=== PATIENT | female | born 1965 | race Caucasian/White ===

== ENCOUNTER 2024-07-05 23:04 | Outpatient (CLI) | payer OTHER, SELFPAY | END 2024-07-05 23:05 | disposition home or self-care (01) | LOC: AMB 07-07 12:03 | PROVIDERS: PCP Family Medicine; Visit Provider Family Medicine | DX: R19.7 Diarrhea, unspecified (principal); R42 Dizziness and giddiness; R53.1 Weakness | CPT/HCPCS: A0425; A0427 ==

== ENCOUNTER 2024-07-05 23:58 | Emergency (ER) | payer OTHER, SELFPAY ==
--- OUTSIDE RECORDS SUMMARY | 2024-07-06 00:01 | XMS_ITS | Encounter Summary ---
Author Organization [facility] Address [address] [place] [id number] Care Team Providers Care Directory Clerk Name Role Phone Litzy Cox M.D. Primary Care Provider [phone] Reason for Visit * Auth/Cert (Routine) Specialty Diagnoses / Procedures Referred By Ana t Referred To Contact Diagnoses Pain Sacroiliac Pain Sacroiliac [M53.3] Procedures SD ARTHRDSIS SACROILIAC PERC SACROILIAC JOINT FUSION Bilateral Diaz Narayanan M.D. [address] [place] [phone] Phone: tel: fax: Referral ID Status Reason Start Date Expiration Date Visits Re quested Visits Authorized [id number] 1 1 Encounter Details Date Type Department Care Team (Late st Contact Info) Description 06/24/2024 12:59 PM CDT Anesthesia Event RST ROMB MAIN OR [address] [place] [phone] Genet Centeno M.D. [address] [place] [phone] Anesthesia Record Procedure Summary Procedure Name Responsible Anesthesiologist Anesthesia Start Time Anesthesia Stop Time SACROILIAC JOINT FUSION, Bilateral. Revision Posterior Spinal Fusion L5 - Pelvis (Bilateral) Genet Centeno M.D. 06/24/24 1259 06/24/24 1832 Events Date Time Event Comment 06/24/2024 1231 1259 An Start Machine/Equipme nt Checked Infection Precautions Followed Procedure/Site Verified NPO Status Verified Supine Standard ASA Monitors Applied 1308 An Induction 1312 An Intubation 1312 Turnover to Proceduralist 1317 Becky On 1345 Proc Start 1631 Anes CS Handoff I, Javier Alamo, attest that I have reconciled the controlled substances and that I have reviewed all the significant information with the next anesthesia provider assuming care of this patient. 1708 Anes CS Handoff I, Gigi ochoa APRN, TRAFFIC CONTROLLER CABLE, DNAP, attest that I have reconciled the controlled substances and that I have reviewed all the significant information with the next anesthesia provider assuming care of this patient. 1754 Proc Fin 1809 Becky Off 1813 Turnover to ANE Staff 1818 Airway Removal Criteria Met 1818 Extubation/Airway Removed 1818 an stop data 1832 An End I completed my handoff to the receiving staff during which we 1. Identified the patient 2. Identified the responsible provider 3. Reviewed the pertinent medical history 4. Discussed the surgical course 5. Reviewed intra-op anesthesia management and issues during anesthesia 6. Set expectations for post-procedure period 7. Allowed opportunity for questions and acknowledgement of understanding. Meds Name Total fentanyl injection 50 mcg/mL 100 mcg lidocaine 2% (mg) injection 80 mg succinylcholine 20 mg/mL injection 140 m g phenylephrine 100 mcg/mL injection 600 m cg ondansetron 4 mg/2 mL injection 4 mg propofol 10 mg/mL infusion 2,647.8 mg propofol 10 mg/mL injection 230 mg dexAMETHasone (Decadron) injection 4 mg/ mL 4 mg ceFAZolin (Ancef) injection 1 g/5 mL 4 g tranexamic acid 2,500 mg in NaCl 0.9% IV PB 2,500 mg tranexamic acid 8 mg/mL in NaCl 0.9% 250 mL infusion (Cyklokapron) 2,150 mg ketamine 10 mg/mL injection 40 mg HYDROmorphone (Dilaudid) PF injection 2 mg/mL 1 mg rocuronium (Zemuron) injection 50 mg/5 m L 60 mg phenylephrine infusion 80 mcg/mL in NaCl 0.9% 250 mL (premix/CNR) 7.2 mg albumin human injection 5% 250 mL haloperidoL (HaldoL) injection 5 mg/mL 1 mg sugammadex (Bridion) injection 100 mg/mL 300 mg Lactated Ringers Free Drip 1,500 mL * Agents No agents on file. * Blood No blood administrations on file. Lines, Drains, and Airways Type Details Placement Removal Wound 09/25/22; 924; N; Incision; Throat 09/25/22 0925 by Deloris Zuniga RJason Wound 06/24/24; 1412; N; Incision; Back; Lower, Medial 06/24/24 1412 by Jyoti Johnston RSundayNSunday Peripheral IV Placement Date: 03/06 03/29; Placement Time: 1256; Catheter Size: 20 G; Orientation: Anterior, Left, Lower, Proximal; Location: Arm; Site Prep: Alcohol; Technique: Anatomical landmarks; Inserted by: TATYANA CARRILLO; Insertion Attempts: 1; Removal Date: 06/24/24; Removal Time: 185 (removed in previous encounter...removed from chart 06/24) 03/25/24 1256 by Ernst Nieves I. RJason 06/24/24 1859 by Dilia Valencia, RSundayNSunday Peripheral IV Placement Date: 06/04 04/29; Placement Time: 1226; Catheter Size: 20 G; Orientation: Right; Location: Arm; Site Prep: Chlorhexidine (Preferred); Technique: Anatomical landmarks; Inserted by: FERNANDO; Insertion Attempts: 1; Removal Date: 06/26/24; Removal Time: 1207; Removal Reason: Patient discharged 06/24/24 1226 by Sherrell Carpio 06/26/24 1207 by Rosana Mckay ETT Placement Date: 06/04 04/29; Placement Time: 1312 (created via procedure documentation); Mask Ventilation: Not attempted; Technique: Video laryngoscopy; Type: Standard ETT; Single Lumen Tube Size: 7 mm; Cuffed: Yes; Location: Oral; Grade View: Grade 1; Insertion Attempts: 1; Placement Verification: Bilateral breath sounds, Positive ETCO2, Symmetrical chest wall movement; Removal Date: 06/24/24; Removal Time: 181706/24/24 1312 by Jai Bryant M.D. 06/24/24 1818 by Gigi Holloway APRN, CRNA, DNAP Indwelling Urinary Catheter Placement Date: 06/24/24; Placement Time: 1320; Inserted by: Jyoti Johnston RN; Size: 16 Fr.; Balloon Size: 5 mL (filled with 10ml); Urine Returned: Yes; Removal Date: 06/24/24; Removal Time: 180; Removal Reason: Criteria for drain removal met 06/24/24 1320 by Jyoti Johnston, RSundayNSunday 06/24/24 180 by Bebe Claire M.S.NSunday, R.N. Closed/Suction Drain 06/24/24; 1715; Inf erior, Left; Back; Accordion; 10 Fr.; Per order, Other (Comment) (pt discharging); TATYANA Johnson 06/24/24 171 by Bebe Claire M.S.NSunday, R.N. 06/26/24 1312 by Elizabeth Roberson RSundayNSunday documented in this encounter Social History Tobacco Use Types Packs/Day Years Used Date Smoking Tobacco: Never Smokeless Tobacco: Never Alcohol Use Standard Drinks/Week Comments Never 0 (1 standard drink = 0.6 oz pur e alcohol) [facility] Utilities Answer Date Recorded In the past 12 months has [facility] [employer], gas, oil, or water [employer] threatened to shut off services in your home? No 07/16/2023 Humiliation, Afraid, Rape, and Kick questionnair e Answer Date Recorded Within the last year, have y ou been afraid of your partner or ex-partner? No 08/02/2022 Within the last year, have y ou been humiliated or emotionally abused in other ways by your partner or ex-partner? No Within the last year, have y ou been kicked, hit, slapped, or otherwise physically hurt by your partner or ex-partner? No 08/02/2022 Within the last year, have y ou been raped or forced to have any kind of sexual activity by your partner or ex-partner? No 08/02/2022 Social Connection and Isolat ion Panel [NHANES] Answer Date Recorded In a typical week, how many times do you talk on the phone with family, friends, or neighbors? More than three times a week 06/19/2022 How often do you get togethe r with friends or relatives? Once a week 06/19/2022 How often do you attend chur ch or baptism services? Never 06/19/2022 Do you belong to any clubs o r organizations such as temple groups, unions, fraternal or athletic groups, or school groups? No 06/19/2022 How often do you attend meet ings of the clubs or organizations you belong to? Never 06/19/2022 Are you , , di vorced, , never , or living with a partner? 06/19/2022 AUDIT-C Answer Date Recorded Q1: How often do you have a drink containing alc ohol? Never 06/19/2022 Average Number of Drinks Not on file 023 Frequency of Binge Drinking Not on file 06/03 Overall Financial Resource Strain (CARDIA) Answe r Date Recorded How hard is it for you to pa y for the very basics like food, housing, medical care, and heating? Not hard at all 08/02/2022 PHQ-2 Answer Date Recorded PHQ-2 Score 2 04/18/2024 [facility] - Occupational Stress Questionnaire Answer Date Recorded Do you feel stress - tense, restless, nervous, or anxious, or unable to sleep at night because your mind is troubled all the time - these days? To some extent 06/19/2022 Exercise Vital Sign Answer Date Recorde d On average, how many days pe r week do you engage in moderate to strenuous exercise (like a brisk walk)? 2 days 07/16/2023 On average, how many minutes do you engage in exercise at this level? 10 min 07/16/2023 Hunger Vital Sign Answer Date Recorded Within the past 12 months, y ou worried that your food would run out before you got the money to buy more. Never true 07/16/19 24 Within the past 12 months, t he food you bought just didn't last and you didn't have money to get more. Never true 07/16/2023 PRAPARE - Transportation Answer Date Re corded In the past 12 months, has l ack of transportation kept you from medical appointments or from getting medications? No 07/03 In the past 12 months, has l ack of transportation kept you from meetings, work, or from getting things needed for daily living? No 07/16/2023 Depression Answer Date Recor ded PHQ-9 Total Score (max 27) 7 04/18 Nutrition Answer Date Recorded On average, how many serving s of fruits and vegetables do you eat per day (serving size is equal to 1 cup or approximately the size of a tennis ball)? 3-5 07/16/2023 Dental Answer Date Recorded Dental: Regular Dentist Yes 04/22/19 Employment Answer Date Recorded Employment status Employed and actively working without restrictions 07/16/2023 Housing Stability Answer Date Recorded What is your living situation today? I have a [facility] place to live 07/16/2023 Education Answer Date Recorded What is the highest level of school you have completed or the highest degree you have received? Associate degree: occupational, technical, or vocational program 04/10/2020 Comments No Sex and Gender Information Value Date Recorded Sex Assigned at Female 11/27/2021 8:14 PM CDT Legal Sex Female 2:16 PM DEVELOPER DESIGNER Gender Identity Female 03/30/2019 8:45 PM DEVELOPER DESIGNER Sexual Orientation Straight 03/30/2019 8: 45 PM DEVELOPER DESIGNER documented as of this encounter OR Notes * Anesthesia Postprocedure Evaluation - Genet Centeno M.D. - 06/26/2024 1:16 PM CDT Patient: Carolann Lema Procedure Summary Date: 06/24/24 Room / Location: [address] 01 [facility] / [facility] in [place], [place] Anesthesia Start: 1259 Anesthesia Stop: 1831 Procedure: SACROILIAC JOINT FUSION, Bilateral. Revision Posterior Spinal Fusion L5 - Pelvis (Bilateral) Diagnosis: Pain Sacroiliac (Pain Sacroiliac [M53.3].) Providers: Diaz Narayanan M.D. Responsible Provider: Genet Centeno M.D. Anesthesia Type: general ASA Status: 3 Anesthesia Type: general Last vitals Vitals Value Taken Time BP 95/65 06/24/24 19:30 Temp 36.9 ??C 06/24/24 18:24 Pulse 91 06/24/24 19:40 Resp 8 06/24/24 19:40 SpO2 96 % 06/24/24 19:40 Vitals shown include unfiled device data. Please reference Vitals flowsheet for most recent vital signs. Anesthesia Post Evaluation Patient Disposition: general care unit Cardiovascular status: hemodynamics (HR & BP) acceptable Respiratory status: patent airway with spontaneous effort Temperature: normothermic Notable Events No notable events documented. * Anesthesia Procedure Notes - Jai Bryant M.D. - 06/24/2024 1:47 PM CDT Associated Order(s): Airway Airway Date/Time: 06/24/2024 1:12 PM Performed by: Jai Bryant M.D. Authorized by: Genet Centeno M.D. Patient location during procedure: OR / Procedure Area PROCEDURE DETAILS: Mask difficulty assessment: not attempted Final airway type: video laryngoscope Laryngeal Manipulation: no Final best view of glottic structures - Cormack/Lehane Score: grade 1 ETT location: oral VL device: glide scope Sycamore scope blade size: 3 Tube size: 7 ETT distance at teeth/gum: 22 Oral tube type: standard ETT Cuffed: yes Number of attempt to successful placement: 1 Airway confirmation: bilateral breath sounds, positive ETCO2 and bilateral chest rise Other previous techniques attempted: none PRE PROCEDURE DETAILS: Pre evaluation for airway management: procedure Urgency: elective Preop assessment of probable difficulty: no difficulty anticipated Preoxygenation: bag valve mask SEDATION / ANESTHESIA Anesthesia method: anesthesia POST PROCEDURE DETAILS: Procedure outcome: successful Notable Events: no complications ATTESTATION STATEMENT A resident or fellow participated in the procedure, and the nursing consultant was present for the entire procedure. * Anesthesia Preprocedure Evaluation - Genet Centeno M.D. - 06/24/2024 12:30 PM CDT Preprocedure Anesthesia & H&P Assessment Procedure Summary Date/Time: 06/24/24 1154 Procedure: SACROILIAC JOINT FUSION, Bilateral. (Bilateral) Diagnosis: Pain Sacroiliac [M53.3] Pre-op diagnosis: Pain Sacroiliac [M53.3]. Location: [place] [address] / [facility] in [place], [place] Providers: Diaz Narayanan M.D. Pertinent components of the patient's history including current problem list, medical history, surgical history, family history, social history, medications and allergies were reviewed. Present illness and pre-op diagnosis were confirmed. The planned surgery / procedure was verified with the patient / legal guardian. The patient's general health condition remains unchanged RELEVANT COMORBID CONDITIONS ANESTHESIA (+) Post Operative Nausea/Vomiting CV (+) Hypertensive Chronic Kidney Disease With Stage 1 Through Stage 4 Chronic Kidney Disease, Or Unspecified Chronic Kidney Disease (+) Ventricular Premature Depolarization RENAL/REPRO (+) Hypertensive Chronic Kidney Disease With Stage 1 Through Stage 4 Chronic Kidney Disease, Or Unspecified Chronic Kidney Disease ENDO (+) Hypothyroidism PSYCH (+) Depression Major Recurrent Moderate (HCC) GI (+) Gastroesophageal Reflux Disease Other (+) Morbid Obesity Body Mass Index >= 35 with Comorbid Condition (HCC) OBJECTIVE PHYSICAL EXAMINATION Airway (HEENT) Mallampati: II TM Distance: >3 FB Neck ROM: Limited Mouth Opening: >3 cm Cardiovascular Rhythm: Regular Rate: Normal Pulmonary Pulmonary Assessment: Non labored General / Constitutional Constitutional Assessment: Overweight General State of Health:: calm Neurological Neurologic Assessment: alert and alert and oriented x 3 Dental Dental Assessment: dentition intact ASSESSMENT / PLAN ANESTHESIA PLAN ASA: 3 Anesthesia Plan: general Patient seen and allergies reviewed, anesthesia plan and risks discussed directly with patient /legal guardian or through an freelance interpreter/translator. Risks/Benefits/Alternatives of Blood transfusion discussed with patient / legal guardian, includingan opportunity to ask questions and/or decline some or all transfusion therapies. The patient / legal guardian consented to the use of all blood products, as deemed medically necessary Approval to Proceed: approved for anesthesia documented in this encounter Plan of Treatment Upcoming Encounters Date Type Department Care Team (Latest Contact Info) Description 07/11/2024 11:30 AM CDT Office Visit Department of Family Medicine, [facility], in [address] [phone] Genet Roche, SCHOOL PSYCHOLOGIST, C.N.P. [address] [place] [phone] 08/07/2024 10:45 AM CDT Clinical Communication Virtual Review in [place], [place] [address] [place] [phone] 08/08/2024 7:45 AM CDT Appointment Department of Radiology, [facility] in [place], [place] [address] [place] [phone] Diaz Narayanan M.D. [address] [place] [phone] 08/08/2024 9:00 AM CDT Office Visit Department of Orthopedic Surgery in [address] [phone] Diaz Narayanan M.D. [address] [place] [phone] 09/19/2024 9:00 AM CDT Appointment Department of Laboratory Medicine and Pathology, [facility] in [address] [phone] Estefani Tamayo M.D. [address] [place] [phone] documented as of this encounter Procedures Procedure Name Priority Date/Time Associated Diagnosis Comments AIRWAY MANAGEMENT Routine 06/24/2024 1:1 2 PM CDT documented in this encounter Results * Airway (06/24/2024 1:12 PM CDT) Narrative Jai Bryant M.D. - 06/24/2024 1:12 PM CDT Jai Bryant M.D. 06/24/2024 1:48 PM Airway Date/Time: 06/24/2024 1:12 PM Performed by: Jai Bryant M.D. Authorized by: Genet Centeno M.D. Patient location during procedure: OR / Procedure Area PROCEDURE DETAILS: Mask difficulty assessment: not attempted Final airway type: video laryngoscope Laryngeal Manipulation: no Final best view of glottic structures - Cormack/Lehane Score: grade 1 ETT location: oral VL device: glide scope Sycamore scope blade size: 3 Tube size: 7 ETT distance at teeth/gum: 22 Oral tube type: standard ETT Cuffed: yes Number of attempt to successful placement: 1 Airway confirmation: bilateral breath sounds, positive ETCO2 and bilateral chest rise Other previous techniques attempted: none PRE PROCEDURE DETAILS: Pre evaluation for airway management: procedure Urgency: elective Preop assessment of probable difficulty: no difficulty anticipated Preoxygenation: bag valve mask SEDATION / ANESTHESIA Anesthesia method: anesthesia POST PROCEDURE DETAILS: Procedure outcome: successful Notable Events: no complications ATTESTATION STATEMENT A resident or fellow participated in the procedure, and the nursing consultant was present for the entire procedure. us Genet Centeno M.D. ANESTHESIA ORDERABLES Final Resu lt documented in this encounter Visit Diagnoses Not on filedocumented in this encounter Administered Medications Inactive Administered Medications - up to 3 most recent administrations Medication Order MAR Action Action Date Dose Rate Site albumin human 5 % injection intravenous, As needed, Starting on Sun06/24/24 at 1438, Anesthesia Intra-op Given 06/24/2024 2:38 PM CDT 250 mL ceFAZolin injection (Ancef) intravenous, As needed, Starting on Sun06/24/24 at 1343, Anesthesia Intra-op Given 06/24/2024 4:43 PM CDT 2 g Given 06/24/2024 1:43 PM CDT 2 g dexAMETHasone injection (Decadron) intravenous, As needed, Starting on Sun06/24/24 at 1339, Anesthesia Intra-op Given 06/24/2024 1:39 PM CDT 4 mg fentaNYL injection (Sublimaze) intravenous, As needed, Starting on Sun06/24/24 at 1309, Anesthesia Intra-op Given 06/24/2024 1:16 PM CDT 50 mcg Given 06/24/2024 1:09 PM CDT 50 mcg haloperidol lactate injection (HaldoL) intravenous, As needed, Starting on Sun06/24/24 at 1712, Anesthesia Intra-op Given 06/24/2024 5:12 PM CDT 1 mg HYDROmorphone (PF) injection (Dilaudid) intravenous, As needed, Starting on Sun06/24/24 at 1435, Anesthesia Intra-op Given 06/24/2024 5:13 PM CDT 0.2 mg Given 06/24/2024 3:35 PM CDT 0.4 mg Given 06/24/2024 2:35 PM CDT 0.4 mg ketamine injection (Ketalar) intravenous, As needed, Starting on Sun06/24/24 at 1318, Anesthesia Intra-op Given 06/24/2024 5:14 PM CDT 10 mg Given 06/24/2024 3:35 PM CDT 10 mg Given 06/24/2024 2:35 PM CDT 10 mg Lactated Ringer's intravenous, Continuous Infusion: Per Instructions PRN, Starting on Sun06/24/24 at 1307, Anesthesia Intra-op New Bag 06/24/2024 1:07 PM CDT lidocaine (PF) (cardiac) injection intravenous, As needed, Starting on Sun06/24/24 at 1309, Anesthesia Intra-op Given 06/24/2024 1:09 PM CDT 80 mg ondansetron (PF) injection (Zofran) intravenous, As needed, Starting on Sun06/24/24 at 1712, Anesthesia Intra-op Given 06/24/2024 5:12 PM CDT 4 mg phenylephrine 80 mcg/mL in NaCl 0.9% 250 mL infusion intravenous, Continuous Infusion: Per Instructions PRN, Starting on Sun06/24/24 at 1322, Anesthesia Intra-op Rate/Dose Change 06/24/2024 5:45 PM CDT 0.4 mcg/kg/min 36.69 mL/hr Rate/Dose Change 06/24/2024 3:16 PM CDT 0.2 mcg/kg/min 18. 345 mL/hr Rate/Dose Change 06/24/2024 2:39 PM CDT 0.25 mcg/kg/min 22 .931 mL/hr phenylephrine injection intravenous, As needed, Starting on Sun06/24/24 at 1436, Anesthesia Intra-op Given 06/24/2024 6:05 PM CDT 100 mcg Given 06/24/2024 6:01 PM CDT 200 mcg Given 06/24/2024 5:37 PM CDT 100 mcg propofol 10 mg/mL infusion (Diprivan) intravenous, Continuous Infusion: Per Instructions PRN, Starting on Sun06/24/24 at 1311, Anesthesia Intra-op Rate/Dose Change 06/24/2024 4:21 PM CDT 60 mcg/kg/min 44.028 mL/hr Rate/Dose Change 06/24/2024 3:13 PM CDT 75 mcg/kg/min 55.0 35 mL/hr Rate/Dose Change 06/24/2024 2:29 PM CDT 90 mcg/kg/min 66.0 42 mL/hr propofoL injection (Diprivan) intravenous, As needed, Starting on Sun06/24/24 at 1311, Anesthesia Intra-op Given 06/24/2024 5:59 PM CDT 30 mg Given 06/24/2024 1:16 PM CDT 50 mg Given 06/24/2024 1:11 PM CDT 150 mg rocuronium injection (Zemuron) intravenous, As needed, Starting on Sun06/24/24 at 1318, Anesthesia Intra-op Given 06/24/2024 5:16 PM CDT 10 mg Given 06/24/2024 4:49 PM CDT 20 mg Given 06/24/2024 1:18 PM CDT 30 mg succinylcholine (PF) injection (Anectine) intravenous, As needed, Starting on Sun06/24/24 at 1311, Anesthesia Intra-op Given 06/24/2024 1:11 PM CDT 140 mg sugammadex injection (Bridion) intravenous, As needed, Starting on Sun06/24/24 at 1807, Anesthesia Intra-op Given 06/24/2024 6:07 PM CDT 300 mg tranexamic acid 2,500 mg in NaCl 0.9% IVPB 2,500 mg (20 mg/kg 125 kg), intravenous, at 225 mL/hr, Administer over 20 Minutes, Once in surgery, OR use only, Starting on Sun06/24/24 at 1223, For 1 dose, Intra-Op New Bag 06/24/2024 1:37 PM CDT 2,500 mg tranexamic acid 8 mg/mL in NaCl 0.9% 250 mL infusion (Cyklokapron) 4 mg/kg/hr 125 kg (62.5 mL/hr), intravenous, Continuous, Starting on Sun06/24/24 at 1245, Intra-Op, In OR until skin closure. Pharmacy to adjust infusion dose for renal function. New Bag 06/24/2024 1:37 PM CDT 4 mg/kg/hr 62.5 mL/hr documented in this encounter Additional Health Concerns Assessment Noted Time PHQ-9 Depression Total Score: 7 04/18/19 9:48 AM DEVELOPER DESIGNER documented as of this encounter Care Teams Directory Clerk Relationship Specialty Start Date End Date Litzy Cox M.D. [address] [place] [phone] PCP - General Family Medicine 04/22/20 documented as of this encounter
--- OUTSIDE RECORDS SUMMARY | 2024-07-06 00:01 | XMS_ITS | Encounter Summary ---
Author Organization [facility] Address [address] [place] [id number] Care Team Providers Care Digital Media Designer Name Role Phone Litzy Cox M.D. Primary Care Provider [phone] Reason for Visit * Auth/Cert (Routine) Specialty Diagnoses / Procedures Referred By Ana sanchez Referred To Contact Diagnoses Pain Sacroiliac Pain Sacroiliac [M53.3] Procedures ID ARTHRDSIS SACROILIAC PERC SACROILIAC JOINT FUSION Bilateral Diaz Narayanan M.D. [address] [place] [phone] Phone: tel: fax: Referral ID Status Reason Start Date Expiration Date Visits Re quested Visits Authorized [id number] 1 1 Encounter Details Date Type Department Care Team (Late st Contact Info) Description 06/24/2024 11:54 AM CDT - 06/24/2024 3:00 PM CDT Surgery [facility] MAIN OR [address] [place] [phone] Diaz Narayanan M.D. [address] [place] [phone] SACROILIAC JOINT FUSION, Bilateral. Revision Posterior Spinal Fusion L5 - Pelvis Social History Tobacco Use Types Packs/Day Years Used Date Smoking Tobacco: Never Smokeless Tobacco: Never Alcohol Use Standard Drinks/Week Comments Never 0 (1 standard drink = 0.6 oz pur e alcohol) [facility] Utilities Answer Date Recorded In the past 12 months has e electric, gas, oil, or water company threatened to shut off services in your [...] often do you attend chur ch or faith services? Never 06/19/2022 Do you belong to any clubs o r organizations such as hindu groups, unions, fraternal or athletic groups, or [...] Answer Date Recorded PHQ-2 Score 2 04/18/2024 [facility] - Occupational Stress Questionnaire Answer Date Recorded [...] Date Recorded Dental: Regular Dentist Yes 04/22/19 21 Employment Answer Date Recorded Employment status Employed and actively working without restrictions 07/16/2023 Housing Stability Answer Date Recorded What is your living situation today? [facility] 07/16/2023 Education Answer Date Recorded What is the highest level of school you have completed or the highest degree you have received? Associate degree: occupational, technical, or vocational program 04/10/2020 Comments No Sex and Gender Information Value Date Recorded Sex Assigned at Female 11/27/2021 8:14 PM CDT Legal Sex Female 2:16 PM DIRECTOR BIOLOGY Gender Identity Female 03/30/2019 8:45 PM DIRECTOR BIOLOGY Sexual Orientation Straight 03/30/2019 8: 45 PM DIRECTOR BIOLOGY documented as of this encounter Last Filed Vital Signs Vital Sign Reading Time Taken Comments Blood Pressure 132/93 06/24/2024 9:32 AM CDT Pulse - - Temperature 36.7 C (98.1 F) 06/24/2024 9:32 AM CDT Respiratory Rate 18 06/24/2024 9:32 AM CDT Oxygen Saturation 97% 06/24/2024 9:32 AM CDT Inhaled Oxygen Concentration - - Weight 122 kg (269 lb 10 oz) 06/24/2024 9:32 AM CDT Height 174 cm (5' 8.5) 06/24/2024 9:32 AM CDT Body Mass Index 40.39 06/24/2024 9:32 AM CDT documented in this encounter Discharge Summaries * Carmelo Patel M.D. - 06/26/2024 10:27 AM CDT DISCHARGE SUMMARY BRIEF OVERVIEW Hospital: [facility] Discharge Provider: Diaz Narayanan M.D. Primary Team: [facility] Orthopedic Surgery - [place] Primary Care Providers: Litzy Cox M.D. ([address] [phone] Primary Care Provider Primary Care Provider Other Providers: None Admission Date: 06/24/2024 Discharge Date: 06/26/2024 PRINCIPAL DIAGNOSIS Pain Sacroiliac SECONDARY DIAGNOSES Principal Problem: Pain Sacroiliac Active Problems: Pain Back Resolved Problems: * No resolved hospital problems. * Surgery Information This Encounter Past Procedures (06/27/2023 to Today) Date Procedures Providers Loc / Dept 06/24/2024 SACROILIAC JOINT FUSION, Bilateral. Revision Posterior Spinal Fusion L5 - Pelvis Diaz Narayanan M.D.Mechas, Charles-Antoine A, M.D.Johnson, Quinn J, M.D. [facility] OR DISCHARGE DISPOSITION Home or Self Care [1] ACTIVE ISSUES REQUIRING FOLLOW UP None OUTPATIENT FOLLOW UP Scheduled Appointments 07/11/2024 11:30 AM Genet Roche APRN, C.N.P. Family Medicine 08/07/2024 10:45 AM [facility] ORS SPM INTAKE VISIT Admitting/Central Scheduling 08/08/2024 7:45 AM DX ROGO 14 RM 345 Radiology 08/08/2024 9:00 AM Diaz Narayanan M.D. Orthopedic Surgery For appointment details refer to your Patient Appointment Guide. TEST RESULTS PENDING AT DISCHARGE Pending Labs Order Current Status Bacterial Culture, Aerobic + Susceptibility Preliminary result Bacterial Culture, Anaerobic + Susceptibility Preliminary result DETAILS OF HOSPITAL STAY REASON FOR ADMISSION Pain Sacroiliac Pain Back HOSPITAL COURSE On the day of admission, the patient was taken to the operative room for the procedure listed above. The intraoperative as well as the immediate postoperative course were uncomplicated. For further details of the surgery please see the operative note. The patient was transferred from the PACU to the general care floor. The patient was ambulating and compliant with any activity restrictions. They were tolerating an oral diet at the time of dismissal and had optimal pain control on oral medications. The patient's incision remained clean and intact. They then met criteria for dismissal and were discharged home. This dismissal summary/after visit summary is a document signed by a physician, and is to serve as a prescription for medications administered by a nursing facility, physical therapy, blood draws, lab tests, PICC care, and/or any other items pertinent to the patient's care ordered herein. CONSULTS ORDERED DURING THIS ADMISSION None CONDITION AT DISCHARGE stable Discharge instructions were provided to the patient and caregiver(s). documented in this encounter Discharge Instructions * Discharge Instructions* Bruce Carvalho - 06/24/2024 9:02 AM CDT You were discharged from the [facility] Orthopedic Surgery - [facility] Service. Please identify this service name if you call with questions after hospitalization. * Attachments The following attachments cannot be sent through Care Everywhere. * Naloxone (Into the nose) (French) * Hydromorphone (By mouth) (French) * Ondansetron (By mouth, Into the mouth) (French) documented in this encounter Medications at Time of Discharge amLODIPine (Norvasc) 2.5 mg tabletIndications:R aynaud's Disease Take 1 tablet (2.5 mg total) by mouth daily. 90 tablet 3 4 benztropine (COGENTIN) 0.5 mg tablet Take 0.5 mg by mouth at bedtime. 4 biotin 1 mg tablet Take 1 mg by mouth daily. Hair, Skin, and Nails buPROPion XL (WELLBUTRIN XL) 300 mg 24 hr tablet Take 300 mg by mouth daily. 3 calcium citrate (Calcitrate) 950 mg (200 mg calcium) tablet Take 1 tablet (200 mg of calcium total) by mouth 3 (three) times a day with meals. 270 tablet 3 5 cholecalciferol (VITAMIN D3) 2,000 Unit capsule Take 1 capsule (2,000 Units total) by mouth daily. 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 60 tablet 3 5 cyanocobalamin 2,000 mcg tablet Take 2,500 mcg by mouth 3 (three) times a week. Takes on M, W, and F diazePAM (Valium) 2 mg tablet Take 1 tablet (2 mg total) by mouth daily as needed for anxiety, sedation or muscle spasms. 30 tablet 4 EPINEPHrine 0.3 mg/0.3 mL injection syringeIndications: Reaction Anaphylactic Personal History Inject 0.3 mL (0.3 mg total) intramuscularly as needed for anaphylaxis. Inject into the thigh. 1 each 11 5 fexofenadine (JAMAL) 180 mg tablet Take 180 mg by mouth daily. HYDROcodone-acetami nophen (NORCO) 7.5-325 mg per tablet Take 1 tablet by mouth every 6 (six) hours as needed. 3 hydroxychloroquine (PlaqueniL) 200 mg tabletIndications:A rthritis Inflammatory (HCC) TAKE 2 TABLETS (400 MG TOTAL) BY MOUTH DAILY. 180 tablet 1 5 hydrOXYzine (ATARAX) 25 mg tablet TAKE 1/2 TO 1 TABLET BY MOUTH EVERY EIGHT HOURS NEEDED FOR ANXIETY. 2 levothyroxine 50 mcg tablet TAKE ONE TABLET BY MOUTH DAILY 90 tablet 3 4 losartan (Cozaar) 25 mg tablet take one tablet by mouth daily 90 tablet 3 4 multivitamin tablet Take 2 tablets by mouth daily. Flintstones Multivitamins naloxone (Narcan) 4 mg/actuation nasal spray Administer 1 spray (4 mg total) into nostril(s) as needed for reversal. Use 1 spray in 1 nostril. Repeat with second device in other nostril after 2-3 minutes if no or minimal response. 2 each 06/26/2024 1:03 PM CDT 5 omeprazole (PriLOSEC) [address] capsule Take 1 capsule (40 mg total) by mouth daily before morning meal. 180 capsule 3 4 ondansetron ODT (Zofran-ODT) 4 mg disintegrating tablet Dissolve 1 tablet (4 mg total) in the mouth every 8 (eight) hours as needed for nausea or vomiting. 20 tablet 06/26/2024 1:03 PM CDT 5 07/26/19 25 polyethylene glycol (MIRALAX) 17 gram powder packet Take 1 packet (17 g total) by mouth daily as needed for constipation (for hard stools or constipation). Dissolve each 17 g dose in 240 mLs (8 ounces) of beverage. 30 packet 1 3 Prempro 0.625-2.5 mg per tablet TAKE 1 TABLET BY MOUTH DAILY. 28 tablet 11 5 sennosides-docusate sodium (SENOKOT-S) 8.6-50 mg per tablet Take 1 tablet by mouth 2 (two) times a day as needed for constipation. 60 tablet 1 2 SUMAtriptan (IMITREX) 50 mg tablet Take 1 tablet (50 mg total) by mouth as needed for migraine. May repeat dose once in 2 hours if migraine is unresolved. Do not exceed 200 mg in 24 hours. 9 tablet 5 2 topiramate (Topamax) 50 mg tablet Take 1 tablet (50 mg total) by mouth 2 (two) times a day. 180 tablet 3 4 venlafaxine (Effexor) 37.5 mg tablet Take 1 tablet by mouth daily. Take along with venlafaxine XR 150 mg once daily. 4 venlafaxine XR (EFFEXOR-XR) 150 mg 24 hr capsule Take 1 capsule by mouth daily. Take along with venlafaxine IR 37.5 mg once daily. 4 HYDROmorphone (Dilaudid) 2 mg tabletIndications:A cute Pain Exception Take 0.5 tablets (1 mg total) by mouth every 4 (four) hours as needed for moderate pain or score 4-6 of 10 Indication: Acute Pain Exception. 15 tablet 06/26/2024 1:03 PM CDT 5 07/01/19 25 documented as of this encounter Progress Notes * Roseann Fischer OSundayT., MOT - 06/26/2024 9:39 AM CDT Occupational Therapy [facility] Inpatient Treatment SUBJECTIVE Patient's Name: Carolann Lema Referring/Attending Provider: Diaz Narayanan M.D. Reason for Referral: Occupational Therapy Evaluation and Treatment Onset Date: 06/24/2024 History of Present Illness: Carolann Lema is a 58 y.o. female who was admitted to [facility] in [place] on 06/24/2024 for Pain Sacroiliac [M53.3] Pain Back [M54.9]. Precautions Other Precautions: SI joint fusion precautions Pain Assessment: Pain not reported during session. Subjective Comments: Patient greeted in chair and agreeable to therapy session. OBJECTIVE Vital Signs: Vitals monitored throughout session; within normal ranges. Outcome Measures: AM-PAC Inpatient Short Form: Putting on and taking off regular lower body clothing?: None Putting on and taking off regular upper body clothing?: None Taking care of personal grooming such as brushing teeth?: None Bathing (including washing, rinsing, drying)?: A Little Toileting, which includes using toilet, bedpan, or urinal?: None Eating meals?: None Daily Activities Raw Score (max 24): 23 Daily Activities Standardized Score: 51.12 Interpretation: Based on scoring guidelines using the raw score value: Those going to home had an average score at or above 18 Those going to facility had an average score at or below 17 Clinicians answer the AM-PAC Inpatient Short Form based on observed patient activity and/or clinical judgment (patient can be scored without physically performing each activity). The AM-PAC is one ofmany factors to consider when discharge planning. Cognition: No observable concerns with cognition at this time Therapeutic Interventions: ACTIVITIES OF DAILY LIVING: TOILETING: OT discussed toileting goal with patient . She reports she was able to complete toileting without physical assistance this morning and has no further concerns. FUNCTIONAL TRANSFERS: SIT<>STAND - Assist Level: modified independent - Device: four wheeled walker and gait belt - Surface: chair - Therapist Delivery: assessed - Assist/Cues Provided: none FUNCTIONAL MOBILITY: Mobility performed to practice household distances with modified independence and four wheeled walker and gait belt Education/Training Provided: - Role of OT in acute setting - Home safety Team Communication: The patient's status was discussed and coordination of care occurred with RN, PT Patient was left with PT at end of session with call light in reach, all needs met and questions answered. Assessment Discharge Therapy Needs - OT: No further skilled therapy If skilled therapy is recommended, skilled therapy can include occupational therapy provided in home health, outpatient or post-acute facility. The location of these services is determined by patient's care team in partnership with patient/family. Level of Care Needed - OT: Assistance with shopping, Assistance with housekeeping, Assistance with transportation, Assistance with meal preparation Clinical Impression: The patient has met all acute care OT goals at this time. She has a good understanding of precautions related to mobility and ADLs. The patient appears to have all homegoing needs met at this time. The patient was left with PT at end of session, all OT needs met. OT will sign off. Please re-consultif functional status changes. Plan Functional Goals: OT Goal #1: The patient will demonstrate the ability to complete toileting including clothing management, benjamin-cares and transfer with supervision/set up assistance to progress towards prior level offunction OT Goal #1 Status: Discontinued (comment) (pt. verbalized she was able to complete today. No ongoing concerns for home going. Did not complete with OT) OT Goal #2: The patient will complete grooming tasks standing at sink for 5 + minutes with set up assistance to progress towards independence with self cares prior to discharge. OT Goal #2 Status: Achieved OT Goal #3: The patient will complete lower body dressing with AE and modified independence to progress independence with self cares prior to discharge. OT Goal #3 Status: Achieved OT Goal #4: The patient and caregiver will verbalize/ demonstrate understanding of activity precautions with activities of daily living and functional transfers. OT Goal #4 Status: Achieved Progress: All OT goals achieved Rehab potential: Mrs. Lema has excellent potential to achieve established occupational therapy goals within the time frame outlined below. OT Frequency: OT Amount: 1 visit per day OT Frequency: Follow-up visit only OT Inpatient Duration : Until goals are met or hospital discharge Requires Inpatient OT Follow-Up: No Plan: Discontinue OT Treatment interventions may include: Treatment Interventions: Therapeutic exercise, Therapeutic functional activity, Self-care/home management, Cognitive skills training Occupational Therapy Attestation Statement: Patient agrees with the plan of care and goals. Billing: Time Spent with Patient Therapeutic Interventions Home Management Training (min): 14 min Time Tracking Total Timed Units (min): 14 min Total Treatment Time (min): 14 min Roseann Fischer O.T., MOT * Carmelo Patel M.D. - 06/26/2024 7:50 AM CDT Orthopedic Spine Surgery - [facility] Service Progress Note 2 Days Post-Op Surgery: Surgery Information This Encounter Past Procedures (06/27/2023 to Today) Date Procedures Providers Loc / Dept 06/24/2024 SACROILIAC JOINT FUSION, Bilateral. Revision Posterior Spinal Fusion L5 - Pelvis Diaz Narayanan M.D.Mechas, Charles-Antoine A, M.D.Johnson, Quinn J, M.D. [facility] ROMB OR SUBJECTIVE No acute events overnight. Pain well-controlled on current multimodal regimen. Tolerating general diet. Up and walking the halls yesterday, but did not get formal PT as was at xray when they stopped by. Will progress activity and work with PT today. OBJECTIVE VITALS Temperature: [36.6 ??C-37.2 ??C] 37 ??C Heart Rate: [79-112] 107 Resp Rate: [13-21] 15 Blood Pressure: (111-116)/(72-73) 111/73 SpO2: [93 %-97 %] 97 % Flow Rate (L/min): [0 L/min] 0 L/min Pulse Rate: [79-113] 107 Temp (24hrs), Av.9 ??C, Min:36.6 ??C, Max:37.2 ??C Physical Exam: Vital signs: BP 111/73 (BP Location: Right arm;Upper, Patient Position: Lying) Pulse 107 Temp 37 ??C Resp 15 Ht 174 cm Wt 122 kg SpO2 97% BMI 40.39 kg/m?? General: NAD, calm & comfortable Dressing clean, dry and intact HVAC in place, holding suction Output by Drain (mL) 06/24/24 0701 - 06/24/24 1900 06/24/24 1901 - 06/25/24 0700 06/25/24 0701 - 06/25/24 1900 06/25/24 1901 - 06/26/24 0700 06/26/24 0701 - 06/26/24 0750 Closed/Suction Drain Inferior;Left Back Accordion 10 Fr. 70 385 340 155 Physical Exam: Sensory (LE) L2?? (Groin)?? L3?? (Leg)?? L4?? (Knee)?? L5 ?? (Grt Toe)?? S1 ?? (Sm toe)?? R?? nl?? nl?? DEC DEC nl?? L?? nl?? nl?? DEC DEC nl? Motor (LE) IP (L2)?? Quad?? (L3)?? Ant Tib?? (L4/DP)?? EHL/GM?? (L5/SG)?? GS?? (S1-2/T)?? R?? 5 5 4 4 5?? L?? 5?? 5?? 4 4 5?? NL = normal/intact, Dec = decreased, n/a = unable to assess LABS Lab Results Component Value Date HGB 12.1 06/26/2024 WBC 8.8 06/26/2024 PLT 206 06/26/2024 CREATININE 1.12 (H) 06/25/2024 NA 141 06/25/2024 INR 1.0 04/07/2021 IMAGING - Completed POD1 Assessment & Plans: Lema / [phone] 58 y.o. female now s/p bilateral SI joint fusion, revision posterior fusion L5- pelvis ([facility], 06/24/2024). PLAN - Activity: Avoid heavy bending lifting and twisting more than 10 lbs, Chair TID, Ambulate x 4 - Brace: LSO as needed - Antibiotics: Ancef while drains in - Blood: Hemodynamically stable; currently asymptomatic. - Cultures: NGTD - Diet: ADAT to general diet. - Drains: All drains to bulb suction. Remove when output < 50cc per shift - DVT Prophylaxis: SCD's and early mobilization. No DVT chemoprophylaxis given spine surgery - Pain: Standard, local anesthetic; NSAIDs Contraindicated - Urinary: No urinary catheter - Imaging: Upright XRs prior to discharge - PT Progress: Pending PT Evaluation - Disposition: Anticipate discharge to home today possibly pending PT. Will pull drain if she leaves today. Active Issues # Acute blood loss anemia - monitor CBC and transfuse as needed. # Drain output/removal # Upright XRs prior to discharge # Pain Control # PT/disposition Comorbidities Present on Admission #1 Pain Sacroiliac #2 Pain Back Carmelo Patel M.D. Please contact the [facility] Service at [phone] with any questions or concerns regarding this patient from 06:00 - 18:00 on weekdays. If outside of 06:00 - 18:00 on weekdays or any time on the weekend, please contact the [facility] Orthopedic Surgery House Resident regional coordinator at [phone]. * Nasima No, Pharm.D., R.Ph. - 06/25/2024 11:51 AM CDT Pharmacist Progress Note Reason for admission: Status post T10 to the sacrum fusion, Bilateral sacroiliac pain, Bilateral sacroiliac DJD, Concern for potential L5-S1 pseudoarthrosis S/P Bilateral Sacroiliac Joint Fusion + Revision Posterior Spinal Fusion L5 - Pelvis 06/24/24. PMH: HTN, CKD, Hypothyroidism, Ventricular premature depolarization, Depression, GERD, Morbid Obesity (BMI 40.39 kg/m??.) OBJECTIVE Home medications: Held: Benztropine, Fexofenadine, Losartan, Prempro, [place] 7.5-325mg prn, Hydroxyzine prn, Biotin, Calcium, Vit D3, Vit B12, Multivitamin Changed: Diazepam 2mg Dailyprn anxiety, sedation or muscle spasms changed to 2mg TIDprn muscle spasms. Omeprazole ->Pantoprazole. Venlafaxine XR 150mg + IR 37.5mg Daily changed to Venlafaxine XR 150mg Daily. Prophylaxis: SCDs -No DVT chemoprophylaxis given spine surgery; Pantoprazole 40mg PO QAM; Scopolamine Patch on ID: Cefazolin 2g IV Q8H -Prophylaxis, surgical MICRO: 06/24 Lumbar Spine Implant x2 -in process. Serum creatinine: 1.12 mg/dL (H) 06/25/24 0412 Estimated creatinine clearance: 77.9 mL/min (A) ASSESSMENT / PLAN Cefazolin to continue while drain in place, will continue to monitor for drain removal. Cultures pending. Medications profile reviewed -consider restarting home Benztropine, Fexofenadine, Losartan, Premprowhen medically appropriate. Pharmacy will continue to follow for medication use optimization. Changes to medications anticipated at discharge:possible pain medications and bowel regimen Nasima No, PharmSundayD., R.Ph. * Isis Pike P.T., D.P.T. - 06/25/2024 10:10 AM CDT 06/25/24 1010 Reason Therapy Missed Reason Therapy Missed Receiving other care (Patient leaving with transport for x-ray on PT arrival. PT will follow-up as able and appropriate to initiate [id number].) Isis Pike P.T., D.P.T. * Carmelo Patel M.D. - 06/25/2024 5:19 AM CDT Orthopedic Spine Surgery - [facility] Service Progress Note 1 Day Post-Op Surgery: Surgery Information This Encounter Past Procedures (06/26/2023 to Today) Date Procedures Providers Loc / Dept 06/24/2024 SACROILIAC JOINT FUSION, Bilateral. Revision Posterior Spinal Fusion L5 - Pelvis Diaz Narayanan M.D.Mechas, Charles-Antoine A, M.D.Johnson, Quinn J, M.D. RST [facility]B OR SUBJECTIVE No acute events overnight. Pain well-controlled on current multimodal regimen. Tolerating general diet. Spontaneously voiding. Will progress activity and work with PT today. OBJECTIVE VITALS Temperature: [36.7 ??C-36.9 ??C] 36.9 ??C Heart Rate: [70-95] 70 Resp Rate: [11-22] 16 Blood Pressure: (95-132)/(65-93) 95/65 SpO2: [94 %-100 %] 97 % Flow Rate (L/min): [2 L/min-6 L/min] 2 L/min Pulse Rate: [77-94] 77 Temp (24hrs), Av.8 ??C, Min:36.7 ??C, Max:36.9 ??C Physical Exam: Vital signs: BP 95/65 Pulse 77 Temp 36.9 ??C (Axillary) Resp 16 Ht 174 cm Wt 122 kg SpO2 97% BMI 40.39 kg/m?? General: NAD, calm & comfortable Dressing clean, dry and intact HVAC in place, holding suction Output by Drain (mL) 06/23/24 07 - 06/23/24 1900 06/23/24 190 - 06/24/24 0700 06/24/24 0701 - 06/24/24 1900 06/24/24 190 - 06/25/24 0519 Closed/Suction Drain Inferior;Left Back Accordion 10 Fr. 70 50 Physical Exam: Sensory (LE) L2?? (Groin)?? L3?? (Leg)?? L4?? (Knee)?? L5 ?? (Grt Toe)?? S1 ?? (Sm toe)?? R?? nl?? nl?? DEC DEC nl?? L?? nl?? nl?? DEC DEC nl? Motor (LE) IP (L2)?? Quad?? (L3)?? Ant Tib?? (L4/DP)?? EHL/GM?? (L5/SG)?? GS?? (S1-2/T)?? R?? 5 5 4 4 5?? L?? 5?? 5?? 4 4 5?? NL = normal/intact, Dec = decreased, n/a = unable to assess LABS Lab Results Component Value Date HGB 11.1 (L) 06/25/2024 WBC 9.4 06/25/2024 PLT 225 06/25/2024 CREATININE 1.24 (H) 06/12/2024 NA 141 06/12/2024 INR 1.0 04/07/2021 IMAGING - To be obtained POD1 Assessment & Plans: Pita / [phone] 58 y.o. female now s/p bilateral SI joint fusion, revision posterior fusion L5- pelvis ([facility], 06/24/2024). PLAN - Activity: Avoid heavy bending lifting and twisting more than 10 lbs, Chair TID, Ambulate x 4 - Brace: LSO as needed - Antibiotics: Ancef while drains in - Blood: Hemodynamically stable; currently asymptomatic. - Cultures: None. - Diet: ADAT to general diet. - Drains: All drains to bulb suction. Remove when output < 50cc per shift - DVT Prophylaxis: SCD's and early mobilization. No DVT chemoprophylaxis given spine surgery - Pain: Standard, local anesthetic; NSAIDs Contraindicated - Urinary: No urinary catheter - Imaging: Upright XRs prior to discharge - PT Progress: Pending PT Evaluation - Disposition: Anticipate discharge to home pending PT, drains. Active Issues # Acute blood loss anemia - monitor CBC and transfuse as needed. # Drain output/removal # Upright XRs prior to discharge # Pain Control # PT/disposition Comorbidities Present on Admission #1 Pain Sacroiliac Carmelo Amanda, M.D. Please contact the [facility] Service at [phone] with any questions or concerns regarding this patient from 06:00 - 18:00 on weekdays. If outside of 06:00 - 18:00 on weekdays or any time on the weekend, please contact the [facility] Orthopedic Surgery House Resident regional coordinator at [phone]. * Carmelo Patel M.D. - 06/24/2024 7:04 PM CDT Orthopedic Spine Surgery - [facility] Service Progress Note * Day of Surgery * Surgery: Surgery Information This Encounter Past and Present Procedures (06/25/2023 to Today) Date Procedures Providers Loc / Dept 06/24/2024 SACROILIAC JOINT FUSION, Bilateral. Revision Posterior Spinal Fusion L5 - Pelvis Diaz Narayanan M.D.Mechas, Charles-Antoine A, M.D.Johnson, Quinn J, M.D. [facility] SUBJECTIVE Mrs. Lema was seen in the acute postop setting. Pain is well controlled at this time. Arousable, though somewhat somnolent during ongoing recovery from anesthesia. Denies chest pain and shortnessof breath. OBJECTIVE VITALS Temperature: [36.7 ??C-36.9 ??C] 36.9 ??C Heart Rate: [89-95] 93 Resp Rate: [12-18] 14 Blood Pressure: (102-132)/(67-93) 102/77 SpO2: [94 %-100 %] 97 % Flow Rate (L/min): [2 L/min-6 L/min] 2 L/min Pulse Rate: [93-94] 93 Temp (24hrs), Av.8 ??C, Min:36.7 ??C, Max:36.9 ??C Physical Exam: Vital signs: BP 102/77 Pulse 93 Temp 36.9 ??C (Axillary) Resp 14 Ht 174 cm Wt 122 kg SpO2 97% BMI 40.39 kg/m?? General: NAD, calm & comfortable Dressing clean, dry and intact HVAC in place, holding suction Output by Drain (mL) 06/22/24 0701 - 06/22/24 1900 06/22/24 190 - 06/23/24 0700 06/23/24 0701 - 06/23/24 1900 06/23/24 190 - 06/24/24 0700 06/24/24 0701 - 06/24/24 1900 06/24/24 190 - 06/24/241903 Requested LDAs do not have output data documented. Physical Exam: Sensory (LE) L2?? (Groin)?? L3?? (Leg)?? L4?? (Knee)?? L5 ?? (Grt Toe)?? S1 ?? (Sm toe)?? R?? nl?? nl?? DEC DEC nl?? L?? nl?? nl?? DEC DEC nl? Motor (LE) IP (L2)?? Quad?? (L3)?? Ant Tib?? (L4/DP)?? EHL/GM?? (L5/SG)?? GS?? (S1-2/T)?? R?? 5 5 4 4 5?? L?? 5?? 5?? 4 4 5?? NL = normal/intact, Dec = decreased, n/a = unable to assess LABS Lab Results Component Value Date HGB 13.7 06/12/2024 WBC 6.4 06/12/2024 PLT 290 06/12/2024 CREATININE 1.24 (H) 06/12/2024 NA 141 06/12/2024 INR 1.0 04/07/2021 IMAGING - To be obtained POD1 Assessment & Plans: Pita / [phone] 58 y.o. female now s/p bilateral SI joint fusion, revision posterior fusion L5- pelvis (Oracio, 06/24/2024). PLAN - Activity: Avoid heavy bending lifting and twisting more than 10 lbs, Chair TID, Ambulate x 4 - Brace: LSO as needed - Antibiotics: Ancef while drains in - Blood: Hemodynamically stable; currently asymptomatic. - Cultures: None. - Diet: ADAT to general diet. - Drains: All drains to bulb suction. Remove when output < 50cc per shift - DVT Prophylaxis: SCD's and early mobilization. No DVT chemoprophylaxis given spine surgery - Pain: Standard, local anesthetic; NSAIDs Contraindicated - Urinary: No urinary catheter - Imaging: Upright XRs prior to discharge - PT Progress: Pending PT Evaluation - Disposition: Anticipate discharge to home pending PT. Active Issues # Acute blood loss anemia - monitor CBC and transfuse as needed. # Drain output/removal # Upright XRs prior to discharge # Pain Control # PT/disposition Comorbidities Present on Admission #1 Pain Sacroiliac Carmelo Patel M.D. Please contact the [employer] [facility] at [phone] with any questions or concerns regarding this patient from 06:00 - 18:00 on weekdays. If outside of 06:00 - 18:00 on weekdays or any time on the weekend, please contact the [facility] Orth[facility] Surgery House Resident regional coordinator at [phone]. * Fabricio Carpio Pharm.D., R.Ph., BCP - 06/24/2024 10:06 AM CDT Images from the original note were not included. Admission Medication History Note Adherence issues: Unable to assess Medication list source: Patient and Pharmacy or dispense records Medication related information: Per patient report, she has received oxycodone products for pain inthe past and they have not helped, but hydromorphone (Dilaudid) has worked with no issues. Prior to Admission Medications Med List Status: Pharmacy Complete Set By: Fabricio Carpio Pharm.D., R.Ph., BCP at 06/24/2024 10:05 AM Taking? Last Dose Informant Start Date End Date LT acetaminophen (TYLENOL) 500 mg tablet More than a month -- 09/26/22 -- 1 to 2 tablets every 6 hours as needed for pain. Do not exceed 8 tablets in a 24 hour period. amLODIPine (Norvasc) 2.5 mg tablet 06/24/2024 at Morning -- 12/15/23 -- Take 1 tablet (2.5 mg total) by mouth daily. benztropine (COGENTIN) 0.5 mg tablet 06/23/2024 at Bedtime -- 06/25/23 -- Take 0.5 mg by mouth at bedtime. biotin 1 mg tablet 06/23/2024 at Morning -- -- -- Take 1 mg by mouth daily. Hair, Skin, and Nails Patient taking differently: Take 1 mg by mouth daily as needed. Hair, Skin, and Nails buPROPion XL (WELLBUTRIN XL) 300 mg 24 hr tablet 06/24/2024 at Morning -- 08/18/22 -- Take 300 mg by mouth daily. calcium citrate (Calcitrate) 950 mg (200 mg calcium) tablet Past Week -- 06/16/24 -- Take 1 tablet (200 mg of calcium total) by mouth 3 (three) times a day with meals. cholecalciferol (VITAMIN D3) 2,000 Unit capsule Past Week -- 10/10/19 -- Take 1 capsule (2,000 Units total) by mouth daily. clonazePAM (KlonoPIN) 0.5 mg tablet 06/23/2024 at Bedtime -- 06/13/24 -- TAKE 2 TABLETS (1 MG TOTAL) BY MOUTH AT BEDTIME. cyanocobalamin 2,000 mcg tablet -- -- -- -- Take 2,500 mcg by mouth 3 (three) times a week. Takes on M, W, and F diazePAM (Valium) 2 mg tablet -- -- 11/19/23 -- Take 1 tablet (2 mg total) by mouth daily as needed for anxiety, sedation or muscle spasms. EPINEPHrine 0.3 mg/0.3 mL injection syringe -- -- 04/18/24 -- Inject 0.3 mL (0.3 mg total) intramuscularly as needed for anaphylaxis. Inject into the thigh. fexofenadine (JAMAL) 180 mg tablet 06/23/2024 at Morning Self -- -- Take 180 mg by mouth daily. HYDROcodone-acetaminophen (NORCO) 7.5-325 mg per tablet 06/24/2024 at Morning -- 01/17/23 -- Take 1 tablet by mouth every 6 (six) hours as needed. hydroxychloroquine (PlaqueniL) 200 mg tablet 06/24/2024 at Morning -- 04/01/24 -- TAKE 2 TABLETS (400 MG TOTAL) BY MOUTH DAILY. hydrOXYzine (ATARAX) 25 mg tablet 06/23/2024 at Morning -- 09/08/21 -- TAKE 1/2 TO 1 TABLET BY MOUTH EVERY EIGHT HOURS NEEDED FOR ANXIETY. levothyroxine 50 mcg tablet 06/24/2024 at Morning -- 02/12/24 -- TAKE ONE TABLET BY MOUTH DAILY losartan (Cozaar) 25 mg tablet 06/23/2024 at Morning -- 12/31/23 -- take one tablet by mouth daily multivitamin tablet -- -- -- -- Take 2 tablets by mouth daily. [employer] Multivitamins omeprazole (PriLOSEC) [address] capsule 06/24/2024 at Morning -- 11/19/23 -- Take 1 capsule (40 mg total) by mouth daily before morning meal. polyethylene glycol (MIRALAX) 17 gram powder packet -- -- 09/26/22 -- Take 1 packet (17 g total) by mouth daily as needed for constipation (for hard stools or constipation). Dissolve each 17 g dose in 240 mLs (8 ounces) of beverage. Prempro 0.625-2.5 mg per tablet 06/24/2024 at Morning -- 03/14/24 -- TAKE 1 TABLET BY MOUTH DAILY. sennosides-docusate sodium (SENOKOT-S) 8.6-50 mg per tablet -- -- 05/06/21 -- Take 1 tablet by mouth 2 (two) times a day as needed for constipation. SUMAtriptan (IMITREX) 50 mg tablet -- -- 10/07/21 -- Take 1 tablet (50 mg total) by mouth as needed for migraine. May repeat dose once in 2 hours if migraine is unresolved. Do not exceed 200 mg in 24 hours. topiramate (Topamax) 50 mg tablet 06/24/2024 at Morning -- 02/01/24 -- Take 1 tablet (50 mg total) by mouth 2 (two) times a day. venlafaxine (Effexor) 37.5 mg tablet 06/24/2024 at Morning -- 12/04/23 -- Take 1 tablet by mouth daily. Take along with venlafaxine XR 150 mg once daily. venlafaxine XR (EFFEXOR-XR) 150 mg 24 hr capsule 06/24/2024 at Morning -- 06/20/23 -- Take 1 capsule by mouth daily. Take along with venlafaxine IR 37.5 mg once daily. documented in this encounter Consult Notes * Isis Pike P.T., D.P.T. - 06/26/2024 9:35 AM CDT Physical Therapy Inpatient Evaluation/Treatment By co-signing this note, the provider certifies the therapy being provided to this patient is reasonable and necessary for the diagnosis or treatment of this patient. SUBJECTIVE Patient's Name: Carolann Lema Referring/Attending Provider: Diaz Narayanan M.D. Reason for Referral: Physical Therapy Evaluate and Treat Onset Date: 06/24/2024 Pertinent Medical / Surgical History: Medical History[1] Surgical History[2] History of Present Illness: Carolann Lema is a 58 y.o. female who was admitted to [facility] in [place] on 06/24/2024 for Pain Sacroiliac [M53.3] Pain Back [M54.9]. Relevant Medical History: s/p bilateral SI fusion and revision of posterior spinal fusion L5-pelvis Precautions Other Precautions: SI joint fusion precautions Falls screen: Fall in the last 12 months: Yes, 4 Did you have an injury with the fall: Yes Are you fearful of falling: No Pain Assessment: Pain not reported during session. Patient/Caregiver Goals: Return to home Subjective Comments: Agreeable to therapy session. 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 She assists client with bathing.Her spouse and neighbor are able to assist her client as she recovers post OP. 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 No concerns during chart review and the patient had nosigns or symptoms consistent with vital changes during therapy session. Evaluation Assessments: Strength: Not formally assessed but appears within functional limits based on observation Range of Motion:Not formally assessed but appears within functional limits based on observation Balance: Static Sitting: Good (Maintains balance without support) Dynamic Sitting: Good (Maintains balance without support) Static Standing: Good (Maintains balance without support) Dynamic Standing: Good (Maintains balance without support) Activity Tolerance: Endurance: Tolerates 10-20 minutes of activity Hearing: Hearing Intact Outcome Measures: [facility] Inpatient Short Form: -[facility] Basic Mobility (V.2) How much help from another person do you currently need???If the patient hasn't done an activity recently, how much help from another person do you think he/she would needif he/she tried? 1. Turning from your back to your side while in a flat bed without using bedrails?: A Little 2. Moving from lying on your back to sitting on the side of a flat bed without using bedrails?: A Little 3. Moving to and from a bed to a chair (including a wheelchair)?: None 4. Standing up from a chair using your arms (e.g., wheelchair, or bedside chair)?: None 5. To walk in hospital room?: None 6. Climbing 3-5 steps with a railing?: None -[facility] Basic Mobility (V.2) Raw Score: 22 -[facility] Basic Mobility (V.2) Standardized Score: 47.4 Interpretation: Based on scoring guidelines using the raw score value: Those going to home had an average score at or above 18 Those going to facility had an average score at or below 17 Clinicians answer the AM-PAC Inpatient Short Form based on observed patient activity and/or clinical judgement (patient can be scored without physically performing each activity). The AM-PAC is one of many factors to consider when discharge planning. Therapeutic Interventions: STAND TO SIT: - Assist Level: modified independent - Device: gait belt and four wheeled walker - Surface: chair - Therapist Delivery: assessed - Assist/Cues Provided: none for GAIT: - Distance: 180 meters - Assist Level:modified independent - Device: gait belt and four wheeled walker - Quality: decreased gait speed - Therapist Delivery: assessed and instructed - Assist/Cues Provided:verbal for walker safety when needing to sit onto walker for seated rest break STAIRS: - 3 steps with right handrail, bilateral handrails - Assist Level: modified independent - Device: gait belt - Navigation Pattern: - Ascending: reciprocal, forward, and leading with left - Descending: reciprocal, forward, and leading with right - Therapist Delivery: assessed - Assist/Cues Provided: proper sequencing - Reps: 2 - Comments: Patient completes first trial with use of bilateral handrails, progresses to use of unilateral handrail to better simulate home environment CAR TRANSFER: - Simulated car transfer on square bench with PT providing education on proper sequencing and techniques to assist with turning into car such as placing pillowcase on seat or utilizing gait belt as leg sheet folder as needed. EDUCATION: -Role of PT in acute setting and collaborated with patient and/or family on goals and plan of care. -Durable medical equipment recommendations -Spine precautions The patient's status was discussed and the following coordination of care occurred with the RN, OT,and Primary Service Patient was left in bedside chair at end of session with call light in reach, all needs met and questions answered. Assessment Discharge Therapy Needs - PT: No further skilled therapy If skilled therapy is recommended, skilled therapy can include physical therapy provided by home health, outpatient clinic, or a post-acute facility. The location of these services is determined by the patient's care team in partnership with patient/family. Barriers to Discharge Home: None Equipment Recommended - PT: 4-wheeled walker contacted primary service regarding script for 4WW on 06/26 From a physical therapy perspective, the level of care above has been recommended for Mrs. Pope hospital discharge. This level of care is based on her functional abilities during today's session. This may change throughout the hospital course and will be updated as appropriate. Clinical Impression: Currently, patient presents with impaired static balance, impaired dynamic balance, and spinal precautions resulting in the following impaired gait. At baseline, patient mobilizes independently. She currently benefits from use of 4WW for upright mobility due to balance deficits and decreased activity tolerance; however, patient able to utilize with modified independence. She does not voice concerns regarding current functional status and pending discharge home with support of family. Mrs. Lema has met all acute PT goals and PT will sign-off at this time. If patient should experience significant change in status, please re-consult. Physical therapy treatment is medically necessary to restore and maximize function, maximize safetyand facilitate discharge to home, teach and educate the patient and/or caregivers. Plan PT Plan Comments: Patient mobilizing modified independent and has achieved all acute PT goals. No further therapy indicated. Functional Goals: PT Inpatient Goals PT Goal #1: Patient will demonstrate sit to/from stand transfer with modified independence using least restrictive gait aid to demonstrate improved functional mobility and independence. PT Goal #1 Status: Achieved PT Goal #2: Patient will be able to ambulate 50 meters with modified independence using least restrictive gait aid while executing the task with good safety awareness, stability, and functional strength. PT Goal #2 Status: Achieved PT Goal #3: Patient will negotiate 3 steps with 1 railing with modified independence to demonstrateability to safely access home environment upon discharge. PT Goal #3 Status: Achieved Progress: All PT goals achieved Carolann Lema has Excellent rehab potential to meet the expected outcomes in a reasonable period of time. Treatment Plan: Plan: Discontinue PT PT Frequency: One-time visit PT Inpatient Duration : Until goals are met or hospital discharge Requires Inpatient Follow-Up: No Patient agrees with the plan of care and goals. Treatment interventions may include: Billing: Tiered PT Evaluation Codes: Comorbid Conditions: Arthritis, Obesity, Mental health disorder, Renal disease, Other (Comment) Personal Factors: Body habitus, Needs assistive device Examination elements: 3 Clinical Presentation: Stable Clinical Decision Making: Low complexity clinical decision making Time Spent with Patient Evaluations PT Eval - Low Complexity: 10 min Therapeutic Interventions Therapeutic Activity (min): 13 min Time Tracking Total Timed Units (min): 13 min Total Treatment Time (min): 23 min Isis Pike P.T., D.P.T. [1] Past Medical History: Diagnosis Date Anemia Iron Deficiency Anxiety Generalized Disorder Apnea Sleep Obstructive Arthritis Chronic Kidney Disease NOS Concussion Loss Of Consciousness Unspecified Duration Initial Depressive Disorder Dumping Syndrome Dysphagia Eczema Gallbladder Disorder Gall bladder removed 2008 Gastroesophageal Reflux Disease NOS Headache Unspecified Hypertension NOS Hypothyroidism Nodule Thyroid Other Injury Of Unspecified Body Region Other Specified Health Status Right breast biopsy Post Operative Nausea/Vomiting [2] Past Surgical History: Procedure Laterality Date ABDOMINAL SURGERY Shmuel-en-Y Bariatric Surgery BARIATRIC SURGERY CHOLECYSTECTOMY DECOMPRESSION SPINE WITH INSTRUMENTATION - POSTERIOR THORACOLUMBAR Posterior 04/16/2020 Procedure: [id number] Fusion with TLIF L2-3, L3-4, and L5-S1; Surgeon: Diaz Narayanan M.D.; Location: [facility] FUSION SACROILIAC JOINT Bilateral 06/24/2024 Procedure: SACROILIAC JOINT FUSION, Bilateral. Revision Posterior Spinal Fusion L5 - Pelvis; Surgeon: Diaz Narayanan M.D.; Location: [facility] FUSION SPINE ANTERIOR CERVICAL N/A 09/25/2022 Procedure: FUSION SPINE ANTERIOR CERVICAL C4-7.; Surgeon: Diaz Narayanan M.D.; Location: [facility] OTHER CONVERTED SHX (SEE COMMENT) N/A 01/11/2010 >Fistulotomy with sphincter repair (Dictated by Dr. Quintana). REMOVAL HARDWARE SPINE N/A 05/05/2021 Procedure: REMOVAL HARDWARE SPINE, removal Bilateral S2 screws.; Surgeon: Diaz Narayanan M.D.;Location: [facility] REPAIR FISTULA COLOVAGINAL TUBAL LIGATION Cosigned by Diaz Narayanan M.D. at 06/30/2024 8:16 AM CDT * Roseann Fischer N, O.TSunday, MOT - 06/25/2024 9:59 AM CDT Occupational Therapy Acute Hospital Inpatient Evaluation/Treatment By co-signing this note, the provider certifies the therapy being provided to this patient is reasonable and necessary for the diagnosis or treatment of this patient. SUBJECTIVE Patient's Name: Carolann Lema Referring/Attending Provider: Diaz Narayanan M.D. Reason for Referral: Occupational Therapy Evaluation and Treatment Onset Date: 06/24/2024 PERTINENT MEDICAL / SURGICAL HISTORY: Medical History[1] Surgical History[2] History of Present Illness: Carolann Lema is a 58 y.o. female who was admitted to [facility] in [place] on 06/24/2024 for Pain Sacroiliac [M53.3] Pain Back [M54.9]. Relevant Medical History: s/p bilateral sacroiliac joint fusion. Revision posterior spinal fusion L5-pelvis Precautions Other Precautions: SI joint fusion precautions Falls screen: Fall in the last 12 months: Yes, 4 Did you have an injury with the fall: Yes Are you fearful of falling: No Pain Assessment: Pain Ratin/10 on a 0-10 point scale, Location: hip Patient states level of pain is acceptable or tolerable to participate in therapy Pain intervention(s) used to address pain greater than 4: ambulation/activity repositioned Patient/Caregiver Goals: Discharge home Subjective Comments: Patient greeted in bed and agreeable to therapy session. 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 She assists client with bathing.Her spouse and neighbor are able to assist her client as she recovers post OP. 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 Evaluation Assessment: STRENGTH: Upper extremities within functional limits RANGE OF MOTION: Upper extremities within functional limits BALANCE: Static Sitting: Good (Maintains balance without support) Dynamic Sitting: Good (Maintains balance without support) Static Standing: Good (Maintains balance without support) Dynamic Standing: Good (Maintains balance without support) ACTIVITY TOLERANCE: Endurance: Tolerates 20-30 minutes of activity Outcome Measures: -[facility] Inpatient Short Form: Putting on and taking off regular lower body clothing?: None Putting on and taking off regular upper body clothing?: None Taking care of personal grooming such as brushing teeth?: None Bathing (including washing, rinsing, drying)?: A Little Toileting, which includes using toilet, bedpan, or urinal?: A Little Eating meals?: None Daily Activities Raw Score (max 24): 22 Daily Activities Standardized Score: 47.1 Interpretation: Based on scoring guidelines using the raw score value: Those going to home had an average score at or above 18 Those going to facility had an average score at or below 17 Clinicians answer the -[facility] Inpatient Short Form based on observed patient activity and/or clinical judgment (patient can be scored without physically performing each activity). The AM-PAC is one ofmany factors to consider when discharge planning. Cognition: No observable concerns with cognition at this time - Cognitive Assessment Method: therapist observations - Orientation: oriented x4 - Arousal/Alertness: appropriate responses to stimuli - Following Commands: follows all commands without difficulty Therapeutic Interventions: ACTIVITIES OF DAILY LIVING: GROOMING - Assist Level: supervision/set-up - Patient Location: standing at sink - Activity: brushing teeth - regular or soft brush, washing hands - Therapist Delivery: assessed - Assist/Cues Provided: verbal for technique LOWER BODY DRESSING - Assist Level: modified independent - Patient Location: toilet - LB Dressing Item: underwear - Therapist Delivery: assessed - Assist/Cues Provided: none - patient ambulated to closet; obtained clothing items and brought into bathroom to complete dressing. TOILETING - Assist Level: modified independent - Patient Location: toilet - Activity: clothing management, anterior pericare - Therapist Delivery: assessed - Assist/Cues Provided: verbal for technique - patient demonstrates the ability to complete anterior benjamin-cares. She does have some concerns with positioning for posterior benjamin-cares. OT discussed techniques and AE for toileting. BED MOBILITY: SIT<>SUPINE - Assist Level: modified independent - Device: bed rail - Therapist Delivery: assessed - Assist/Cues Provided: none - patient completes log roll without assistance. FUNCTIONAL TRANSFERS: SIT<>STAND - Assist Level: supervision/set-up - Device: front wheeled walker and gait belt - Surface: bed, toilet - Therapist Delivery: assessed - Assist/Cues Provided: none TOILET TRANSFER - Assist Level: modified independent - Device: front wheeled walker and gait belt - Approach: to and from, ambulating - Surface: toilet - Therapist Delivery: assessed - Assist/Cues Provided: none Education/Training Provided: Provided education on role of occupational therapy in the acute setting. Collaborated with patient and/or family on goals and plan of care. SI Joint Fusion Precautions: Educated patient on SI joint fusion precautions and how to apply thesetechniques to activities of daily living and mobility. - No lifting more than 10 lbs, exercise, or strenuous activity for 8 weeks. - OK to perform activities of daily as tolerated. - Use abdominal binder for 3 days post-op to control bruising and hematoma. - No range of motion restrictions, OK to perform pain-free slow movements including bending/twisting. - Instructed on figure four stretching to start at one week. Functional Transfers: - Provided instruction and cues during functional sit to/from stand transfers, including body alignment to surface, appropriate hand placement, and optimal placement of extremities to optimize safetyand technique. Team Communication: The patient's status was discussed and coordination of care occurred with RN, PT Patient was left in bed at end of session with call light in reach, all needs met and questions answered. Assessment Discharge Therapy Needs - OT: No further skilled therapy If skilled therapy is recommended, skilled therapy can include occupational therapy provided in home health, outpatient or post-acute facility. The location of these services is determined by patient's care team in partnership with patient/family. Level of Care Needed - OT: Assistance with showering/bathing, Assistance with shopping, Assistance with housekeeping, Assistance with transportation, Assistance with meal preparation Barriers to Discharge Home: Current functional status Clinical Impression: Currently, patient presents with impairments including pain and decreased strength resulting in functional deficits including impaired functional mobility and decreased independence with self care tasks. The patient was able to complete lower body dressing toileting and standing grooming without physical assistance. Discussed strategies for toileting to maintain activity precautions. The patient overall mobilized with front wheeled walker and supervision. She would benefit from a follow up visit to maximize independence in self cares prior to discharge. The patient will benefit from ongoing occupational therapy services while hospitalized in order to improve engagement and independence in meaningful occupations. Plan OT Plan Comments: Next session: review posterior benjamin hygiene positioning/AE, sock aid? Functional Goals: OT Goal #1: The patient will demonstrate the ability to complete toileting including clothing management, ebnjamin-cares and transfer with supervision/set up assistance to progress towards prior level offunction OT Goal #1 Status: Progressing OT Goal #2: The patient will complete grooming tasks standing at sink for 5 + minutes with set up assistance to progress towards independence with self cares prior to discharge. OT Goal #2 Status: Achieved OT Goal #3: The patient will complete lower body dressing with AE and modified independence to progress independence with self cares prior to discharge. OT Goal #3 Status: Achieved OT Goal #4: The patient and caregiver will verbalize/ demonstrate understanding of activity precautions with activities of daily living and functional transfers. OT Goal #4 Status: Progressing Progress: Progressing toward goals Rehab potential: Mrs. Lema has excellent potential to achieve established occupational therapy goals within the time frame outlined below. OT Frequency: OT Amount: 1 visit per day OT Frequency: Follow-up visit only OT Inpatient Duration : Until goals are met or hospital discharge Requires Inpatient OT Follow-Up: Yes OT - Next Inpatient Appointment: 06/26/24 Plan: Plan of care initiated Treatment interventions may include: Treatment Interventions: Therapeutic exercise, Therapeutic functional activity, Self-care/home management, Cognitive skills training Occupational Therapy Attestation Statement: Patient agrees with the plan of care and goals. Billing: Tiered OT Evaluation Codes: Comorbid Conditions: Arthritis, Obesity, Mental health disorder, Renal disease, Other (Comment) Personal Factors: Body habitus, Needs assistive device Occupational Profile and History review: Expanded Performance Deficits: 3 - 5 performance deficits Evaluation Complexity: Moderate Time Spent with Patient Evaluations OT Eval - Mod Complexity: 15 min Therapeutic Interventions Home Management Training (min): 24 min Time Tracking Total Timed Units (min): 24 min Total Treatment Time (min): 39 min Roseann Fischer O.T., MOT [1] Past Medical History: Diagnosis Date Anemia Iron Deficiency Anxiety Generalized Disorder Apnea Sleep Obstructive Arthritis Chronic Kidney Disease NOS Concussion Loss Of Consciousness Unspecified Duration Initial Depressive Disorder Dumping Syndrome Dysphagia Eczema Gallbladder Disorder Gall bladder removed 2008 Gastroesophageal Reflux Disease NOS Headache Unspecified Hypertension NOS Hypothyroidism Nodule Thyroid Other Injury Of Unspecified Body Region Other Specified Health Status Right breast biopsy Post Operative Nausea/Vomiting [2] Past Surgical History: Procedure Laterality Date ABDOMINAL SURGERY Shmuel-en-Y Bariatric Surgery BARIATRIC SURGERY CHOLECYSTECTOMY DECOMPRESSION SPINE WITH INSTRUMENTATION - POSTERIOR THORACOLUMBAR Posterior 04/16/2020 Procedure: Q69-[id number] Fusion with TLIF L2-3, L3-4, and L5-S1; Surgeon: Diaz Narayanan M.D.; Location: [facility] FUSION SACROILIAC JOINT Bilateral 06/24/2024 Procedure: SACROILIAC JOINT FUSION, Bilateral. Revision Posterior Spinal Fusion L5 - Pelvis; Surgeon: Diaz Narayanan M.D.; Location: [facility] FUSION SPINE ANTERIOR CERVICAL N/A 09/25/2022 Procedure: FUSION SPINE ANTERIOR CERVICAL C4-7.; Surgeon: Diaz Narayanan M.D.; Location: [facility] OTHER CONVERTED SHX (SEE COMMENT) N/A 01/11/2010 >Fistulotomy with sphincter repair (Dictated by Dr. Quintana). REMOVAL HARDWARE SPINE N/A 05/05/2021 Procedure: REMOVAL HARDWARE SPINE, removal Bilateral S2 screws.; Surgeon: Diaz Narayanan M.D.;Location: [facility] REPAIR FISTULA COLOVAGINAL TUBAL LIGATION Cosigned by Carmelo Patel M.D. at 06/25/2024 4:11 PM CDT documented in this encounter Nursing Notes * Elizabeth Roberson, R.N. - 06/26/2024 1:16 PM CDT Shift Goals: Clinical Goals for the Shift: pt will remain safe this shift Identify possible barriers to meeting goals/advancing plan of care: none End of Shift Summary: Patient discharged home to self care with family () providing transport. Pt is A&Ox3, able to make needs known, uses call light appropriately. VSS on RA. Pain was adequately controlled through oral regimen. Patient was able to mobilize independently using walker and was voiding spontaneously. Patient education and AVS were reviewed with patient & all questions were answered. Vital signs were taken, IVs and drains were removed. Patient belongings were sent withthem, general services were called to escort patient off the unit. BP (!) 122/91 (BP Location: Right arm;Upper, Patient Position: Sitting) Comment: patient up and walking Pulse 83 Temp 36.8 ??C (Oral) Resp 18 Comment: patient had been up and walking Ht 174 cm Wt 122 kg SpO2 95% BMI 40.39 kg/m?? Electronically signed by: Elizabeth Roberson R.N. 06/26/24 1:18 PM CDT documented in this encounter OR Notes * Op Note - Diaz Narayanan M.D. - 06/24/2024 4:17 PM CDT PRE-OPERATIVE DIAGNOSIS Status post T10 to the sacrum fusion. Bilateral sacroiliac pain. Bilateral sacroiliac DJD. Concern for potential L5-S1 pseudoarthrosis. BMI 40.4. Postoperative nausea and vomiting. Hypertensive chronic kidney disease. Ventricular premature depolarization. Hypothyroidism. Depression major recurrent. Gastroesophageal reflux disease. POST-OPERATIVE DIAGNOSIS Status post T10 to the sacrum fusion. Bilateral sacroiliac pain. Bilateral sacroiliac DJD. Concern for potential L5-S1 pseudoarthrosis. BMI 40.4. Postoperative nausea and vomiting. Hypertensive chronic kidney disease. Ventricular premature depolarization. Hypothyroidism. Depression major recurrent. Gastroesophageal reflux disease. A digital assistant actively participated and was necessary for one or more of the following: opening, exposure and visualization during the case, maintaining hemostasis, wound closure resulting in itssafe and expeditious completion. Case was additionally complex given the patient's history of prior surgery which added significant paraspinal muscular scarring as well as scar tissue over the instrumentation this is distorted localanatomy and added approximately 1 hour of time for the safe completion of the case. SURGEON: Diaz Narayanan M.D. BOOM PUMP OPERATOR: Dylon Brown M.D. INDICATIONS: Treatment of pain and sacroiliac pain as well as painful pseudoarthrosis. PROCEDURES: Reopening of posterior lumbar incision. Exploration of fusion mass L3-4, L4-5, L5-S1. Removal of hardware. Use of O-arm with Stealth navigation for placement of instrumentation. Revision posterior segmental instrumentation S1 bilateral, S2 alar iliac. Placement of SI bone Ifuse Stuart pelvic instrumentation for bilateral SI fusion. Revision spinal fusion L5-S1 with application of allograft bone, bone morphogenic protein for fusion. ANESTHESIA: General endotracheal. IMPLANTS: [employer] F[employer]a Expedium 5.5 titanium set. SI bone Ifuse Stuart SI fusion system. HISTORY OF PRESENT ILLNESS: Ms. Lema is a very pleasant 58-year-old female with the above condition. She had undergone a previous T10 to the pelvis fusion with myself back in 2020 and done quite well. She was having pain and prominence of her S2 alar iliac screws and underwent a subsequent removal of the screws in 2021. She did quite well until recently when she began having significant sacroiliac pain symptoms. Subsequent imaging did demonstrate concern for potential pseudoarthrosis at L5- S1 with some lucency about the S1 pedicle screws as well as evidence of advanced degenerative changes in bilateral SI joints with subchondral sclerosis, anterior osteophyte formation, and a vacuum disk phenomena. As such, we did discuss with her bilateral SI fusion with exploration of her fusion at the L5-S1 segment and potential revision posterior instrumentation along with the bilateral SI fusion at L5-S1. I did discuss what this would entail as well as the primary goal of surgery which would be to improve her sacroiliacpain as well as treat any pain from persistent pseudarthrosis. I did discuss her symptoms may be nobetter or even worse with surgical intervention. I did review the risks of surgery in detail including risk of surgical site infection, spinal fluid leak, neurologic injury, instrumentation issues, adjacent segment issues, bleeding, anesthetic complications, and perioperative medical complications.I also did discuss my preference to utilize bone morphogenic protein in the setting for fusion including the risks associated with this including but not limited to heterotopic ossification, osteolysis, BMP seroma, BMP radiculitis, and in some studies correlation with neoplasia. After a long discussion of risks, benefits, and alternatives, the patient wished to proceed with surgery. Informed consent was obtained and signed. All questions were answered. COMPLICATIONS None. OPERATIVE NOTE NARRATIVE The patient was identified in the preoperative holding area by name and clinic number. The posterior lumbar spine was site marked. The patient was then brought to the operating room. General endotracheal anesthesia was induced without complications. The patient was then positioned prone on a Aaron table in standard fashion. Care was taken to pad all bony prominences. The posterior lumbosacral spine was prepped and draped in standard sterile orthopedic fashion. A preprocedural pause was then performed to confirm the correct patient, site, midline nature of procedure, procedure itself, as well as administration of preoperative antibiotics. Following this, we did localize the L3-2 level with fluoroscopy. Incision was reopened in the midline. Dissection was carried down through skin and subcutaneous tissue down to fascia. The fascia was divided, and subperiosteal dissection was performed to expose the residual dorsal bony elements fromL3-S2 as well as the patient's prior instrumentation which was utilized for localization purposes from L3-S1. We then carefully explored the fusion mass and found this to be solid at L3-4 and L4-5 but evidence of pseudoarthrosis at L5- S1. As such, we did cut the rods just distal to the L5 tulips and then removed the set caps and S1 screws which were found to be loosened in standard fashion. We then upsized these to 9 mm screws in standard fashion which did have excellent purchase and then applied a reference frame and obtained a high- definition O-arm spin. Under Stealth navigation, we drilled, tapped, and placed a combination of 9.5 x 90 mm Stuart screws from the SI bone set with excellent purchase for our bilateral SI fusion. We then irrigated the wound copiously and confirmed satisfactory position of our instrumentation on fluoroscopy. We then decorticated the dorsal bony elements intheir entirety, especially across the L5-S1 facet joint, transverse process, and sacral ala for ourposterior fusion. We then applied a combination of a large kit of BMP as well as allograft bone in the form of Fibergraft and PliaFX. We then applied a lindsay across the S2 alar iliac Stuart screw as well as the S1 pedicle screw on both sides and connected this to the previous construct with cross connectors. Once we were satisfied with this, we final tightened the construct and obtained final fluoroscopic images including AP and lateral views which showed satisfactory position of all of our instrumentation. Satisfied with this, we placed a subfascial drain in standard fashion as well as vancomycin powder in the wound. The wound was then closed in anatomic layers. Sterile dressings were applied. The patient was subsequently transferred from the operating to hospital bed, extubated, and noted to be moving all 4 extremities grossly prior to return to the PACU. DRAINS: One subfascial Davol drain. POSTPROCEDURAL PLAN: Patient will be admitted to the General Orthopedic Service to begin mobilizing per protocol. We will continue perioperative antibiotics and DVT prophylaxis per protocol. We will not plan on any bracing. I anticipate discharge to home in 1- 2 nights provided she is doing well. Otherwise, we have sentthe patient's instrumentation off for ultrasonification. We will follow up on the results of this. TPR: 2, Instrumentation and fusion Diaz Narayanan M.D. CT CT Job ID: [id number]/vma documented in this encounter Plan of Treatment Upcoming Encounters Date Type Department Care Team (Latest Contact Info) Description 07/11/2024 11:30 AM CDT Office Visit Department of Family Medicine, [facility], in [address] [phone] Genet Roche APRN, C.N.P. [address] [place] [phone] 08/07/2024 10:45 AM CDT Clinical Communication Virtual Review in [address] [phone] 08/08/2024 7:45 AM CDT Appointment Department of Radiology, [facility] in [place], [place] [address] [place] [address] Diaz Narayanan M.D. [address] [place] [phone] 08/08/2024 9:00 AM CDT Office Visit Department of Orthopedic Surgery in [place], [place] [address] [place] [address] Diaz Narayanan M.D. [address] [place] [phone] 09/19/2024 9:00 AM CDT Appointment Department of Laboratory Medicine and Pathology, [facility] in [place], [place] [address] [place] [address] Estefani Tamayo M.D. [address] [place] [phone] Pending Results Name Type Priority Associated Diagnoses Date /Time Bacterial Culture, Anaerobic + Susceptibility Microbiology Routine Pain Sacroiliac 06/24/2024 3:02 PM CDT documented as of this encounter Procedures Procedure Name Priority Date/Time Associated Diagnosis Comments CBC WITH DIFFERENTIAL, B STAT 06/26/2024 6:16 AM CDT DX PELVIS 3+ VIEWS RAD - Routine (most inpatients and all outpatients) 06/25/2024 10:45 AM CDT DX LUMBAR SPINE 2-3 VIEWS RAD - Routine (most inpatients and all outpatients) 06/25/2024 10:45 AM CDT REMOTE OXIMETRY MONITORING CONT. Routine 06/25/2024 8:00 AM CDT CBC WITHOUT DIFFERENTIAL, B Timed 06/25/2024 4:12 AM CDT BASIC METABOLIC PANEL, S/P Timed 06/25/2024 4:12 AM CDT REMOTE OXIMETRY MONITORING CONT. Routine 06/24/2024 7:59 PM CDT REMOTE OXIMETRY MONITORING CONT. Routine 06/24/2024 7:59 PM CDT REMOTE OXIMETRY MONITORING CONT. Routine 06/24/2024 7:59 PM CDT ADULT OXYGEN THERAPY Routine 06/24/2024 6:46 PM CDT FL OARM RAD - Routine (most inpatients and all outpatients) 06/24/2024 5:57 PM CDT FL FLUORO LESS THAN 1 HOUR RAD - Routine (most inpatients and all outpatients) 06/24/2024 5:16 PM CDT BACTERIAL CULTURE, AEROBIC + SUSC Routine 06/24/2024 3:02 PM CDT Pain Sacroiliac BACTERIAL CULTURE, ANAEROBIC + SUSC Routine 06/24/2024 3:02 PM CDT Pain Sacroiliac FUSION SACROILIAC JOINT 06/24/2024 12:34 PM CDT Pain Sacroiliac Case Notes [employer] [phone] documented in this encounter Results * (ABNORMAL) CBC with Differential, Blood (06/26/2024 6:16 AM CDT) [facility] Hemoglobin 12.1 11.6 - 15.0 g/dL 06/26/2024 6:24 AM CDT STMA Hematocrit 36.3 35.5 - 44.9 % 06/26/2024 6:24 AM CDT STMA Erythrocytes 3.98 3.92 - 5.13 x10(12)/L 06/26/2024 6:24 AM CDT STMA MCV 91.2 78.2 - 97.9 fL 06/26/2024 6:24 AM CDT STMA RBC Distrib Width 13.7 12.2 - 16.1 % 06/26/2024 6:24 AM CDT STMA Platelet Count 206 157 - 371 x10(9)/L 06/26/2024 6:24 AM CDT STMA Leukocytes 8.8 3.4 - 9.6 x10(9)/L 06/26/2024 6:24 AM CDT STMA Neutrophils 6.04 1.56 - 6.45 x10(9)/L 06/26/2024 6:24 AM CDT DHPM Lymphocytes 1.47 0.95 - 3.07 x10(9)/L 06/26/2024 6:24 AM CDT STMA Monocytes 0.95(H) 0.26 - 0.81 x10(9)/L 06/26/2024 6:24 AM CDT STMA Eosinophils 0.28 0.03 - 0.48 x10(9)/L 06/26/2024 6:24 AM CDT STMA Basophils 0.03 0.01 - 0.08 x10(9)/L 06/26/2024 6:24 AM CDT STMA Blood (Blood, Venous) 06/26/2024 6:16 AM CDT 06/26/2024 6:22 AM CDT Carmelo Patel M.D. LAB BLOOD ADD-ON Final Res ult [facility] [address] [place] [address], [facility] STMA [facility] [address] [place] [address] DHPM [facility] [address] [place] [address] * DX Pelvis 3+ Views (06/25/2024 10:45 AM CDT) Anatomical Region Laterality Modality Pelvis, Musculoskeletal RST LOS, Musculoskeletal ARZ LOS, Muskuloskeletal FLA LOS N/A Digital Radiography Impressions 06/25/2024 11:32 AM CDT Postoperative changes T10-S1 posterior fusion with lindsay and pedicle screw fixation and interbody spacers. Interval postoperative change bilateral sacroiliac joint fusion and L5-S1 perfusion revision with bone grafting. No gross evidence of hardware failure or loosening. Surgical drain left posterior abdominal wall. Surgical clips upper abdomen. Pelvic phleboliths. Narrative 06/25/2024 11:32 AM CDT EXAM: DX LUMBAR SPINE 2-3 VIEWS, DX PELVIS 3+ VIEWS Procedure Note Jules Villalobos D.O. - 06/25/2024 EXAM: DX LUMBAR SPINE 2-3 VIEWS, DX PELVIS 3+ VIEWS IMPRESSION: Postoperative changes T10-S1 posterior fusion with lindsay and pedicle screwfixation and interbody spacers. Interval postoperative change bilateralsacroiliac joint fusion and L5-S1 perfusion revision with bone grafting.No gross evidence of hardware failure or loosening. Surgical drain left posterior abdominalwall. Surgical clips upper abdomen. Pelvic phleboliths. us Carmelo Patel M.D. [facility] [place] [facility] PRO CEDURES Final Result * DX Lumbar Spine 2-3 Views (06/25/2024 10:45 AM CDT) Anatomical Region Laterality Modality Lumbar Spine, Musculoskeleta l RST LOS, Neuroradiology ARZ LOS, Muskuloskeletal FLA LOS N/A Digital Radiography Impressions 06/25/2024 11:32 AM CDT Postoperative changes T10-S1 posterior fusion with lindsay and pedicle screw fixation and interbody spacers. Interval postoperative change bilateral sacroiliac joint fusion and L5-S1 perfusion revision with bone grafting. No gross evidence of hardware failure or loosening. Surgical drain left posterior abdominal wall. Surgical clips upper abdomen. Pelvic phleboliths. Narrative 06/25/2024 11:32 AM CDT EXAM: DX LUMBAR SPINE 2-3 VIEWS, DX PELVIS 3+ VIEWS Procedure Note Jules Villalobos D.Gokul. - 06/25/2024 EXAM: DX LUMBAR SPINE 2-3 VIEWS, DX PELVIS 3+ VIEWS IMPRESSION: Postoperative changes T10-S1 posterior fusion with lindsay and pedicle screwfixation and interbody spacers. Interval postoperative change bilateralsacroiliac joint fusion and L5-S1 perfusion revision with bone grafting.No gross evidence of hardware failure or loosening. Surgical drain left posterior abdominalwall. Surgical clips upper abdomen. Pelvic phleboliths. us Carmelo Patel M.D. [facility] PRO CEDURES Final Result * (ABNORMAL) CBC without Differential (06/25/2024 4:12 AM CDT) Hemoglobin 11.1(L) 11.6 - 15.0 g/dL 06/25/2024 5:08 AM CDT DTL Hematocrit 35.5 35.5 - 44.9 % 06/25/2024 5:08 AM CDT DTL Erythrocytes 3.77(L) 3.92 - 5.13 x10(12)/L 06/25/2024 5:08 AM CDT DTL MCV 94.2 78.2 - 97.9 fL 06/25/2024 5:08 AM CDT DTL RBC Distrib Width 13.2 12.2 - 16.1 % 06/25/2024 5:08 AM CDT DTL Platelet Count 225 157 - 371 x10(9)/L 06/25/2024 5:08 AM CDT DTL Leukocytes 9.4 3.4 - 9.6 x10(9)/L 06/25/2024 5:08 AM CDT DTL Blood (Blood, Venous) 06/25/2024 4:12 AM CDT 06/25/2024 5:00 AM CDT us Carmelo Patel M.D. LAB BLOOD ADD-ON Final Res ult [place] [address] [place] [address], [facility] [address] [place] [address] * (ABNORMAL) Basic Metabolic Panel (06/25/2024 4:12 AM CDT) Pathologist [facility] Potassium, S 4.1 3.6 - 5.2 mmol/L 06/25/2024 5:40 AM CDT DTL Sodium, S 141 135 - 145 mmol/L 06/25/2024 5:40 AM CDT DTL Chloride, S 108(H) 98 - 107 mmol/L 06/25/2024 5:40 AM CDT DTL Bicarbonate, S 24 22 - 29 mmol/L 06/25/2024 5:40 AM CDT DTL Anion Gap 9 7 - 15 06/25/2024 5:40 AM CDT DTL BUN (Blood Urea Nitrogen), S 8 6 - 21 mg/dL 06/25/2024 5:40 AM CDT DTL Creatinine 1.12(H) 0.59 - 1.04 mg/dL 06/25/2024 5:40 AM CDT DTL Estimated GFR (eGFR) 58(L) >=60 mL/min/BSA 06/25/2024 5:40 AM CDT DTL Comment: Estimated GFR calculated using the 2020 CKD_EPI creatinine equation. Calcium, Total, S 8.4(L) 8.6 - 10.0 mg/dL 06/25/2024 5:40 AM CDT DTL Glucose, S 106 70 - 140 mg/dL 06/25/2024 5:40 AM CDT DTL Blood (Blood, Venous) 06/25/2024 4:12 AM CDT 06/25/2024 5:16 AM CDT us Carmelo Patel M.D. LAB BLOOD ADD-ON Final Res ult [facility] [address] [place] [address], [facility] [address] [place] [address] * FL OARM (06/24/2024 5:57 PM CDT) Narrative 152 HOS LOS [facility] - 06/24/2024 5:58 PM CDT This exam does not require a radiologist review or interpretation. Please refer to the patient's medical record on this date for clinical details. us Diaz Narayanan M.D. IMG FLUOROSCOPY PROCEDURE S Final Result Performing Organization Address City/[facility]/ZIP Co de Phone Number 152 H[facility] LOS [facility] * FL Fluoro Less Than 1 Hour (06/24/2024 5:16 PM CDT) Narrative 152 HOS LOS R[facility] - 06/24/2024 5:18 PM CDT This exam does not require a radiologist review or interpretation. Please refer to the patient's medical record on this date for clinical details. us Diaz Narayanan M.D. IMG FLUOROSCOPY PROCEDURE S Final Result 152 [facility] LOS [facility] * Bacterial Culture, Aerobic + Susceptibility (06/24/2024 3:02 PM CDT) Bacterial Culture, Aerobic + Susc No growth after 5 days of incubation. 06/30/2024 9:36 AM CDT DTL Implant (Spine, Lumbar) 06/24/2024 3:02 PM CDT Comment:15 minute ferrera. Hilt on Diaz Narayanan M.D. LAB MICROBIOLOGY - GENERA L ORDERABLES Final Result [facility] [address] [place] [address], [facility] [address] [place] [address] documented in this encounter Visit Diagnoses Diagnosis Pain Sacroiliac- Primary Pain Sacroiliac Decline Functional Status [R53.81] Pain Sacroiliac documented in this encounter Admitting Diagnoses Diagnosis Pain Sacroiliac Pain Back documented in this encounter Administered Medications Inactive Administered Medications - up to 3 most recent administrations Medication Order MAR Action Action Date Dose Rate Site acetaminophen injection 1,000 mg 1,000 mg, intravenous, at 400 mL/hr, Administer over 15 Minutes, Once as needed, other, If patient has not received in previous 6 hours, Starting on Sun06/24/24 at 1846, For 1 dose, PACU (only), Oral unless RASS less than -1 or nausea/vomiting. Do not use if given in last 6 hours, Restriction Criteria (Pharmacy will review and approve if criteria met): Unable to take or tolerate medications administered via the enteral route or orally (not just NPO) New Bag 06/24/2024 6:57 PM CDT 1,000 mg 400 mL/hr acetaminophen tablet 1,000 mg (TylenoL) 1,000 mg, oral, 4 times daily, First dose on Sun06/25/24 at 0800, Not to exceed 4 grams in 24 hours. Given 06/26/2024 8:32 AM CDT 1,000 mg Given 06/25/2024 8:23 PM CDT 1,000 mg Given 06/25/2024 5:03 PM CDT 1,000 mg amLODIPine tablet 2.5 mg (Norvasc) 2.5 mg, oral, Daily, First dose (after last modification) on Sun06/25/24 at 1115 Given 06/26/2024 8:33 AM CDT 2.5 mg Given 06/25/2024 12:43 PM CDT 2.5 mg aprepitant injection 32 mg (Aponvie) 32 mg, intravenous, Once, On Sun06/24/24 at 1230, For 1 dose, Pre-Op, Restriction Criteria (Pharmacy will review and approve if criteria met): Meet restriction criteria Given 06/24/2024 12:23 PM CDT 32 mg benzocaine-menthoL 15-3.6 mg per lozenge 1 lozenge (CepacoL) 1 lozenge, oral, As needed, sore throat, Starting on Sun06/24/24 at 1959 bisacodyL suppository 10 mg (Dulcolax) 10 mg, rectal, Daily PRN, constipation, Starting on Sun06/24/24 at 1959, Ordered sequence of administration: polyethylene glycol, then bisacodyl until BM achieved. BUPivacaine 0.25 % (2.5 mg/mL) injection (Marcaine) As needed, Starting on Sun06/24/24 at 1732, Intra-Op Given 06/24/2024 5:32 PM CDT 30 mL BUPivacaine liposome (PF) 266 mg/20 mL (13.3 mg/mL) injection 20 mL (ExpareL) 20 mL, infiltration, Once, On Sun06/24/24 at 1245, For 1 dose, Intra-OpIndications:Pain Sacroiliac Given 06/24/2024 5:30 PM CDT 20 mL Back buPROPion XL 24 hr tablet 300 mg (Wellbutrin XL) 300 mg, oral, Daily, First dose on Sun06/25/24 at 0900, Swallow whole. Do NOT crush, chew, or split tablet. Given 06/26/2024 8:33 AM CDT 300 mg Given 06/25/2024 9:01 AM CDT 300 mg calcium carbonate chewable tablet 400 mg of calcium (Tums) 400 mg of calcium, oral, 4 times daily PRN, heartburn, indigestion, Starting on Sun06/24/24 at 1958, Doses listed are in mg of elemental calcium. Take with food. 500 mg calcium carbonate contains 200 mg of elemental calcium. ceFAZolin 1 g in NaCl 0.9% irrigation pour bottle irrigation, Once in surgery, OR use only, Starting on Sun06/24/24 at 1223, For 1 dose, Intra-Op, Irrigation Use Only Refrigerate Given 06/24/2024 5:14 PM CDT 1,000 mL Back ceFAZolin injection 2 g (Ancef) 2 g, intravenous, Every 8 hours, First dose on Sun06/25/24 at 0100, For immediate IV push administration, reconstitute vial per IVAG or package insert instructions. See IVAG for administration guidelines., Drug Monitoring Program: Pharmacist to adjust medication dosing based on indication and drug clearance factors., Indications: Prophylaxis, surgicalIndications:Prophylaxis, surgical Given 06/26/2024 8:32 AM CDT 2 g Given 06/26/2024 12:02 AM CDT 2 g Given 06/25/2024 5:02 PM CDT 2 g clonazePAM tablet 1 mg (KlonoPIN) 1 mg, oral, Daily at bedtime, First dose on Sun06/24/24 at 2100 Given 06/25/2024 8:23 PM CDT 1 mg Given 06/24/2024 11:13 PM CDT 1 mg diazePAM tablet 2 mg (Valium) 2 mg, oral, 3 times daily PRN, muscle spasms, Starting on Sun06/24/24 at 2048 Given 06/26/2024 12:02 AM CDT 2 mg Given 06/25/2024 3:42 PM CDT 2 mg Given 06/25/2024 9:01 AM CDT 2 mg haloperidol lactate injection 1 mg (HaldoL) 1 mg, intravenous, Every 6 hours PRN, nausea, vomiting, Starting on Sun06/24/24 at 1959, For 48 hours, Total of 3 doses in 24 hour period. RASS must be -2 or higher to administer. Reassess for nausea or vomiting after at least 10 minutes. If nausea or vomiting persists administer next ordered antiemetic medications (order for antiemetic medication administration ondansetron then haloperidol then prochlorperazine) HYDROmorphone (PF) injection 0.2 mg (Dilaudid) 0.2 mg, intravenous, As needed, severe pain or score 7-10 of 10, Starting on Sun06/24/24 at 1958, For 3 doses, Administer every 20 minutes as needed for pain greater than or equal to 7. Maximum of 3 doses. Given 06/25/2024 12:51 PM CDT 0.2 mg Given 06/24/2024 9:44 PM CDT 0.2 mg HYDROmorphone tablet 1 mg (Dilaudid) 1 mg, oral, Every 4 hours PRN, moderate pain or score 4-6 of 10, Starting on Sun06/24/24 at 2048, Does patient have renal impairment, frailty, or advanced age (avoid morphine) and unable to take oxycodone? No, Did the patient fail other oral opioids during hospitalization? Yes, Does the patient have documented allergies to oxycodone and/or morphine? No, Is the patient on hydromorphone chronically for pain? No HYDROmorphone tablet 2 mg (Dilaudid) 2 mg, oral, Every 4 hours PRN, severe pain or score 7-10 of 10, Starting on Sun06/24/24 at 2048, Does patient have renal impairment, frailty, or advanced age (avoid morphine) and unable to take oxycodone? No, Did the patient fail other oral opioids during hospitalization? Yes, Does the patient have documented allergies to oxycodone and/or morphine? No, Is the patient on hydromorphone chronically for pain? No Given 06/26/2024 12:40 PM CDT 2 mg Given 06/26/2024 8:33 AM CDT 2 mg Given 06/26/2024 4:28 AM CDT 2 mg hydroxychloroquine tablet 400 mg (PlaqueniL) 400 mg, oral, Daily, First dose on Sun06/25/24 at 0900, Drug Monitoring Program: Pharmacist to adjust medication dosing based on indication and drug clearance factors. Given 06/26/2024 8:33 AM CDT 40 0 mg Given 06/25/2024 9:01 AM CDT 400 mg ketamine injection 10 mg (Ketalar) 10 mg, intravenous, Once as needed, Refractory moderate pain or score 4-6 of 10, Refractory severe pain score 7-10 of 10 after fentanyl or hydromorphone administration, Pain sedation mismatch AND RASS less than -1, Starting on Sun06/24/24 at 1846, For 1 dose, PACU (only) Given 06/24/2024 7:11 PM CDT 10 mg Lactated Ringer's 80 mL/hr, intravenous, Continuous, Starting on Sun06/24/24 at 2015, For 12 hours, Discontinue when tolerated > 500cc of oral intake New Bag 06/24/2024 9:45 PM CDT 80 mL/hr 80 mL/hr levothyroxine tablet 50 mcg 50 mcg, oral, Daily, First dose on Sun06/25/24 at 0900 Given 06/25/2024 9:01 AM CDT 50 mcg levothyroxine tablet 50 mcg 50 mcg, oral, Daily before morning meal, First dose (after last modification) on Radha 06/26/24 at 0700 Given 06/26/2024 5:50 AM CDT 50 mcg magnesium hydroxide suspension 30 mL (Milk of Magnesia) 30 mL, oral, Daily PRN, constipation, Starting on Sun06/24/24 at 1959, Give if no bowel movement by post-operative day 3. naloxone injection 0.2 mg (Narcan) 0.2 mg, intravenous, As needed, respiratory depression, Starting on Sun06/24/24 at 1958, For RASS Score -4 or less, respiratory rate of less than 8 breaths/min. Notify provider/service and rapid response team (if available at institution). ondansetron (PF) injection 4 mg (Zofran) 4 mg, intravenous, Every 6 hours PRN, nausea, vomiting, Starting on Sun06/24/24 at 195, For 48 hours, Reassess for nausea or vomiting after at least 10 minutes. If nausea or vomiting persists administer next ordered antiemetic medications (order for antiemetic medication administration ondansetron then haloperidol then prochlorperazine). pantoprazole DR tablet 40 mg (Protonix) 40 mg, oral, Daily before morning meal, First dose on Sun06/25/24 at 0700, pantoprazole 40 mg oral daily was interchanged for omeprazole 20 or 40 mg oral daily Swallow whole. Do NOT crush, chew, or split tablet. Given 06/26/2024 5:50 AM CDT 40 mg Given 06/25/2024 6:48 AM CDT 40 mg polyethylene glycol powder packet 17 g (Miralax) 17 g, oral, Daily PRN, constipation, Starting on Sun06/24/24 at 1959, Ordered sequence of administration: polyethylene glycol, then bisacodyl until BM achieved. Avoid mixing with starch-based thickened liquids., Indications: constipationIndications:c onstipation povidone iodine 0.25% in NaCl 0.9% irrigation solution irrigation, Once in surgery, OR use only, Starting on Sun06/24/24 at 1223, For 1 dose, Intra-Op, IRRIGATION USE ONLY Given 06/24/2024 2:57 PM CDT 1,000 mL prochlorperazine injection 5 mg (Compazine) 5 mg, intravenous, Every 6 hours PRN, vomiting, nausea, Starting on Sun06/24/24 at 1959, For 48 hours, RASS must be -2 or higher to administer. Reassess for nausea or vomiting after at least 10 minutes. If nausea or vomiting persists administer next ordered antiemetic medications (order for antiemetic medication administration ondansetron then haloperidol then prochlorperazine) scopolamine base 1 mg over 3 days 1 patch (Transderm-Scop) 1 patch, transdermal, Administer over 72 Hours, Every 72 hours, First dose on Sun06/24/24 at 1230, For 1 dose, Pre-Op, Contains 1.5 mg to deliver 1 mg/72 hours. Medication Applied 06/24/2024 12:23 PM CDT 1 patch Behind Left Ear sennosides-docusate sodium 8.6-50 mg per tablet 1 tablet (Senokot-S) 1 tablet, oral, 2 times daily, First dose on Sun06/24/24 at 2100, For constipation. Hold for diarrhea. Given 06/26/2024 8:32 AM CDT 1 tablet Given 06/25/2024 8:23 PM CDT 1 tablet topiramate tablet 50 mg (Topamax) 50 mg, oral, 2 times daily, First dose on Sun06/24/24 at 2100 Given 06/26/2024 8:33 AM CDT 50 mg Given 06/25/2024 8:23 PM CDT 50 mg Given 06/25/2024 9:01 AM CDT 50 mg vancomycin powder 1 g 1 g (1 vial), topical, Once in surgery, OR use only, Starting on Sun06/24/24 at 1223, For 1 dose, Intra-Op, Do not reconstitute Given 06/24/2024 5:14 PM CDT 1 vial Back venlafaxine XR 24 hr capsule 150 mg (Effexor-XR) 150 mg, oral, Daily, First dose on Sun06/25/24 at 0900, Swallow whole. Do NOT crush, chew or open capsule. Given 06/26/2024 8:32 AM CDT 150 mg Given 06/25/2024 9:01 AM CDT 150 mg documented in this encounter Active and Recently Administered Medications Times are shown in CDT. Scheduled Medication Order 06/24/2024 06/25/2024 06/26/2024 acetaminophen tablet 1,000 mg (TylenoL) 1,000 mg, oral, 4 times daily, First dose on Sun06/25/24 at 0800, Not to exceed 4 grams in 24 hours. 0649 (Given - Provider: Sena Urrutia RDerik.)1242 (Given - Provider: Nina Moses R.N.)1703 (Given - Provider: Nina Moses R.N.)2023 (Given - Provider: Mya Allen RSundayN.) 0832 (Given - Provider: Elizabeth Roberson RDerik.) amLODIPine tablet 2.5 mg (Norvasc) 2.5 mg, oral, Daily, First dose (after last modification) on Sun06/25/24 at 1115 1243 (Given - Provider: Nina Moses RSundayN.) 0833 (Given - Provider: Elizabeth Roberson R.N.) aprepitant injection 32 mg (Aponvie) (COMPLETED) 32 mg, intravenous, Once, On Sun06/24/24 at 1230, For 1 dose, Pre-Op, Restriction Criteria (Pharmacy will review and approve if criteria met): Meet restriction criteria 1223 (Given - Provider: Zoie Oreilly R.N.) BUPivacaine liposome (PF) 266 mg/20 mL (13.3 mg/mL) injection 20 mL (ExpareL) (COMPLETED) 20 mL, infiltration, Once, On Sun06/24/24 at 1245, For 1 dose, Intra-Op 1245 (Due)1730 (Given - Provider: Dylon Brown M.D.) buPROPion XL 24 hr tablet 300 mg (Wellbutrin XL) 300 mg, oral, Daily, First dose on Sun06/25/24 at 0900, Swallow whole. Do NOT crush, chew, or split tablet. 09 (Given - Provider: Nina Moses R.N.) 0833 (Given - Provider: Elizabeth Roberson R.N.) ceFAZolin injection 2 g (Ancef) 2 g, intravenous, Every 8 hours, First dose on Sun06/25/24 at 0100, For immediate IV push administration, reconstitute vial per IVAG or package insert instructions. See IVAG for administration guidelines., Drug Monitoring Program: Pharmacist to adjust medication dosing based on indication and drug clearance factors., Indications: Prophylaxis, surgical 0108 (Given - Provider: Sena Urrutia R.N.)0901 (Given - Provider: Nina Moses R.N.)1702 (Given - Provider: Nina Moses R.N.) 0002 (Given - Provider: Mya Allen R.N.)0832 (Given - Provider: Elizabeth Roberson R.N.) clonazePAM tablet 1 mg (KlonoPIN) 1 mg, oral, Daily at bedtime, First dose on Sun06/24/24 at 2100 2313 (Given - Provider: Sena Urrutia R.N. - Comment: per patient preference) 2022 (Given - Provider: Mya Allen R.N.) hydroxychloroquine tablet 400 mg (PlaqueniL) 400 mg, oral, Daily, First dose on Sun06/25/24 at 0900, Drug Monitoring Program: Pharmacist to adjust medication dosing based on indication and drug clearance factors. 0901 (Given - Provider: Nina Moses R.N.) 0833 (Given - Provider: Elizabeth Roberson R.N.) levothyroxine tablet 50 mcg (CANCELED) 50 mcg, oral, Daily, First dose on Sun06/25/24 at 0900 0901 (Given - Provider: Nina Moses R.N.) levothyroxine tablet 50 mcg 50 mcg, oral, Daily before morning meal, First dose (after last modification) on Sun06/26/24 at 0700 0550 (Given - Provider: Mya Allen R.N.) pantoprazole DR tablet 40 mg (Protonix) 40 mg, oral, Daily before morning meal, First dose on Sun06/25/24 at 0700, pantoprazole 40 mg oral daily was interchanged for omeprazole 20 or 40 mg oral daily Swallow whole. Do NOT crush, chew, or split tablet. 0648 (Given - Provider: Sena Urrutia R.N.) 0550 (Given - Provider: Mya Allen R.N.) scopolamine base 1 mg over 3 days 1 patch (Transderm-Scop) (CANCELED) 1 patch, transdermal, Administer over 72 Hours, Every 72 hours, First dose on Sun06/24/24 at 1230, For 1 dose, Pre-Op, Contains 1.5 mg to deliver 1 mg/72 hours. 1223 (Medication Applied - Provider: Zoie Oreilly R.N.) 1316 (Due: Medication Removed - Provider: Discharge Provider, Automatic - Comment: Time automatically adjusted from order being discontinued) sennosides-docusate sodium 8.6-50 mg per tablet 1 tablet (Senokot-S) 1 tablet, oral, 2 times daily, First dose on Sun06/24/24 at 2100, For constipation. Hold for diarrhea. 2313 (Not Given - Provider: Sena Urrutia R.N. - Reason: Other - Comment: per patient preference) 1056 (Not Given - Provider: Nina Moses R.N. - Reason: Patient/family refused)2022 (Given - Provider: Mya Allen R.N.) 0832 (Given - Provider: Elizabeth Roberson R.N.) topiramate tablet 50 mg (Topamax) 50 mg, oral, 2 times daily, First dose on Sun06/24/24 at 2100 2315 (Given - Provider: Sena Urrutia R.N. - Comment: per patient preference) 09 (Given - Provider: Nina Moses R.N.)2022 (Given - Provider: Mya Allen R.N.) 0833 (Given - Provider: Elizabeth Roberson R.N.) venlafaxine XR 24 hr capsule 150 mg (Effexor-XR) 150 mg, oral, Daily, First dose on Sun06/25/24 at 0900, Swallow whole. Do NOT crush, chew or open capsule. 900 (Given - Provider: Nina Moses R.N.) 0832 (Given - Provider: Elizabeth Roberson R.N.) Continuous Medication Order 06/24/2024 06/25/2024 06/26/2024 Lactated Ringer's () 80 mL/hr, intravenous, Continuous, Starting on Sun06/24/24 at 2015, For 12 hours, Discontinue when tolerated > 500cc of oral intake 2145 (New Bag - Provider: Sena Urrutia R.N.) 0659 (Stopped - Provider: Sena Urrutia R.N.) tranexamic acid 8 mg/mL in NaCl 0.9% 250 mL infusion (Cyklokapron) (CANCELED) 4 mg/kg/hr 125 kg (62.5 mL/hr), intravenous, Continuous, Starting on Sun06/24/24 at 1245, Intra-Op, In OR until skin closure. Pharmacy to adjust infusion dose for renal function. 1337 (New Bag - Provider: Jai Bryant M.D.)1755 (Stopped - Provider: Gigi Holloway APRN, PLUMBING CONTRACTOR, DNAP) PRN Medication Order 06/24/2024 06/25/2024 06/26/2024 acetaminophen injection 1,000 mg (COMPLETED)(Linked Group 1) 1,000 mg, intravenous, at 400 mL/hr, Administer over 15 Minutes, Once as needed, other, If patient has not received in previous 6 hours, Starting on Sun06/24/24 at 1846, For 1 dose, PACU (only), Oral unless RASS less than -1 or nausea/vomiting. Do not use if given in last 6 hours, Restriction Criteria (Pharmacy will review and approve if criteria met): Unable to take or tolerate medications administered via the enteral route or orally (not just NPO) 1856 (New Bag - Provider: Dilia Valencia RSundayN.) benzocaine-menthoL 15-3.6 mg per lozenge 1 lozenge (CepacoL) 1 lozenge, oral, As needed, sore throat, Starting on Sun06/24/24 at 1958 bisacodyL suppository 10 mg (Dulcolax) 10 mg, rectal, Daily PRN, constipation, Starting on Sun06/24/24 at 1958, Ordered sequence of administration: polyethylene glycol, then bisacodyl until BM achieved. BUPivacaine 0.25 % (2.5 mg/mL) injection (Marcaine) (CANCELED) As needed, Starting on Sun06/24/24 at 1732, Intra-Op 173 (Given - Provider: Dylon Brown M.D.) calcium carbonate chewable tablet 400 mg of calcium (Tums) 400 mg of calcium, oral, 4 times daily PRN, heartburn, indigestion, Starting on Sun06/24/24 at 1958, Doses listed are in mg of elemental calcium. Take with food. 500 mg calcium carbonate contains 200 mg of elemental calcium. ceFAZolin 1 g in NaCl 0.9% irrigation pour bottle (COMPLETED) irrigation, Once in surgery, OR use only, Starting on Sun06/24/24 at 1223, For 1 dose, Intra-Op, Irrigation Use Only Refrigerate 1714 (Given - Provider: Dylon Brown M.D.) diazePAM tablet 2 mg (Valium) 2 mg, oral, 3 times daily PRN, muscle spasms, Starting on Sun06/24/24 at 2049 0116 (Given - Provider: Sena Urrutia, R.N.)0901 (Given - Provider: Nina Moses, R.N.)1542 (Given - Provider: Nina Moses R.N.) 0002 (Given - Provider: Mya Allen R.N.) haloperidol lactate injection 1 mg (HaldoL) 1 mg, intravenous, Every 6 hours PRN, nausea, vomiting, Starting on Sun06/24/24 at 1958, For 48 hours, Total of 3 doses in 24 hour period. RASS must be -2 or higher to administer. Reassess for nausea or vomiting after at least 10 minutes. If nausea or vomiting persists administer next ordered antiemetic medications (order for antiemetic medication administration ondansetron then haloperidol then prochlorperazine) HYDROmorphone (PF) injection 0.2 mg (Dilaudid) 0.2 mg, intravenous, As needed, severe pain or score 7-10 of 10, Starting on Sun06/24/24 at 1958, For 3 doses, Administer every 20 minutes as needed for pain greater than or equal to 7. Maximum of 3 doses. 2143 (Given - Provider: Sena Urrutia R.N.) 1251 (Given - Provider: Francoise Moulton R.N.) HYDROmorphone tablet 1 mg (Dilaudid)(Linked Group 2) 1 mg, oral, Every 4 hours PRN, moderate pain or score 4-6 of 10, Starting on Sun06/24/24 at 2048, Does patient have renal impairment, frailty, or advanced age (avoid morphine) and unable to take oxycodone? No, Did the patient fail other oral opioids during hospitalization? Yes, Does the patient have documented allergies to oxycodone and/or morphine? No, Is the patient on hydromorphone chronically for pain? No 2122 (See Alternative - Provider: Sena Urrutia R.N.) 0243 (See Alternative - Provider: Sena Urrutia R.N.)0648 (See Alternative - Provider: Sena Urrutia R.N.)1055 (See Alternative - Provider: Nina Moses RSundayN.)1845 (See Alternative - Provider: Nina Moses R.N.)2227 (See Alternative - Provider: Mya Allen R.N.) 0428 (See Alternative - Provider: Mya Allen R.N.)0833 (See Alternative - Provider: Elizabeth Roberson R.N.)1240 (See Alternative - Provider: Elizabeth Roberson R.N.) HYDROmorphone tablet 2 mg (Dilaudid)(Linked Group 2) 2 mg, oral, Every 4 hours PRN, severe pain or score 7-10 of 10, Starting on Sun06/24/24 at 2049, Does patient have renal impairment, frailty, or advanced age (avoid morphine) and unable to take oxycodone? No, Did the patient fail other oral opioids during hospitalization? Yes, Does the patient have documented allergies to oxycodone and/or morphine? No, Is the patient on hydromorphone chronically for pain? No 2122 (Given - Provider: Sena Urrutia R.N.) 0243 (Given - Provider: Sena Urrutia R.N.)0648 (Given - Provider: Sena Urrutia R.N.)1055 (Given - Provider: Nina Moses R.N.)1845 (Given - Provider: Nina Moses R.N.)2227 (Given - Provider: Mya Allen R.N.) 0428 (Given - Provider: Mya Allen R.N.)0833 (Given - Provider: Elizabeth Roberson R.N.)1240 (Given - Provider: Elizabeth Roberson R.N.) ketamine injection 10 mg (Ketalar) (COMPLETED) 10 mg, intravenous, Once as needed, Refractory moderate pain or score 4-6 of 10, Refractory severe pain score 7-10 of 10 after fentanyl or hydromorphone administration, Pain sedation mismatch AND RASS less than -1, Starting on Sun06/24/24 at 1846, For 1 dose, PACU (only) 1910 (Given - Provider: Dilia Valencia R.N.) magnesium hydroxide suspension 30 mL (Milk of Magnesia) 30 mL, oral, Daily PRN, constipation, Starting on Sun06/24/24 at 1959, Give if no bowel movement by post-operative day 3. naloxone injection 0.2 mg (Narcan) 0.2 mg, intravenous, As needed, respiratory depression, Starting on Sun06/24/24 at 1958, For RASS Score -4 or less, respiratory rate of less than 8 breaths/min. Notify provider/service and rapid response team (if available at institution). ondansetron (PF) injection 4 mg (Zofran) 4 mg, intravenous, Every 6 hours PRN, nausea, vomiting, Starting on Sun06/24/24 at 1958, For 48 hours, Reassess for nausea or vomiting after at least 10 minutes. If nausea or vomiting persists administer next ordered antiemetic medications (order for antiemetic medication administration ondansetron then haloperidol then prochlorperazine). polyethylene glycol powder packet 17 g (Miralax) 17 g, oral, Daily PRN, constipation, Starting on Sun06/24/24 at 1958, Ordered sequence of administration: polyethylene glycol, then bisacodyl until BM achieved. Avoid mixing with starch-based thickened liquids., Indications: constipation 1045 (Not Given - Provider: Nina Moses R.N. - Reason: Patient/family refused) povidone iodine 0.25% in NaCl 0.9% irrigation solution (COMPLETED) irrigation, Once in surgery, OR use only, Starting on Sun06/24/24 at 1223, For 1 dose, Intra-Op, IRRIGATION USE ONLY 1457 (Given - Provider: Dylon Brown M.D.) prochlorperazine injection 5 mg (Compazine) 5 mg, intravenous, Every 6 hours PRN, vomiting, nausea, Starting on Sun06/24/24 at 1958, For 48 hours, RASS must be -2 or higher to administer. Reassess for nausea or vomiting after at least 10 minutes. If nausea or vomiting persists administer next ordered antiemetic medications (order for antiemetic medication administration ondansetron then haloperidol then prochlorperazine) SUMAtriptan tablet 50 mg (Imitrex) 50 mg, oral, As needed, migraine, Starting on Sun06/24/24 at 1958, May repeat dose once in 2 hours if migraine is unresolved. Do not exceed 200 mg in 24 hours. tranexamic acid 2,500 mg in NaCl 0.9% IVPB (CANCELED) 2,500 mg (20 mg/kg 125 kg), intravenous, at 225 mL/hr, Administer over 20 Minutes, Once in surgery, OR use only, Starting on Sun06/24/24 at 1223, For 1 dose, Intra-Op 1337 (New Bag - Provider: Jai Bryant M.D.)1731 (Anesthesia Volume Adjustment - Provider: Gigi Holloway, CEMENTING BULK MATERIAL OPERATOR, PLUMBING CONTRACTOR, DNAP) vancomycin powder 1 g (COMPLETED) 1 g (1 vial), topical, Once in surgery, OR use only, Starting on Sun06/24/24 at 1223, For 1 dose, Intra-Op, Do not reconstitute 1714 (Given - Provider: Dylon Brown M.D.) Linked Groups Order Group 1: acetaminophen tablet 1,000 mg (TylenoL) (COMPLETED) 1,000 mg, oral, Once as needed, other, If patient has not received in the previous 6 hours, Starting on Sun06/24/24 at 1846, For 1 dose, PACU (only), Oral unless RASS less than -1 or nausea/vomiting. Do not use if given in last 6 hours Or acetaminophen injection 1,000 mg (COMPLETED)Jump to med 1,000 mg, intravenous, at 400 mL/hr, Administer over 15 Minutes, Once as needed, other, If patient has not received in previous 6 hours, Starting on Sun06/24/24 at 1846, For 1 dose, PACU (only), Oral unless RASS less than -1 or nausea/vomiting. Do not use if given in last 6 hours, Restriction Criteria (Pharmacy will review and approve if criteria met): Unable to take or tolerate medications administered via the enteral route or orally (not just NPO) Group 2: HYDROmorphone tablet 1 mg (Dilaudid)Jump to med 1 mg, oral, Every 4 hours PRN, moderate pain or score 4-6 of 10, Starting on Sun06/24/24 at 2049, Does patient have renal impairment, frailty, or advanced age (avoid morphine) and unable to take oxycodone? No, Did the patient fail other oral opioids during hospitalization? Yes, Does the patient have documented allergies to oxycodone and/or morphine? No, Is the patient on hydromorphone chronically for pain? No Or HYDROmorphone tablet 2 mg (Dilaudid)Jump to med 2 mg, oral, Every 4 hours PRN, severe pain or score 7-10 of 10, Starting on Sun06/24/24 at 2049, Does patient have renal impairment, frailty, or advanced age (avoid morphine) and unable to take oxycodone? No, Did the patient fail other oral opioids during hospitalization? Yes, Does the patient have documented allergies to oxycodone and/or morphine? No, Is the patient on hydromorphone chronically for pain? No documented in this encounter Additional Health Concerns Assessment Noted Time PHQ-9 Depression Total Score: 7 04/18/19 25 9:48 AM DIRECTOR BIOLOGY documented as of this encounter Care Teams Digital Media Designer Relationship Specialty Start Date End Date Litzy Cox M.D. [address] [place] [phone] PCP - General Family Medicine 04/22/20 documented as of this encounter
--- OUTSIDE RECORDS SUMMARY | 2024-07-06 00:01 | XMS_ITS | Encounter Summary ---
Author Organization [facility] Address [address] [place] [address] Care Team Providers Care Pharmacy Aide Name Role Phone Litzy Cox M.D. Primary Care Provider [phone] Reason for Referral * Outpatient (Routine) - Authorized Specialty Diagnoses / Procedures Referred By Ana t Referred To Contact Diagnoses Fusion Lumbar Spine Status Post Carmelo Patel M.D. 200 [place] [address] Phone: tel: fax: [facility] Region Referral ID Status Reason Start Date Expiration Date V isits Requested Visits Authorized [id number] Authorized 06/24/2024 12/24/2025 1 1 Reason for Visit * Reason Onset Date Comments Post Hospital Follow-up 06/24/2024 Encounter Details Date Type Department Care Team (Latest Contact Info) Description 06/24/2024 Clinical Communication [facility] [address] [place] [phone] Diaz Narayanan M.D. [address] [place] [phone] Post Hospital Follow-up Social History Tobacco Use Types Packs/Day Years Used Date Smoking Tobacco: Never Smokeless Tobacco: Never Alcohol Use Standard Drinks/Week Comments Never 0 (1 standard drink = 0.6 oz pur e alcohol) [facility] Utilities Answer Date Recorded In the past 12 months has th e electric, gas, oil, or water company [...] often do you attend chur ch or gnosticism services? Never 06/19/2022 Do you belong to any clubs o r organizations such as episcopal groups, unions, fraternal or athletic groups, or [...] Answer Date Recorded PHQ-2 Score 2 04/18/2024 [facility] - Occupational Stress Questionnaire Answer [...] your living situation today? I have a [facility] place to live 07/16/2023 Education Answer Date Recorded What is the highest level of school you have completed or the highest degree you have received? Associate degree: occupational, technical, or vocational program 04/10/2020 Comments No Sex and Gender Information Value Date Recorded Sex Assigned at Female 11/27/2021 8:14 PM CDT Legal Sex Female 2:16 PM CATEGORY MANAGER Gender Identity Female 03/30/2019 8:45 PM CATEGORY MANAGER Sexual Orientation Straight 03/30/2019 8: 45 PM CATEGORY MANAGER documented as of this encounter Plan of Treatment Upcoming Encounters Date Type Department Care Team (Latest Contact Info) Description 07/11/2024 11:30 AM CDT Office Visit Department of Family Medicine, [facility], in [address] [phone] Genet Roche APRN, C.N.P. [address] [place] [phone] 08/07/2024 10:45 AM CDT Clinical Communication Virtual Review in [place], [place] [address] [place] [address] 08/08/2024 7:45 AM CDT Appointment Department of Radiology, [facility] in [address] [phone] Diaz Narayanan M.D. [address] [place] [phone] 08/08/2024 9:00 AM CDT Office Visit Department of Orthopedic Surgery in [address] [phone] Diaz Narayanan M.D. [address] [place] [phone] 09/19/2024 9:00 AM CDT Appointment Department of Laboratory Medicine and Pathology, [facility], in [address] [phone] Estefani Tamayo M.D. [address] [place] [phone] Scheduled Referrals Name Type Priority Associated Diagnoses Orde r Schedule Post Hospital Visit Primary Care Outpatient Referral Routine Fusion Lumbar Spine Status Post Expected: 07/08/2024, Expires: 09/23/2025 documented as of this encounter Visit Diagnoses Diagnosis Fusion Lumbar Spine Status Post- Primary documented in this encounter Additional Health Concerns Assessment Noted Time PHQ-9 Depression Total Score: 7 04/18/19 25 9:48 AM CATEGORY MANAGER documented as of this encounter Care Teams Pharmacy Aide Relationship Specialty Start Date End Date Litzy Cox M.D. [address] [place] [phone] PCP - General Family Medicine 04/22/20 documented as of this encounter
[2024-07-06 00:02] VITALS: BP 121/88; PULSE 88; RESP 18; TEMP 35.8; O2SAT 92; BMI 39.1
--- OUTSIDE RECORDS SUMMARY | 2024-07-06 00:02 | XMS_ITS | Encounter Summary ---
Author Organization [facility] Address [address] [place] [address] Care Team Providers Care Boxing And Pressing Supervisor Name Role Phone Litzy Cox M.D. Primary Care Provider [phone] Reason for Referral * Outpatient (Routine) - Authorized Specialty Diagnoses / Procedures Referred By Contac t Referred To Contact Orthopedic Surgery Diaz Narayanan M.D. [address] [place] [phone] Phone: tel: fax: Diaz Narayanan M.D. [address] [place] [phone] Phone: tel: fax: Referral ID Status Reason Start Date Expiration Date V isits Requested Visits Authorized [id number] Authorized 06/23/2024 12/23/2025 1 1 * Outpatient (Routine) - Authorized Specialty Diagnoses / Procedures Referred By Contac t Referred To Contact Diagnoses Arthrodesis Status Procedures DX Pelvis 3+ Views Diaz Narayanan M.D. [address] [place] [phone] Phone: tel: fax: [facility] Referral ID Status Reason Start Date Expiration Date V isits Requested Visits Authorized [id number] Authorized 06/23/2024 09/23/2025 1 1 * MRI/CAT/PET Scan (Routine) - Pending Review Specialty Diagnoses / Procedures Referred By Contac t Referred To Contact Radiology Diagnoses Arthrodesis Status Procedures CT Pelvis Musculoskeletal without IV Contrast Diaz Narayanan M.D. [address] [place] [phone] Phone: tel: fax: [facility] Referral ID Status Reason Start Date Expiration Date V isits Requested Visits Authorized [id number] Pending Review 06/23/2024 09/23/2025 1 1 * Outpatient (Routine) - Authorized Specialty Diagnoses / Procedures Referred By Contac t Referred To Contact Orthopedic Surgery Diaz Narayanan M.D. [address] [place] [phone] Phone: tel: fax: Diaz Narayanan M.D. [address] [place] [phone] Phone: tel: fax: Referral ID Status Reason Start Date Expiration Date V isits Requested Visits Authorized [id number] Authorized 06/23/2024 12/23/2025 1 1 * Outpatient (Routine) - Authorized Specialty Diagnoses / Procedures Referred By Contac t Referred To Contact Diagnoses Arthrodesis Status Procedures DX Pelvis 3+ Views Diaz Narayanan M.D. [address] [place] [phone] Phone: tel: fax: [facility] Referral ID Status Reason Start Date Expiration Date V isits Requested Visits Authorized [id number] Authorized 06/23/2024 09/23/2025 1 1 * Outpatient (Routine) - Authorized Specialty Diagnoses / Procedures Referred By Contac t Referred To Contact Orthopedic Surgery Diaz Narayanan M.D. [address] [place] [phone] Phone: tel: fax: Diaz Narayanan M.D. [address] [place] [phone] Phone: tel: fax: Referral ID Status Reason Start Date Expiration Date V isits Requested Visits Authorized [id number] Authorized 06/23/2024 12/23/2025 1 1 * Outpatient (Routine) - Authorized Specialty Diagnoses / Procedures Referred By Contac t Referred To Contact Diagnoses Arthrodesis Status Procedures DX Pelvis 3+ Views Diaz Narayanan M.D. [address] [place] [phone] Phone: tel: fax: [facility] Referral ID Status Reason Start Date Expiration Date V isits Requested Visits Authorized [id number] Authorized 06/23/2024 09/23/2025 1 1 * Outpatient (Routine) - Authorized Specialty Diagnoses / Procedures Referred By Contac t Referred To Contact Orthopedic Surgery Diaz Narayanan M.D. [address] [place] [phone] Phone: tel: fax: Diaz Narayanan M.D. [address] [place] [phone] Phone: tel: fax: Referral ID Status Reason Start Date Expiration Date V isits Requested Visits Authorized [id number] Authorized 06/23/2024 12/23/2025 1 1 * Outpatient (Routine) - Authorized Specialty Diagnoses / Procedures Referred By Contac t Referred To Contact Diagnoses Arthrodesis Status Procedures DX Pelvis 3+ Views Diaz Narayanan M.D. [address] [place] [address] Phone: tel: fax: [facility] Referral ID Status Reason Start Date Expiration Date V isits Requested Visits Authorized [id number] Authorized 06/23/2024 09/23/2025 1 1 Encounter Details Date Type Department Care Team (Late st Contact Info) Description 06/23/2024 Orders Only Department of Orthopedic Surgery in [place], [place] [address] [place] [phone] Diaz Narayanan M.D. [address] [place] [phone] Arthrodesis Status (Primary Dx) Social History Tobacco Use Types Packs/Day Years Used Date Smoking Tobacco: Never Smokeless Tobacco: Never Alcohol Use Standard Drinks/Week Comments Never 0 (1 standard drink = 0.6 oz pur e alcohol) [facility] Utilities Answer Date Recorded In the past 12 months has e electric, gas, oil, or water [employer] threatened to shut off services in your [...] often do you attend chur ch or druze services? Never 06/19/2022 Do you belong to any clubs o r organizations such as roman catholic groups, unions, fraternal or athletic groups, or [...] Answer Date Recorded PHQ-2 Score 2 04/18/2024 [facility] of [facility]at ional [facility] - Occupational Stress Questionnaire Answer Date Recorded [...] your living situation today? I have a [facility] place to live 07/16/2023 Education Answer Date Recorded What is the highest level of school you have completed or the highest degree you have received? Associate degree: occupational, technical, or vocational program 04/10/2020 Comments No Sex and Gender Information Value Date Recorded Sex Assigned at Female 11/27/2021 8:14 PM CDT Legal Sex Female 2:16 PM ACCOUNTING ADMINISTRATOR Gender Identity Female 03/30/2019 8:45 PM ACCOUNTING ADMINISTRATOR Sexual Orientation Straight 03/30/2019 8: 45 PM ACCOUNTING ADMINISTRATOR documented as of this encounter Plan of Treatment Upcoming Encounters Date Type Department Care Team (Latest Contact Info) Description 07/11/2024 11:30 AM CDT Office Visit Department of Family Medicine, [facility], in [address] [phone] Genet Roche, SEISMIC ENGINEER, C.N.P. [address] [place] [phone] 08/07/2024 10:45 AM CDT Clinical Communication Virtual Review in [place], [place] 200 [place] [address] 08/08/2024 7:45 AM CDT Appointment Department of Radiology, [facility] in [place], [place] [address] [place] [phone] Diaz Narayanan M.D. [address] [place] [phone] 08/08/2024 9:00 AM CDT Office Visit Department of Orthopedic Surgery in [place], [place] [address] [place] [phone] Diaz Narayanan M.D. [address] [place] [phone] 09/19/2024 9:00 AM CDT Appointment Department of Laboratory Medicine and Pathology, [facility] in [place], [place] [address] [place] [phone] Estefani Tamayo M.D. [address] [place] [phone] Scheduled Orders Name Type Priority Associated Diagnoses Order Schedule DX Pelvis 3+ Views Imaging RAD - Routine (most inpatients and all outpatients) Arthrodesis Status Expected: 08/04/2024, Expires: 06/23/2025 DX Pelvis 3+ Views Imaging RAD - Routine (most inpatients and all outpatients) Arthrodesis Status Expected: 09/22/2024, Expires: 06/23/2025 DX Pelvis 3+ Views Imaging RAD - Routine (most inpatients and all outpatients) Arthrodesis Status Expected: 12/23/2024, Expires: 06/23/2025 CT Pelvis Musculoskeletal without IV Contrast Imaging RAD - Routine (most inpatients and all outpatients) Arthrodesis Status Expected: 06/23/2025, Expires: 06/23/2025 DX Pelvis 3+ Views Imaging RAD - Routine (most inpatients and all outpatients) Arthrodesis Status Expected: 06/23/2025, Expires: 06/23/2025 Scheduled Referrals Name Type Priority Associated Diagnoses Order Schedule Orthopedic Surgery office visit (clinic) Outpatient Referral Routine Expected: 08/04/2024, Expires: 09/22/2025 Orthopedic Surgery office visit (clinic) Outpatient Referral Routine Expected: 09/22/2024, Expires: 09/22/2025 Orthopedic Surgery office visit (clinic) Outpatient Referral Routine Expected: 12/23/2024, Expires: 09/22/2025 Orthopedic Surgery office visit (clinic) Outpatient Referral Routine Expected: 06/23/2025, Expires: 09/22/2025 documented as of this encounter Visit Diagnoses Diagnosis Arthrodesis Status- Primary documented in this encounter Additional Health Concerns Assessment Noted Time PHQ-9 Depression Total Score: 7 04/18/19 25 9:48 AM ACCOUNTING ADMINISTRATOR documented as of this encounter Care Teams Boxing And Pressing Supervisor Relationship Specialty Start Date End Date Litzy Cox M.D. [address] [place] [phone] PCP - General Family Medicine 04/22/20 documented as of this encounter
--- OUTSIDE RECORDS SUMMARY | 2024-07-06 00:02 | XMS_ITS | Encounter Summary ---
Author Organization [facility] Address [address] [place] [address] Care Team Providers Care Import Export Coordinator Name Role Phone Litzy Cox M.D. Primary Care Provider [phone] Encounter Details Date Type Department Care Team (Latest Contact Info) Description 06/20/2024 Results Follow-Up Division of Endocrinology in [place], [place] [address] [place] [address] Estefani Tamayo M.D. [address] [place] [address] Supersaturation, 24 hour, Urine Social History Tobacco Use Types Packs/Day Years Used Date Smoking Tobacco: Never Smokeless Tobacco: Never Alcohol Use Standard Drinks/Week Comments Never 0 (1 standard drink = 0.6 oz pur e alcohol) [facility] Utilities Answer Date Recorded In the past 12 months has [employer], gas, oil, or water [employer] threatened to shut off services in your [...] often do you attend chur ch or hinduism services? Never 06/19/2022 Do you belong to any clubs o r organizations such as sikh groups, unions, fraternal or athletic groups, or [...] Answer Date Recorded PHQ-2 Score 2 04/18/2024 [facility] - Occupational Stress Questionnaire Answer Date [...] your living situation today? I have a [facility] place to live 07/16/2023 Education Answer Date Recorded What is the highest level of school you have completed or the highest degree you have received? Associate degree: occupational, technical, or vocational program 04/10/2020 Comments No Sex and Gender Information Value Date Recorded Sex Assigned at Female 11/27/2021 8:14 PM CDT Legal Sex Female 2:16 PM SET UP MECHANIC STAMPING MACHINES Gender Identity Female 03/30/2019 8:45 PM SET UP MECHANIC STAMPING MACHINES Sexual Orientation Straight 03/30/2019 8: 45 PM SET UP MECHANIC STAMPING MACHINES documented as of this encounter Plan of Treatment Upcoming Encounters Date Type Department Care Team (Latest Contact Info) Description 07/11/2024 11:30 AM CDT Office Visit Department of Family Medicine, [facility], in [address] [place] [phone] Genet Roche APRN, C.N.P. [address] [place] [address] 08/07/2024 10:45 AM CDT Clinical Communication Virtual Review in [place], [place] 200 [place] [address] 08/08/2024 7:45 AM CDT Appointment Department of Radiology, [facility] in [place], [place] [address] [place] [phone] Diaz Narayanan M.D. [address] [place] [phone] 08/08/2024 9:00 AM CDT Office Visit Department of Orthopedic Surgery in [place], [place] [address] [place] [phone] Diaz Narayanan M.D. [address] [place] [phone] 09/19/2024 9:00 AM CDT Appointment Department of Laboratory Medicine and Pathology, [facility] in [place], [place] [address] [place] [phone] Estefani Tamayo M.D. [address] [place] [phone] Scheduled Orders Name Type Priority Associated Diagnoses Orde r Schedule Supersaturation, 24 hour, Urine Lab Routine Hyperparathyroidism Secondary (HCC) Expected: 12/20/2024, Expires: 09/19/2025 Parathyroid Hormone (PTH) Lab Routine Hyperparathyroidism Secondary (HCC) Expected: 09/19/2024, Expires: 09/19/2025 Calcium, Total Lab Routine Hyperparathyroidism Secondary (HCC) Expected: 06/20/2024, Expires: 09/19/2025 Albumin Lab Routine Hyperparathyroidism Secondary (HCC) Expected: 09/19/2024, Expires: 09/19/2025 Phosphorus Inorganic Lab Routine Hyperparathyroidism Secondary (HCC) Expected: 09/19/2024, Expires: 09/19/2025 Creatinine with Estimated GFR Lab Routine Hyperparathyroidism Secondary (HCC) Expected: 09/19/2024, Expires: 09/19/2025 documented as of this encounter Visit Diagnoses Diagnosis Hyperparathyroidism Secondary (HCC)- Primary documented in this encounter Additional Health Concerns Assessment Noted Time PHQ-9 Depression Total Score: 7 04/18/19 25 9:48 AM SET UP MECHANIC STAMPING MACHINES documented as of this encounter Care Teams Import Export Coordinator Relationship Specialty Start Date End Date Litzy Cox M.D. [address] [phone] PCP - General Family Medicine 04/22/20 documented as of this encounter
--- OUTSIDE RECORDS SUMMARY | 2024-07-06 00:02 | XMS_ITS | Encounter Summary ---
Author Organization [facility] Address [address] [place] [address] Care Team Providers Care Litigation Associate Name Role Phone Litzy Cox M.D. Primary Care Provider [phone] Reason for Visit * Reason Comments Pre-op Visit * Outpatient (Routine) - Closed Specialty Diagnoses / Procedures Referred By Ana t Referred To Contact Orthopedic Surgery Diaz Narayanan M.D. [address] [place] [phone] Phone: tel: fax: Diaz Narayanan M.D. [address] [place] [phone] Phone: tel: fax: Referral ID Status Reason Start Date Expiration Date Visits Re quested Visits Authorized [id number] Closed 05/30/2024 11/29/2025 1 1 Encounter Details Date Type Department Care Team (Late st Contact Info) Description 06/23/2024 8:30 AM CDT Office Visit Department of Orthopedic Surgery in [place], [place] [address] [place] [phone] Diaz Narayanan M.D. [address] [place] [phone] Zo Nguyen RSundayN. Pain Sacroiliac (Primary Dx); Preoperative Exam Social History Tobacco Use Types Packs/Day Years Used Date Smoking Tobacco: Never Smokeless Tobacco: Never Alcohol Use Standard Drinks/Week Comments Never 0 (1 standard drink = 0.6 oz pur e alcohol) [facility] Utilities Answer Date Recorded In the past 12 months has e [employer], [employer], oil, or water [employer] threatened to shut off services in your [...] 06/19/2022 How often do you attend chur or jew services? Never 06/19/2022 Do you belong to any clubs o r organizations such as latter-day groups, unions, fraternal or athletic groups, or [...] Answer Date Recorded PHQ-2 Score 2 04/18/2024 [facility] - Occupational Stress Questionnaire Answer Date [...] your living situation today? I have a [facility] place to live 07/16/2023 Education Answer Date Recorded What is the highest level of school you have completed or the highest degree you have received? Associate degree: occupational, technical, or vocational program 04/10/2020 Comments No Sex and Gender Information Value Date Recorded Sex Assigned at Female 11/27/2021 8:14 PM CDT Legal Sex Female 2:16 PM CANDY SUPERVISOR Gender Identity Female 03/30/2019 8:45 PM CANDY SUPERVISOR Sexual Orientation Straight 03/30/2019 8: 45 PM CANDY SUPERVISOR documented as of this encounter Progress Notes * Zo Nguyen, RSundayN. - 06/23/2024 8:30 AM CDT SUBJECTIVE NAME: Carolann Lema : 1965 TODAY'S DATE: 06/23/24 Carolann presents today for pre-operative visit in preparation for bilateral SI fusion, which is planned for 06/24/[address] Narayanan History of Present Illness: Preoperative her symptoms include: Left greater than right SI and buttock pain. Current status: Unchanged from last visit. OBJECTIVE Skin:?Normal in planned surgical area. Gait: Ambulating without assistance. Assistive Device: None. Neurologic: Alert and Oriented x 3 Motor: Lower Extremity: ? Left? Right Iliopsoas:?? 5/5 ? 5/5 Quadriceps: 5/5 ? 5/5 Hamstrings: 5/5 ? 5/5? Tibialis Ant: 4/5 ? 5/5 EHL: ? 4/5 ? 5/5 ASSESSMENT / PLAN Carolann presents today for pre-operative visit. bilateral SI fusion planned on June 24, 2024. The patient was provided chlorhexidine packets and instructed on the required preoperative washes. Postoperative activity, restrictions, anticipated length of stay, pain management, and signs and symptoms of infection reviewed and discussed. Additionally, patient made aware of the NPO requirements,and the Instructions To Get Ready for Your Surgery or Procedure ([id number]) was provided to the patient. All of her questions were answered and she is comfortable with the plan. She understands to contactthe service if any questions should arise. documented in this encounter Plan of Treatment Upcoming Encounters Date Type Department Care Team (Latest Contact Info) Description 07/11/2024 11:30 AM CDT Office Visit Department of Family Medicine, [facility], in [address] [phone] Genet Roche APRN, C.N.P. [address] [place] [address] 08/07/2024 10:45 AM CDT Clinical Communication Virtual Review in [address] [phone] 08/08/2024 7:45 AM CDT Appointment Department of Radiology, [facility] in [address] [phone] Diaz Narayanan M.D. [address] [place] [phone] 08/08/2024 9:00 AM CDT Office Visit Department of Orthopedic Surgery in [address] [phone] Diaz Narayanan M.D. [address] [place] [phone] 09/19/2024 9:00 AM CDT Appointment Department of Laboratory Medicine and Pathology, [facility], in [address] [phone] Estefani Tamayo M.D. [address] [place] [phone] documented as of this encounter Visit Diagnoses Diagnosis Pain Sacroiliac- Primary Preoperative Exam documented in this encounter Additional Health Concerns Assessment Noted Time PHQ-9 Depression Total Score: 7 04/18/19 25 9:48 AM CANDY SUPERVISOR documented as of this encounter Care Teams Litigation Associate Relationship Specialty Start Date End Date Litzy Cox M.D. [address] [phone] PCP - General Family Medicine 04/22/20 documented as of this encounter
--- OUTSIDE RECORDS SUMMARY | 2024-07-06 00:02 | XMS_ITS | Encounter Summary ---
Author Organization [facility] Address [address] [place] [address] Care Team Providers Care Cathead Operator Name Role Phone Litzy Cox M.D. Primary Care Provider [phone] Encounter Details Date Type Department Care Team (Late st Contact Info) Description 06/16/2024 Orders Only Division of Endocrinology in [place], [place] [address] [place] [phone] Estefani Tamayo M.D. [address] [place] [phone] Social History Tobacco Use Types Packs/Day Years Used Date Smoking Tobacco: Never Smokeless Tobacco: Never Alcohol Use Standard Drinks/Week Comments Never 0 (1 standard drink = 0.6 oz pur e alcohol) [facility] Utilities Answer Date Recorded In the past 12 months has e [employer], gas, oil, or water [employer] threatened to shut off services in your [...] often do you attend chur ch or adventist services? Never 06/19/2022 Do you belong to any clubs o r organizations such as rastafari groups, unions, fraternal or athletic groups, or [...] Answer Date Recorded PHQ-2 Score 2 04/18/2024 [facility] - Occupational Stress Questionnaire Answer Date [...] your living situation today? I have a [facility] place to live 07/16/2023 Education Answer Date Recorded What is the highest level of school you have completed or the highest degree you have received? Associate degree: occupational, technical, or vocational program 04/10/2020 Comments No Sex and Gender Information Value Date Recorded Sex Assigned at Female 11/27/2021 8:14 PM CDT Legal Sex Female 2:16 PM RECONNAISSANCE CREWMEMBER Gender Identity Female 03/30/2019 8:45 PM RECONNAISSANCE CREWMEMBER Sexual Orientation Straight 03/30/2019 8: 45 PM RECONNAISSANCE CREWMEMBER documented as of this encounter Plan of Treatment Upcoming Encounters Date Type Department Care Team (Latest Contact Info) Description 07/11/2024 11:30 AM CDT Office Visit Department of Family Medicine, [facility], in [address] [phone] Genet Roche APRN, C.N.P. [address] [place] [phone] 08/07/2024 10:45 AM CDT Clinical Communication Virtual Review in [place], [place] 200 [place] [address] 08/08/2024 7:45 AM CDT Appointment Department of Radiology, [facility] in [place], [place] [address] [place] [phone] Diaz Narayanan M.D. [address] [place] [phone] 08/08/2024 9:00 AM CDT Office Visit Department of Orthopedic Surgery in [place], [place] [address] [place] [phone] Diaz Narayanan M.D. [address] [place] [phone] 09/19/2024 9:00 AM CDT Appointment Department of Laboratory Medicine and Pathology, [facility] in [place], [place] [address] [place] [phone] Estefani Tamayo M.D. [address] [place] [phone] documented as of this encounter Visit Diagnoses Not on filedocumented in this encounter Additional Health Concerns Assessment Noted Time PHQ-9 Depression Total Score: 7 04/18/19 25 9:48 AM RECONNAISSANCE CREWMEMBER documented as of this encounter Care Teams Cathead Operator Relationship Specialty Start Date End Date Litzy Cox M.D. [address] [place] [phone] PCP - General Family Medicine 04/22/20 documented as of this encounter
--- OUTSIDE RECORDS SUMMARY | 2024-07-06 00:03 | XMS_ITS | Encounter Summary ---
Author Organization [facility] Address [address] [place] [address] Care Team Providers Care Supervisor Lead Refinery Name Role Phone Litzy Cox M.D. Primary Care Provider [phone] Encounter Details Date Type Department Care Team (Latest Contact Info) Description 06/12/2024 11:48 AM CDT - 06/12/2024 3:18 PM CDT Hospital Encounter Department of Laboratory Medicine and Pathology, [facility], in [place], [place] [address] [place] [address] Diaz Narayanan M.D. [address] [place] [phone] Pain Sacroiliac; Preoperative Exam Discharge Disposition: Home or Self Care Social History Tobacco Use Types Packs/Day Years Used Date Smoking Tobacco: Never Smokeless Tobacco: Never Alcohol Use Standard Drinks/Week Comments Never 0 (1 standard drink = 0.6 oz pur e alcohol) [facility] Utilities Answer Date Recorded In the past 12 months has e [employer], gas, oil, or water [employer] threatened to shut off services in your [...] often do you attend chur ch or zoroastrianism services? Never 06/19/2022 Do you belong to any clubs o r organizations such as scientology groups, unions, fraternal or athletic groups, or [...] Answer Date Recorded PHQ-2 Score 2 04/18/2024 [facility] Occupat ional Health - Occupational Stress [...] your living situation today? I have a [facility] place to live 07/16/2023 Education Answer Date Recorded What is the highest level of school you have completed or the highest degree you have received? Associate degree: occupational, technical, or vocational program 04/10/2020 Comments No Sex and Gender Information Value Date Recorded Sex Assigned at Female 11/27/2021 8:14 PM CDT Legal Sex Female 2:16 PM CASKET COVERER Gender Identity Female 03/30/2019 8:45 PM CASKET COVERER Sexual Orientation Straight 03/30/2019 8: 45 PM CASKET COVERER documented as of this encounter Medications at Time of Discharge amLODIPine (Norvasc) 2.5 mg tabletIndications:R aynaud's Disease Take 1 tablet (2.5 mg total) by mouth daily. 90 tablet 3 benztropine (COGENTIN) 0.5 mg tablet Take 0.5 mg by mouth at bedtime. 4 biotin 1 mg tablet Take 1 mg by mouth daily. Hair, Skin, and Nails buPROPion XL (WELLBUTRIN XL) 300 mg 24 hr tablet Take 300 mg by mouth daily. 3 cholecalciferol (VITAMIN D3) 2,000 Unit capsule Take [...] venlafaxine IR 37.5 mg once daily. 4 acetaminophen (TYLENOL) 500 mg tablet 1 to 2 tablets every 6 hours as needed for pain. Do not exceed 8 tablets in a 24 hour period. 100 tablet 3 06/26/19 25 acetaminophen (TylenoL) 500 mg tablet Take 2 tablets (1,000 mg total) by mouth 4 (four) times a day. 5 06/26/19 25 clonazePAM (KlonoPIN) 0.5 mg tabletIndications:R apid Eye Movement Sleep Behavior Disorder Take 2 tablets (1 mg total) by mouth at bedtime. 60 tablet 3 4 06/14/19 25 HYDROmorphone (Dilaudid) 2 mg tabletIndications:A cute Pain Exception Take 0.5 tablets (1 mg total) by mouth every 4 (four) hours as needed for moderate pain or score 4-6 of 10 Indication: Acute Pain Exception. 15 tablet 06/26/2024 1:03 PM CDT 5 07/01/19 25 documented as of this encounter Plan of Treatment Upcoming Encounters Date Type Department Care Team (Latest Contact Info) Description 07/11/2024 11:30 AM CDT Office Visit Department of Family Medicine, [facility], in [address] [phone] Genet Roche, ANTONIETTA, C.N.P. 701 [place] [phone] 08/07/2024 10:45 AM CDT Clinical Communication Virtual Review in [place], [place] 200 [place] [phone] 08/08/2024 7:45 AM CDT Appointment Department of Radiology, [facility], in [place], [place] [address] [place] [phone] Diaz Narayanan M.D. [address] [place] [phone] 08/08/2024 9:00 AM CDT Office Visit Department of Orthopedic Surgery in [address] [phone] Diaz Narayanan M.D. [address] [place] [phone] 09/19/2024 9:00 AM CDT Appointment Department of Laboratory Medicine and Pathology, [facility] in [place], [place] [address] [place] [address] Estefani Tamayo M.D. [address] [place] [phone] documented as of this encounter Procedures Procedure Name Priority Date/Time Associated Diagnosis Comments 25-HYDROXYVITAMIN D2 AND D3, S Routine 06/12/2024 11:57 AM CDT Pain Sacroiliac Preoperative Exam CBC WITH DIFFERENTIAL, B Routine 06/12/2024 11:57 AM CDT Pain Sacroiliac Preoperative Exam TYPE AND SCREEN Routine 06/12/2024 11:57 AM CDT Pain Sacroiliac Preoperative Exam BASIC METABOLIC PANEL, S/P Routine 06/12/2024 11:57 AM CDT Pain Sacroiliac Preoperative Exam documented in this encounter Results * 25-Hydroxyvitamin D2 and D3 (06/12/2024 11:57 AM CDT) [facility] 25-Hydroxy D2 <4.0 ng/mL 06/14/2024 12:58 PM CDT [facility] 25-Hydroxy D3 35 ng/mL 06/14/2024 12:58 PM CDT [facility] 25-Hydroxy D Total 35 ng/mL 2024 12:58 PM CDT [facility] Comment: ----REFERENCE VALUE---- 25-HYDROXY D TOTAL (D2+D3) Optimum levels in the healthy population are 20-50. ----ADDITIONAL INFORMATION---- This test was developed and its performance characteristics determined by [facility] in a manner consistent with CLIA requirements. This test has not been cleared or approved by the U.S. Food and Drug Administration. Blood (Blood, Venous) 06/12/2024 11:57 AM CDT 06/13/2024 7:14 AM CDT Diaz Narayanan M.D. LAB BLOOD ADD-ON Final Re sult Performing Organization Address [facility]/ZIP Co de Phone Number [facility] [address] [place] [address] [facility] [address] [place] [address] [place] [address] * Type and Screen (with Reflex Antibody ID) (06/12/2024 11:57 AM CDT) ABORh O Pos Not applicable 06/12/2024 12:54 PM CDT ETRM Antibody Screen Negative Negative 06/12/2024 1:05 PM CDT ETRM Type & Screen Expiration 06/15/2024 23:59 06/12/2024 12:54 PM CDT ETRM Testing Location [facility] 06/12/2024 12:14 PM CDT ETRM Blood (Blood, Venous) 06/12/2024 11:57 AM CDT 06/12/2024 12:14 PM CDT Diaz Narayanan M.D. LAB BLOOD BANK TEST ORDER MALISSA Final Result Performing Organization Address [facility] [place] [address], [facility] ETRM [facility] 200 [place] [address] * CBC with Differential, Blood (06/12/2024 11:57 AM CDT) Hemoglobin 13.7 11.6 - 15.0 g/dL 06/12/2024 12:46 PM CDT DTL Hematocrit 42.9 35.5 - 44.9 % 06/12/2024 12:46 PM CDT DTL Erythrocytes 4.58 3.92 - 5.13 x10(12)/L 06/12/2024 12:46 PM CDT DTL MCV 93.7 78.2 - 97.9 fL 06/12/2024 12:46 PM CDT DTL RBC Distrib Width 13.7 12.2 - 16.1 % 06/12/2024 12:46 PM CDT DTL Platelet Count 290 157 - 371 x10(9)/L 06/12/2024 12:46 PM CDT DTL Leukocytes 6.4 3.4 - 9.6 x10(9)/L 06/12/2024 12:46 PM CDT DTL Neutrophils 2.87 1.56 - 6.45 x10(9)/L 06/12/2024 12:46 PM CDT DHPM Lymphocytes 2.76 0.95 - 3.07 x10(9)/L 06/12/2024 12:46 PM CDT DTL Monocytes 0.55 0.26 - 0.81 x10(9)/L 06/12/2024 12:46 PM CDT DTL Eosinophils 0.21 0.03 - 0.48 x10(9)/L 06/12/2024 12:46 PM CDT DTL Basophils 0.03 0.01 - 0.08 x10(9)/L 06/12/2024 12:46 PM CDT DTL Blood (Blood, Venous) 06/12/2024 11:57 AM CDT 06/12/2024 12:34 PM CDT Diaz Narayanan M.D. LAB BLOOD ADD-ON Final Re sult [facility] [address] [place] [address], [facility] DTL [facility] [address] [place] [address] [facility] [address] [place] [address] * (ABNORMAL) Basic Metabolic Panel (06/12/2024 11:57 AM CDT) [facility] Potassium, S 4.1 3.6 - 5.2 mmol/L 06/12/2024 1:02 PM CDT DTL Sodium, S 141 135 - 145 mmol/L 06/12/2024 1:02 PM CDT DTL Chloride, S 106 98 - 107 mmol/L 06/12/2024 1:02 PM CDT DTL Bicarbonate, S 23 22 - 29 mmol/L 06/12/2024 1:02 PM CDT DTL Anion Gap 12 7 - 15 06/12/2024 1:02 PM CDT DTL BUN (Blood Urea Nitrogen), S 11 6 - 21 mg/dL 06/12/2024 1:02 PM CDT DTL Creatinine 1.24(H) 0.59 - 1.04 mg/dL 06/12/2024 1:02 PM CDT DTL Estimated GFR (eGFR) 51(L) >=60 mL/min/BSA 06/12/2024 1:02 PM CDT DTL Comment: Estimated GFR calculated using the 2020 CKD_EPI creatinine equation. Calcium, Total, S 9.3 8.6 - 10.0 mg/dL 06/12/2024 1:02 PM CDT DTL Glucose, S 97 70 - 140 mg/dL 06/12/2024 1:02 PM CDT DTL Blood (Blood, Venous) 06/12/2024 11:57 AM CDT 06/12/2024 12:37 PM CDT us Diaz Narayanan M.D. LAB BLOOD ADD-ON Final Re sult [address] [address], [facility] DTFormerly [facility] 200 [place] [address] documented in this encounter Visit Diagnoses Diagnosis Pain Sacroiliac Preoperative Exam documented in this encounter Additional Health Concerns Assessment Noted Time PHQ-9 Depression Total Score: 7 04/18/19 25 9:48 AM CASKET COVERER documented as of this encounter Care Teams Supervisor Lead Refinery Relationship Specialty Start Date End Date Litzy Cox M.D. [address] [place] [phone] PCP - General Family Medicine 04/22/20 documented as of this encounter
--- OUTSIDE RECORDS SUMMARY | 2024-07-06 00:03 | XMS_ITS | Encounter Summary ---
Author Organization [facility] Address 200 [place] [address] Care Team Providers Care Dollyman Name Role Phone Litzy Cox M.D. Primary Care Provider [phone] Reason for Referral * Outpatient (Routine) - Closed Specialty Diagnoses / Procedures Referred By Contac t Referred To Contact Diagnoses Pain Sacroiliac Preoperative Exam Procedures BMD Bone Density Spine Hips Diaz Narayanan M.D. 200 [place] [address] Phone: tel: fax: [facility] Referral ID Status Reason Start Date Expiration Date Visits Re quested Visits Authorized [id number] Closed 05/30/2024 08/30/2025 1 1 Reason for Visit * Outpatient (Routine) - Closed Specialty Diagnoses / Procedures Referred By Ana sanchez Referred To Contact Diagnoses Pain Sacroiliac Preoperative Exam Procedures BMD Bone Density Spine Hips Diaz Narayanan M.D. 200 [place] [address] Phone: tel: fax: [facility] Referral ID Status Reason Start Date Expiration Date Visits Re quested Visits Authorized [id number] Closed 05/30/2024 08/30/2025 1 1 Encounter Details Date Type Department Care Team (Latest Contact Info) Description 06/12/2024 3:19 PM CDT - 06/12/2024 11:59 PM CDT Hospital Encounter Department of Radiology, [facility], in [place], [place] [address] [place] [address] Diaz Narayanan M.D. [address] [place] [address] Pain Sacroiliac; Preoperative Exam Discharge Disposition: Home or Self Care Social History Tobacco Use Types Packs/Day Years Used Date Smoking Tobacco: Never Smokeless Tobacco: Never Alcohol Use Standard Drinks/Week Comments Never 0 (1 standard drink = 0.6 oz pur e alcohol) [facility] Utilities Answer Date Recorded In the past 12 months has e electric, gas, oil, or water [employer] threatened to shut off services in your [...] often do you attend chur ch or sabianist services? 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 [address] [place] [phone] 08/07/2024 10:45 AM CDT Clinical Communication Virtual Review in [place], [place] 200 [place] [address] 08/08/2024 7:45 AM CDT Appointment Department of Radiology, [facility] in [place], [place] [address] [place] [phone] Diaz Narayanan M.D. [address] [place] [phone] 08/08/2024 9:00 AM CDT Office Visit Department of Orthopedic Surgery in [place], [place] [address] [place] [phone] Diaz Narayanan M.D. [address] [place] [phone] 09/19/2024 9:00 AM CDT Appointment Department of Laboratory Medicine and Pathology, [facility] in [place], [place] [address] [place] [phone] Estefani Tamayo M.D. [address] [place] [phone] documented as of this encounter Procedures Procedure Name Priority Date/Time Associated Diagnosis Comments BMD BONE DENSITY SPINE HIPS RAD - Routine (most inpatients and all outpatients) 06/12/2024 3:36 PM CDT Pain Sacroiliac Preoperative Exam documented in this encounter Results * BMD Bone Density Spine Hips (06/12/2024 3:36 PM CDT) Anatomical Region Laterality Modality Hip, Lumbar Spine, Nuclear M edicine RST LOS, Musculoskeletal ARZ LOS, Muskuloskeletal FLA LOS N/A Radio graphic Imaging Impressions 06/12/2024 4:10 PM CDT Normal bone mineral density. Narrative 06/12/2024 4:10 PM CDT EXAM: BMD BONE DENSITY SPINE HIPS Bone Mineral Density (BMD) analysis performed on [employer] with serial number [id number]. COMPARISON: Serial Comparisons Left Total Hip results: Exam Date BMD T-score 10/10/2019 1.038 g/cm2 0.2 09/22/2022 1.020 g/cm2 0.1 06/12/2024 0.973 g/cm2 -0.3 Change vs. Previous (difference): -0.047 g/cm2 *Change vs. Previous (%): -4.6 % The absolute BMD change from previous, -0.047 g/cm2, is greater than least significant change: Yes The absolute BMD change from baseline, -0.065 g/cm2, is greater than least significant change: Yes Right Total Hip results: Exam Date BMD T-score 10/10/2019 1.105 g/cm2 0.8 09/22/2022 1.076 g/cm2 0.5 06/12/2024 1.081 g/cm2 0.6 Change vs. Previous (difference): 0.005 g/cm2 Change vs. Previous (%): 0.5 % The absolute BMD change from previous, 0.005 g/cm2, is greater than least significant change: No The absolute BMD change from baseline, -0.024 g/cm2, is greater than least significant change: No Combined Total Hip results: Exam Date BMD T-score 10/10/2019 1.071 g/cm2 0.5 09/22/2022 1.048 g/cm2 0.3 06/12/2024 1.027 g/cm2 0.2 Change vs. Previous (difference): -0.021 g/cm2 Change vs. Previous (%): -2.0 % The absolute BMD change from previous, -0.021 g/cm2, is greater than least significant change: No The absolute BMD change from baseline, -0.044 g/cm2, is greater than least significant change: Yes ----- FINDINGS: Left Hip: Femur Neck: BMD = 1.016 g/cm2 T-score = -0.2 Z-score = 0.2 Total Hip: BMD = 0.973 g/cm2 T-score = -0.3 Z-score = -0.4 Right Hip: Femur Neck: BMD = 1.055 g/cm2 T-score = 0.1 Z-score = 0.5 Total Hip: BMD = 1.081 g/cm2 T-score = 0.6 Z-score = 0.5 Please note: A more comprehensive DXA report, including images and graphs, is available in [employer]. In the absence of other causes of low BMD or demonstrated skeletal fragility, osteoporosis may be diagnosed in post-menopausal women and men at or above age 50 when the T-score is at or below -2.5 as defined by the WHO. Low bone density is present at T-scores between -1 and -2.5. The diagnosis in pre-menopausal women and men < age 50 can be based on low bone density or evidence of skeletal fragility in the appropriate clinical setting. The previous spine scan is considered non-diagnostic according to ISCD Guidelines. Patient does not meet ISCD guidelines for FRAX calculations. (T-score) Procedure Note Mark Carpio M.D., Ph.D. - 06/12/2024 EXAM: BMD BONE DENSITY SPINE HIPS Bone Mineral Density (BMD) analysis performed on [employer] with serialnumber [id number]. COMPARISON: Serial Comparisons Left Total Hip results: Exam Date BMD T-score 10/10/2019 1.038 g/cm2 0.2 09/22/2022 1.020 g/cm2 0.1 06/12/2024 0.973 g/cm2 -0.3 Change vs. Previous (difference): -0.047 g/cm2 *Change vs. Previous (%): -4.6 % The absolute BMD change from previous, -0.047 g/cm2, is greater than least significant change: Yes The absolute BMD change from baseline, -0.065 g/cm2, is greater than least significant change: Yes Right Total Hip results: Exam Date BMD T-score 10/10/2019 1.105 g/cm2 0.8 09/22/2022 1.076 g/cm2 0.5 06/12/2024 1.081 g/cm2 0.6 Change vs. Previous (difference): 0.005 g/cm2 Change vs. Previous (%): 0.5 % The absolute BMD change from previous, 0.005 g/cm2, is greater than least significant change: No The absolute BMD change from baseline, -0.024 g/cm2, is greater than least significant change: No Combined Total Hip results: Exam Date BMD T-score 10/10/2019 1.071 g/cm2 0.5 09/22/2022 1.048 g/cm2 0.3 06/12/2024 1.027 g/cm2 0.2 Change vs. Previous (difference): -0.021 g/cm2 Change vs. Previous (%): -2.0 % The absolute BMD change from previous, -0.021 g/cm2, is greater than least significant change: No The absolute BMD change from baseline, -0.044 g/cm2, is greater than least significant change: Yes ----- FINDINGS: Left Hip: Femur Neck: BMD = 1.016 g/cm2 T-score = -0.2 Z-score = 0.2 Total Hip: BMD = 0.973 g/cm2 T-score = -0.3 Z-score = -0.4 Right Hip: Femur Neck: BMD = 1.055 g/cm2 T-score = 0.1 Z-score = 0.5 Total Hip: BMD = 1.081 g/cm2 T-score = 0.6 Z-score = 0.5 Please note: A more comprehensive DXA report, including images and graphs,is available in [employer]. In the absence of other causes of low BMD or demonstrated skeletalfragility, osteoporosis may be diagnosed in post-menopausal women and menat or above age 50 when the T-score is at or below -2.5 as defined by theWHO. Low bone density is present at T-scores between -1 and -2.5. The diagnosis in pre-menopausal women andmen < age 50 can be based on low bone density or evidence of skeletalfragility in the appropriate clinical setting. The previous spine scan is considered non-diagnostic according to ISCDGuidelines. Patient does not meet ISCD guidelines for FRAX calculations. (T-score) IMPRESSION: Normal bone mineral density. Diaz Narayanan M.D. IMGhassan DXA PROCEDURES Final Result documented in this encounter Visit Diagnoses Diagnosis Pain Sacroiliac Preoperative Exam documented in this encounter Additional Health Concerns Assessment Noted Time PHQ-9 Depression Total Score: 7 04/18/19 25 9:48 AM AUTOMATIC COIN MACHINE MECHANIC documented as of this encounter Care Teams Dollyman Relationship Specialty Start Date End Date Litzy Cox M.D. NPTrip: [phone] [id number] [phone] PCP - General Family Medicine 04/22/20 documented as of this encounter
--- OUTSIDE RECORDS SUMMARY | 2024-07-06 00:03 | XMS_ITS | Clinical Summary ---
Author Organization [facility] Address [address] [place] [address] Care Team Providers Care Water Well Driller Name Role Phone RizwanLuz Elena levy Mark PAINTING Primary Care Provider [phone] Allergies Active Allergy Reactions Criticality Noted Date Comments Apple *Unknown Unknown 02/10/2015 Ciprofloxacin Angioedema 08/17/2009 cipro Quinolones Anaphylaxis High 02/10/2015 [place] *Unknown Unknown 02/10/2015 Sulfa (Sulfonamide Antibiotics) Anaphylaxis High 11/2014 Sulfamethoxazole-Trimethoprim Anaphylaxis High 08/17 Bactrim Medications multivitamin (MVI) tablet Take 1 tablet by mouth once daily. Active levothyroxine (SYNTHROID) 50 mcg tablet Take 50 mcg by mouth before breakfast. Active escitalopram (LEXAPRO) 20 mg tablet Take 1 tablet by mouth once daily. 90 tablet 3 10/27/2009 Active buPROPion (WELLBUTRIN XL) 300 mg Extended-Release tablet Take 1 tablet by mouth every morning. 0 03/18/2015 Active Active Problems Problem Noted Date Diagnosed Date Anxiety state, unspecified 08/17/2009 Routine health maintenance 08/17/2009 Overview (08/17/2009): Last cpx-04/11 Last pap smear-06/04 Last breast exam-04/11 Last lipid-11/10,pthx Immunizations Immunization Administration Dates Next Due Influenza, IIV3 (Age >=3 years) 12/10/2009,12/26 Influenza, IIV4 11/29/2015 Td (Age >=7 Years) 02/20/2007,09/02/1997 Social History Tobacco Use Types Packs/Day Years Used Date Smoking Tobacco: Never Smokeless Tobacco: Never Alcohol Use Standard Drinks/Week Comments Not Asked 0 (1 standard drink = 0.6 oz pur e alcohol) Comments No Sex and Gender Information Value Date Recorded Sex Assigned at Not on file Legal Sex Female 5:24 AM MANAGER STRATEGIC Gender Identity Not on file Sexual Orientation Not on file Obstetrics History Last Filed Vital Signs Vital Sign Reading Time Taken Comments Blood Pressure 123/83 03/18/2015 1:28 PM MANAGER STRATEGIC Pulse 82 03/18/2015 1:28 PM MANAGER STRATEGIC Temperature 36.9 C (98.4 F) 03/18/2015 1:28 PM MANAGER STRATEGIC Respiratory Rate - - Oxygen Saturation 99% 03/18/2015 1:28 PM MANAGER STRATEGIC Inhaled Oxygen Concentration - - Weight 97.8 kg (215 lb 8 oz) 03/18/2015 1:28 PM MANAGER STRATEGIC Height 174 cm (5' 8.5) 08/17/2009 1:51 PM CDT Body Mass Index 32.29 08/17/2009 1:51 PM CDT Plan of Treatment Health Maintenance Due Date Last Done Comments Tdap 10/05/1978 Depression screening for age 12+ 1979 HIV for age 15-65 10/05/1982 BMI (ht and wt on same day) for age 18+ 10/05/1985 Hepatitis C screening for age 18-79 10/05/1985 Colonoscopy through age 75 10/05/2012 Lipids for age 45-75 10/05/2012 Mammogram for age 45-75 10/05/2012 Pap test for age 21-65 12/28/2012 12/28/2009 Tetanus booster 02/20/2017 02/20/2007, 09/02/1997 Pneumococcal series for age 50+ (1 of 1 - PCV) 10/05/2017 Zoster (shingles) series for age 50+ (1 of 2) 10/05/2017 COVID-19 vaccine series ( - 2023- season) 2023 Influenza Vaccine (Season Ended) 2024 11/29/2015, 12/10/2009, 12/27/2007 Procedures Procedure Name Priority Date/Time Associated Diagnosis Comments GYNECOLOGICAL PANEL Timed 12/28/2009 1 :21 PM CDT from Last 3 Months or Most Recently Relevant to Health Maintenance Results * GYNECOLOGICAL PANEL (12/28/2009 1:21 PM CDT) CYTOLOGY CYTOPATHOLOGY REPORT [facility] Status: Final Status [id number] CLINICAL INFORMATION Last Date of LMP :UNK Last Pap Date :UNK Last Pap Result :WNL Odell/Bx done today :No HPV Request :HPV if ASCUS SPECIMEN SOURCE :Cervical/vaginal ThinPrep Vial, screening SPECIMEN ADEQUACY :Satisfactory for evaluation Endocervical component present. INTERPRETATION/RES ULT Negative for intraepithelial lesion or malignancy (NIL) Cytology 1st Screener :ll Signed by :harper This specimen was screened by the FDA approved ThinPrep Imaging System and manually reviewed. NOTE: The Pap test is a screening technique, not a diagnostic procedure. It is used primarily to screen for squamous cancers and precursor lesions. Published studies have shown that it is subject to both false negative and false positive results. The pap test should not be used as the sole means to diagnose or exclude pre-malignant and malignant lesions. COLLECTED:12/28/09 ACCESSIONED: 12/29/09 SIGNED: 01/03/10 [facility] [place] CODE NIL [facility] 12/28/2009 1:21 PM CDT 12/29/2009 1:21 PM CDT us Hailey Kramer PATHOLOGY/CYTOLOGY Final Resul t [facility] INTERNAL ZIP [address] [address] from Last 3 Months or Most Recently Relevant to Health Maintenance Insurance [id number] Care Teams Water Well Driller Relationship Specialty Start Date End Date MeetJune MERT Flores PCP - General Physician Privacy Manager 03/18/15
--- OUTSIDE RECORDS SUMMARY | 2024-07-06 00:03 | XMS_ITS | Encounter Summary ---
Author Organization [facility] Address [address] [place] [address] Care Team Providers Care Supervisor Poultry Hatchery Name Role Phone Litzy Cox M.D. Primary Care Provider [phone] Reason for Visit * Outpatient (Routine) - Closed Specialty Diagnoses / Procedures Referred By Ana sanchez Referred To Contact Anesthesiology Diagnoses Pain Sacroiliac Preoperative Exam Diaz Narayanan M.D. [address] [place] [phone] Phone: tel: fax: [facility] Referral ID Status Reason Start Date Expiration Date Visits Re quested Visits Authorized [id number] Closed 05/30/2024 11/29/2025 1 1 Encounter Details Date Type Department Care Team (Latest Contact Info) Description 06/12/2024 2:15 PM CDT Comprehensive Visit Preoperative Evaluation Center in [place], [place] [address] [place] [phone] Diaz Narayanan M.D. [address] [place] [phone] Oh Ardon APRN, C.N.P., M.S.N. [address] [place] [phone] Post Operative Nausea/Vomiting (Primary Dx); Preanesthetic Medical Exam; Fusion Lumbar Spine Status Post; Pain Sacroiliac; Hypertensive Chronic Kidney Disease With Stage 1 Through Stage 4 Chronic Kidney Disease, Or Unspecified Chronic Kidney Disease; Ventricular Premature Depolarization; Arthritis Inflammatory (HCC); PreDiabetes; Gastroesophageal Reflux Disease; Hypothyroidism; Obstructive Sleep Apnea Adult; Rapid Eye Movement Sleep Behavior Disorder; Depression Major Recurrent Moderate (HCC); Anxiety Generalized Disorder; Thrombosis Deep Vein Family History; Surgery Bariatric Status Post; Malabsorption; Hyperparathyroidism (HCC) Social History Tobacco Use Types Packs/Day Years Used Date Smoking Tobacco: Never Smokeless Tobacco: Never Alcohol Use Standard Drinks/Week Comments Never 0 (1 standard drink = 0.6 oz pur e alcohol) [facility] Luristicities Answer Date Recorded In the past 12 months has e Sway, oil, or water [employer] threatened to shut off services in your [...] often do you attend chur ch or muslim services? Never 06/19/2022 Do you belong to any clubs o r organizations such as episcopalian groups, unions, fraternal or athletic groups, or [...] Answer Date Recorded PHQ-2 Score 2 04/18/2024 [facility] of Occupat ional [facility] - Occupational Stress Questionnaire Answer [...] your living situation today? I have a [facility] place to live 07/16/2023 Education Answer Date Recorded What is the highest level of school you have completed or the highest degree you have received? Associate degree: occupational, technical, or vocational program 04/10/2020 Comments No Sex and Gender Information Value Date Recorded Sex Assigned at Female 11/27/2021 8:14 PM CDT Legal Sex Female 2:16 PM DATA OPERATIONS LEADER Gender Identity Female 03/30/2019 8:45 PM DATA OPERATIONS LEADER Sexual Orientation Straight 03/30/2019 8: 45 PM DATA OPERATIONS LEADER documented as of this encounter Last Filed Vital Signs Vital Sign Reading Time Taken Comments Blood Pressure 119/88 06/12/2024 2:14 PM CDT Pulse 100 06/12/2024 2:14 PM CDT Temperature 36.4 C (97.5 F) 06/12/2024 2:14 PM CDT Respiratory Rate - - Oxygen Saturation 99% 06/12/2024 2:14 PM CDT Inhaled Oxygen Concentration - - Weight 123 kg (271 lb 2.7 oz) 06/12/2024 2:14 PM CDT Height 173 cm (5' 8.11) 06/12/2024 2:14 PM CDT Body Mass Index 41.1 06/12/2024 2:14 PM CDT documented in this encounter Consult Notes * Oh Ardon APRN, C.N.P., M.S.N. - 06/12/2024 2:15 PM CDT REASON FOR VISIT: Preoperative Medical Evaluation REFERRING PHYSICIAN: Diaz Narayanan M.D. 06/24/2024: FUSION SACROILIAC JOINT; Diaz Narayanan M.D. Surgery Specific Risk Classification: Elevated Risk SUBJECTIVE HISTORY OF PRESENT ILLNESS Carolann Lema is a 58 y.o. female who is here for preanesthetic medical examination prior tothe planned procedure as listed above. REVIEW OF SYSTEMS The following systems were negative: Constitutional, Respiratory, Cardiovascular, Neurological OBJECTIVE OBJECTIVE PHYSICAL EXAMINATION General/Constitutional Constitutional Assessment: Normal General State of Health: Healthy appearing Airway (HEENT) Mallampati: III TM Distance: >3 FB Neck ROM: Limited Mouth Opening: > 3 cm Upper Lip Bite Test: I Dental Assessment: Dentition intact Cardiovascular Rhythm: Regular Rate: Normal Cardiovascular Assessment: Normal Pulmonary Pulmonary Assessment: Clear and non labored Neurological Neurologic Assessment: Alert and oriented X 3 Musculoskeletal Gait: Normal Ambulate with: None Psychiatric Psychiatric Assessment: Calm Dermatology Skin Assessment: normal ASSESSMENT / PLAN Anesthesia: Patient reports previous anesthesia related complications. Patient reports a past history of postop nausea and vomiting. Airway Hx: 09/25/2022 - video laryngoscope. LAB: Lab Results Component Value Date HGB 13.7 06/12/2024 HCT 42.9 06/12/2024 PLT 290 06/12/2024 NA 141 06/12/2024 KSERUM 4.1 06/12/2024 CREATININE 1.24 (H) 06/12/2024 EGFR 51 (L) 06/12/2024 TSH 2.5 11/19/2023 HGBA1C 5.8 (H) 11/19/2023 ECG 07/19/2023 Normal sinus rhythm Low voltage QRS in the chest leads Nonspecific ST and T wave abnormality Echo stress 09/26/2023: Dobutamine stress echocardiogram negative for myocardial ischemia. Ejection fraction response from 55% at rest to 75% at peak stress, left ventricular end-systolic volume decreased with stress. A peak heart rate of 155 BPM was achieved (94% age-predicted maximal HR). The stress ECG was negative for ischemia. VO2 exercise test 03/28/2019: Final Impressions 1. Exercise echocardiogram negative for myocardial ischemia at the workload achieved. 2. The patient achieved a workload of 5.3 METS and 58 % FAC. 3. The patient's exercise capacity was limited. 4. The test was terminated due to fatigue, left shoulder/back discomfort, moderate dizziness, and dyspnea. 5. Ejection fraction response from 63 % at rest to 70 % at peak stress. Holter 03/26/2019: The basic rhythm was sinus with sinus arrhythmia and varying P wave morphology. The heart rate varied from 60-140 BPM. The average heart rate was 81 BPM. Frequent VPCs were seen singly, fused, paired, in bigmeiny and in trigeminy. Rare SVPCs were seen singly, twice paired, and twice in 5-13 beat runs of supraventricular tachycardia. The maximum SVT rate was [address] segment depression did not exceed preset criteria. The patient did not record any symptoms in her diary. #1 Preanesthetic Medical Exam Substance use: Denies history of tobacco use. Denies alcohol use. Denies illicit drug/marijuana use. Activity tolerance: Able to walk up two flights of steps or 4 city blocks without chest pain or shortness of breath. Reports she does her own housework and walks around when at the store for up to 1-2 hours, but is limited by pain. Denies family history of anesthesia reactions, bleeding/clotting disorders. Denies personal history of blood transfusion, bleeding/clotting problems, radiation/chemotherapy, swallowing difficulties and denies anything chipped/cracked/loose/removable in the mouth. Reports steroid use in the past year: Was on a burst of steroids last month for pain. #2 Fusion Lumbar Spine Status Post Patient has a history of complex spinal surgery T10 to pelvis fusion with TLIF L2-3, L3-4, and L5-S1 and anterior cervical spine fusion C4-7, painful iliac screws removed 05/05/2021. #3 Pain Sacroiliac This is the reason for surgery. Please see the surgical service consultation notes for full details. #4 Post Operative Nausea/Vomiting See above. #5 Hypertensive Chronic Kidney Disease With Stage 1 Through Stage 4 Chronic Kidney Disease, Or Unspecified Chronic Kidney Disease Chronic, currently maintained on amlodipine (which will be continued perioperatively) and losartan (which will be held the morning of surgery). Labs updated today, see above. #6 Ventricular Premature Depolarization Previous Holter in 2019, see above. ECG updated last year, see above. Patient denies any concerningcardiopulmonary symptoms with rest or with activity. #7 Arthritis Inflammatory (HCC) Managed by rheumatology, see most recent note dated 12/31/2023 for full details. Currently maintained on hydroxychloroquine which will be continued perioperatively without interruption. She also usesNorco 2-3 tabs per day for pain, which she will continue perioperatively. #8 PreDiabetes Chronic, diet-controlled. Most recent A1c reviewed, see above. #9 Gastroesophageal Reflux Disease Managed with omeprazole, which will be continued perioperatively. Currently well controlled withoutbreakthrough symptoms.. Able to lay flat without symptoms. #10 Hypothyroidism Chronic, currently maintained on levothyroxine, which will be continued perioperatively. #11 Obstructive Sleep Apnea Adult #12 Rapid Eye Movement Sleep Behavior Disorder Uses clonazepam for sleep disorder. She states she was diagnosed with sleep apnea in the past but was not able to tolerate CPAP. #13 Depression Major Recurrent Moderate (HCC) #14 Anxiety Generalized Disorder Chronic, mood is currently stable on venlafaxine, Benztropine, hydroxyzine, bupropion and diazepam.These medications will be continued perioperatively without interruption. #15 Thrombosis Deep Vein Family History Based on diagnosis listed in chart, but patient denies any family history of bleeding or clotting disorders. 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 #18 Hyperparathyroidism (HCC) Patient was seen and evaluated by endocrinology 03/12/2024, please see that consult note for full details. Elevated parathyroid hormone felt to be secondary to low dietary calcium intake and history ofRoux-en-Y. She has been encouraged to increase dietary calcium. PATIENT EDUCATION: Reviewed Instructions To Get Ready for Your Surgery or Procedure: [facility] [id number] rev [id number]. Written and verbal instructions given on medication management beforesurgery. RECOMMENDATIONS: Patient medically optimized for planned procedure: I believe this patient has the cardio respiratory reserve to tolerate the above-stated procedure. Further Recommendations: None I spent 65 minutes face to face and non-face to face caring for the patient today. documented in this encounter Plan of Treatment Upcoming Encounters Date Type Department Care Team (Latest Contact Info) Description 07/11/2024 11:30 AM CDT Office Visit Department of Family Medicine, [facility], in [address] [phone] Genet Roche APRN, C.N.P. [address] [place] [phone] 08/07/2024 10:45 AM CDT Clinical Communication Virtual Review in [address] [phone] 08/08/2024 7:45 AM CDT Appointment Department of Radiology, [facility] in [place], [place] [address] [place] [phone] Diaz Narayanan M.D. [address] [place] [phone] 08/08/2024 9:00 AM CDT Office Visit Department of Orthopedic Surgery in [place], [place] [address] [place] [phone] Diaz Narayanan M.D. [address] [place] [phone] 09/19/2024 9:00 AM CDT Appointment Department of Laboratory Medicine and Pathology, [facility] in [place], [place] [address] [place] [phone] Estefani Tamayo M.D. [address] [place] [phone] documented as of this encounter Visit Diagnoses Diagnosis Post Operative Nausea/Vomiting- Primary Preanesthetic Medical Exam Fusion Lumbar Spine Status Post Pain Sacroiliac Hypertensive Chronic Kidney Disease With Stage 1 Through Stage 4 Chronic Kidney Disease, Or Unspecified Chronic Kidney Disease Ventricular Premature Depolarization Arthritis Inflammatory (HCC) PreDiabetes Gastroesophageal Reflux Disease Hypothyroidism Obstructive Sleep Apnea Adult Rapid Eye Movement Sleep Behavior Disorder Depression Major Recurrent Moderate (HCC) Anxiety Generalized Disorder Thrombosis Deep Vein Family History Surgery Bariatric Status Post Malabsorption Hyperparathyroidism (HCC) documented in this encounter Additional Health Concerns Assessment Noted Time PHQ-9 Depression Total Score: 7 04/18/19 25 9:48 AM DATA OPERATIONS LEADER documented as of this encounter Care Teams Supervisor Poultry Hatchery Relationship Specialty Start Date End Date Litzy Cox M.D. [address] [phone] PCP - General Family Medicine 04/22/20 documented as of this encounter
--- OUTSIDE RECORDS SUMMARY | 2024-07-06 00:04 | XMS_ITS | Encounter Summary ---
Author Organization [facility] Address [address] [place] [address] Care Team Providers Care Legal Assistant Name Role Phone Litzy Cox M.D. Primary Care Provider [phone] Encounter Details Date Type Department Care Team (Latest Contact Info) Description 06/10/2024 12:20 PM CDT Hospital Encounter Department of Laboratory Medicine in [address] [phone] Estefani Tamayo M.D. 200 [place] [phone] Hyperparathyroidism ([facility]) Discharge Disposition: Home or Self Care Social History Tobacco Use Types Packs/Day Years Used Date Smoking Tobacco: Never Smokeless Tobacco: Never Alcohol Use Standard Drinks/Week Comments Never 0 (1 standard drink = 0.6 oz pur e alcohol) [facility] Utilities Answer Date Recorded In [...] often do you attend chur ch or catholic services? Never 06/19/2022 Do you belong to any clubs o r organizations such as restorationism groups, unions, fraternal or athletic groups, or [...] Answer Date Recorded PHQ-2 Score 2 04/18/2024 [facility] Occupat ional Health - Occupational Stress [...] your living situation today? I have a [facility] place to live 07/16/2023 Education Answer Date Recorded What is the highest level of school you have completed or the highest degree you have received? Associate degree: occupational, technical, or vocational program 04/10/2020 Comments No Sex and Gender Information Value Date Recorded Sex Assigned at Female 11/27/2021 8:14 PM CDT Legal Sex Female 2:16 PM INSPECTOR RUBBER STAMP DIE Gender Identity Female 03/30/2019 8:45 PM INSPECTOR RUBBER STAMP DIE Sexual Orientation Straight 03/30/2019 8: 45 PM INSPECTOR RUBBER STAMP DIE documented as of this encounter Medications at [...] (2,000 Units total) by mouth daily. 0 cyanocobalamin 2,000 mcg tablet Take 2,500 mcg [...] bedtime. 60 tablet 3 4 06/14/19 25 fluconazole (Diflucan) 150 mg tabletIndications:A cute Candidiasis Of Vulva And Vagina Take 1 tablet (150 mg total) by mouth See Admin Instructions. Take one tab now. Repeat in 7 days if symptoms persist. 2 tablet 5 06/13/19 25 HYDROmorphone (Dilaudid) 2 mg tabletIndications:A cute [...] CDT Office Visit Department of Family Medicine, [facility], in [address] [phone] Genet Roche, ANTONIETTA, C.N.P. [address] [place] [phone] 08/07/2024 10:45 AM CDT Clinical Communication Virtual Review in [place], [place] 200 [place] [phone] 08/08/2024 7:45 AM CDT Appointment Department of Radiology, [facility], in [address] [phone] Diaz Narayanan M.D. [address] [place] [phone] 08/08/2024 9:00 AM CDT Office Visit Department of Orthopedic Surgery in [address] [phone] Diaz Narayanan M.D. [address] [place] [phone] 09/19/2024 9:00 AM CDT Appointment Department of Laboratory Medicine and Pathology, [facility], in [place], [place] [address] [place] [phone] Estefani Tamayo M.D. [address] [place] [phone] documented as of this encounter Procedures Procedure Name Priority Date/Time Associated Diagnosis Comments PARATHYROID HORMONE (PTH), S Routine 06/10/2024 12:25 PM CDT Hyperparathyroidism (HCC) CALCIUM, TOT, S/P Routine 06/10/2024 12: 25 PM CDT Hyperparathyroidism (HCC) ALBUMIN, S/P Routine 06/10/2024 12:25 PM CDT Hyperparathyroidism (HCC) documented in this encounter Results * Albumin (06/10/2024 12:25 PM CDT) Albumin, P 4.0 3.5 - 5.0 g/dL 06/10/2024 12:50 PM CDT CNFL Blood (Blood, Venous) 06/10/2024 12:25 PM CDT 06/10/2024 12:32 PM CDT Estefani Tamayo M.D. LAB BLOOD ADD-ON Final Result [facility] [address] [place] [phone], [facility] in [address] [address] * (ABNORMAL) Parathyroid Hormone (PTH) (06/10/2024 12:25 PM CDT) Parathyroid Hormone (PTH), S 66(H) 15 - 65 pg/mL 06/10/2024 7:40 PM CDT RDWG Blood (Blood, Venous) 06/10/2024 12:25 PM CDT 06/10/2024 6:56 PM CDT Estefani Tamayo M.D. LAB BLOOD ADD-ON Final Result [facility] [address] [place] [address], [place] RDWG [facility] in [place] [address] [place] [phone] * (ABNORMAL) Calcium, Total (06/10/2024 12:25 PM CDT) Calcium, Total, P 8.4(L) 8.6 - 10.0 mg/dL 06/10/2024 12:50 PM CDT CNFL Blood (Blood, Venous) 06/10/2024 12:25 PM CDT 06/10/2024 12:32 PM CDT us Estefani Tamayo M.D. LAB BLOOD ADD-ON Final Result [facility] [address] [place] [phone], [facility] CNFL [facility] in [address] [phone] documented in this encounter Visit Diagnoses Diagnosis Hyperparathyroidism (HCC) documented in this encounter Additional Health Concerns Assessment Noted Time PHQ-9 Depression Total Score: 7 04/18/19 25 9:48 AM INSPECTOR RUBBER STAMP DIE documented as of this encounter Care Teams Legal Assistant Relationship Specialty Start Date End Date Litzy Cox M.D. [address] [place] [phone] PCP - General Family Medicine 04/22/20 documented as of this encounter
--- OUTSIDE RECORDS SUMMARY | 2024-07-06 00:04 | XMS_ITS | Encounter Summary ---
Author Organization [facility] Address [address] [place] [address] Care Team Providers Care Crutcher Helper Name Role Phone Litzy Cox M.D. Primary Care Provider [phone] Encounter Details Date Type Department Care Team (Latest Contact Info) Description 06/11/2024 Results Follow-Up Division of Endocrinology in [place], [place] [address] [place] [address] Estefani Tamayo M.D. [address] [place] [address] Calcium, Total, Parathyroid Hormone (PTH), Albumin Social History Tobacco Use Types Packs/Day Years Used Date Smoking Tobacco: Never Smokeless Tobacco: Never Alcohol Use Standard Drinks/Week Comments Never 0 (1 standard drink = 0.6 oz pur e alcohol) [facility] Utilities Answer Date Recorded In the past 12 months has e electric, gas, oil, or water [employer] threatened to shut off services in your [...] often do you attend chur ch or voodoo services? Never 06/19/2022 Do you belong to any clubs o r organizations such as holiness groups, unions, fraternal or athletic groups, or [...] Answer Date Recorded PHQ-2 Score 2 04/18/2024 [facility] of Occupat ional Health - Occupational Stress [...] your living situation today? I have a [facility] place to live 07/16/2023 Education Answer Date Recorded What is the highest level of school you have completed or the highest degree you have received? Associate degree: occupational, technical, or vocational program 04/10/2020 Comments No Sex and Gender Information Value Date Recorded Sex Assigned at Female 11/27/2021 8:14 PM CDT Legal Sex Female 2:16 PM MEN'S GARMENT FITTER Gender Identity Female 03/30/2019 8:45 PM MEN'S GARMENT FITTER Sexual Orientation Straight 03/30/2019 8: 45 PM MEN'S GARMENT FITTER documented as of this encounter Plan of Treatment Upcoming Encounters Date Type Department Care Team (Latest Contact Info) Description 07/11/2024 11:30 AM CDT Office Visit Department of Family Medicine, [facility], in [address] [phone] Genet Roche, HOIST OPERATOR, C.N.P. [address] [place] [phone] 08/07/2024 10:45 AM CDT Clinical Communication Virtual Review in [place], [place] 200 [place] [address] 08/08/2024 7:45 AM CDT Appointment Department of Radiology, [facility] in [place], [place] [address] [place] [phone] Diaz Narayanan M.D. [address] [place] [phone] 08/08/2024 9:00 AM CDT Office Visit Department of Orthopedic Surgery in [address] [phone] Diaz Narayanan M.D. [address] [place] [phone] 09/19/2024 9:00 AM CDT Appointment Department of Laboratory Medicine and Pathology, [facility] in [address] [phone] Estefani Tamayo M.D. [address] [place] [phone] documented as of this encounter Visit Diagnoses Not on filedocumented in this encounter Additional Health Concerns Assessment Noted Time PHQ-9 Depression Total Score: 7 04/18/19 25 9:48 AM MEN'S GARMENT FITTER documented as of this encounter Care Teams Crutcher Helper Relationship Specialty Start Date End Date Litzy Cox M.D. [address] [place] [phone] PCP - General Family Medicine 04/22/20 documented as of this encounter
--- OUTSIDE RECORDS SUMMARY | 2024-07-06 00:04 | XMS_ITS | Encounter Summary ---
Author Organization [facility] Address [address] [place] [address] Care Team Providers Care Team Cdl Driver Name Role Phone Litzy Cox M.D. Primary Care Provider [phone] Encounter Details Date Type Department Care Team (Latest Contact Info) Description 06/10/2024 12:21 PM CDT - 06/10/2024 11:59 PM CDT Hospital Encounter Department of Laboratory Medicine in [address] [phone] Estefani Tamayo M.D. 200 [place] [address] Discharge Disposition: Home or Self Care Social History Tobacco Use Types Packs/Day Years Used Date Smoking Tobacco: Never Smokeless Tobacco: Never Alcohol Use Standard Drinks/Week Comments Never 0 (1 standard drink = 0.6 oz pur e alcohol) [facility] Utilities Answer Date Recorded In the past 12 months has e [employer], gas, oil, or water company threatened to [...] often do you attend chur ch or oriental orthodox services? Never 06/19/2022 Do you belong to any clubs o r organizations such as jehovah's witness groups, unions, fraternal or athletic groups, or [...] Answer Date Recorded PHQ-2 Score 2 04/18/2024 [facility] of Occupat ional Health - Occupational [...] your living situation today? I have a [facility] place to live 07/16/2023 Education Answer Date Recorded What is the highest level of school you have completed or the highest degree you have received? Associate degree: occupational, technical, or vocational program 04/10/2020 Comments No Sex and Gender Information Value Date Recorded Sex Assigned at Female 11/27/2021 8:14 PM CDT Legal Sex Female 2:16 PM CUSTOMER PROJECT MANAGER Gender Identity Female 03/30/2019 8:45 PM CUSTOMER PROJECT MANAGER Sexual Orientation Straight 03/30/2019 8: 45 PM CUSTOMER PROJECT MANAGER documented as of this encounter Medications at [...] CDT Office Visit Department of Family Medicine, [facility], in [address] [phone] Genet Roche, ANTONIETTA, C.N.P. [address] [place] [phone] 08/07/2024 10:45 AM CDT Clinical Communication Virtual Review in [address] [phone] 08/08/2024 7:45 AM CDT Appointment Department of Radiology, [facility], in [address] [phone] Diaz Narayanan M.D. [address] [place] [phone] 08/08/2024 9:00 AM CDT Office Visit Department of Orthopedic Surgery in [address] [phone] Diaz Narayanan M.D. [address] [place] [phone] 09/19/2024 9:00 AM CDT Appointment Department of Laboratory Medicine and Pathology, [facility] in [place], [place] [address] [place] [address] Estefani Tamayo M.D. [address] [place] [phone] documented as of this encounter Visit Diagnoses Not on filedocumented in this encounter Additional Health Concerns Assessment Noted Time PHQ-9 Depression Total Score: 7 04/18/19 25 9:48 AM CUSTOMER PROJECT MANAGER documented as of this encounter Care Teams Team Cdl Driver Relationship Specialty Start Date End Date Litzy Cox M.D. [address] [place] [phone] PCP - General Family Medicine 04/22/20 documented as of this encounter
--- OUTSIDE RECORDS SUMMARY | 2024-07-06 00:04 | XMS_ITS | Encounter Summary ---
Author Organization [facility] Address [address] [place] [address] Care Team Providers Care Suspect Artist Name Role Phone Litzy Cox M.D. Primary Care Provider [phone] Reason for Visit * Reason Comments Med Refill Encounter Details Date Type Department Care Team (Late st Contact Info) Description 06/11/2024 Refill Department of Family Medicine, [facility], in [address] [phone] Litzy Cox M.D. [address] [place] [phone] Med Refill Social History Tobacco Use Types Packs/Day Years Used Date Smoking Tobacco: Never Smokeless Tobacco: Never Alcohol Use Standard Drinks/Week Comments Never 0 (1 standard drink = 0.6 oz pur e alcohol) [facility] Utilities Answer Date Recorded In the [...] often do you attend chur ch or roman catholic services? Never 06/19/2022 Do you belong to any clubs o r organizations such as spiritism groups, unions, fraternal or athletic groups, or [...] Answer Date Recorded PHQ-2 Score 2 04/18/2024 [facility] of Occupat ional Health - Occupational [...] your living situation today? I have a [facility] place to live 07/16/2023 Education Answer Date Recorded What is the highest level of school you have completed or the highest degree you have received? Associate degree: occupational, technical, or vocational program 04/10/2020 Comments No Sex and Gender Information Value Date Recorded Sex Assigned at Female 11/27/2021 8:14 PM CDT Legal Sex Female 2:16 PM STEAMBOAT CAPTAIN Gender Identity Female 03/30/2019 8:45 PM STEAMBOAT CAPTAIN Sexual Orientation Straight 03/30/2019 8: 45 PM STEAMBOAT CAPTAIN documented as of this encounter Miscellaneous Notes * Telephone Encounter - Litzy Cox M.D. - 06/13/2024 6:15 PM CDT Prescription approved. documented in this encounter Plan of Treatment Upcoming Encounters Date Type Department Care Team (Latest Contact Info) Description 07/11/2024 11:30 AM CDT Office Visit Department of Family Medicine, [facility], in [address] [phone] Genet Roche, ANTONIETTA, C.N.P. [address] [place] [phone] 08/07/2024 10:45 AM CDT Clinical Communication Virtual Review in [place], [place] 200 [place] [address] 08/08/2024 7:45 AM CDT Appointment Department of Radiology, [facility] in [address] [phone] Diaz Narayanan M.D. [address] [place] [phone] 08/08/2024 9:00 AM CDT Office Visit Department of Orthopedic Surgery in [address] [phone] Diaz Narayanan M.D. [address] [place] [phone] 09/19/2024 9:00 AM CDT Appointment Department of Laboratory Medicine and Pathology, [facility] in [address] [phone] Estefani Tamayo M.D. [address] [place] [phone] documented as of this encounter Visit Diagnoses Diagnosis Rapid Eye Movement Sleep Behavior Disorder documented in this encounter Additional Health Concerns Assessment Noted Time PHQ-9 Depression Total Score: 7 04/18/19 25 9:48 AM STEAMBOAT CAPTAIN documented as of this encounter Care Teams Suspect Artist Relationship Specialty Start Date End Date Litzy Cox M.D. [address] [place] [phone] PCP - General Family Medicine 04/22/20 documented as of this encounter
--- OUTSIDE RECORDS SUMMARY | 2024-07-06 00:05 | XMS_ITS | Encounter Summary ---
Author Organization [facility] Address [address] [place] [address] Care Team Providers Care Restaurant Lead Name Role Phone Litzy Cox M.D. Primary Care Provider [phone] Encounter Details Date Type Department Care Team (Latest Contact Info) Description 06/02/2024 10:16 AM CDT - 06/02/2024 11:59 PM CDT Hospital Encounter Department of Laboratory Medicine and Pathology, [facility], in [place], [place] [address] [place] [address] Estefani Tamayo M.D. [address] [place] [address] Hyperparathyroidism ([facility]) Discharge Disposition: Home or Self Care Social History Tobacco Use Types Packs/Day Years Used Date Smoking Tobacco: Never Smokeless Tobacco: Never Alcohol Use Standard Drinks/Week Comments Never 0 (1 standard drink = 0.6 oz pur e alcohol) [facility] Utilities Answer Date Recorded In the [...] How often do you attend chur or temple services? Never 06/19/2022 Do you belong to any clubs o r organizations such as zoroastrian groups, unions, fraternal or athletic groups, or [...] Answer Date Recorded PHQ-2 Score 2 04/18/2024 [facility] of Occupat ional Health - [...] your living situation today? I have a [facility] place to live 07/16/2023 Education Answer Date Recorded What is the highest level of school you have completed or the highest degree you have received? Associate degree: occupational, technical, or vocational program 04/10/2020 Comments No Sex and Gender Information Value Date Recorded Sex Assigned at Female 11/27/2021 8:14 PM CDT Legal Sex Female 2:16 PM CNA PER DIEM Gender Identity Female 03/30/2019 8:45 PM CNA PER DIEM Sexual Orientation Straight 03/30/2019 8: 45 PM CNA PER DIEM documented as of this encounter Medications at [...] anaphylaxis. Inject into the thigh. 1 each 5 fexofenadine (JAMAL) 180 mg tablet Take [...] CDT Office Visit Department of Family Medicine, [facility], in [address] [phone] Genet Roche, ANTONIETTA, C.N.P. [address] [place] [phone] 08/07/2024 10:45 AM CDT Clinical Communication Virtual Review in [place], [place] 200 [place] [phone] 08/08/2024 7:45 AM CDT Appointment Department of Radiology, [facility], in [place], [place] [address] [place] [phone] Diaz Narayanan M.D. [address] [place] [phone] 08/08/2024 9:00 AM CDT Office Visit Department of Orthopedic Surgery in [place], [place] [address] [place] [phone] Diaz Narayanan M.D. [address] [place] [address] [place] [phone] 09/19/2024 9:00 AM CDT Appointment Department of Laboratory Medicine and Pathology, [facility], in [place], [place] [address] [place] [phone] Estefani Tamayo M.D. [address] [place] [phone] documented as of this encounter Procedures Procedure Name Priority Date/Time Associated Diagnosis Comments SUPERSATURATION, 24H, U Routine 06/10/2024 12:34 PM CDT Hyperparathyroidism (HCC) documented in this encounter Results * (ABNORMAL) Supersaturation, 24 hour, Urine (06/10/2024 12:34 PM CDT) Sodium, 24 HR, U 158 22 - 328 mmol/24 h 06/11/2024 1:56 PM CDT DTL Potassium, 24 HR, U 27 16 - 105 mmol/24 h 06/11/2024 1:33 PM CDT DTL Calcium, 24 HR, U 181 <200 mg/24 h 06/11/2024 1:33 PM CDT DTL Magnesium, 24 HR, U 181 51 - 269 mg/24 h 06/11/2024 1:33 PM CDT DTL Chloride, 24 HR, U 131 34 - 286 mmol/24 h 06/11/2024 1:56 PM CDT DTL Phosphorus, 24 HR, U 634 226 - 1797 mg/24 h 06/11/2024 1:33 PM CDT DTL Sulfate, 24 HR, U 12 7 - 47 mmol/24 h 06/11/2024 12:57 PM CDT DTL Comment: ----ADDITIONAL INFORMATION---- This test was developed and its performance characteristics determined by [facility] in a manner consistent with CLIA requirements. This test has not been cleared or approved by the U.S. Food and Drug Administration. Citrate Excretion, 24 HR, U 186(L) 406 - 1191 mg/24 h 06/11/2024 8:44 AM CDT DTL Comment: ----ADDITIONAL INFORMATION---- This test was developed and its performance characteristics determined by [facility] in a manner consistent with CLIA requirements. This test has not been cleared or approved by the U.S. Food and Drug Administration. Oxalate, 24 HR, U (mmol/24 HR) 0.50(H) 0.11 - 0.46 mmol/24 h 06/11/2024 2:51 PM CDT DTL Comment: ----ADDITIONAL INFORMATION---- This test was developed and its performance characteristics determined by [facility] in a manner consistent with CLIA requirements. This test has not been cleared or approved by the U.S. Food and Drug Administration. Oxalate, 24 HR, U (mg/24 HR) 44.0(H) 9.7 - 40.5 mg/24 h 06/11/2024 2:51 PM CDT DTL pH, 24 HR, U 6.5 4.5 - 8.0 06/11/2024 8:00 AM CDT DTL Uric Acid, 24 HR, U 498 250 - 750 mg/24 h 06/11/2024 1:33 PM CDT DTL Creatinine, 24 HR, U 1674 603 - 1783 mg/24 h 06/11/2024 1:33 PM CDT DTL Osmolality, 24 HR, U 186 150 - 1150 mOsm/kg 06/11/2024 8:00 AM CDT DTL Ammonium, 24 HR, U 51 15 - 56 mmol/24 h 06/11/2024 3:29 PM CDT DTL Comment: ----ADDITIONAL INFORMATION---- This test has been modified from the restoration ecologist's instructions. Its performance characteristics were determined by [facility] in a manner consistent with CLIA requirements. This test has not been cleared or approved by the U.S. Food and Drug Administration. Urea Nitrogen, 24 HR, U 10.3 7.0 - 42.0 g/24 h 06/11/2024 1:56 PM CDT DTL Protein Catabolic Rate, 24 HR, U 89 56 - 125 g/24 h 06/11/2024 1:56 PM CDT DTL Height (cm) 174 cm 06/10/2024 12:35 PM CDT DTL Weight (kg) 124 kg 06/10/2024 12:35 PM CDT DTL Patient Surface Area SEE COMMENT 1.73m(2) 06/11/2024 1:06 PM CDT DTL Comment:Adult values are not corrected for body surface area. Calcium Oxalate Crystal 1.11 Reference Mean= 1.59 DG 06/12/2024 7:56 AM CDT DTL Brushite Crystal -0.82 Reference Mean= -0.11 DG 06/12/2024 7:56 AM CDT DTL Hydroxyapatite Crystal 4.42 Reference Mean= 3.62 DG 06/12/2024 7:56 AM CDT DTL Uric Acid Crystal -4.65 Reference Mean= 0.89 DG 06/12/2024 7:56 AM CDT DTL Collection Duration 24 h 06/12/2024 7:56 AM CDT DTL Volume 4525 mL 06/12/2024 7:56 AM CDT DTL Interpretation The DG is related to supersaturation. DG is negative for undersaturated solutions, zero for solutions at the solubility product, and positive for saturated solutions. Any value greater than the Reference Mean is considered a risk for the respective crystal type formation. In general, a higher calculated SS means the risk for forming that type of stone is increased. A positive DG value indicates that the urine is supersaturated for that crystal type. SSINT is the reportable component of the orderable test code, SUP24. A full copy of the interpretative report is available as a PDF appended to this cover sheet and is ready to review. 06/12/2024 7:56 AM CDT DTL Urine (Urine, 24 Hours) 06/10/2024 12:34 PM CDT 06/11/2024 1:06 PM CDT us Estefani Tamayo M.D. LAB URINE ORDERABLES Final Res ult [facility] 200 [place] [address], [facility] [address] [place] [address] DT 200 [facility] 200 [place] [address] documented in this encounter Visit Diagnoses Diagnosis Hyperparathyroidism (HCC) documented in this encounter Additional Health Concerns Assessment Noted Time PHQ-9 Depression Total Score: 7 04/18/19 25 9:48 AM CNA PER DIEM documented as of this encounter Care Teams Restaurant Lead Relationship Specialty Start Date End Date Litzy Cox M.D. [address] [phone] PCP - General Family Medicine 04/22/20 documented as of this encounter
--- OUTSIDE RECORDS SUMMARY | 2024-07-06 00:07 | XMS_ITS | Encounter Summary ---
Author Organization [facility] Address [address] [place] [phone] Care Team Providers Care Slumber Room Attendant Name Role Phone Litzy Cox M.D. Primary Care Provider [phone] Encounter Details Date Type Department Care Team (Late st Contact Info) Description 06/30/2024 Documentation Department of Orthopedic Surgery in [place], [place] [address] [place] [phone] Carmelo Patel M.D. [address] [place] [phone] Social History Tobacco Use Types Packs/Day Years Used Date Smoking Tobacco: Never Smokeless Tobacco: Never Alcohol Use Standard Drinks/Week Comments Never 0 (1 standard drink = 0.6 oz pur e alcohol) [facility] Utilities Answer Date Recorded In the past 12 months has [facility] [employer], gas, oil, or water [employer] threatened to shut off services in your [...] often do you attend chur ch or evangelical services? Never 06/19/2022 Do you belong to [...] Answer Date Recorded PHQ-2 Score 2 04/18/2024 [facility] of Occupat ional Health - Occupational Stress [...] your living situation today? I have a [facility] place to live 07/16/2023 Education Answer Date Recorded What is the highest level of school you have completed or the highest degree you have received? Associate degree: occupational, technical, or vocational program 04/10/2020 Comments No Sex and Gender Information Value Date Recorded Sex Assigned at Female 11/27/2021 8:14 PM CDT Legal Sex Female 2:16 PM PROFILE GRINDER TECHNICIAN Gender Identity Female 03/30/2019 8:45 PM PROFILE GRINDER TECHNICIAN Sexual Orientation Straight 03/30/2019 8: 45 PM PROFILE GRINDER TECHNICIAN documented as of this encounter Progress Notes * Carmelo Patel M.D. - 06/30/2024 2:03 PM CDT Images from the original note were not included. Plan of Care Note I was paged by the [facility] regarding the following result: I discussed the case over the phone with the orthopedic infectious disease team. They report that this should be viewed as a contaminant and does not require further treatment. Carmelo Patel M.D. Service of Dr. Narayanan documented in this encounter Plan of Treatment Upcoming Encounters Date Type Department Care Team (Latest Contact Info) Description 07/11/2024 11:30 AM CDT Office Visit Department of Family Medicine, [facility], in [address] [phone] Genet Roche, POKER MANAGER, C.N.P. [address] [place] [phone] 08/07/2024 10:45 AM CDT Clinical Communication Virtual Review in [place], [place] 200 [place] [phone] 08/08/2024 7:45 AM CDT Appointment Department of Radiology, [facility], in [place], [place] [address] [place] [phone] Diaz Narayanan M.D. [address] [place] [phone] 08/08/2024 9:00 AM CDT Office Visit Department of Orthopedic Surgery in [address] [phone] Diaz Narayanan M.D. [address] [place] [phone] 09/19/2024 9:00 AM CDT Appointment Department of Laboratory Medicine and Pathology, [facility] in [place], [place] [address] [place] [phone] Estefani Tamayo M.D. [address] [place] [phone] documented as of this encounter Visit Diagnoses Not on filedocumented in this encounter Additional Health Concerns Assessment Noted Time PHQ-9 Depression Total Score: 7 04/18/19 9:48 AM PROFILE GRINDER TECHNICIAN documented as of this encounter Care Teams Slumber Room Attendant Relationship Specialty Start Date End Date Litzy Cox M.D. [address] [place] [phone] PCP - General Family Medicine 04/22/20 documented as of this encounter
--- OUTSIDE RECORDS SUMMARY | 2024-07-06 00:07 | XMS_ITS | Encounter Summary ---
Author Organization [facility] Address [address] [place] [address] Care Team Providers Care Production Superintendent Hydro Name Role Phone Litzy Cox M.D. Primary Care Provider [phone] Reason for Visit * Auth/Cert (Routine) Specialty Diagnoses / Procedures Referred By Ana sanchez Referred To Contact Diagnoses Pain Sacroiliac Pain Sacroiliac [M53.3] Procedures PA ARTHRDSIS SACROILIAC PERC SACROILIAC JOINT FUSION Bilateral Diaz Narayanan M.D. [address] [place] [phone] Phone: tel: fax: Referral ID Status Reason Start Date Expiration Date Visits Re quested Visits Authorized [id number] 1 1 Encounter Details Date Type Department Care Team (Latest Contact Info) Description 06/24/2024 8:53 AM CDT - 06/26/2024 1:16 PM CDT Hospital Encounter [facility], [facility], [facility], Ninth Floor [address] [place] [phone] Diaz Narayanan M.D. [address] [place] [phone] Decline Functional Status [R53.81] (Primary Dx); Pain Sacroiliac Discharge Disposition: Home or Self Care Social History Tobacco Use Types Packs/Day Years Used Date Smoking Tobacco: Never Smokeless Tobacco: Never Alcohol Use Standard Drinks/Week Comments Never 0 (1 standard drink = 0.6 oz pur e alcohol) [facility] Utilities Answer Date Recorded In [...] any clubs o r organizations such as religion groups, unions, fraternal or athletic groups, or [...] Answer Date Recorded PHQ-2 Score 2 04/18/2024 [facility] - Occupational Stress Questionnaire Answer [...] your living situation today? I have a [facility] place to live 07/16/2023 Education Answer Date Recorded What is the highest level of school you have completed or the highest degree you have received? Associate degree: occupational, technical, or vocational program 04/10/2020 Comments No Sex and Gender Information Value Date Recorded Sex Assigned at Female 11/27/2021 8:14 PM CDT Legal Sex Female 2:16 PM [employer] Gender Identity Female 03/30/2019 8:45 PM [employer] AMB[employer] Sexual Orientation Straight 03/30/2019 8: 45 PM [employer] AMB[employer] documented as of this encounter Last Filed Vital Signs Vital Sign Reading Time Taken Comments Blood Pressure 122/91 06/26/2024 1:06 PM CDT patient up and walking Pulse 83 06/26/2024 1:06 PM CDT Temperature 36.8 C (98.2 F) 06/26/2024 1:06 PM CDT Respiratory Rate 18 06/26/2024 1:06 PM CDT patient had been up and walking Oxygen Saturation 95% 06/26/2024 1:0 6 PM CDT Inhaled Oxygen Concentration - - Weight 122 kg (269 lb 10 oz) 06/24/2024 9:32 AM CDT Height 174 cm (5' 8.5) 06/24/2024 9:32 AM CDT Body Mass Index 40.39 06/24/2024 9:32 AM CDT documented in this encounter Discharge Summaries * Carmelo Patel M.D. - 06/26/2024 10:27 AM CDT DISCHARGE SUMMARY BRIEF OVERVIEW Hospital: [facility] Discharge Provider: Diaz Narayanan M.D. Primary Team: [facility] Orthopedic Surgery - [place] Primary Care Providers: Litzy Cox M.D. [address] [phone] Primary Care Provider Primary Care Provider Other [...] Revision Posterior Spinal Fusion L5 - Pelvis iDaz Narayanan M.D.Mechas, Charles-Antoine A, M.D.Johnson, Preet J, M.D. [facility] ROMB OR DISCHARGE DISPOSITION Home or Self Care [1] ACTIVE ISSUES REQUIRING FOLLOW UP None OUTPATIENT FOLLOW UP Scheduled Appointments 07/11/2024 11:30 AM Genet Roche APRN C.N.P. Family Medicine 08/07/2024 10:45 AM RST ORS SPM INTAKE VISIT Admitting/Central Scheduling 08/08/2024 7:45 AM DX ROGO [address] Radiology 08/08/2024 9:00 AM Diaz Narayanan M.D. [...] AM CDT You were discharged from the [facility] Orthopedic Surgery - [place] Service. Please identify this service name if you call with questions after hospitalization. * Attachments The following attachments cannot be sent through Care Everywhere. * Naloxone (Into the nose) (Belarusian) * Hydromorphone (By mouth) (Belarusian) * Ondansetron (By mouth, Into the mouth) (Belarusian) documented in this encounter Medications at Time [...] of this encounter Progress Notes * Roseann Fischer, OSundayT., MOT - 06/26/2024 9:39 AM CDT Occupational Therapy [facility] Inpatient Treatment SUBJECTIVE Patient's Name: Carolann Lema Referring/Attending Provider: Diaz Narayanan M.D. Reason for Referral: Occupational Therapy Evaluation and Treatment Onset Date: 06/24/2024 History of Present Illness: Carolann Lema is a 58 y.o. female who was admitted to [facility] in [place] on 06/24/2024 for Pain Sacroiliac [M53.3] Pain Back [M54.9]. Precautions Other Precautions: SI joint fusion precautions Pain Assessment: Pain not reported during session. Subjective Comments: Patient greeted in chair and agreeable to therapy session. OBJECTIVE Vital Signs: Vitals monitored throughout session; within normal ranges. Outcome Measures: AM-[facility] Inpatient Short Form: Putting on and taking [...] Time (min): 14 min Roseann Fischer O.T., SHERYL * Carmelo Patel M.D. - 06/26/2024 7:50 [...] M.D. Please contact the [facility] Service at [phone] with any questions or concerns regarding this patient from 06:00 - 18:00 on weekdays. If outside of 06:00 - 18:00 on weekdays or any time on the weekend, please contact the [facility] Orthopedic Surgery House Resident home planning consultant salesperson at [phone]. * Nasima No, Pharm.D., R.Ph. - 06/25/2024 [...] Home medications: Held: Benztropine, Fexofenadine, Losartan, Prempro, [place] 7.5-325mg prn, Hydroxyzine prn, Biotin, Calcium, Vit [...] discharge:possible pain medications and bowel regimen Nasima No PharmBob., R.Ph. * Isis Pike P.T., D.P.T. - 06/25/2024 10:10 AM CDT 06/25/24 1010 Reason Therapy Missed Reason Therapy Missed Receiving other care (Patient leaving with transport for x-ray on PT arrival. PT will follow-up as able and appropriate to initiate [id number].) Isis Pike P.T., D.P.T. * Carmelo Patel [...] holding suction Output by Drain (mL) 06/23/24 0701 - 06/23/24 1900 06/23/24 1901 - 06/24/24 0700 06/24/24 0701 - 06/24/24 1900 06/24/24 1901 - 06/25/24 0519 Closed/Suction Drain Inferior;Left Back [...] Sacroiliac Carmelo Patel M.D. Please contact the [facility] Service at [phone] with any questions or concerns regarding this patient from 06:00 - 18:00 on weekdays. If outside of 06:00 - 18:00 on weekdays or any time on the weekend, please contact the [facility] Orthopedic Surgery House Resident home planning consultant salesperson at [phone]. * Carmelo Patel M.D. - 06/24/2024 7:04 PM CDT Orthopedic Spine Surgery - [place] Service Progress Note * Day of Surgery * Surgery: Surgery Information This Encounter Past and Present Procedures (06/25/2023 to Today) Date Procedures Providers Loc / Dept 06/24/2024 SACROILIAC JOINT FUSION, Bilateral. Revision Posterior Spinal Fusion L5 - Pelvis Diaz Narayanan M.D.Mechas, Charles-Antoine A, M.D.Preet Carpio M.D. RST ROMB OR SUBJECTIVE Mrs. Lema [...] 0701 - 06/24/24 1900 06/24/24 190 - 06/24/24 1904 Requested LDAs do not have output data [...] Sacroiliac Carmelo Patel M.D. Please contact the [employer] Service at [phone] with any questions or concerns regarding this patient from 06:00 - 18:00 on weekdays. If outside of 06:00 - 18:00 on weekdays or any time on the weekend, please contact the [facility] Orthopedic Surgery House Resident home planning consultant salesperson at [phone]. * Fabricio Carpio Pharm.D., R.Ph., BCPS - 06/24/2024 10:06 AM CDT Images from [...] Complete Set By: Fabricio Carpio Pharm.D., R.Ph., BCPS at 06/24/2024 10:05 AM Taking? Last Dose [...] 58 y.o. 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 She assists client with bathing.Her spouse and neighbor are able to assist her client as she recovers post OP. 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 OBJECTIVE Vital Signs: Vitals not formally assessed [...] of activity Hearing: Hearing Intact Outcome Measures: [facility] Inpatient Short Form: [facility] Basic Mobility (V.2) How much help [...] Climbing 3-5 steps with a railing?: None -[facility] Basic Mobility (V.2) Raw Score: 22 AM-PAC Basic Mobility (V.2) Standardized Score: 47.4 Interpretation: Based on scoring guidelines using the raw score value: Those going to home had an average score at or above 18 Those going to facility had an average score at or below 17 Clinicians answer the -[facility] Inpatient Short Form based on observed patient activity and/or clinical judgement (patient can be scored without physically performing each activity). The -PAC is one of many factors to consider [...] seat or utilizing gait belt as leg architect naval as needed. EDUCATION: -Role of PT in [...] INSTRUMENTATION - POSTERIOR THORACOLUMBAR Posterior 04/16/2020 Procedure: [id number] Fusion with TLIF L2-3, L3-4, and L5-S1; [...] 8:16 AM CDT * Roseann Fischer N, O.T., SHERYL - 06/25/2024 9:59 AM CDT Occupational Therapy [...] 58 y.o. 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 She assists client with bathing.Her spouse and neighbor are able to assist her client as she recovers post OP. 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 - 06/26/2024 1:16 PM CDT Shift [...] Depression major recurrent. Gastroesophageal reflux disease. A welder first class actively participated and was necessary for one [...] of the case. SURGEON: Diaz Narayanan M.D. LABORATORY SPECIALIST: Dylon Brown M.D. INDICATIONS: Treatment of pain and sacroiliac pain as well as painful pseudoarthrosis. PROCEDURES: Reopening of posterior lumbar incision. Exploration of fusion mass L3-4, L4-5, L5-S1. Removal of hardware. Use of O-arm with Stealth navigation for placement of instrumentation. Revision posterior segmental instrumentation S1 bilateral, S2 alar iliac. Placement of SI bone Ifuse [place] pelvic instrumentation for bilateral SI fusion. Revision spinal fusion L5-S1 with application of allograft bone, bone morphogenic protein for fusion. ANESTHESIA: General endotracheal. IMPLANTS: SuperTruperuy [employer] Expedium 5.5 titanium set. SI bone Ifuse [place] SI fusion system. HISTORY OF PRESENT ILLNESS: [...] a combination of 9.5 x 90 mm [place] screws from the SI bone set with [...] a lindsay across the S2 alar iliac [place] screw as well as the S1 pedicle [...] Diaz Narayanan M.D. CT CT Job ID: [id number] documented in this encounter Plan of Treatment Upcoming Encounters Date Type Department Care Team (Latest Contact Info) Description 07/11/2024 11:30 AM CDT Office Visit Department of Family Medicine, [facility], in [address] [phone] Genet Roche, EXPERIMENTAL FLIGHT TEST MECHANIC, C.N.P. [address] [place] [phone] 08/07/2024 10:45 AM CDT Clinical Communication Virtual Review in [place], [place] [address] [place] [phone] 08/08/2024 7:45 AM CDT Appointment Department of Radiology, [facility] in [place], [place] [address] [place] [phone] Diaz Narayanan M.D. [address] [place] [phone] 08/08/2024 9:00 AM CDT Office Visit Department of Orthopedic Surgery in [place], [place] [address] [place] [phone] Diaz Narayanan M.D. [address] [place] [phone] 09/19/2024 9:00 AM CDT Appointment Department of Laboratory Medicine and Pathology, [facility] in [place], [place] [address] [place] [phone] Estefani Tamayo M.D. [address] [place] [phone] Pending Results Name Type Priority Associated Diagnoses [...] 12:34 PM CDT Pain Sacroiliac Case Notes Enrollment Nurse 858 documented in this encounter Results * (ABNORMAL) CBC with Differential, Blood (06/26/2024 6:16 AM CDT) Hemoglobin 12.1 11.6 - 15.0 g/dL 06/26/2024 [...] 6:16 AM CDT 06/26/2024 6:22 AM CDT us Carmelo Patel M.D. LAB BLOOD ADD-ON Final Res ult [facility] [address] [place] [address], [facility] STMA [facility] [address] [place] [address] [facility] [address] [place] [address] * DX Pelvis 3+ Views (06/25/2024 10:45 [...] abdomen. Pelvic phleboliths. us Carmelo Patel M.D. [facility] PRO CEDURES Final Result * [...] clips upper abdomen. Pelvic phleboliths. us Carmelo [facility] PRO CEDURES Final Result * [...] 4:12 AM CDT 06/25/2024 5:00 AM CDT Carmelo Patel M.D. LAB BLOOD ADD-ON Final Res ult [facility] [address] [place] [address], [facility] [address] [place] [address] * (ABNORMAL) Basic Metabolic Panel (06/25/2024 4:12 AM CDT) Potassium, S 4.1 3.6 - 5.2 mmol/L [...] M.D. LAB BLOOD ADD-[place] [address], [facility] [place] [address] * FL OARM (06/24/2024 5:57 PM CDT) Narrative [facility] - 06/24/2024 5:58 PM CDT This exam does not require a radiologist review or interpretation. Please refer to the patient's medical record on this date for clinical details. us Diaz Narayanan M.D. IMG FLUOROSCOPY PROCEDURE S Final Result [facility] * FL Fluoro Less Than 1 Hour (06/24/2024 5:16 PM CDT) Narrative [facility] - 06/24/2024 5:18 PM CDT This exam does not require a radiologist review or interpretation. Please refer to the patient's medical record on this date for clinical details. us Diaz Narayanan M.D. IMG FLUOROSCOPY PROCEDURE S Final Result Performing Organization Address [facility] Co de Phone Number [facility] * Bacterial Culture, Aerobic + Susceptibility (06/24/2024 3:02 PM CDT) Bacterial Culture, Aerobic + Susc No growth after 5 days of incubation. 06/30/2024 9:36 AM CDT DTL Implant (Spine, Lumbar) 06/24/2024 3:02 PM CDT Comment:15 minute ferrera. Hilt on us Diaz Narayanan M.D. LAB MICROBIOLOGY - GENERA L ORDERABLES Final Result Performing Organization Address [facility] Co de Phone Number [facility] [address] [place] [address], [facility] DTL [facility] [address] [place] [address] documented in this encounter Visit Diagnoses Diagnosis Pain Sacroiliac- Primary Pain Sacroiliac Decline Functional Status [R53.81] Pain Back documented in this encounter Admitting Diagnoses Diagnosis [...] needed, sore throat, Starting on Sun06/24/24 at 195 bisacodyL suppository 10 mg (Dulcolax) 10 mg, rectal, Daily PRN, constipation, Starting on Sun06/24/24 at 195, Ordered sequence of administration: polyethylene glycol, then bisacodyl until BM achieved. buPROPion XL 24 hr tablet 300 mg [...] PRN, heartburn, indigestion, Starting on Sun06/24/24 at 1959, Doses listed are in mg of elemental calcium. Take with food. 500 mg calcium carbonate contains 200 mg of elemental calcium. ceFAZolin injection 2 g (Ancef) 2 g, [...] PRN, muscle spasms, Starting on Sun06/24/24 at 9 Given 06/26/2024 12:02 AM CDT 2 mg [...] PRN, constipation, Starting on Sun06/24/24 at 1958, Give if no bowel movement by post-operative [...] with starch-based thickened liquids., Indications: constipationIndications:c onstipation prochlorperazine injection 5 mg (Compazine) 5 mg, [...] Given 06/25/2024 9:01 AM CDT 50 mg venlafaxine XR 24 hr capsule 150 mg [...] to exceed 4 grams in 24 hours. 0662 (Given - Provider: Sena Urrutia R.N.)4920 (Given - Provider: Nina Moses R.N.)1703 (Given - Provider: Nina Moses R.N.)2023 (Given - Provider: Mya Allen R.N.) 0832 (Given - Provider: Elizabeth Roberson R.N.) amLODIPine tablet 2.5 mg (Norvasc) 2.5 mg, oral, Daily, First dose (after last modification) on Sun06/25/24 at 1115 1243 (Given - Provider: Nina Moses R.N.) 0833 [...] Do NOT crush, chew, or split tablet. 0901 (Given - Provider: Nina Moses R.N.) [...] based on indication and drug clearance factors. 09 (Given - Provider: Nina Moses R.N.) [...] at 2100, For constipation. Hold for diarrhea. 231 (Not Given - Provider: Sena Urrutia R.N. - Reason: Other - Comment: per patient preference) 1056 (Not Given - Provider: Nina Moses R.N. - Reason: Patient/family refused)2022 (Given - Provider: Mya lAlen R.N.) 0832 (Given - Provider: Elizabeth Roberson R.N.) topiramate tablet 50 mg (Topamax) 50 mg, oral, 2 times daily, First dose on Sun06/24/24 at 2100 2315 (Given - Provider: Sena Urrutia R.N. - Comment: per patient preference) 0901 (Given - Provider: Nina Moses R.N.)2022 (Given - Provider: Mya Allen R.N.) 0833 (Given - Provider: Elizabeth Roberson R.N.) venlafaxine XR 24 hr capsule 150 mg (Effexor-XR) 150 mg, oral, Daily, First dose on Sun06/25/24 at 0900, Swallow whole. Do NOT crush, chew or open capsule. 0901 (Given - Provider: Nina Moses R.N.) 0832 (Given - Provider: Elizabeth Roberson R.N.) Continuous Medication Order 06/24/2024 06/25/2024 06/26/2024 Lactated Ringer's () 80 mL/hr, intravenous, Continuous, Starting on Sun06/24/24 at 2014, For 12 hours, Discontinue when tolerated > 500cc of oral intake 5 (New Bag - Provider: Sena Urrutia R.N.) [...] Bryant M.D.)1755 (Stopped - Provider: Gigi Holloway EXPERIMENTAL FLIGHT TEST MECHANIC, [place]ER, DNAP) PRN Medication Order 06/24/2024 06/25/2024 06/26/2024 [...] 1856 (New Bag - Provider: Dilia Valencia R.N.) benzocaine-menthoL 15-3.6 mg per lozenge 1 lozenge (CepacoL) 1 lozenge, oral, As needed, sore throat, Starting on Sun06/24/24 at 195 bisacodyL suppository 10 mg (Dulcolax) 10 mg, rectal, Daily PRN, constipation, Starting on Sun06/24/24 at 1959, Ordered sequence of administration: polyethylene glycol, then bisacodyl until BM achieved. BUPivacaine 0.25 % (2.5 mg/mL) injection (Marcaine) (CANCELED) As needed, Starting on Sun06/24/24 at 1732, Intra-Op 1732 (Given - Provider: Dylon Brown M.D.) calcium [...] muscle spasms, Starting on Sun06/24/24 at 2048 0116 (Given - Provider: Sena Urrutia, RDerik.)0901 (Given - Provider: Nina Moses R.N.)1542 (Given - Provider: Nina Moses R.N.) 0002 (Given - Provider: Mya Allen RSundayN.) haloperidol lactate injection 1 mg (HaldoL) 1 [...] equal to 7. Maximum of 3 doses. 2144 (Given - Provider: Sena Urrutia R.N.) 1251 [...] (See Alternative - Provider: Sena Urrutia R.N.) 024 (See Alternative - Provider: Sena Urrutia R.N.)0648 (See Alternative - Provider: Sena Urrutia R.N.)1055 (See Alternative - Provider: Nina Moses R.N.)184 (See Alternative - Provider: Nina Moses R.N.)222 (See Alternative - Provider: Mya Allen R.N.) [...] 2122 (Given - Provider: Sena Urrutia R.N.) 024 (Given - Provider: Sena Urrutia R.N.)0648 (Given - Provider: Sena Urrutia R.N.)1055 (Given - Provider: Nina Moses R.N.)1845 (Given - Provider: Nina Moses R.N.)2227 (Given - Provider: Mya Allen R.N.) 0428 (Given - Provider: Mya Allen R.N.)0833 (Given - Provider: Elizabeth Roberson RSundayNSunday)1240 (Given - Provider: Elizabeth Roberson R.N.) ketamine injection 10 mg (Ketalar) (COMPLETED) 10 mg, intravenous, Once as needed, Refractory moderate pain or score 4-6 of 10, Refractory severe pain score 7-10 of 10 after fentanyl or hydromorphone administration, Pain sedation mismatch AND RASS less than -1, Starting on Sun06/24/24 at 1846, For 1 dose, PACU (only) 1911 (Given - Provider: Dilia Valencia R.N.) magnesium hydroxide suspension 30 mL (Milk of Magnesia) 30 mL, oral, Daily PRN, constipation, Starting on Sun06/24/24 at 1958, Give if no bowel movement by post-operative [...] As needed, migraine, Starting on Sun06/24/24 at 1959, May repeat dose once in 2 hours [...] M.D.)1731 (Anesthesia Volume Adjustment - Provider: Gigi Holloway APRN, EDGE DYER, DNAP) vancomycin powder 1 g (COMPLETED) 1 [...] Total Score: 7 04/18/19 25 9:48 AM GOODWILL 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 [id number] [phone] PCP - General Family Medicine 04/22/20 documented as of this encounter
--- OUTSIDE RECORDS SUMMARY | 2024-07-06 00:07 | XMS_ITS | Encounter Summary ---
Author Organization [facility] Address [address] [place] [address] Care Team Providers Care Media Assistant Name Role Phone Litzy Cox M.D. Primary Care Provider [phone] Encounter Details Date Type Department Care Team (Late st Contact Info) Description 06/30/2024 Clinical Communication Department of Orthopedic Surgery in [place], [place] [address] [place] [phone] Diaz Narayanan M.D. [address] [place] [phone] Social History Tobacco Use Types Packs/Day Years Used Date Smoking Tobacco: Never Smokeless Tobacco: Never Alcohol Use Standard Drinks/Week Comments Never 0 (1 standard drink = 0.6 oz pur e alcohol) [facility] Utilities Answer Date Recorded In the past 12 months has [facility] [employer], gas, oil, or water [employer] threatened to shut off services in your [...] often do you attend chur ch or rastafari services? Never 06/19/2022 Do you belong to any clubs o r organizations such as synagogue groups, unions, fraternal or athletic groups, or [...] Answer Date Recorded PHQ-2 Score 2 04/18/2024 [facility] - [...] PM CDT Legal Sex Female 2:16 PM PRESS SETTER Gender Identity Female 03/30/2019 8:45 PM PRESS SETTER Sexual Orientation Straight 03/30/2019 8: 45 PM PRESS SETTER documented as of this encounter Plan of Treatment Upcoming Encounters Date Type Department Care Team (Latest Contact Info) Description 07/11/2024 11:30 AM CDT Office Visit Department of Family Medicine, [facility], in [address] [phone] Genet Roche APRN, C.N.P. [address] [place] [phone] 08/07/2024 10:45 AM CDT Clinical Communication Virtual Review in [place], [place] [address] [place] [phone] 08/08/2024 7:45 AM CDT Appointment Department of Radiology, [facility] in [place], [place] [address] [place] [phone] Diaz Narayanan M.D. [address] [place] [phone] 08/08/2024 9:00 AM CDT Office Visit Department of Orthopedic Surgery in [place], [place] [address] [place] [phone] Diaz Narayanan M.D. [address] [place] [phone] 09/19/2024 9:00 AM CDT Appointment Department of Laboratory Medicine and Pathology, [facility] in [place], [place] [address] [place] [phone] Estefani Tamayo M.D. [address] [place] [phone] documented as of this encounter Visit Diagnoses Not on filedocumented in this encounter Additional Health Concerns Assessment Noted Time PHQ-9 Depression Total Score: 7 04/18/19 25 9:48 AM PRESS SETTER documented as of this encounter Care Teams Media Assistant Relationship Specialty Start Date End Date Litzy Cox M.D. [address] [place] [phone] PCP - General Family Medicine 04/22/20 documented as of this encounter
--- OUTSIDE RECORDS SUMMARY | 2024-07-06 00:07 | XMS_ITS | Encounter Summary ---
Author Organization [facility] Address [address] [place] [address] Care Team Providers Care Parenting Skills Instructor Name Role Phone Litzy Cox M.D. Primary Care Provider [phone] Reason for Visit * Reason Onset Date Comments Tegaderm dressing 06/27/2024 Encounter Details Date Type Department Care Team (Latest Contact Info) Description 06/27/2024 Clinical Communication Department of Orthopedic Surgery in [place], [place] [address] [place] [phone] Diaz Narayanan M.D. [address] [place] [phone] Tegaderm dressing Social History Tobacco Use Types Packs/Day Years [...] often do you attend chur ch or protestant services? Never 06/19/2022 Do you belong to any clubs o r organizations such as jewish groups, unions, fraternal or athletic groups, or [...] Date Recorded PHQ-2 Score 2 04/18/2024 [facility] - [...] your living situation today? I have a [facility] place to live 07/16/2023 Education Answer Date Recorded What is the highest level of school you have completed or the highest degree you have received? Associate degree: occupational, technical, or vocational program 04/10/2020 Comments No Sex and Gender Information Value Date Recorded Sex Assigned at Female 11/27/2021 8:14 PM CDT Legal Sex Female 2:16 PM INCIDENT ENGINEER Gender Identity Female 03/30/2019 8:45 PM INCIDENT ENGINEER Sexual Orientation Straight 03/30/2019 8: 45 PM INCIDENT ENGINEER documented as of this encounter Plan of Treatment Upcoming Encounters Date Type Department Care Team (Latest Contact Info) Description 07/11/2024 11:30 AM CDT Office Visit Department of Family Medicine, [facility], in [address] [phone] Genet Roche APRN, C.N.P. [address] [place] [phone] 08/07/2024 10:45 AM CDT Clinical Communication Virtual Review in [place], [place] 200 [place] [phone] 08/08/2024 7:45 AM CDT Appointment Department of Radiology, [facility] in [place], [place] [address] [place] [phone] Diaz Narayanan M.D. [address] [place] [phone] 08/08/2024 9:00 AM CDT Office Visit Department of Orthopedic Surgery in [place], [place] [address] [place] [phone] Diaz Narayanan M.D. [address] [place] [phone] 09/19/2024 9:00 AM CDT Appointment Department of Laboratory Medicine and Pathology, [facility] in [place], [place] [address] [place] [phone] Estefani Tamayo M.D. [address] [place] [phone] documented as of this encounter Visit Diagnoses Not on filedocumented in this encounter Additional Health Concerns Assessment Noted Time PHQ-9 Depression Total Score: 7 04/18/19 25 9:48 AM INCIDENT ENGINEER documented as of this encounter Care Teams Parenting Skills Instructor Relationship Specialty Start Date End Date Litzy Cox M.D. [address] [place] [phone] PCP - General Family Medicine 04/22/20 documented as of this encounter
--- OUTSIDE RECORDS SUMMARY | 2024-07-06 00:08 | XMS_ITS | Encounter Summary ---
Author Organization [facility] Address [address] [place] [address] Care Team Providers Care Control Panel Assembler Name Role Phone Litzy Cox M.D. Primary Care Provider [phone] Encounter Details Date Type Department Care Team (Late st Contact Info) Description 06/24/2024 Documentation Department of Orthopedic Surgery in [place], [place] [address] [place] [phone] Diaz Narayanan M.D. [address] [place] [phone] Social History Tobacco Use Types Packs/Day Years Used Date Smoking Tobacco: Never Smokeless Tobacco: Never Alcohol Use Standard Drinks/Week Comments Never 0 (1 standard drink = 0.6 oz pur e alcohol) [facility] Utilities Answer Date Recorded In the past 12 months has [facility] [employer], gas, oil, or water [employer] threatened to shut off services in your [...] often do you attend chur ch or tenriism services? Never 06/19/2022 Do you belong to [...] Answer Date Recorded PHQ-2 Score 2 04/18/2024 [facility] - Occupational [...] your living situation today? I have a [facility] place to live 07/16/2023 Education Answer Date Recorded What is the highest level of school you have completed or the highest degree you have received? Associate degree: occupational, technical, or vocational program 04/10/2020 Comments No Sex and Gender Information Value Date Recorded Sex Assigned at Female 11/27/2021 8:14 PM CDT Legal Sex Female 2:16 PM SALES VICE PRESIDENT Gender Identity Female 03/30/2019 8:45 PM SALES VICE PRESIDENT Sexual Orientation Straight 03/30/2019 8: 45 PM SALES VICE PRESIDENT documented as of this encounter Progress Notes * Diaz Narayanan M.D. - 06/24/2024 1:25 PM CDT Patient was seen in the preoperative holding area. In brief she is a very pleasant 58-year-old female familiar to my service. She underwent a previous T10 to pelvis fusion with myself back in April of 2020 from which he did well. She had been developing pain and prominence over the S2 alar iliacscrews and those removed in 2021. She did well for a period of time but he has had progressive sacroiliac pain which has been refractory to nonoperative treatment. She has tried comprehensive nonoperative management including physical therapy, pain medications, and an SI injections which have givenher good but temporary relief. At this point she feels that she is failing nonoperative and is inter ested in operative intervention. She denies any red flag symptoms. On exam she has some trace pain limited weakness in bilateral iliopsoas we will as bilateral tibialis anterior and EHL which I would rate as a 4/5. Otherwise she has no other focal deficits some decreased sensation which is chronic in L4 and L5 distribution. Imaging was reviewed including x-rays and a CT scan of the pelvis in the thoracolumbar spine. This demonstrates overall well healed construct from T10 to the pelvis with concern for potential pseudoarthrosis at the L5-S1 segment. She has some bridging bone anteriorly through the cage at L5-S1 through the TLIF cage but does have some lucency about the S1 pedicle screws. She has her previous screw tracts from her S2 alar iliac fixation which I can visualize on the CT of the pelvis and significantdegenerative changes in bilateral SI joints with subchondral sclerosis, anterior osteophyte formation, and vacuum disc phenomenon. 1. Bilateral sacroiliac pain 2. Bilateral sacroiliac DJD 3. Status post T10 to the sacrum fusion 4. Concern for potential L5-S1 pseudoarthrosis This time I had a long discussion with the patient. Certainly I do think she has healed well acrossher entire construct except for the L5-S1 segment where I am concerned for potential pseudoarthrosis. Given this in her progressive SI pain I do think any a surgical intervention to address her SI pain we will be best managed from an all posterior approach as a posterolateral approach. As such I did discuss with her if we were to consider a surgical intervention my hands this would entail a reopening of her posterior lumbosacral incision exploration of the fusion at L5-S1 and revision sacral instrumentation with revision of her sacral pedicle screws and placement of the Kinney S2AI type screw for her SI fusion bilaterally. I did discuss with this would entail as well as the primary goal ofsurgery which would be to improve her sacroiliac pain similar to that which she got with the injection but more manager intermediate. We did discuss that symptoms may be no better or even worsened with the surgical intervention. We did review the risks of surgery in general including risk of surgical site infe ction, spinal fluid leak, instrumentation issues, adjacent segment issues, bleeding, anesthetic complications, and perioperative medical complications. We also did discuss my preference to utilize bone morphogenetic protein 2 in this setting for fusion including the risks associated with this including but not limited to: heterotopic ossification, osteolysis, BMP seroma, BMP radiculitis, and in some studies a correlation with neoplasia. After a long discussion of the risks, benefits, and alternatives, the patient wished to proceed with surgery common informed consent was obtained and signed. All questions were answered. documented in this encounter Plan of Treatment Upcoming Encounters Date Type Department Care Team (Latest Contact Info) Description 07/11/2024 11:30 AM CDT Office Visit Department of Family Medicine, [facility], in [address] [phone] Genet Roche, ANTONIETTA, C.N.P. [address] [place] [phone] 08/07/2024 10:45 AM CDT Clinical Communication Virtual Review in [address] [phone] 08/08/2024 7:45 AM CDT Appointment Department of Radiology, [facility], in [address] [phone] iDaz Narayanan M.D. [address] [place] [phone] 08/08/2024 9:00 AM CDT Office Visit Department of Orthopedic Surgery in [address] [phone] Diaz Narayanan M.D. [address] [place] [phone] 09/19/2024 9:00 AM CDT Appointment Department of Laboratory Medicine and Pathology, [facility] in [place], [place] [address] [place] [phone] Estefani Tamayo M.D. [address] [place] [phone] documented as of this encounter Visit Diagnoses Not on filedocumented in this encounter Additional Health Concerns Assessment Noted Time PHQ-9 Depression Total Score: 7 04/18/19 25 9:48 AM SALES VICE PRESIDENT documented as of this encounter Care Teams Control Panel Assembler Relationship Specialty Start Date End Date Litzy Cox M.D. [address] [place] [phone] PCP - General Family Medicine 04/22/20 documented as of this encounter
--- OUTSIDE RECORDS SUMMARY | 2024-07-06 00:08 | XMS_ITS | Clinical Summary ---
Author Organization [facility] Address [address] [place] [address] Care Team Providers Care Conservation Engineer Name Role Phone Litzy Cox M.D. Primary Care Provider [phone] Source Comments Patient records contain information from all sites at [facility]. For routine questions regarding patient records, call [phone] during business hours, M-F 8:00 AM - 5:00 PM Central Time. Record requests for emergency care only can be directed to [phone] at any time.[facility] Allergies Active Allergy Reactions Criticality Noted Date Comments Apple Anaphylaxis High 01/11/2010 Ciprofloxacin Anaphylaxis High 07/03/2019 Escitalopram Edema (Reselect Reaction) 03/14/2018 Gabapentin Other (see comments) 11/01/2020 Significant fluid retention, blisters Melatonin Itching 04/18/2022 Morphine Itching,GI intolerance High 05/06/2007 TOLERATES hydrocodone, TOLERATES oxycodone (as Percocet), UNCERTAIN about hydromorphone Pollen Extracts Wheezing (Reselect Reaction) Medium 08/22/2019 Quinolones Anaphylaxis High 12/31/2009 UNCERTAIN about levofloxacin Sars-Cov-2 (Covid-19) - Pfizer Other (see comments) High 09/22/2020 Blisters Simms Anaphylaxis High 01/11/2010 Sulfa (Sulfonamide Antibiotics) Anaphylaxis High 12/31/2009 Sulfamethoxazole-Trime thoprim Anaphylaxis High 08/17/2009 Bactrim Tizanidine Anaphylaxis,Itching 08/17/2021 Tramadol Other (see comments) High 04/14/2020 Puffy sensation in lips and tongue that was relieved after cessation of therapy and diphenhydramine TOLERATES hydrocodone, TOLERATES oxycodone (as Percocet), UNCERTAIN about hydromorphone Trimethoprim Anaphylaxis High 12/31/2009 Medications * This document contains information received from the source organization and may not represent a complete record from that organization. multivitamin tablet Take 2 tablets by mouth daily. Flintstones Multivitamins Active fexofenadine (JAMAL) 180 mg tablet Take 180 mg by mouth daily. Active cyanocobalamin 2,000 mcg tablet Take 2,500 mcg by mouth 3 (three) times a week. Takes on M, W, and F Active biotin 1 mg tablet Take 1 mg by mouth daily. Hair, Skin, and Nails Active cholecalciferol (VITAMIN D3) 2,000 Unit capsule Take 1 capsule (2,000 Units total) by mouth daily. 020 Active sennosides-docus ate sodium (SENOKOT-S) 8.6-50 mg per tablet Take 1 tablet by mouth 2 (two) times a day as needed for constipation. 60 tablet 1 022 Active SUMAtriptan (IMITREX) 50 mg tablet Take 1 tablet (50 mg total) by mouth as needed for migraine. May repeat dose once in 2 hours if migraine is unresolved. Do not exceed 200 mg in 24 hours. 9 tablet 5 022 Active hydrOXYzine (ATARAX) 25 mg tablet TAKE 1/2 TO 1 TABLET BY MOUTH EVERY EIGHT HOURS NEEDED FOR ANXIETY. 022 Active buPROPion XL (WELLBUTRIN XL) 300 mg 24 hr tablet Take 300 mg by mouth daily. 023 Active polyethylene glycol (MIRALAX) 17 gram powder packet Take 1 packet (17 g total) by mouth daily as needed for constipation (for hard stools or constipation). Dissolve each 17 g dose in 240 mLs (8 ounces) of beverage. 30 packet 1 023 Active HYDROcodone-acet aminophen (NORCO) 7.5-325 mg per tablet Take 1 tablet by mouth every 6 (six) hours as needed. Active benztropine (COGENTIN) 0.5 mg tablet Take 0.5 mg by mouth at bedtime. Active venlafaxine XR (EFFEXOR-XR) 150 mg 24 hr capsule Take 1 capsule by mouth daily. Take along with venlafaxine IR 37.5 mg once daily. Active omeprazole (PriLOSEC) [address] capsule Take 1 capsule (40 mg total) by mouth daily before morning meal. 180 capsule 3 024 Active diazePAM (Valium) 2 mg tablet Take 1 tablet (2 mg total) by mouth daily as needed for anxiety, sedation or muscle spasms. 30 tablet 024 Active amLODIPine (Norvasc) 2.5 mg tabletIndication s:Raynaud's Disease Take 1 tablet (2.5 mg total) by mouth daily. 90 tablet 3 024 Active venlafaxine (Effexor) 37.5 mg tablet Take 1 tablet by mouth daily. Take along with venlafaxine XR 150 mg once daily. 024 Active losartan (Cozaar) 25 mg tablet take one tablet by mouth daily 90 tablet 3 024 Active topiramate (Topamax) 50 mg tablet Take 1 tablet (50 mg total) by mouth 2 (two) times a day. 180 tablet 3 024 Active levothyroxine 50 mcg tablet TAKE ONE TABLET BY MOUTH DAILY 90 tablet 3 024 Active Prempro 0.625-2.5 mg per tablet TAKE 1 TABLET BY MOUTH DAILY. 28 tablet 11 025 Active hydroxychloroqui ne (PlaqueniL) 200 mg tabletIndication s:Arthritis Inflammatory (HCC) TAKE 2 TABLETS (400 MG TOTAL) BY MOUTH DAILY. 180 tablet 1 025 Active EPINEPHrine 0.3 mg/0.3 mL injection syringeIndicatio ns:Reaction Anaphylactic Personal History Inject 0.3 mL (0.3 mg total) intramuscularly as needed for anaphylaxis. Inject into the thigh. 1 each 025 Active clonazePAM (KlonoPIN) 0.5 mg tabletIndication s:Rapid Eye Movement Sleep Behavior Disorder TAKE 2 TABLETS (1 MG TOTAL) BY MOUTH AT BEDTIME. 60 tablet 3 025 Active calcium citrate (Calcitrate) 950 mg (200 mg calcium) tablet Take 1 tablet (200 mg of calcium total) by mouth 3 (three) times a day with meals. 270 tablet 3 025 Active ondansetron ODT (Zofran-ODT) 4 mg disintegrating tablet Dissolve 1 tablet (4 mg total) in the mouth every 8 (eight) hours as needed for nausea or vomiting. 20 tablet 06/27/19 25 1:03 PM CDT 025 2024 Active naloxone (Narcan) 4 mg/actuation nasal spray Administer 1 spray (4 mg total) into nostril(s) as needed for reversal. Use 1 spray in 1 nostril. Repeat with second device in other nostril after 2-3 minutes if no or minimal response. 2 each 06/27/19 25 1:03 PM CDT Active HYDROmorphone (Dilaudid) 2 mg tabletIndication s:Acute Pain Exception Take 0.5 tablets (1 mg total) by mouth every 4 (four) hours as needed for moderate pain or score 4-6 of 10 Indication: Acute Pain Exception. 15 tablet 025 Active baclofen (LIORESAL) 10 mg tabletIndication s:Pain Back Lumbar Take 1 tablet (10 mg total) by mouth 3 (three) times a day as needed for muscle spasms. 90 tablet 3 021 2020 Discontinued acetaminophen (TYLENOL) 500 mg tablet 1 to 2 tablets every 6 hours as needed for pain. Do not exceed 8 tablets in a 24 hour period. 100 tablet 023 2024 Discontinued( Stop Taking at Discharge) clonazePAM (KlonoPIN) 0.5 mg tabletIndication s:Rapid Eye Movement Sleep Behavior Disorder Take 2 tablets (1 mg total) by mouth at bedtime. 60 tablet 3 024 2024 Discontinued fluconazole (Diflucan) 150 mg tabletIndication s:Acute Candidiasis Of Vulva And Vagina Take 1 tablet (150 mg total) by mouth See Admin Instructions. Take one tab now. Repeat in 7 days if symptoms persist. 2 tablet 025 2024 Discontinued( Therapy completed) acetaminophen (TylenoL) 500 mg tablet Take 2 tablets (1,000 mg total) by mouth 4 (four) times a day. 025 2024 Discontinued( Stop Taking at Discharge) HYDROmorphone (Dilaudid) 2 mg tabletIndication s:Acute Pain Exception Take 0.5 tablets (1 mg total) by mouth every 4 (four) hours as needed for moderate pain or score 4-6 of 10 Indication: Acute Pain Exception. 15 tablet 06/27/19 25 1:03 PM CDT 025 2024 Discontinued( Reorder) Hospital, Clinic, or Other Facility Administered Medication Ordered Dose Route Frequency Start Date End Date Status ferumoxytoL injection 510 mg of iron (FERAHEME)Indication s:Deficiency Iron,Malabsorption,G astroesophageal Reflux Disease,Hypertension And Chronic Kidney Disease Stage 2,Surgery Bariatric Status Post,Fatigue 510 mg of iron IV Once 08/31/2022 06/24/2024 D iscontinued iron dextran injection 25 mg of iron (INFED)Indications:D eficiency Iron,Surgery Bariatric Status Post,Malabsorption 25 mg of iron IM Once 09/15/2022 06/24/2024 Dis continued Active Problems Problem Noted Date Diagnosed Date Pain Back 06/25/2024 Pain Sacroiliac 03/28/2024 PreDiabetes 07/13/2023 Myelopathy Cervical 09/26/2022 Post Operative Nausea/Vomiting 09/22/2022 Dumping Syndrome 09/22/2022 Arthritis Inflammatory 09/22/2022 Allergy Drug Personal History 09/22/2022 Thrombosis Deep Vein Family History 09/22/2022 Stenosis Spinal Cervical 09/11/2022 Rapid Eye Movement Sleep Behavior Disorder 10/07 Migraine Headache 10/07/2021 Fatigue 11/29/2020 Malabsorption 11/29/2020 Depression Major Recurrent Moderate 09/22/2020 Hypertensive Chronic Kidney Disease With Stage 1 Through Stage 4 Chronic Kidney Disease, Or Unspecified Chronic Kidney Disease 09/22/2020 Palpitations 07/02/2020 Fusion Lumbar Spine Status Post 05/23/2020 Scoliosis 02/13/2020 Overview (02/13/2020): Added automatically from request for surgery [id number] Pain Back Lumbar 11/25/2019 Hypovitaminosis D 11/25/2019 Gastroesophageal Reflux Disease 07/04/2019 Syncope 04/17/2019 Ventricular Premature Depolarization 04/17/2019 Deficiency Iron 04/10/2019 Surgery Bariatric Status Post 04/10/2019 Anxiety Generalized Disorder 09/26/2006 Overview (04/17/2019): Anxiety NOS Hypothyroidism 09/26/2006 Overview (04/17/2019): Hypothyroidism On Replacement Morbid Obesity Body Mass Ind ex >= 35 with Comorbid Condition 09/26/2006 Overview (04/17/2019): Obesity Morbid Psoriasis 09/26/2006 Resolved Problems Problem Noted Date Diagnosed Date Resolved Date Systemic Involvement Of Conn ective Tissue Unspecified 07/15/2021 09/22/2022 Thyroid Hormone Replacement 11/25/2019 02/10/2021 Encounters Date Type Department Care Team Description 06/30/2024 Clinical Communication Department of Orthopedic Surgery in [place], [place] [address] [place] [phone] Diaz Narayanan M.D. 06/30/2024 Documentation Department of Orthopedic Surgery in [place], [place] [address] [place] [phone] Carmelo Patel M.D. 06/27/2024 Clinical Communication Department of Orthopedic Surgery in [place], [place] [address] [place] [phone] Diaz Narayanan M.D. Tegaderm dressing 06/24/2024 12:59 PM CDT Anesthesia Event [facility] [address] [place] [phone] Genet Centeno M.D. 06/24/2024 11:54 AM CDT - 06/24/2024 3:00 PM CDT Surgery [facility] [address] [place] [phone] Diaz Narayanan M.D. SACROILIAC JOINT FUSION, Bilateral. Revision Posterior Spinal Fusion L5 - Pelvis 06/24/2024 8:53 AM CDT - 06/26/2024 1:16 PM CDT Hospital Encounter [facility], [facility], [facility], Ninth Floor [address] [place] [phone] Diaz Narayanan M.D. Decline Functional Status [R53.81] (Primary Dx); Pain Sacroiliac Discharge Disposition: Home or Self Care 06/24/2024 Documentation Department of Orthopedic Surgery in [place], [place] [address] [place] [phone] Diaz Narayanan M.D. 06/24/2024 Clinical Communication [facility] [address] [place] [phone] Diaz Narayanan M.D. Post Hospital Follow-up 06/23/2024 8:30 AM CDT Office Visit Department of Orthopedic Surgery in [place], [place] [address] [place] [phone] Diaz Narayanan M.D. Bahm, Shianne M, R.NSunday Pain Sacroiliac (Primary Dx); Preoperative Exam 06/23/2024 Orders Only Department of Orthopedic Surgery in [place], [place] [address] [place] [phone] Diaz Narayanan M.D. Arthrodesis Status (Primary Dx) 06/20/2024 Results Follow-Up Division of Endocrinology in [place], [place] [address] [place] [phone] Estefani Tamayo M.D. Supersaturation, 24 hour, Urine 06/16/2024 Orders Only Division of Endocrinology in [place], [place] [address] [place] [phone] Estefani Tamayo M.D. 06/12/2024 3:19 PM CDT - 06/12/2024 11:59 PM CDT Hospital Encounter Department of Radiology, [facility], in [place], [place] [address] [place] [address] Diaz Narayanan M.D. Pain Sacroiliac; Preoperative Exam Discharge Disposition: Home or Self Care 06/12/2024 2:15 PM CDT Comprehensive Visit Preoperative Evaluation Center in [place], [place] [address] [place] [phone] Diaz Narayanan M.D. Voetberg, Jamie M, APRN, C.NNatalie., M.S.N. Post Operative Nausea/Vomiting (Primary Dx); Preanesthetic Medical Exam; Fusion Lumbar Spine Status Post; Pain Sacroiliac; Hypertensive Chronic Kidney Disease With Stage 1 Through Stage 4 Chronic Kidney Disease, Or Unspecified Chronic Kidney Disease; Ventricular Premature Depolarization; Arthritis Inflammatory ([facility]); PreDiabetes; Gastroesophageal Reflux Disease; Hypothyroidism; Obstructive Sleep Apnea Adult; Rapid Eye Movement Sleep Behavior Disorder; Depression Major Recurrent Moderate ([facility]); Anxiety Generalized Disorder; Thrombosis Deep Vein Family History; Surgery Bariatric Status Post; Malabsorption; Hyperparathyroidism ([facility]) 06/12/2024 11:48 AM CDT - 06/12/2024 3:18 PM CDT Hospital Encounter Department of Laboratory Medicine and Pathology, [facility] in [place], [place] [address] [place] [phone] Diaz Narayanan M.D. Pain Sacroiliac; Preoperative Exam Discharge Disposition: Home or Self Care 06/11/2024 Results Follow-Up Division of Endocrinology in [place], [place] [address] [place] [phone] Estefani Tamayo M.D. Calcium, Total, Parathyroid Hormone (PTH), Albumin 06/11/2024 Refill Department of Family Medicine, [facility], in [address] [phone] Litzy Cox M.D. Med Refill 06/10/2024 12:21 PM CDT - 06/10/2024 11:59 PM CDT Hospital Encounter Department of Laboratory Medicine in [address] [phone] Estefani Tamayo M.D. Discharge Disposition: Home or Self Care 06/10/2024 12:20 PM CDT Hospital Encounter Department of Laboratory Medicine in [place] [phone] Estefani Tamayo M.D. Hyperparathyroidism (HCC) Discharge Disposition: Home or Self Care 06/02/2024 10:16 AM CDT - 06/02/2024 11:59 PM CDT Hospital Encounter Department of Laboratory Medicine and Pathology, [facility] in [place], [place] [address] [place] [phone] Estefani Tamayo M.D. Hyperparathyroidism (HCC) Discharge Disposition: Home or Self Care 04/30/2024 Documentation Department of Orthopedic Surgery in [place], [place] [address] [place] [phone] Diaz Narayanan M.D. 04/29/2024 Documentation Department of Orthopedic Surgery in [address] [phone] Diaz Narayanan M.D. 04/24/2024 6:54 AM CHILD GUIDANCE COUNSELOR - 04/24/2024 11:59 PM CHILD GUIDANCE COUNSELOR Hospital Encounter Department of Radiology, [facility] in [place], [place] [address] [place] [phone] Diaz Narayanan M.D. Liebo, Greta B, M.D. Pain Sacroiliac Discharge Disposition: Home or Self Care 04/18/2024 10:20 AM CHILD GUIDANCE COUNSELOR Office Visit Department of Family Medicine, [facility], [address] [phone] Erica Robertson M.D. Puncture Wound With Foreign Body Of Right Lower Leg Subsequent (Primary Dx); Acute Candidiasis Of Vulva And Vagina; Reaction Anaphylactic Personal History Discharge Disposition: Home or Self Care 04/17/2024 Nurse Triage Department of Family Medicine, [facility], [address] [phone] Christy Caban R.N. Wound Infection 04/10/2024 Nurse Triage Department of Family Medicine, [facility], [address] [place] [phone] Paula Musa R.N. Puncture Wound from Last 3 Months Immunizations Immunization Administration Dates Next Due Influenza Split Preservative Free ID 12/06/2012 Influenza, Injectable, Mdck, Quadrivalent 12/17/2017 Influenza, Injectable, Quadrivalent 11/27/2019,1 Influenza, Seasonal, Injectable 12/11/19 10,12/27/2007,01/02/2007,2004,01/19/2003,12/22/1997 Influenza, Unspecified 11/13/2019 RZV (SHINGRIX) 08/22/2019(Deferred: Patient Ref used) SARS-COV-2 (COVID-19) - PFIZ ER (Discontinued)(12 years or older) 07/28/2020,07/07/2020 Td (Adult), adsorbed 03/20/2017 Td Preservative Free (TENIVA C, DECAVAC) 03/20/2017 Tdap 04/18/2024,02/20/2007 influenza vaccine quad (FLUZONE/FLUARIX) (6 months and older)(PF) 11/30/2022,12/26/2021,12/06/2020,2019,12/02/2018,12/14/2016,11/29/2015,0 11/24/2013 Family History Medical History Relation Name Comments Parkinson disease Brother 1 Bryan boyle Developmental delay Brother 2 Heart disease Father Alzheimer's disease Mother Maryjane Boyle Grandm other had as well Cardiomegaly Mother Maryjane Boyle Stroke Mother Maryjane Boyle Thyroid disease Mother Maryjane Boyle Breast cancer Mother's Sister 1 Breast cancer Mother's Sister 2 Marianne brown Thyroid disease Sister 1 Uterine cancer Sister 1 Thyroid disease Sister 2 Oldest sister Thyroid disease Sister 3 2nd oldest Thyroid disease Sister 4 3rd oldest Relation Name Status Comments Brother 1 Bryan boyle Brother 2 Father Mother Maryjane Boyle Mother's Sister 1 Mother's Sister 2 Marianne brown Sister 1 Sister 2 Oldest sister Sister 3 2nd oldest Sister 4 3rd oldest Social History Tobacco Use Types Packs/Day Years Used Date Smoking Tobacco: Never Smokeless Tobacco: Never Tobacco Cessation:Counseling Given: Not Answered Alcohol Use Standard Drinks/Week Comments Never 0 (1 standard drink = 0.6 oz pur e alcohol) [facility] Utilities Answer Date Recorded In the [...] often do you attend chur ch or taoism services? Never 06/19/2022 Do you belong to any clubs o r organizations such as judaism groups, unions, fraternal or athletic groups, or [...] Answer Date Recorded PHQ-2 Score 2 04/18/2024 [place] [place] [facility] [employer] [facility] - Occupational Stress [...] living situation today? I have a [facility] place to live 07/16/2023 Education Answer Date Recorded What is the highest level of school you have completed or the highest degree you have received? Associate degree: occupational, technical, or vocational program 04/10/2020 Comments No Sex and Gender Information Value Date Recorded Sex Assigned at Female 11/27/2021 8:14 PM CDT Legal Sex Female 2:16 PM CHILD GUIDANCE COUNSELOR Gender Identity Female 03/30/2019 8:45 PM CHILD GUIDANCE COUNSELOR Sexual Orientation Straight 03/30/2019 8: 45 PM CHILD GUIDANCE COUNSELOR Last Filed Vital Signs Vital Sign Reading [...] Mass Index 40.39 06/24/2024 9:32 AM CDT Plan of Treatment Upcoming Encounters Date Type Department Care Team (Latest Contact Info) Description 07/11/2024 11:30 AM CDT Office Visit Department of Family Medicine, [facility], in [address] [phone] Genet Roche, ANTONIETTA, C.N.P. [address] [place] [phone] 08/07/2024 10:45 AM CDT Clinical Communication Virtual Review in [place], [place] [address] [place] [phone] 08/08/2024 7:45 AM CDT Appointment Department of Radiology, [facility], in [place], [place] [address] [place] [phone] Diaz Narayanan M.D. [address] [place] [phone] 08/08/2024 9:00 AM CDT Office Visit Department of Orthopedic Surgery in [address] [phone] Diaz Narayanan M.D. [address] [place] [phone] 09/19/2024 9:00 AM CDT Appointment Department of Laboratory Medicine and Pathology, [facility], in [place], [place] [address] [place] [phone] Estefani Tamayo M.D. [address] [place] [phone] Health Maintenance Due Date Last Done Comments CT Colonography 1967 Cologuard 1967 FIT 1967 Hepatitis B Vaccines (1 of 3 - 19+ 3-dose series) 10/05/1986 Pneumococcal vaccine (50+ years) (1 of 2 - PCV) 10/05/1986 Zoster Vaccines (1 of 2) 10/05/1986 COVID-19 Vaccine (3 - Pfizer risk series) 08/25/2020 07/28/2020, 07/07/2020 Influenza Vaccine (#1) 2023 , 12/26/2021, 12/06/2020, Additional history exists Visit: Chronic Disease, age 18+ 07/18/2024 07/19/2023 Depression Monitoring (PHQ-9) 08/16/2024 04/18/2024 Thyroid Stimulating Hormone (TSH) test for thyroid function 11/18/2024 11/19/2023, 08/14/2023, 09/22/2022, Additional history exists Mammogram 12/05/2024 12/06/2023, 02/02, 10/07/2021, Additional history exists Colonoscopy 02/05/2025 02/05/2015 (Perf ormed elsewhere) Colorectal Cancer Screening 02/05/2025 Office Visit for Blood Pressure Check / Re-check 06/12/2025 06/12/2024 Creatinine Level (Kidney Function Test) 06/25/2025 06/25/2024, 06/12/2024, 12/31/2023, Additional history exists Fasting Glucose for Diabetes Screening 06/25/2025 06/25/2024, 06/12/2024, 11/19/2023, Additional history exists Potassium Level 06/25/2025 06/25/2024, 041 , 11/19/2023, Additional history exists Sodium Level 06/25/2025 06/25/2024, 1 , 11/19/2023, Additional history exists Cervical/Vaginal Cancer Screening 03/17/2026 03/17/2021, 03/17/2021, 12/28/2009 (Performed elsewhere) Lipid (Cholesterol) Screening 11/18/2028 11/19/2023, 10/10/2019, 03/26/2019 DTaP,Tdap,and Td Vaccines (5 - Td or Tdap) 04/18/2034 04/18/2024, 03/20/2017, 03/20/2017, Additional history exists HIV Screening Completed 05/11/2020 Hepatitis B Screening Discontinued 08/02/2022 Depression Monitoring (PHQ-9 for quality tracking) Completed 04/18/2024 IPV Vaccines Aged Out No longer eligi ble based on patient's age to complete this topic Medical Devices Implanted Type Area Care Team Assistant Device Identifier Shelf Expiration Date Model / Serial / Lot Gps Cannula 100mm Implanted:Qty : 1 on 04/16/2020 by Diaz Narayanan M.D. at [facility] Bone or Tissue N/A: Spine Lumbar Depuy Synthes [id number] / NA / NA Fibergraft Bg Putty Gps 6cc Implanted:Qty : 1 on 04/16/2020 by Diaz Narayanan M.D. at [facility] Bone or Tissue N/A: Spine Lumbar Depuy Synthes [id number] / NA / NA Grft Dbm Grf Mtx 2.5x10 - [id number] - [id number] Implanted:Qty : 1 on 04/16/2020 by Diaz Narayanan M.D. at [facility] Bone or Tissue N/A: Spine Lumbar Medtronic 02/08/2023 [id number] / [id number] / Allogenic, Femoral Head - [id number] - [id number] Implanted:Qty : 1 on 04/16/2020 by Diaz Narayanan M.D. at [facility] Bone or Tissue N/A: Spine Lumbar [facility] 03/02/2022 [id number] / [id number] / [id number] Grft Dbm Grf Pst 10 - [id number] - [id number] Implanted:Qty : 1 on 04/16/2020 by Diaz Narayanan M.D. at [facility] Bone or Tissue N/A: Spine Lumbar Medtronic 02/08/2022 [id number] / [id number] / Grft Inf Spng Bmp Large 8 - [id number] Implanted:Qty : 1 on 04/16/2020 by Diaz Narayanan M.D. at [facility] Bone or Tissue N/A: Spine Lumbar Medtronic 12/03/2020 [id number] / / [id number] Grft Inf Spng Bmp Small 2.8 - [id number] Implanted:Qty : 1 on 05/05/2021 by Diaz Narayanan M.D. at [facility] Bone or Tissue N/A: Back Medtronic 11/03/2022 [id number] / / [id number] Grft Inf Spng Bmp Large 8 - [id number] Implanted:Qty : 1 on 06/24/2024 by Diaz Narayanan M.D. at [facility] Bone or Tissue Posterior: Spine Lumbar Medtronic 04/05/2025 [id number] / / [id number] Fbr Bone [employer]ia[employer] [address] [id number] - [id number] Implanted:Qty : 1 on 06/24/2024 by Diaz Narayanan M.D. at [facility] Bone or Tissue Posterior: Spine Lumbar [facility] 03/05/2029 BL-1800-10 / [id number] / Fbr Bone Pliafx [address] [id number] - [id number] Implanted:Qty : 1 on 06/24/2024 by Diaz Narayanan M.D. at [facility] Bone or Tissue Posterior: Spine Lumbar [facility] 03/02/2029 BL-1800-10 / [id number] / Grft Fbr Bg Strp Mtrx Xlng 17cc - [id number] Implanted:Qty : 1 on 06/24/2024 by Diaz Narayanan M.D. at [facility] Bone or Tissue Posterior: Spine Lumbar [employer] 02/12/2027 [id number] / / [id number] Expedium 5.5 Verse 6.0x45 Implanted:Qty : 2 on 04/16/2020 by Diaz Narayanan M.D. at [facility] Hardware e.g. pins/screws /rods Posterior: Spine Lumbar Depuy Synthes / NA / NA Expedium 5.5 Verse Straight Ti Jordin Implanted:Qty : 2 on 04/16/2020 by Diaz Narayanan M.D. at [facility] Hardware e.g. pins/screws /rods N/A: Spine Lumbar Depuy Synthes [id number] / / Expedium 5.5 Verse 6.0x50 Implanted:Qty : 1 on 04/16/2020 by Diaz Narayanan M.D. at [facility] Hardware e.g. pins/screws /rods Posterior: Spine Lumbar Depuy Synthes / NA / NA Expedium 5.5 Verse 6.0x55 Implanted:Qty : 2 on 04/16/2020 by Diaz Narayanan M.D. at [facility] Hardware e.g. pins/screws /rods N/A: Spine Lumbar Depuy Synthes / NA / NA Expedium 5.5 Verse 7.0x45 Implanted:Qty : 5 on 04/16/2020 by Diaz Narayanan M.D. at [facility] Hardware e.g. pins/screws /rods N/A: Spine Lumbar Depuy Synthes / NA / NA Expedium 5.5 Verse 7.0x50 Implanted:Qty : 3 on 04/16/2020 by Diaz Narayanan M.D. at [facility] Hardware e.g. pins/screws /rods N/A: Spine Lumbar Depuy Synthes / NA / NA Expedium 5.5 Verse 7.0x55 Implanted:Qty : 1 on 04/16/2020 by Diaz Narayanan M.D. at [facility] Hardware e.g. pins/screws /rods N/A: Spine Lumbar Depuy Synthes / NA / NA Expedium 5.5 Verse 8.0x50 Implanted:Qty : 2 on 04/16/2020 by Diaz Narayanan M.D. at [facility] Hardware e.g. pins/screws /rods N/A: Spine Lumbar Depuy Synthes / NA / NA Ifactor Bone Graft 2.5cc Putty Implanted:Qty : 1 on 09/25/2022 by Diaz Narayanan M.D. at [facility] Hardware e.g. pins/screws /rods Anterior: Spine Cervical Cerapedics 700-025 / / [id number] Spn Plt Gilberto L3 54 - [id number] Implanted:Qty : 1 on 09/25/2022 by Diaz Narayanan M.D. at [facility] Hardware e.g. pins/screws /rods Anterior: Spine Cervical Depuy Synthes [id number] / / Spn Scrw Gilberto Sfdr Thrd 4x16 - [id number] Implanted:Qty : 4 on 09/25/2022 by Diaz Narayanan M.D. at [facility] Hardware e.g. pins/screws /rods Anterior: Spine Cervical Depuy Synthes [id number] / / Spn Scrw Gilberto Sfdr Thrd 4x18 - [id number] Implanted:Qty : 4 on 09/25/2022 by Diaz Narayanan M.D. at [facility] Hardware e.g. pins/screws /rods Anterior: Spine Cervical Depuy Synthes [id number] / / Expedium Verse Set Screw Implanted:Qty : 2 on 06/24/2024 by Diaz Narayanan M.D. at [facility] Hardware e.g. pins/screws /rods Posterior: Spine Lumbar Depuy Synthes 01/02/2029 [id number] / / [id number] Ifuse Bedrock [place] 9.5mm X 90mm Screw Implanted:Qty : 1 on 06/24/2024 by Diaz Narayanan M.D. at [facility] Hardware e.g. pins/screws /rods Posterior: Spine Lumbar SI-BONE 12/11/2033 [id number] / [id number] / Spn Scrw Exp Thrd 5.5 - [id number] Implanted:Qty : 5 on 06/24/2024 by Diaz Narayanan M.D. at [facility] Hardware e.g. pins/screws /rods Posterior: Spine Lumbar Depuy Synthes [id number] / / Spn Jordin Exp Exp Op Cl 5.5-5.5 - [id number] Implanted:Qty : 3 on 06/24/2024 by Diaz Narayanan M.D. at [facility] Hardware e.g. pins/screws /rods Posterior: Spine Lumbar Depuy Synthes 1797-55-155 / / Spn Scrw Vpr Natanael Poly 9x40 - [id number] Implanted:Qty : 2 on 06/24/2024 by Diaz Narayanan M.D. at [facility] Hardware e.g. pins/screws /rods Posterior: Spine Lumbar Depuy Synthes [id number] / / Spn Conn Exp Cl 5.5x300 - [id number] Implanted:Qty : 2 on 06/24/2024 by Diaz Narayanan M.D. at [facility] Hardware e.g. pins/screws /rods Posterior: Spine Lumbar Depuy Synthes 1797-98-300 / / Ifuse Bedrock [place] 9.5mm X 90mm Screw Implanted:Qty : 1 on 06/24/2024 by Diaz Narayanan M.D. at [facility] Hardware e.g. pins/screws /rods Posterior: Spine Lumbar SI-BONE 03/17/2034 [id number] / [id number] / Expedium 5.5 Verse Unitized Set Screw Implanted:Qty : 18 on 04/16/2020 by Diaz Narayanan M.D. at [facility] Explanted:Qty : 2 on 06/24/2024 by Diaz Narayanan M.D. at [facility] Hardware e.g. pins/screws /rods N/A: Spine Lumbar Depuy Synthes / NA / NA Imaging Marker Imaging Marker Breast Imaging Marker-03/07/19 Implanted:05/2023 (Quantity not on file) Imaging Marker Right: Breast Spn Cg Cndt Anmgfel39et 8d22/9 - [id number] Implanted:Qty : 1 on 04/16/2020 by Diaz Narayanan M.D. at [facility] Spine Implant N/A: Spine Lumbar Depuy Synthes 10/02/2024 [id number] / / [id number] Spn Cg Cndt [id number] 8d22/9 - [id number] Implanted:Qty : 1 on 04/16/2020 by Diaz Narayanan M.D. at [facility] Spine Implant N/A: Spine Lumbar Depuy Synthes 09/01/2024 [id number] / / [id number] Spn Cg Cndt [id number] 8d22/9 - [id number] Implanted:Qty : 1 on 04/16/2020 by Diaz Narayanan M.D. at [facility] Spine Implant N/A: Spine Lumbar Depuy Synthes 12/02/2024 [id number] / / [id number] Spn Cg Cndt Cif 7mm 8d S - [id number] Implanted:Qty : 1 on 09/25/2022 by Diaz Narayanan M.D. at [facility] Spine Implant Anterior: Spine Cervical Depuy Synthes 09/01/2025 [id number] / / [id number] Spn Cg Cndt Cif 6mm 8d S - [id number] Implanted:Qty : 1 on 09/25/2022 by Diaz Narayanan M.D. at [facility] Spine Implant Anterior: Spine Cervical Depuy Synthes 08/03/2027 [id number] / / [id number] Spn Cg Cndt Cif 7mm 8d S - [id number] Implanted:Qty : 1 on 09/25/2022 by Diaz Narayanan M.D. at [facility] Spine Implant Anterior: Spine Cervical Depuy Synthes 05/02/2025 [id number] / / [id number] Explanted Type Area Care Team Assistant Device Identifier Shelf Expiration Date Model / Serial / Lot Spn Scrw Exp Thrd 5.5 - [id number] Implanted:Qty : 2 on 04/16/2020 by Diaz Narayanan M.D. at [facility] Explanted:Qty : 2 on 05/05/2021 at [facility] Hardware e.g. pins/screws /rods N/A: Spine Lumbar Depuy Synthes [id number] / / Spn Scrw Vpr Sld 9x90 - [id number] Implanted:Qty : 2 on 04/16/2020 by Diaz Narayanan M.D. at [facility] Explanted:Qty : 2 on 05/05/2021 at [facility] Hardware e.g. pins/screws /rods N/A: Spine Lumbar Depuy Synthes [id number] / / Expedium 5.5 Verse 8.0x40 Implanted:Qty : 2 on 04/16/2020 by Diaz Narayanan M.D. at [facility] Explanted:Qty : 2 on 06/24/2024 by Diaz Narayanan M.D. at [facility] Hardware e.g. pins/screws /rods N/A: Spine Lumbar Depuy Synthes 1996--840 / NA / NA Procedures Procedure Name Priority Date/Time Associated Diagnosis [...] Routine 06/24/2024 3:02 PM CDT Pain Sacroiliac AIRWAY MANAGEMENT Routine 06/24/2024 1:1 2 PM CDT FUSION SACROILIAC JOINT 06/24/2024 12:34 PM CDT Pain Sacroiliac Case Notes Research Psychologist 858 BMD BONE DENSITY SPINE HIPS RAD - Routine (most inpatients and all outpatients) 06/12/2024 3:36 PM CDT Pain Sacroiliac Preoperative Exam 25-HYDROXYVITAMIN D2 AND D3, S Routine 06/12/2024 11:57 AM CDT Pain Sacroiliac Preoperative Exam TYPE AND SCREEN Routine 06/12/2024 11:57 AM CDT Pain Sacroiliac Preoperative Exam CBC WITH DIFFERENTIAL, B Routine 06/12/2024 11:57 AM CDT Pain Sacroiliac Preoperative Exam BASIC METABOLIC PANEL, S/P Routine 06/12/2024 11:57 AM CDT Pain Sacroiliac Preoperative Exam SUPERSATURATION, 24H, U Routine 06/10/2024 12:34 PM CDT Hyperparathyroidis m (HCC) ALBUMIN, S/P Routine 06/10/2024 12:25 PM CDT Hyperparathyroidis m (HCC) PARATHYROID HORMONE (PTH), S Routine 06/10/2024 12:25 PM CDT Hyperparathyroidis m (HCC) CALCIUM, TOT, S/P Routine 06/10/2024 12:25 PM CDT Hyperparathyroidis m (HCC) FL SACROILIAC JOINT INJECTION BILATERAL RAD - Routine (most inpatients and all outpatients) 04/24/2024 8:33 AM CHILD GUIDANCE COUNSELOR Pain Sacroiliac BI BREAST DIAGNOSTIC BILATERAL WITH TOMOSYNTHESIS RAD - Routine (most inpatients and all outpatients) 12/06/2023 9:22 AM CDT Pain Breast THYROID FUNCTION CASCADE, S Routine 11/19/2023 12:07 PM CDT Paresthesia LIPID PANEL, S Routine 11/19/2023 9:52 AM CDT Screening Lipid HEPATITIS B SURFACE ANTIGEN Routine 08/02/2022 10:54 AM CDT Arthritis Inflammatory (HCC) HPV WITH GENOTYPING, PCR, THINPREP Routine 03/17/2021 10:30 AM CHILD GUIDANCE COUNSELOR HIV-1/-2 AG AND AB SCREEN, PLASMA Routine 05/11/2020 2:10 PM CHILD GUIDANCE COUNSELOR Screening Examination For Viral Disease from Last 3 Months or Most Recently Relevant to Health Maintenance Results * (ABNORMAL) CBC with Differential, Blood (06/26/2024 6:16 AM CDT) Only the most recent of2 resultswithin the time period is included. Pathologist [facility] Hemoglobin 12.1 11.6 - 15.0 g/dL [...] M.D. LAB BLOOD ADD-ON Final Res ult Performing Organization Address City/State/[facility] Co de Phone Number [facility] [address] [place] [address], [place] [facility] [address] [place], [place] [id number] [place] [address] [address] [place] [address] * DX Pelvis 3+ Views (06/25/2024 10:45 AM CDT) Anatomical Region Laterality Modality Pelvis, Musculoskeletal RST LOS, Musculoskeletal ARZ LOS, Muskuloskeletal FLA LOS N/A Digital Radiography Impressions 06/25/2024 11:32 AM CDT Postoperative changes T10-S1 posterior fusion with jordin and pedicle screw fixation and interbody spacers. [...] IMPRESSION: Postoperative changes T10-S1 posterior fusion with jordin and pedicle screwfixation and interbody spacers. Interval postoperative change bilateralsacroiliac joint fusion and L5-S1 perfusion revision with bone grafting.No gross evidence of hardware failure or loosening. Surgical drain left posterior abdominalwall. Surgical clips upper abdomen. Pelvic phleboliths. us Carmelo Patel M.D. IMG DIAGNOSTIC IMAGING PRO CEDURES Final Result * DX Lumbar Spine 2-3 Views (06/25/2024 10:45 AM CDT) Anatomical Region Laterality Modality Lumbar Spine, Musculoskeleta l RST LOS, Neuroradiology ARZ LOS, Muskuloskeletal FLA LOS N/A Digital Radiography Impressions 06/25/2024 11:32 AM CDT Postoperative changes T10-S1 posterior fusion with jordin and pedicle screw fixation and interbody spacers. [...] IMPRESSION: Postoperative changes T10-S1 posterior fusion with jordin and pedicle screwfixation and interbody spacers. Interval postoperative change bilateralsacroiliac joint fusion and L5-S1 perfusion revision with bone grafting.No gross evidence of hardware failure or loosening. Surgical drain left posterior abdominalwall. Surgical clips upper abdomen. Pelvic phleboliths. Carmelo Patel M.D. IMG DIAGNOSTIC IMAGING PRO CEDURES Final Result * [...] M.D. LAB BLOOD ADD-ON Final Res ult [facility] [address] [place] [address], [facility] [address] [place] [address] * (ABNORMAL) Basic Metabolic Panel (06/25/2024 4:12 AM CDT) Only the most recent of2 resultswithin the time period is included. Pathologist [facility] Potassium, S 4.1 3.6 - 5.2 [...] M.D. LAB BLOOD ADD-ON Final Res ult Performing Organization Address [facility] Co de Phone Number [facility] [address] [place] [address], [place] DTL [facility] [address] [place] [address] * FL OARM (06/24/2024 5:57 PM CDT) Narrative 152 HOS LOS RST - 06/24/2024 5:58 PM CDT This exam does not require a radiologist review or interpretation. Please refer to the patient's medical record on this date for clinical details. us Diaz Narayanan M.D. IMG FLUOROSCOPY PROCEDURE S Final Result Performing Organization Address [facility] de Phone Number 152 HOS LOS RST * FL Fluoro Less Than 1 Hour (06/24/2024 5:16 PM CDT) Narrative 152 HOS LOS RST - 06/24/2024 5:18 PM CDT This exam does not require a radiologist review or interpretation. Please refer to the patient's medical record on this date for clinical details. Result Tyrell Narayanan M.D. IMG FLUOROSCOPY PROCEDURE S Final Result Performing Organization Address [facility] de Phone Number 152 HOS LOS RST * Bacterial Culture, Aerobic + Susceptibility (06/24/2024 3:02 PM CDT) Bacterial Culture, Aerobic + Susc No growth after 5 days of incubation. 06/30/2024 9:36 AM CDT DTL Implant (Spine, Lumbar) 06/24/2024 3:02 PM CDT Comment:15 minute ferrera. Hilt on us Diaz Narayanan M.D. LAB MICROBIOLOGY - ALICE L ORDERABLES Final Result [facility] [address] [place] [address], [place] D[place] [facility] [address] [place] [address] * Airway (06/24/2024 1:12 PM CDT) Narrative [...] ETT location: oral VL device: glide scope [place] scope blade size: 3 Tube size: 7 [...] fellow participated in the procedure, and the ux consultant was present for the entire procedure. Genet Centeno M.D. ANESTHESIA ORDERABLES Final Resu lt * BMD Bone Density Spine Hips (06/12/2024 3:36 PM CDT) Anatomical Region Laterality Modality Hip, Lumbar Spine, Nuclear M edicine RST LOS, Musculoskeletal ARZ LOS, Muskuloskeletal FLA LOS N/A Radio graphic Imaging Impressions 06/12/2024 4:10 PM CDT Normal bone mineral density. Narrative 06/12/2024 4:10 PM CDT EXAM: BMD BONE DENSITY SPINE HIPS Bone Mineral Density (BMD) analysis performed on Laserlike with serial number [id number]. COMPARISON: Serial Comparisons Left Total Hip results: [...] including images and graphs, is available in [employer]. In the absence of other causes of [...] Bone Mineral Density (BMD) analysis performed on Laserlike with serialnumber [id number]. COMPARISON: Serial Comparisons Left Total Hip results: [...] report, including images and graphs,is available in [employer]. In the absence of other causes of [...] calculations. (T-score) IMPRESSION: Normal bone mineral density. us Diaz Narayanan M.D. IMG DXA PROCEDURES Final Result * 25-Hydroxyvitamin D2 and D3 (06/12/2024 11:57 AM CDT) [facility] 25-Hydroxy D2 <4.0 ng/mL 06/14/2024 12:58 PM CDT [facility] 25-Hydroxy D3 35 ng/mL 06/14/2024 12:58 PM CDT [facility] 25-Hydroxy D Total 35 ng/mL 2024 12:58 PM CDT [facility] Comment: ----REFERENCE VALUE---- 25-HYDROXY D TOTAL (D2+D3) Optimum levels in the healthy population are 20-50. ----ADDITIONAL INFORMATION---- This test was developed and its performance characteristics determined by [facility] in a manner consistent with CLIA requirements. This test has not been cleared or approved by the U.S. Food and Drug Administration. Blood (Blood, Venous) 06/12/2024 11:57 AM CDT 06/13/2024 7:14 AM CDT us Diaz Narayanan M.D. LAB BLOOD ADD-ON Final Re sult [facility] [address] [place] [address] [facility] [address] [place] [address] [place] [address] * Type and Screen (with Reflex Antibody ID) (06/12/2024 11:57 AM CDT) ABORh O Pos Not applicable 06/12/2024 12:54 PM CDT ETRM Antibody Screen Negative Negative 06/12/2024 1:05 PM CDT ETRM Type & Screen Expiration 06/15/2024 23:59 06/12/2024 12:54 PM CDT ETRM Testing Location [place] DEFAULT 06/12/2024 12:14 PM CDT ETRM Blood (Blood, Venous) 06/12/2024 11:57 AM CDT 06/12/2024 12:14 PM CDT us Diaz Narayanan M.D. LAB BLOOD BANK TEST ORDER MALISSA Final Result [facility] [address] [place] [address], [place] ETRM [facility] [address] [place] [address] * (ABNORMAL) Supersaturation, 24 hour, Urine (06/10/2024 12:34 PM CDT) Pathologist [facility] Sodium, 24 HR, U 158 22 - [...] developed and its performance characteristics determined by [facility] in a manner consistent with CLIA requirements. This test has not been cleared or approved by the U.S. Food and Drug Administration. Citrate Excretion, 24 HR, U 186(L) 406 - 1191 mg/24 h 06/11/2024 8:44 AM CDT DTL Comment: ----ADDITIONAL INFORMATION---- This test was developed and its performance characteristics determined by [facility] in a manner consistent with CLIA requirements. This test has not been cleared or approved by the U.S. Food and Drug Administration. Oxalate, 24 HR, U (mmol/24 HR) 0.50(H) 0.11 - 0.46 mmol/24 h 06/11/2024 2:51 PM CDT DTL Comment: ----ADDITIONAL INFORMATION---- This test was developed and its performance characteristics determined by [facility] in a manner consistent with CLIA requirements. [...] This test has been modified from the senior etl developer's instructions. Its performance characteristics were determined by [facility] in a manner consistent with CLIA requirements. [...] M.D. LAB URINE ORDERABLES Final Res ult [facility] [address] [place] [address], [facility] [address] [place] [address] DTL 200 [facility] [address] [place] [address] * (ABNORMAL) Parathyroid Hormone (PTH) (06/10/2024 12:25 PM CDT) Parathyroid Hormone (PTH), S 66(H) 15 - 65 pg/mL 06/10/2024 7:40 PM CDT RDWG Blood (Blood, Venous) 06/10/2024 12:25 PM CDT 06/10/2024 6:56 PM CDT Estefani Tamayo M.D. LAB BLOOD ADD-ON Final Result [facility] [address] [place] [address], [facility] RDWG [facility] [place] [address] [place] [id number] * (ABNORMAL) Calcium, Total (06/10/2024 12:25 PM CDT) Calcium, Total, P 8.4(L) 8.6 - 10.0 mg/dL 06/10/2024 12:50 PM CDT CNFL Blood (Blood, Venous) 06/10/2024 12:25 PM CDT 06/10/2024 12:32 PM CDT Estefani Tamayo M.D. LAB BLOOD ADD-ON Final Result [facility] [address] [place] [address], [place] CNFL [facility] in [address] [address] * Albumin (06/10/2024 12:25 PM CDT) Albumin, P 4.0 3.5 - 5.0 g/dL 06/10/2024 12:50 PM CDT CNFL Blood (Blood, Venous) 06/10/2024 12:25 PM CDT 06/10/2024 12:32 PM CDT us Estefani Tamayo M.D. LAB BLOOD ADD-ON Final Result [facility] [address] [place] [address], [facility] CNFL [facility] in [address] [address] * FL Sacroiliac Joint Injection Bilateral (04/24/2024 8:33 AM CHILD GUIDANCE COUNSELOR) Impressions [id number] - 04/24/2024 8:47 AM CHILD GUIDANCE COUNSELOR Fluoroscopically-guided bilateral sacroiliac joint injections. NR Narrative [id number] - 04/24/2024 8:47 AM CHILD GUIDANCE COUNSELOR REVISED REPORT: EXAM: FL SACROILIAC JOINT INJECTION BILATERAL Pain Score: Pre-procedural pain was rated: 8/10 Post-procedural pain was rated: 5/10 Medications: Steroid: 9 mg betamethasone Local anesthetic: 22.5 mg 0.5% ropivacaine INDICATION: The patient reports the current pain syndrome to be of >1 year duration and presents today for a new injection. TECHNIQUE: The patient's pain pattern and imaging studies were reviewed. Mrs. Hamm is a 58 year old female with prior history of cervical ACDF and thoracolumbar instrumented fusion. Her S2 pedicle screws were removed in May 2021. She is experiencing ongoing low back and SI joint pain, which has responded to prior injections. The last injection performed at [place] was in March 2021. 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 Bilateral SI joint injections are requested. Using usual sterile technique, fluoroscopic guidance, and local anesthesia, 3.5 inch 25-gauge spinal needles were advanced to the posterior inferior aspect of both sacroiliac joints. With final needle tip positions, a small amount of iodinated contrast was used to confirm each location. Transient vascular uptake was not observed with final needle positions. 3 cc of 3:1 mixture of anesthetic:steroid was administered at each joint. Each needle was withdrawn, restyletted, and removed. The patient experienced no complication. PREPROCEDURE: Patient seen and evaluated. Allergies, pertinent medications, and history reviewed. Discussed risks (including, but not limited to, bleeding and infection); benefits; and alternatives for procedure and obtained informed consent. The side and site of the procedure were marked, when applicable, at the time of consent. The patient understood the information and questions answered. Immediately prior to starting the procedure in the presence of the assisting personnel, a procedural pause was conducted to verify correct patient identity and verification of procedure to be performed and as applicable, correct side and site, correct patient position, availability of implants, special equipment, or special requirements, and all image and specimen identification data. The roles and responsibilities of care team members, residents, and fellows were discussed. us Diaz Narayanan M.D. IMGhassan FLUOROSCOPY PROCEDURE S Final Result [id number] NA * BI Breast Diagnostic Bilateral with Tomosynthesis (12/06/2023 9:22 AM CDT) Anatomical Region Laterality Modality Breast, Breast Imaging RST L OS, Breast Imaging ARZ LOS, Breast Imaging FLA LOS Bilateral Mammography Impressions 12/06/2023 10:08 AM CDT No mammographic or targeted sonographic findings of malignancy right breast. Negative left breast mammogram RECOMMENDATION: Individualized Recommendation Recommend management be based on clinical grounds for right breast pain. Annual screening mammogram ASSESSMENT: BI-RADS: 2: Benign. Narrative 12/06/2023 10:08 AM CDT EXAM: BI BREAST DIAGNOSTIC BILATERAL WITH TOMOSYNTHESIS, BI ULTRASOUND BREAST FOCUSED RIGHT INDICATION: Multifocal multicentric right breast pain. Screening examination left breast. COMPARISON: Prior exam(s) were available and reviewed for comparison. DENSITY: b. There are scattered areas of fibroglandular density. FINDINGS: RIGHT: 3 rectangular markers are identified on the right breast indicating sites of pain. No associated mammographic abnormality is identified. Right mammogram is stable from prior studies. Right breast biopsy marking clip is visualized. Targeted ultrasound of the right breast sites of pain without significant sonographic abnormality. Incidental note is made of a benign simple cyst at 3:00, 1 cm from nipple. LEFT: Nothing suspicious mammographically. No significant interval change. Benign cysts. Procedure Note Alessandro Davis M.D. - 12/06/2023 EXAM: BI BREAST DIAGNOSTIC BILATERAL WITH TOMOSYNTHESIS, BI ULTRASOUNDBREAST FOCUSED RIGHT INDICATION: Multifocal multicentric right breast pain. Screeningexamination left breast. COMPARISON: Prior exam(s) were available and reviewed for comparison. DENSITY: b. There are scattered areas of fibroglandular density. FINDINGS: RIGHT: 3 rectangular markers are identified on the right breast indicating sitesof pain. No associated mammographic abnormality is identified. Right mammogram is stable from prior studies. Right breast biopsy markingclip is visualized. Targeted ultrasound of the right breast sites of pain without significantsonographic abnormality. Incidental note is made of a benign simple cystat 3:00, 1 cm from nipple. LEFT: Nothing suspicious mammographically. No significant interval change.Benign cysts. IMPRESSION: No mammographic or targeted sonographic findings of malignancy rightbreast. Negative left breast mammogram RECOMMENDATION: Individualized Recommendation Recommend management be based on clinical grounds for right breast pain. Annual screening mammogram ASSESSMENT: BI-RADS: 2: Benign. us Litzy Cox M.D. IMG BI PROCEDURES Final Res ult * Thyroid Function [place] (11/19/2023 12:07 PM CDT) TSH, Sensitive 2.5 0.3 - 4.2 mIU/L 11/19/2023 1:01 PM CDT [facility] Blood (Blood, Venous) 11/19/2023 12:07 PM CDT 11/19/2023 12:10 PM CDT us Litzy Cox M.D. LAB BLOOD ADD-ON Final Resu lt [facility] [address] [place] [address], [facility] in [address] [address] * Lipid Panel (11/19/2023 9:52 AM CDT) Triglycerides 116 mg/dL 11/19/2023 10:12 AM CDT CNFL Comment: ----REFERENCE VALUE---- Normal: <150 mg/dL Borderline High: 150-199 mg/dL High: 200-499 mg/dL Very High: > or =500 mg/dL Cholesterol, Total 181 mg/dL 2023 10:12 AM CDT CNFL Comment: ----REFERENCE VALUE---- Desirable: < 200 mg/dL Borderline High: 200 - 239 mg/dL High: > or = 240 mg/dL Cholesterol, LDL, Calculated 90 mg/dL 11/19/2023 10:12 AM CDT CNFL Comment: ----REFERENCE VALUE---- Desirable: <100 mg/dL Above Desirable: 100-129 mg/dL Borderline High: 130-159 mg/dL High: 160-189 mg/dL Very High: >=190 mg/dL ----ADDITIONAL INFORMATION---- LDL cholesterol calculated using the Triplett/NIH equation. Cholesterol, HDL 71 >=50 mg/dL 11/19/19 10:12 AM CDT CNFL Cholesterol, Non-HDL, Calculated 110 mg/dL 11/19/2023 10:12 AM CDT CNFL Comment: ----REFERENCE VALUE---- Desirable: <130 mg/dL Above Desirable: 130-159 mg/dL Borderline High: 160-189 mg/dL High: 190-219 mg/dL Very High: > or =220 mg/dL Fasting (8 HR or more) No 11/19/2023 9:52 AM CDT CNFL Blood (Blood, Venous) 11/19/2023 9:52 AM CDT 11/19/2023 9:53 AM CDT us Litzy Cox M.D. LAB BLOOD ADD-ON Final Resu lt [facility] [address] [place] [id number], [facility] in [address] [address] * Hepatitis B Surface Antigen (08/02/2022 10:54 AM CDT) HBs Antigen, S Negative Negative 08/02/2022 3:59 PM CDT [facility] Blood (Blood, Venous) 08/02/2022 10:54 AM CDT 08/02/2022 2:44 PM CDT Billie Lewis APRNNJose LAB MICROBIOLOGY - BLOOD ORDERABLES Final Result [facility] [address] [place] [address] [facility] [address] [place] [address] * HPV with Genotyping, PCR, ThinPrep (03/17/2021 10:30 AM CHILD GUIDANCE COUNSELOR) Pathologist [facility] Specimen Source Thin Prep Vial, Cervix/Endoc ervix 03/21/2021 4:47 PM CHILD GUIDANCE COUNSELOR DTL HPV High Risk type 16, PCR Negative Negative 03/21/2021 4:47 PM CHILD GUIDANCE COUNSELOR DTL HPV High Risk type 18, PCR Negative Negative 03/21/2021 4:47 PM CHILD GUIDANCE COUNSELOR DTL HPV other High Risk types, PCR Negative Negative 03/21/2021 4:47 PM CHILD GUIDANCE COUNSELOR DTL Comment: The following Other High Risk HPV types were not detected: 31, 33, 35, 39, 45, 51, 52, 56, 58, 59, 66, and 68 This test was ordered in the context of a [facility] WET PLANT OPERATOR Cytology case; this result should be interpreted within the context of the WET PLANT OPERATOR cytology report. Varies 03/17/2021 10:3 0 AM CHILD GUIDANCE COUNSELOR 03/18/2021 9:46 AM CHILD GUIDANCE COUNSELOR Lakeisha Montoya.Geni LAB MICROBIOLOGY - GENERAL O RDERABLES Final Result [facility] [address] [place] [address], [place] DTL [facility] [address] [place] [address] * HIV-1/-2 Ag and Ab Screen, Plasma (05/11/2020 2:10 PM CHILD GUIDANCE COUNSELOR) Pathologist [facility] HIV Ag/Ab Screen, P Negative Negative 05/12/2020 11:15 AM CHILD GUIDANCE COUNSELOR ECLR Comment: Negative result does not rule out HIV infection. If exposure to HIV infection occurred <14 days ago, contact the laboratory to request addition of HIV-1 RNA detection / quantification test. HIV-1 p24 Ag Screen, P Negative Negative 05/12/2020 11:15 AM CHILD GUIDANCE COUNSELOR ECLR Comment: Negative result does not rule out HIV infection. If exposure to HIV infection occurred <14 days ago, contact the laboratory to request addition of HIV-1 RNA detection / quantification test. HIV-1 Ab Screen, P Negative Negative 2020 11:15 AM CHILD GUIDANCE COUNSELOR ECLR Comment: Negative result does not rule out HIV infection. If exposure to HIV infection occurred <14 days ago, contact the laboratory to request addition of HIV-1 RNA detection / quantification test. HIV-2 Ab Screen, P Negative Negative 2020 11:15 AM CHILD GUIDANCE COUNSELOR ECLR Comment: Negative result does not rule out HIV infection. If exposure to HIV infection occurred <14 days ago, contact the laboratory to request addition of HIV-1 RNA detection / quantification test. Blood (Blood, Venous) 05/11/2020 2:10 PM CHILD GUIDANCE COUNSELOR 05/11/2020 9:21 PM CHILD GUIDANCE COUNSELOR us Litzy Cox M.D. LAB MICROBIOLOGY - BLOOD OR DERABLES Final Result [facility] [address] [place] [address], [facility] ECL[facility] [address] from Last 3 Months or Most Recently Relevant to Health Maintenance Insurance [employer] [facility] Advance Directives For more information, please contact: [phone] * Full Code (Latest Code Status on File) Date Activated Date Inactivated Comments 06/24/2024 7:59 PM 06/26/2024 3:21 PM Question Answer Comments Full Code: Not Discussed Due to: Patient not available * Full Code Date Activated Date Inactivated Comments 09/25/2022 3:29 PM 09/26/2022 2:08 PM Question Answer Comments Full Code: Discussed * Full Code Date Activated Date Inactivated Comments 05/05/2021 12:16 PM 05/06/2021 10:49 AM Question Answer Comments Full Code: Not Discussed Due to: Patient not available Care Teams Conservation Engineer Relationship Specialty Start Date End Date Litzy Cox M.D. NPTrip: [id number] [address] [place] [id number] PCP - General Family Medicine 04/22/20
--- OUTSIDE RECORDS SUMMARY | 2024-07-06 00:09 | XMS_ITS | Continuity of Care Document ---
Author Organization [facility] rachel Address [address] [place] [address] Phone Care Team Providers Care Enterprise Systems Manager Name Role Phone Shanthi Castro PT Unavailable Unavailable Allergies, Adverse Reactions, Alerts Substance Reaction Status Criticality strawberry Anaphylaxis Active No Information mirtazapine Active No Information tizanidine AnaphylaxisItching Active No Inform ation Sulfa (Sulfonamide Antibiotics) Anaphylaxis Active No Information Quinolones Anaphylaxis Active No Information apple Anaphylaxis Active No Information gabapentin Blister Active No Information escitalopram Edema Active No Information tramadol Active No Information pollen extracts Wheezing Active No Informati on Medications Medication Instructions Dosage Effective Dates (start - stop) Status Comments hydrocodone 10 mg-acetaminophen 325 mg tablet take 1 tablet by ORAL route every 4 - 6 hours as needed for pain, max 4/day as needed - Active hydroxyzine HCl 25 mg tablet TAKE 1/2 TO 1 TABLET BY MOUTH EVERY EIGHT HOURS NEEDED FOR ANXIETY. - Active Senokot-S 8.6 mg-50 mg tablet Take 1 tablet by mouth 2 (two) times a day as needed for constipation. - Active clindamycin HCl 300 mg capsule take 1 capsule by oral route every 8 hours for 7 days. - Active topiramate 50 mg tablet take 1 tablet by oral route 2 times every day 50 MG - Active Valium 2 mg tablet take 1 tablet by oral route every day as needed 2 MG - Active EFFEXOR XR (unknown strength) take 2 capsule by oral route every day Not Available - Active bupropion HCl XL 300 mg 24 hr tablet, extended release take 1 tablet by oral route every day 300 MG - Active Klonopin 0.5 mg tablet take 1 tablet by oral route at night f restless body - Active benztropine 0.5 mg tablet take 1 tablet by oral route 2 times every day 0.5 MG - Active losartan 25 mg tablet take 1 tablet by oral route every day 25 MG - Active Imitrex 50 mg tablet take 1 tablet by oral route after onset of migraine; may repeat after 2 hours if headache returns,not to exceed 200mg in 24hrs 50 MG - Active amlodipine 2.5 mg tablet take 1 tablet by oral route every day 2.5 MG - Active omeprazole 40 mg capsule,delayed release take 1 capsule by oral route every day before a meal 40 MG - Active multivitamin tablet take 1 tablet by oral route every day 1 tablet - Active levothyroxine 50 mcg tablet take 1 tablet by oral route every day 50 MCG - Active fexofenadine 180 mg tablet take 1 tablet by oral route every day as needed 180 MG - Active epinephrine 0.3 mg/0.3 mL injection, auto-injector inject 0.3 milliliter by intramuscular route once as needed for anaphylaxis as needed 0.3 MG - Active cyanocobalamin (vit B-12) 2,000 mcg tablet Take 2500mcg by mouth 3 times a week - Active Prempro 0.625 mg-2.5 mg tablet take 1 tablet by oral route every day 1.00 tablet - Active cholecalciferol (vitamin D3) 50 mcg (2,000 unit) capsule - Active calcium citrate 250 mg calcium-vitamin D3 5 mcg (200 unit) tablet - Active biotin 1 mg tablet - Active acetaminophen 500 mg tablet take 2 tablet by oral route every 4 - 6 hours as needed not to exceed 8 tablets per 24hrs 1000 MG - Active Procedures Procedure Date PT EVAL MOD COMPLEX 30 MIN OFFICE/OUTPATIENT VISIT, EST OFFICE/OUTPATIENT VISIT, EST OFFICE/OUTPATIENT VISIT, EST Drug Urine Toxology With Chromatography Drug test def 8-14 classes OFFICE/OUTPATIENT VISIT, EST OFFICE VISIT, EST TELEMEDICINE OFFICE VISIT, EST TELEMEDICINE OFFICE/OUTPATIENT VISIT, EST Drug test def 8-14 classes Drug Urine Toxology With Chromatography OFFICE VISIT, EST TELEMEDICINE 24 BILATERAL MAJOR JOINT/BURSA DRAIN/INJ WI TH ULTRASO Betamethasone acet sod phosp OFFICE VISIT, EST TELEMEDICINE 24 BILATERAL INJECT SACROILIAC JOINT INJECT TRIGGER POINTS, =/> 3 OFFICE/OUTPATIENT VISIT, EST OFFICE/OUTPATIENT VISIT, EST Drug test def 15-21 classes Drug Urine Toxology With Chromatography OFFICE/OUTPATIENT VISIT, EST INJ TRIGGER POINT, 1/2 MUSCL BILATERAL INJECT SACROILIAC JOINT OFFICE/OUTPATIENT VISIT, EST OFFICE/OUTPATIENT VISIT, EST OFFICE/OUTPATIENT VISIT, EST BILATERAL INJECT SACROILIAC JOINT OFFICE/OUTPATIENT VISIT, EST Drug Urine Toxology With Chromatography Drug test def 8-14 classes OFFICE/OUTPATIENT VISIT, EST OFFICE/OUTPATIENT VISIT, EST INJECT TRIGGER POINTS, =/> 3 OFFICE/OUTPATIENT VISIT, EST INJECT TRIGGER POINTS, =/> 3 Foll-up eval q3mo opiod tx OFFICE/OUTPATIENT VISIT, EST Drug Urine Toxology With Chromatography Drug test def 8-14 classes Foll-up eval q3mo opiod tx OFFICE/OUTPATIENT VISIT, EST BILATERAL INJECT SACROILIAC JOINT Foll-up eval q3mo opiod tx OFFICE/OUTPATIENT VISIT, EST Foll-up eval q3mo opiod tx OFFICE/OUTPATIENT VISIT, EST Foll-up eval q3mo opiod tx OFFICE/OUTPATIENT VISIT, EST Drug Urine Toxology With Chromatography Drug test def 8-14 classes Foll-up eval q3mo opiod tx OFFICE/OUTPATIENT VISIT, EST Foll-up eval q3mo opiod tx OFFICE/OUTPATIENT VISIT, EST BILATERAL INJECT SACROILIAC JOINT INJ TRIGGER POINT, 1/2 MUSCL Betamethasone acet sod phosp Foll-up eval q3mo opiod tx Drug test def 8-14 classes Drug Urine Toxology With Chromatography INJECT TRIGGER POINTS, =/> 3 Foll-up eval q3mo opiod tx OFFICE/OUTPATIENT VISIT, EST Kenalog Triamcinolone acetonide inj INJECT TRIGGER POINTS, =/> 3 OFFICE/OUTPATIENT VISIT, EST Foll-up eval q3mo opiod tx Foll-up eval q3mo opiod tx INJ TRIGGER POINT, 1/2 MUSCL OFFICE/OUTPATIENT VISIT, EST OFFICE/OUTPATIENT VISIT, EST Foll-up eval q3mo opiod tx OFFICE/OUTPATIENT VISIT, EST Foll-up eval q3mo opiod tx OFFICE/OUTPATIENT VISIT, EST Drug Urine Toxology With Chromatography Drug test def 8-14 classes Foll-up eval q3mo opiod tx OFFICE/OUTPATIENT VISIT, EST PT-FOCUSED HLTH RISK ASSMT OFFICE/OUTPATIENT VISIT, NEW Advance Directives Directive Yes / No Effective Date File Name No Information Encounters Encounter Description Practice Location Reason(s) For Visit Diagnoses Date Provider Providers Copied on Encounter [facility], [address] [place] [address], [id number] , [place] tel:[phone] Telehealth cervicalgia (chief complaint) Postlaminectomy syndrome, not elsewhere classifiedChron ic pain syndrome Apr-1 7 5 Gloria Shanthi. [address] [facility] [place], [place], [id number], [place]. tel:[phone] Referring Provider: Genna Hutchinson, [address], [place], [address] . tel:[phone] OFFICE/OUTPAT IENT VISIT, [facility], [address] [place] [address], [id number] , [place] tel:[phone] [facility] Widespread pain (chief complaint) Chronic pain syndromeOther muscle spasmPostlamine ctomy syndrome, not elsewhere classifiedOther spondylosis, thoracic regionTrochante breana bursitis, right hipSacroiliitis , not elsewhere classifiedLong term (current) use of opiate analgesicRadicu lopathy, cervical regionTrochante breana bursitis, left hip Apr-0 8 5 Evangelina Vail. [address], [place], [id number], [place]. tel:[phone] Referring Provider: Bertrand Lau, [address] [place] [address], [address] . tel:[phone] OFFICE/OUTPAT IENT VISIT, [facility], [address] [place] [address], [id number] , [place] tel:[phone] [facility] low back pain (chief complaint) Chronic pain syndromeSacroil iitis, not elsewhere classifiedRadic ulopathy, cervical regionOther muscle spasmPostlamine ctomy syndrome, not elsewhere classifiedOther spondylosis, thoracic regionTrochante breana bursitis, right hipLong term (current) use of opiate analgesicTrocha nteric bursitis, left hip Mar-0 4-202 [address], [place], [id number], [place]. tel:[phone] Referring Provider: Bertrand Lau, [address] [place], [address] . tel:[phone] OFFICE/OUTPAT IENT VISIT, [facility], [address] [place] [address], [id number] , [place] [phone] [facility] Back Pain (chief complaint) Chronic pain syndromeSacroil iitis, not elsewhere classifiedOther spondylosis, thoracic regionRadiculop athy, cervical regionOther muscle spasmPostlamine ctomy syndrome, not elsewhere classifiedTroch anteric bursitis, right hipLong term (current) use of opiate analgesicTrocha nteric bursitis, left hipEncounter for therapeutic drug level monitoring 5 Evangelina Vail. [address] [facility] [address] [facility] [address], [place], [id number], [place]. tel:[phone] Referring Provider: Bertrand Lau, [address] [place] [address] [place], [address] . tel:[phone] OFFICE/OUTPAT IENT VISIT, [facility], [address] [place] [address], [id number] , [place] [phone] [facility] low back pain (chief complaint) Chronic pain syndromeSacroil iitis, not elsewhere classifiedOther spondylosis, thoracic regionRadiculop athy, cervical regionOther muscle spasmPostlamine ctomy syndrome, not elsewhere classifiedTroch anteric bursitis, right hipLong term (current) use of opiate analgesicTrocha nteric bursitis, left hip 5 Tammie Banks. [address], [place], [place], [id number], [place]. tel:[phone] Referring Provider: Bertrand Lau, [address] [facility] [place], [address] . tel:[phone] OFFICE VISIT, [facility], [address] [place] [address] [place], [id number] , [place] tel:[phone] [facility] [place] Back Pain (chief complaint) Chronic pain syndromeSacroil iitis, not elsewhere classifiedOther spondylosis, thoracic regionRadiculop athy, cervical regionOther muscle spasmPostlamine ctomy syndrome, not elsewhere classifiedTroch anteric bursitis, right hipLong term (current) use of opiate analgesicTrocha nteric bursitis, left hip Dec-0 4- 4 Tammie Banks. [address], [address], [place], [place], [id number], [place]. tel:[phone] OFFICE VISIT, [facility] TELEMEDICINE [facility], [address] [place] [address] [place], [id number] , [place] tel:[phone] [facility] Back Pain (chief complaint) Chronic pain syndromeSacroil iitis, not elsewhere classifiedOther spondylosis, thoracic regionRadiculop athy, cervical regionOther muscle spasmPostlamine ctomy syndrome, not elsewhere classifiedTroch anteric bursitis, right hipLong term (current) use of opiate analgesicTrocha nteric bursitis, left hip Dec- 4 Evangelina Vail. [address] [facility] [address], [id number], [place]. tel:[phone] OFFICE/OUTPAT IENT VISIT, [facility], [address] [place], [place], [id number] , [place] [phone] [facility] Back Pain (chief complaint) Chronic pain syndromeSacroil iitis, not elsewhere classifiedOther spondylosis, thoracic regionRadiculop athy, cervical regionOther muscle spasmPostlamine ctomy syndrome, not elsewhere classifiedTroch anteric bursitis, right hipLong term (current) use of opiate analgesicTrocha nteric bursitis, left hipEncounter for therapeutic drug level monitoring 4 Naborsa Genna. [address] [facility] [address], [id number], [place]. tel:[phone] Referring Provider: Bertrand Lau, [address] [place], [address] . tel:[phone] OFFICE VISIT, EST TELEMEDICINE [facility], [address] [place] [address] [place], [id number] , [place] tel:[phone] [facility] [place] Back pain (chief complaint) Chronic pain syndromeSacroil iitis, not elsewhere classifiedOther spondylosis, thoracic regionRadiculop athy, cervical regionOther muscle spasmPostlamine ctomy syndrome, not elsewhere classifiedTroch anteric bursitis, right hipLong term (current) use of opiate analgesicTrocha nteric bursitis, left hip 4 Cali Guadarrama. [address] [facility] [place], [id number], [place]. tel:[phone] [facility], [address] [place] [address] [place], [place], [id number] , [place] tel:[phone] [facility] [place] Pain in left hipPain in right hip 4 Lea Garcia. [address] [place] [address] [facility], [place], [place], [id number], [place]. tel:[phone] Referring Provider: Bertrand Lau, [address] [place] [address] [place], [address] . tel:[phone] OFFICE VISIT, EST TELEMEDICINE [facility], [address] [place] [address] [place], [id number] , [place] tel:[phone] [facility] Back Pain (chief complaint) Chronic pain syndromeSacroil iitis, not elsewhere classifiedOther spondylosis, thoracic regionRadiculop athy, cervical regionOther muscle spasmPostlamine ctomy syndrome, not elsewhere classifiedLong term (current) use of opiate analgesicTrocha nteric bursitis, right hipTrochanteric bursitis, left hip Aug- 4 Evangelina Vail. [address], [place], [place], [id number], [place]. tel:[phone] Referring Provider: Bertrand Lau, [address] [place], [place] [address], [address] . tel:[phone] [facility], [address] [place] [address], [id number] , [place] tel:[phone] [facility] Sacroiliitis, not elsewhere classified 4 Vishnu Bertrand. [address] [place] [address], [id number], [place]. tel:[phone] Referring Provider: Bertrand Lau, [address] [place] [address] [place], [address] . tel:[phone] OFFICE/OUTPAT IENT VISIT, [facility], [address] [place] [address], [id number] , [place] tel:[phone] [facility] low back pain (chief complaint) Chronic pain syndromeSacroil iitis, not elsewhere classifiedOther spondylosis, thoracic regionRadiculop athy, cervical regionOther muscle spasmPostlamine ctomy syndrome, not elsewhere classifiedLong term (current) use of opiate analgesicMyalgi a, other site 4 Evangelina Vail. [address] [facility] [address], [place], [id number], [place]. tel:[phone] Referring Provider: Bertrand Lau, [address] [place] [address] [place], [address] . tel:[phone] OFFICE/OUTPAT IENT VISIT, [facility], [address] [place] [address], [id number] , [place] tel:[phone] [facility] low back pain (chief complaint) Chronic pain syndromeSacroil iitis, not elsewhere classifiedOther spondylosis, thoracic regionRadiculop athy, cervical regionOther muscle spasmPostlamine ctomy syndrome, not elsewhere classifiedLong term (current) use of opiate analgesicEncoun ter for therapeutic drug level monitoring 4 Evangelina Vail. [address] [facility] [address], [place], [place], [id number], [place]. tel:[phone] Referring Provider: Bertrand Lau, [address] [place] [address] [place], [address] . tel:[phone] OFFICE/OUTPAT IENT VISIT, [facility], [address] [place] [address], [id number] , [place] tel:[phone] [facility] low back pain (chief complaint) Chronic pain syndromeSacroil iitis, not elsewhere classifiedOther spondylosis, thoracic regionRadiculop athy, cervical regionOther muscle spasmMyalgia, other sitePostlaminec luiz syndrome, not elsewhere classifiedLong term (current) use of opiate analgesicEncoun ter for therapeutic drug level monitoring 4 Nyongesa Genna. [address] [facility] [address], [place], [id number], [place]. tel:[phone] Referring Provider: Bertrand Lau, [address] [place], [place] [address], [address] . tel:[phone] [facility], [address] [place] [address], [id number] , tel:[phone] [facility] Sacroiliitis, not elsewhere classified 4 Vishnu Thurston. [address] [place] [address], [id number], [place]. tel:[phone] Referring Provider: Bertrand Lau, [address] [place] [address] [place], [address] . tel:[phone] OFFICE/OUTPAT IENT VISIT, [facility], [address] [place] [address], [id number] , [place] tel:[phone] [facility] low back pain (chief complaint) Chronic pain syndromeSacroil iitis, not elsewhere classifiedOther spondylosis, thoracic regionRadiculop athy, cervical regionOther muscle spasmMyalgia, other sitePostlaminec luiz syndrome, not elsewhere classifiedLong term (current) use of opiate analgesic 4 Nyongesa Genna. [address] [facility] [address], [place], [id number], [place]. tel:[phone] Referring Provider: Bertrand Lau, [address] [place], [place] [address], [place], [address] . tel:[phone] OFFICE/OUTPAT IENT VISIT, [facility], [address] [place] [address], [id number] , [place] [phone] [facility] low back pain (chief complaint) Chronic pain syndromeSacroil iitis, not elsewhere classifiedOther spondylosis, thoracic regionRadiculop athy, cervical regionOther muscle spasmMyalgia, other sitePostlaminec luiz syndrome, not elsewhere classifiedLong term (current) use of opiate analgesic Feb- 3 Nyongesa Genna. [address] [facility] [address], [place], [place], [id number], [place]. tel:[phone] Referring Provider: Bertrand Lau, [address] [place] [address] [facility] [place], [address] . tel:[phone] OFFICE/OUTPAT IENT VISIT, [facility], [address] [place] [address], [id number] , [place] [phone] [facility] low back pain (chief complaint) Chronic pain syndromeSacroil iitis, not elsewhere classifiedOther spondylosis, thoracic regionRadiculop athy, cervical regionOther muscle spasmMyalgia, other sitePostlaminec luiz syndrome, not elsewhere classifiedLong term (current) use of opiate analgesic 3 Nyongesa Genna. [address], [place], [place], [id number], [place]. tel:[phone] Referring Provider: Bertrand Lau, [address] [place] [address] [place], [address] . tel:[phone] [facility], [address] [place] [address], [id number] , [place] tel:[phone] [facility] Sacroiliitis, not elsewhere classified 3 Vishnu Thurston. [address] [place] [address], [id number], [place]. tel:[phone] Referring Provider: Bertrand Lau, [address] [place] [address] [place], [address] . tel:[phone] OFFICE/OUTPAT IENT VISIT, [facility], [address] [place] [address], [id number] , [place] tel:[phone] [facility] low back pain (chief complaint) Chronic pain syndromeSacroil iitis, not elsewhere classifiedOther spondylosis, thoracic regionRadiculop athy, cervical regionOther muscle spasmMyalgia, other sitePostlaminec luiz syndrome, not elsewhere classifiedLong term (current) use of opiate analgesic 3 [facility]. [address] [facility] [address] [facility] [address], [place], [id number], [place]. tel:[phone] Referring Provider: Bertrand Lau, [address] [place] [address] [place], [address] . tel:[phone] [facility], [address] [place] [address], [id number] , [place] [phone] [facility] No Information 3 [facility]. [address] [facility] [address], [id number], [place]. tel:[phone] OFFICE/OUTPAT IENT VISIT, [facility], [address] [place] [address], [id number] , [place] [phone] [facility] back pain (chief complaint) Chronic pain syndromeSacroil iitis, not elsewhere classifiedOther spondylosis, thoracic regionRadiculop athy, cervical regionOther muscle spasmMyalgia, other sitePostlaminec luiz syndrome, not elsewhere classifiedLong term (current) use of opiate analgesicEncoun ter for therapeutic drug level monitoring 3 Caonge Genna. [address] [facility] [address], [place], [id number], [place]. tel:[phone] Referring Provider: Bertrand Lau, [address] [facility] [place], [address] . tel:[phone] OFFICE/OUTPAT IENT VISIT, [facility], [address] [place] [address], [id number] , [place] tel:[phone] [facility] low back pain (chief complaint) Chronic pain syndromeSacroil iitis, not elsewhere classifiedOther spondylosis, thoracic regionRadiculop athy, cervical regionOther muscle spasmMyalgia, other sitePostlaminec luiz syndrome, not elsewhere classifiedLong term (current) use of opiate analgesic 0 3 Caongesa Genna. [address] [facility] [address], [place], [place], [id number], [place]. tel:[phone] Referring Provider: Bertrand Lau, [address] [place] [address] [place], [address] . tel:[phone] OFFICE/OUTPAT IENT VISIT, [facility], [address] [place] [address], [id number] , [place] tel:[phone] [facility] low back pain (chief complaint) Chronic pain syndromeSacroil iitis, not elsewhere classifiedOther spondylosis, thoracic regionRadiculop athy, cervical regionOther muscle spasmMyalgia, other sitePostlaminec luiz syndrome, not elsewhere classifiedLong term (current) use of opiate analgesic 3 [facility]. [address] [facility] [address], [place], [id number], [place]. tel:[phone] Referring Provider: Bertrand Lau, [address] [facility] [place], [address] . tel:[phone] OFFICE/OUTPAT IENT VISIT, [facility], [address] [place] [address], [id number] , [place] [phone] [facility] low back pain (chief complaint) Chronic pain syndromeSacroil iitis, not elsewhere classifiedOther spondylosis, thoracic regionOther muscle spasmMyalgia, other sitePostlaminec luiz syndrome, not elsewhere classifiedLong term (current) use of opiate analgesicRadicu lopathy, cervical region Apr-1 3-202 3 Caesvin Vail. [address] [facility] [address], [place], [place], [id number], [place]. tel:[phone] Referring Provider: Bertrand Lau, [address] [place] [address] [place], [address] . tel:[phone] [facility], [address] [place] [address] [place], [id number] , [place] tel:[phone] [facility] [place] No Information 3 Evangelina Vail. [address] [facility] [address], [place], [place], [id number], [place]. tel:[phone] Referring Provider: Bertrand Lau, [address] [place] [address] [place], [address] . tel:[phone] OFFICE/OUTPAT IENT VISIT, [facility], [address] [place] [address] [place], [place], [id number] , [place] tel:[phone] [facility] low back pain (chief complaint) Pain in left hipSystemic lupus erythematosus, unspecifiedSacr oiliitis, not elsewhere classifiedOther spondylosis, thoracic regionOther muscle spasmMyalgia, other sitePostlaminec luiz syndrome, not elsewhere classifiedLong term (current) use of opiate analgesicChroni c pain syndrome 3 [facility] Genna. [address] [facility] [address], [place], [place], [id number], [place]. tel:[phone] Referring Provider: Bertrand Lau, [address] [place] [address] [place], [address] . tel:[phone] [facility], [address] [place] [address] [place], [id number] , [place] tel:[phone] [facility] Sacroiliitis, not elsewhere classified 3 Vishnu Thurston. [address] [place] [address] [place], [place], [id number], [place]. tel:[phone] Referring Provider: Bertrand Lau, [address] [place] [address], [address] . tel:[phone] OFFICE/OUTPAT IENT VISIT, [facility], [address] [place] [address], [id number] , tel:[phone] [facility] low back pain (chief complaint) Pain in left hipSystemic lupus erythematosus, unspecifiedSacr oiliitis, not elsewhere classifiedOther spondylosis, thoracic regionOther muscle spasmMyalgia, other sitePostlaminec luiz syndrome, not elsewhere classifiedLong term (current) use of opiate analgesicOther fdc (current) drug therapy 3 Chirag Lynn. [address] [facility] [address], [place], [id number], [place]. tel:[phone] Referring Provider: Bertrand Lau, [address] [place] [address] [place], [address] . tel:[phone] OFFICE/OUTPAT IENT VISIT, [facility], [address] [place] [address], [id number] , [place] tel:[phone] [facility] low back pain (chief complaint) Pain in left hipSystemic lupus erythematosus, unspecifiedSacr oiliitis, not elsewhere classifiedOther spondylosis, thoracic regionOther muscle spasmMyalgia, other sitePostlaminec luiz syndrome, not elsewhere classifiedLong term (current) use of opiate analgesicOther fdc (current) drug therapy 3 Evangelina Vail. [address] [facility] [address], [place], [place], [id number], [place]. tel:[phone] Referring Provider: Bertrand Lau, [address] [place], [place] [address], [address] . tel:[phone] OFFICE/OUTPAT IENT VISIT, [facility], [address] [place] [address], [id number] , [place] tel:[phone] [facility] low back pain (chief complaint) Pain in left hipSystemic lupus erythematosus, unspecifiedSacr oiliitis, not elsewhere classifiedOther spondylosis, thoracic regionOther muscle spasmMyalgia, other sitePostlaminec luiz syndrome, not elsewhere classifiedLong term (current) use of opiate analgesicOther fdc (current) drug therapyEncounte r for screening for other disorder 2 Chirag Lynn. [address] [facility] [address], [place], [id number], [place]. tel:[phone] Referring Provider: Bertrand Lau, [address] [facility] [place], [address] . tel:[phone] [facility], [address] [place] [address], [id number] , [place] tel:[phone] [facility] No Information 2 Evangelina Vail. [address] [facility] [address], [place], [id number], [place]. tel:[phone] Referring Provider: Bertrand Lau, [address] [place] [address] [place], [address] . tel:[phone] OFFICE/OUTPAT IENT VISIT, [facility], [address] [place] [address], [id number] , [place] tel:[phone] [facility] Back Pain (chief complaint) Pain in left hipSystemic lupus erythematosus, unspecifiedSacr oiliitis, not elsewhere classifiedOther muscle spasmMyalgia, other sitePostlaminec luiz syndrome, not elsewhere classifiedLong term (current) use of opiate analgesicOther fdc (current) drug therapyOther spondylosis, thoracic region 2 Nyongesa Genna. [address] [facility] [address], [place], [id number], [place]. tel:[phone] Referring Provider: Bertrand Lau, [address] [facility] [place], [address] . tel:[phone] OFFICE/OUTPAT IENT VISIT, [facility], [address] [place] [address] [place], [id number] , [place] tel:[phone] [facility] Back Pain (chief complaint) Pain in left hipSystemic lupus erythematosus, unspecifiedSacr oiliitis, not elsewhere classifiedOther muscle spasmMyalgia of auxiliary muscles, head and neckMyalgia, other sitePostlaminec luiz syndrome, not elsewhere classifiedLong term (current) use of opiate analgesicOther fdc (current) drug therapy 0 2 Nyongesa Genna. [address] [facility] [address], [place], [place], [id number], [place]. tel:[phone] Referring Provider: Bertrand Lau, [address] [place] [address] [place], [address] . tel:[phone] [facility], [address] [place] [address] [place], [id number] , [place] [phone] [facility] Sacroiliitis, not elsewhere classified Sep-2 2 Josue Warren. [facility], [address], [place], [address], [place]. tel:[phone] Referring Provider: Bertrand Lau, [address] [place] [address] [place], [address] . tel:[phone] [facility], [address] [place] [address] [place], [id number] , [place] [phone] [facility] [facility] (chief complaint) Pain in left hipSystemic lupus erythematosus, unspecifiedSacr oiliitis, not elsewhere classifiedOther muscle spasmMyalgia, other sitePostlaminec uliz syndrome, not elsewhere classifiedLong term (current) use of opiate analgesicOther buttermaker helper (current) drug therapyMyalgia of auxiliary muscles, head and neck 2 Nyongesa Genna. [address] [facility] [address], [place], [place], [id number], [place]. tel:[phone] Referring Provider: Bertrand Lau, [address] [place] [address] [place], [address] . tel:[phone] [facility], [address] [place] [address] [place], [id number] , [place] tel:[phone] [facility] [place] No Information 2 Nyongesa Genna. [address] [facility] [address], [id number], [place]. tel:[phone] Referring Provider: Lakeisha Brennan, [facility] [address] [facility] [address] [facility], [place], [address]. tel:[phone] OFFICE/OUTPAT IENT VISIT, EST [facility], [address] [place], [place], [id number] , [place] [phone] [facility] Back Pain (chief complaint) Pain in left hipSystemic lupus erythematosus, unspecifiedSacr oiliitis, not elsewhere classifiedOther muscle spasmMyalgia, other sitePostlaminec luiz syndrome, not elsewhere classifiedLong term (current) use of opiate analgesicOther fdc (current) drug therapy 2 Nyongesa Genna. [address], [id number], [place]. tel:[phone] Referring Provider: Lakeisha Brennan, [facility] [address] [place] [address] 24 [place], [address]. tel:[phone] OFFICE/OUTPAT IENT VISIT, EST [facility], [address] [place] [address], [id number] , [place] tel:[phone] [facility] Back Pain (chief complaint) Pain in left hipSystemic lupus erythematosus, unspecifiedMyal miguelina, other sitePostlaminec luiz syndrome, not elsewhere classifiedLong term (current) use of opiate analgesicOther buttermaker helper (current) drug therapyOther muscle spasmSacroiliit is, not elsewhere classified 2 Nyongesa Genna. [address], [id number], [place]. tel:[phone] Referring Provider: Lakeisha Brennan [facility] [address] [facility] 24 [place], [address]. tel:[phone] OFFICE/OUTPAT IENT VISIT, EST [facility], [address] [place], [place], [id number] , [place] tel:[phone] [facility] Back Pain (chief complaint) Pain in right hipPain in left hipSystemic lupus erythematosus, unspecifiedPost laminectomy syndrome, not elsewhere classifiedLong term (current) use of opiate analgesicOther fdc (current) drug therapyMyalgia, other site 2 Evangelina Vail. [address] [facility] [address], [place], [place], [id number], [place]. tel:[phone] Referring Provider: Bertrand Lua, [address] [place], [place] [address], [address] . tel:[phone] OFFICE/OUTPAT IENT VISIT, [facility], [address] [place] [address], [id number] , [place] tel:[phone] [facility] Back Pain (chief complaint) Postlaminectomy syndrome, not elsewhere classifiedPain in right hipPain in left hipSystemic lupus erythematosus, unspecifiedLong term (current) use of opiate analgesicOther fdc (current) drug therapy 2 Keren Alvarez. [place], [address] [place], [address], [place]. tel:[phone] Referring Provider: Lakeisha Brennan, [facility] [address] [facility] [address] [place], [address]. tel:[phone] OFFICE/OUTPAT IENT VISIT, [facility], [address] [place] [address], [id number] , [place] tel:[phone] [facility] Back Pain (chief complaint) Other buttermaker helper (current) drug therapyPostlami nectomy syndrome, not elsewhere classifiedLong term (current) use of opiate analgesicPain in left hipPain in right hipSystemic lupus erythematosus, unspecified Fe 2 Liat Kelley. [facility], [address], [place], [address], [place]. tel:[phone] Referring Provider: Bertrand Lau, [address] [place] [address] [place], [address] . tel:[phone] OFFICE/OUTPAT IENT VISIT, [facility], [address] [place] [address], [id number] , [place] [phone] [facility] Back Pain (chief complaint) Other buttermaker helper (current) drug therapyPostlami nectomy syndrome, not elsewhere classifiedLong term (current) use of opiate analgesic 2 [facility]ue Warren. [facility], [address], [place], [address], [place]. tel:[phone] Referring Provider: Bertrand Lau, [address] [place], [place] [address], [address] . [phone] [facility], [address] [place] [address], [id number] , [place] [phone] [facility] No Information 2 Josue Warren. [facility], [address], [place], [address], [place]. tel:[phone] Referring Provider: Bertrand Lau, [address] [place] [address] [place], [address] . tel:[phone] OFFICE/OUTPAT IENT VISIT, [facility], [address] [place] [address], [id number] , [place] [phone] [facility] Back Pain (chief complaint) Other buttermaker helper (current) drug therapyPostlami nectomy syndrome, not elsewhere classifiedEncou nter for therapeutic drug level monitoringLong term (current) use of opiate analgesic 2 Josue Warren. [facility], [address], [place], [address], [place]. tel:[phone] Referring Provider: Bertrand Lau, [address] [place] [address] [place], [address] . tel:[phone] OFFICE/OUTPAT IENT VISIT, [facility], [address] [place] [address], [id number] , [place] tel:[phone] [facility] [place] Back Pain (chief complaint) Encounter for screening for other disorderOther buttermaker helper (current) drug therapyPostlami nectomy syndrome, not elsewhere classified 1 Liat Kelley. [facility], [address], [place], [address], [place]. tel:[phone] Referring Provider: Lakeisha Brennan, [place] [id number] [facility] [address], [place], [address]. tel:[phone] Family History Family Member Type Diagnosis Age At Onset Father Problem low back pain Payers Payer name Insurance type Covered republican ID Zoey mark(s) Umr CI [id number] Social History Type Description Quantity Date Captured Comments Alcohol Use Details No Caffeine Use Details Unknown Tobacco Use Status Current non-smoker Smoking Status Never smoker Sex Female Chief Complaint And Reason For Visit From encounter dated '06/19/2024 13:10'. cervicalgia (chief complaint). Description: Patient is a 58 year old female with chronic neck and lower bck pain with history of extensive cervical and lumbar fusion. Patient is pending an SI joint fusion next week. Patient is open to reviewing her current HEP and eslf care program. Reason For Referral Reason For Referral No Information Plan Of Treatment Date Type Action Status Goal Hepatitis C screening. Due o n due Goal Review Allergy List. Due on due Goal INDUSTRIAL REFRIGERATION MECHANIC Scanned. Due on 025 due Goal Unhealthy drug use screening . Due on due Goal Medication Reconciliation. D ue on due Goal NURSE PRACTICAL Paperwork. Due on due Goal CT-Colonography. Due on due Goal ALT (SGPT). Due on 25 due Goal AST (SGOT). Due on due Goal OARS. Due on due Goal Height. Due on d ue Goal FIT. Due on due Goal PHQ-9. Due on du e Goal Tobacco screening. Due on Ap due Goal Creatinine. Due on due Goal Weight. Due on d ue Goal FIT-DNA. Due on due Goal HPV. Due on due Goal Update Social History. Due o n due Goal Order Annual PT. Due on due Goal UDT. Due on due Goal Zoster vaccine (1st). Due on due Goal Tobacco Use. Due on due Goal ALT (SGPT). Due on due Goal Height. Due on d ue Goal Weight. Due on d ue Goal FIT. Due on due Goal Review Allergy List. Due on due Goal Unhealthy drug use screening . Due on due Goal HPV. Due on due Goal Hepatitis C screening. Due o n due Goal INDUSTRIAL REFRIGERATION MECHANIC Scanned. Due on due Goal Tobacco screening. Due on due Goal FIT-DNA. Due on due Goal CT-Colonography. Due on due Goal AST (SGOT). Due on due Goal Update Social History. Due o n due Goal Medication Reconciliation. D ue on due Goal Order Annual PT. Due on due Goal PHQ-9. Due on du e Goal Tobacco Use. Due on due Goal Creatinine. Due on due Goal OARS. Due on due Goal UDT. Due on due Goal NURSE PRACTICAL Paperwork. Due on due Goal Zoster vaccine (1st). Due on due Goal Update Social History. Due o n due Goal FIT. Due on due Goal Review Allergy List. Due on due Goal Order Annual PT. Due on due Goal Medication Reconciliation. D ue on due Goal Unhealthy drug use screening . Due on due Goal HPV. Due on due Goal Creatinine. Due on due Goal CT-Colonography. Due on due Goal PHQ-9. Due on du e Goal Height. Due on d ue Goal FIT-DNA. Due on due Goal AST (SGOT). Due on due Goal OARS. Due on due Goal INDUSTRIAL REFRIGERATION MECHANIC Scanned. Due on due Goal UDT. Due on due Goal ALT (SGPT). Due on due Goal NURSE PRACTICAL Paperwork. Due on due Goal Lipid panel. Due on due Goal Hepatitis C screening. Due o n due Goal Tobacco Use. Due on due Goal Weight. Due on d ue Goal Zoster vaccine (). Due on due Goal Lipid panel. Due on due Goal FIT-DNA. Due on due Goal Hepatitis C screening. Due o n due Goal PHQ-9. Due on du e Goal HPV. Due on due Goal NURSE PRACTICAL Paperwork. Due on due Goal Zoster vaccine (1st). Due on due Goal Unhealthy drug use screening . Due on due Goal Height. Due on d ue Goal AST (SGOT). Due on due Goal INDUSTRIAL REFRIGERATION MECHANIC Scanned. Due on due Goal FIT. Due on due Goal Review Allergy List. Due on due Goal UDT. Due on due Goal Creatinine. Due on due Goal CT-Colonography. Due on due Goal Tobacco Use. Due on due Goal Medication Reconciliation. D ue on due Goal Weight. Due on d ue Goal Order Annual PT. Due on due Goal Update Social History. Due o n due Goal OARS. Due on due Goal ALT (SGPT). Due on due Goal HPV. Due on due Goal INDUSTRIAL REFRIGERATION MECHANIC Scanned. Due on due Goal ALT (SGPT). Due on due Goal Weight. Due on d ue Goal OARS. Due on due Goal Tobacco Use. Due on due Goal Creatinine. Due on due Goal FIT. Due on due Goal CT-Colonography. Due on due Goal Height. Due on d ue Goal Medication Reconciliation. D ue on due Goal Order Annual PT. Due on due Goal Hepatitis C screening. Due o n due Goal UDT. Due on due Goal FIT-DNA. Due on due Goal NURSE PRACTICAL Paperwork. Due on due Goal AST (SGOT). Due on 25 due Goal PHQ-9. Due on du e Goal Lipid panel. Due on due Goal Unhealthy drug use screening . Due on due Goal Review Allergy List. Due on due Goal Update Social History. Due o n due Goal Zoster vaccine (). Due on due Goal Tobacco Use. Due on due Goal PHQ-9. Due on du e Goal CT-Colonography. Due on due Goal Medication Reconciliation. D ue on due Goal Unhealthy drug use screening . Due on due Goal Hepatitis C screening. Due o n due Goal Height. Due on d ue Goal Weight. Due on d ue Goal Zoster vaccine (). Due on due Goal Lipid panel. Due on due Goal FIT. Due on due Goal HPV. Due on due Goal FIT-DNA. Due on due Goal ALT (SGPT). Due on 24 due Goal Order Annual PT. Due on due Goal NURSE PRACTICAL Paperwork. Due on due Goal AST (SGOT). Due on due Goal Update Social History. Due o n due Goal Review Allergy List. Due on due Goal OARS. Due on due Goal UDT. Due on due Goal INDUSTRIAL REFRIGERATION MECHANIC Scanned. Due on due Goal Creatinine. Due on due Goal Tobacco Use. Due on due Goal UDT. Due on due Goal Hepatitis C screening. Due o n due Goal Height. Due on d ue Goal OARS. Due on due Goal Unhealthy drug use screening . Due on due Goal CT-Colonography. Due on due Goal FIT-DNA. Due on due Goal Medication Reconciliation. D ue on due Goal Update Social History. Due o n due Goal Zoster vaccine (1st). Due on due Goal FIT. Due on due Goal Weight. Due on d ue Goal Review Allergy List. Due on due Goal INDUSTRIAL REFRIGERATION MECHANIC Scanned. Due on due Goal AST (SGOT). Due on due Goal NURSE PRACTICAL Paperwork. Due on due Goal Order Annual PT. Due on due Goal ALT (SGPT). Due on due Goal Creatinine. Due on due Goal Lipid panel. Due on due Goal HPV. Due on due Goal PHQ-9. Due on du e Goal PHQ-9. Due on du e Goal Lipid panel. Due on due Goal CT-Colonography. Due on due Goal AST (SGOT). Due on due Goal Hepatitis C screening. Due o n due Goal Update Social History. Due o n due Goal UDT. Due on due Goal FIT-DNA. Due on due Goal INDUSTRIAL REFRIGERATION MECHANIC Scanned. Due on due Goal NURSE PRACTICAL Paperwork. Due on due Goal Medication Reconciliation. D ue on due Goal Tobacco Use. Due on due Goal HPV. Due on due Goal Unhealthy drug use screening . Due on due Goal ALT (SGPT). Due on due Goal FIT. Due on due Goal Height. Due on d ue Goal Zoster vaccine (1st). Due on due Goal Order Annual PT. Due on due Goal Creatinine. Due on due Goal Weight. Due on d ue Goal OARS. Due on due Goal Review Allergy List. Due on due Goal Lifestyle education regardin g diet completed Goal OARS. Due on due Goal NURSE PRACTICAL Paperwork. Due on due Goal Creatinine. Due on due Goal INDUSTRIAL REFRIGERATION MECHANIC Scanned. Due on due Goal Order Annual PT. Due on due Goal FIT. Due on due Goal ALT (SGPT). Due on due Goal Zoster vaccine (1st). Due on due Goal UDT. Due on due Goal AST (SGOT). Due on due Goal Hepatitis C screening. Due o n due Goal Review Allergy List. Due on due Goal Tobacco Use. Due on due Goal PHQ-9. Due on du e Goal Lipid panel. Due on due Goal CT-Colonography. Due on due Goal HPV. Due on due Goal Height. Due on d ue Goal Unhealthy drug use screening . Due on due Goal Weight. Due on d ue Goal FIT-DNA. Due on due Goal Update Social History. Due o n due Goal Medication Reconciliation. D ue on due Goal Creatinine. Due on due Goal AST (SGOT). Due on due Goal PHQ-9. Due on du e Goal INDUSTRIAL REFRIGERATION MECHANIC Scanned. Due on due Goal Height. Due on d ue Goal FIT-DNA. Due on due Goal HPV. Due on due Goal ALT (SGPT). Due on due Goal UDT. Due on due Goal OARS. Due on due Goal NURSE PRACTICAL Paperwork. Due on due Goal Hepatitis C screening. Due o n due Goal Order Annual PT. Due on due Goal Tobacco Use. Due on due Goal Lipid panel. Due on due Goal FIT. Due on due Goal CT-Colonography. Due on due Goal Zoster vaccine (1st). Due on due Goal Review Allergy List. Due on due Goal Unhealthy drug use screening . Due on due Goal Medication Reconciliation. D ue on due Goal Weight. Due on d ue Goal Update Social History. Due o n due Goal Tobacco Use. Due on due Goal Order Annual PT. Due on due Goal Creatinine. Due on due Goal FIT. Due on due Goal OARS. Due on due Goal Lipid panel. Due on due Goal Zoster vaccine (1st). Due on due Goal Hepatitis C screening. Due o n due Goal Update Social History. Due o n due Goal UDT. Due on due Goal NURSE PRACTICAL Paperwork. Due on due Goal Unhealthy drug use screening . Due on due Goal INDUSTRIAL REFRIGERATION MECHANIC Scanned. Due on due Goal AST (SGOT). Due on due Goal Medication Reconciliation. D ue on due Goal Height. Due on d ue Goal Review Allergy List. Due on due Goal HPV. Due on due Goal Weight. Due on d ue Goal ALT (SGPT). Due on due Goal CT-Colonography. Due on due Goal FIT-DNA. Due on due Goal PHQ-9. Due on du e Goal Medication Reconciliation. D ue on due Goal FIT-DNA. Due on due Goal CT-Colonography. Due on due Goal INDUSTRIAL REFRIGERATION MECHANIC Scanned. Due on due Goal Tobacco Use. Due on due Goal PHQ-9. Due on du e Goal Update Social History. Due o n due Goal HPV. Due on due Goal NURSE PRACTICAL Paperwork. Due on due Goal Height. Due on d ue Goal UDT. Due on due Goal ALT (SGPT). Due on due Goal Lipid panel. Due on due Goal Unhealthy drug use screening . Due on due Goal Hepatitis C screening. Due o n due Goal FIT. Due on due Goal Weight. Due on d ue Goal AST (SGOT). Due on due Goal OARS. Due on due Goal Creatinine. Due on due Goal Order Annual PT. Due on due Goal Zoster vaccine (1st). Due on due Goal Review Allergy List. Due on due Goal Order Annual PT. Due on due Goal Medication Reconciliation. D ue on due Goal UDT. Due on due Goal FIT-DNA. Due on due Goal Review Allergy List. Due on due Goal Tobacco Use. Due on due Goal NURSE PRACTICAL Paperwork. Due on due Goal ALT (SGPT). Due on due Goal OARS. Due on due Goal AST (SGOT). Due on due Goal Creatinine. Due on due Goal INDUSTRIAL REFRIGERATION MECHANIC Scanned. Due on due Goal CT-Colonography. Due on due Goal Lipid panel. Due on due Goal Unhealthy drug use screening . Due on due Goal Weight. Due on d ue Goal Update Social History. Due o n due Goal HPV. Due on due Goal PHQ-9. Due on du e Goal Height. Due on d ue Goal Zoster vaccine (1st). Due on due Goal FIT. Due on due Goal Hepatitis C screening. Due o n due Goal Lifestyle education regardin g diet completed Goal Order Annual PT. Due on due Goal Tobacco Use. Due on due Goal NURSE PRACTICAL Paperwork. Due on due Goal FIT-DNA. Due on due Goal HPV. Due on due Goal PHQ-9. Due on du e Goal CT-Colonography. Due on due Goal AST (SGOT). Due on due Goal Medication Reconciliation. D ue on due Goal Zoster vaccine (1st). Due on due Goal FIT. Due on due Goal UDT. Due on due Goal Weight. Due on d ue Goal Update Social History. Due o n due Goal Lipid panel. Due on due Goal Unhealthy drug use screening . Due on due Goal Height. Due on d ue Goal Hepatitis C screening. Due o n due Goal Review Allergy List. Due on due Goal ALT (SGPT). Due on due Goal INDUSTRIAL REFRIGERATION MECHANIC Scanned. Due on due Goal OARS. Due on due Goal Creatinine. Due on due Goal Medication Reconciliation. D ue on due Goal FIT-DNA. Due on due Goal NURSE PRACTICAL Paperwork. Due on due Goal Lipid panel. Due on due Goal Order Annual PT. Due on due Goal CT-Colonography. Due on due Goal Unhealthy drug use screening . Due on due Goal HPV. Due on due Goal Creatinine. Due on due Goal Review Allergy List. Due on due Goal PHQ-9. Due on du e Goal Weight. Due on d ue Goal UDT. Due on due Goal Update Social History. Due o n due Goal AST (SGOT). Due on due Goal FIT. Due on due Goal ALT (SGPT). Due on due Goal OARS. Due on due Goal Hepatitis C screening. Due o n due Goal INDUSTRIAL REFRIGERATION MECHANIC Scanned. Due on due Goal Zoster vaccine (1st). Due on due Goal Tobacco Use. Due on due Goal Height. Due on d ue Goal UDT. Due on due Goal OARS. Due on due Goal FIT. Due on due Goal AST (SGOT). Due on due Goal Hepatitis C screening. Due o n due Goal Weight. Due on d ue Goal Update Social History. Due o n due Goal Unhealthy drug use screening . Due on due Goal Creatinine. Due on due Goal INDUSTRIAL REFRIGERATION MECHANIC Scanned. Due on due Goal Zoster vaccine (1st). Due on due Goal Review Allergy List. Due on due Goal HPV. Due on due Goal NURSE PRACTICAL Paperwork. Due on due Goal Order Annual PT. Due on due Goal PHQ-9. Due on du e Goal Medication Reconciliation. D ue on due Goal Lipid panel. Due on due Goal Tobacco Use. Due on due Goal ALT (SGPT). Due on due Goal FIT-DNA. Due on due Goal Height. Due on d ue Goal CT-Colonography. Due on due Goal Lifestyle education regardin g diet completed Goal OARS. Due on due Goal AST (SGOT). Due on due Goal Order Annual PT. Due on due Goal ALT (SGPT). Due on due Goal INDUSTRIAL RE[employer]IGERATION MECHANIC Scanned. Due on due Goal PHQ-9. Due on du e Goal Tobacco Use. Due on due Goal UDT. Due on due Goal Review Allergy List. Due on due Goal Update Social History. Due o n due Goal NURSE PRACTICAL Paperwork. Due on due Goal Creatinine. Due on due Goal Medication Reconciliation. D ue on due Goal Weight. Due on d ue Goal Lipid panel. Due on due Goal CT-Colonography. Due on due Goal Unhealthy drug use screening . Due on due Goal Hepatitis C screening. Due o n due Goal FIT. Due on due Goal FIT-DNA. Due on due Goal HPV. Due on due Goal Height. Due on d ue Goal Zoster vaccine (1st). Due on due Goal UDT. Due on due Goal Creatinine. Due on due Goal AST (SGOT). Due on due Goal Order Annual PT. Due on due Goal NURSE PRACTICAL Paperwork. Due on due Goal ALT (SGPT). Due on due Goal IND[employer]AL [employer]IGERATION MECHANIC Scanned. Due on due Goal OARS. Due on due Goal Weight. Due on d ue Goal Update Social History. Due o n due Goal Review Allergy List. Due on due Goal FIT. Due on due Goal Lipid panel. Due on due Goal Tobacco Use. Due on due Goal Medication Reconciliation. D ue on due Goal CT-Colonography. Due on due Goal Height. Due on d ue Goal Zoster vaccine (). Due on due Goal HPV. Due on due Goal PHQ-9. Due on du e Goal Unhealthy drug use screening . Due on due Goal FIT-DNA. Due on due Goal Hepatitis C screening. Due o n due Goal Height. Due on d ue Goal Update Social History. Due o n due Goal ALT (SGPT). Due on due Goal Hepatitis C screening. Due o n due Goal OARS. Due on due Goal [employer]CH[employer]IC Scanned. Due on due Goal Zoster vaccine (). Due on due Goal Creatinine. Due on due Goal Tobacco Use. Due on due Goal CT-Colonography. Due on due Goal AST (SGOT). Due on due Goal Order Annual PT. Due on due Goal Unhealthy drug use screening . Due on due Goal NURSE PRACTICAL Paperwork. Due on due Goal UDT. Due on due Goal FIT-DNA. Due on due Goal HPV. Due on due Goal Lipid panel. Due on due Goal PHQ-9. Due on du e Goal FIT. Due on due Goal Review Allergy List. Due on due Goal Medication Reconciliation. D ue on due Goal Weight. Due on d ue Goal HPV. Due on due Goal UDT. Due on due Goal ALT (SGPT). Due on due Goal Lipid panel. Due on due Goal PHQ-9. Due on du e Goal Review Allergy List. Due on due Goal Medication Reconciliation. D ue on due Goal Weight. Due on d ue Goal Height. Due on d ue Goal CT-Colonography. Due on due Goal Zoster vaccine (1st). Due on due Goal [employer]IC Scanned. Due on due Goal Unhealthy drug use screening . Due on due Goal Update Social History. Due o n due Goal Hepatitis C screening. Due o n due Goal OARS. Due on due Goal Tobacco Use. Due on due Goal FIT. Due on due Goal AST (SGOT). Due on due Goal Order Annual PT. Due on due Goal FIT-DNA. Due on due Goal NURSE PRACTICAL Paperwork. Due on due Goal Creatinine. Due on due Goal Weight. Due on d ue Goal Tobacco Use. Due on due Goal Lipid panel. Due on due Goal Review Allergy List. Due on due Goal Hepatitis C screening. Due o n due Goal OARS. Due on due Goal Update Social History. Due o n due Goal Height. Due on d ue Goal ALT (SGPT). Due on due Goal [employer]IC Scanned. Due on due Goal AST (SGOT). Due on due Goal HPV. Due on due Goal NURSE PRACTICAL Paperwork. Due on due Goal PHQ-9. Due on du e Goal FIT. Due on due Goal Unhealthy drug use screening . Due on due Goal Medication Reconciliation. D ue on due Goal Creatinine. Due on due Goal CT-Colonography. Due on due Goal UDT. Due on due Goal Order Annual PT. Due on due Goal Zoster vaccine (). Due on due Goal FIT-DNA. Due on due Goal Creatinine. Due on due Goal OARS. Due on due Goal Zoster vaccine (1st). Due on due Goal Unhealthy drug use screening . Due on due Goal Height. Due on d ue Goal UDT. Due on due Goal Hepatitis C screening. Due o n due Goal FIT-DNA. Due on due Goal Tobacco Use. Due on due Goal FIT. Due on due Goal Order Annual PT. Due on due Goal [employer]IC Scanned. Due on due Goal Weight. Due on d ue Goal Update Social History. Due o n due Goal HPV. Due on due Goal Medication Reconciliation. D ue on due Goal ALT (SGPT). Due on due Goal Review Allergy List. Due on due Goal PHQ-9. Due on du e Goal Lipid panel. Due on due Goal NURSE PRACTICAL Paperwork. Due on due Goal AST (SGOT). Due on due Goal CT-Colonography. Due on due Goal HPV. Due on due Goal Weight. Due on d ue Goal ALT (SGPT). Due on due Goal FIT-DNA. Due on due Goal [employer]IC Scanned. Due on due Goal Height. Due on d ue Goal OARS. Due on due Goal PHQ-9. Due on du e Goal UDT. Due on due Goal Medication Reconciliation. D ue on due Goal Hepatitis C screening. Due o n due Goal Unhealthy drug use screening . Due on due Goal FIT. Due on due Goal Order Annual PT. Due on due Goal Update Social History. Due o n due Goal AST (SGOT). Due on due Goal Tobacco Use. Due on due Goal CT-Colonography. Due on due Goal Zoster vaccine (1st). Due on due Goal Creatinine. Due on due Goal Review Allergy List. Due on due Goal Lipid panel. Due on 023 due Goal NURSE PRACTICAL Paperwork. Due on due Goal OARS. Due on due Goal Height. Due on d ue Goal FIT-DNA. Due on due Goal Order Annual PT. Due on due Goal CT-Colonography. Due on due Goal ALT (SGPT). Due on due Goal Zoster vaccine (1st). Due on due Goal NURSE PRACTICAL Paperwork. Due on due Goal Review Allergy List. Due on due Goal Tobacco Use. Due on due Goal Hepatitis C screening. Due o n due Goal Weight. Due on d ue Goal PHQ-9. Due on du e Goal Update Social History. Due o n due Goal HPV. Due on due Goal Medication Reconciliation. D ue on due Goal Creatinine. Due on due Goal [employer]CH[employer]IC Scanned. Due on 023 due Goal Unhealthy drug use screening . Due on due Goal UDT. Due on due Goal Lipid panel. Due on due Goal AST (SGOT). Due on due Goal FIT. Due on due Goal Medication Reconciliation. D ue on due Goal Zoster vaccine (1st). Due on due Goal PHQ-9. Due on du e Goal Hepatitis C screening. Due o n due Goal Weight. Due on d ue Goal ALT (SGPT). Due on due Goal OARS. Due on due Goal FIT. Due on due Goal Tobacco Use. Due on due Goal Lipid panel. Due on due Goal UDT. Due on due Goal Order Annual PT. Due on due Goal Height. Due on d ue Goal FIT-DNA. Due on due Goal Review Allergy List. Due on due Goal Update Social History. Due o n due Goal NURSE PRACTICAL Paperwork. Due on due Goal HPV. Due on due Goal AST (SGOT). Due on due Goal [employer]CH[employer]IC Scanned. Due on due Goal Unhealthy drug use screening . Due on due Goal CT-Colonography. Due on due Goal Creatinine. Due on due Goal FIT. Due on due Goal Tobacco Use. Due on due Goal Order Annual PT. Due on due Goal OARS. Due on due Goal ALT (SGPT). Due on due Goal Hepatitis C screening. Due o n due Goal PHQ-9. Due on du e Goal HPV. Due on due Goal Creatinine. Due on due Goal Zoster vaccine (1st). Due on due Goal FIT-DNA. Due on due Goal Height. Due on d ue Goal UDT. Due on due Goal Update Social History. Due o n due Goal [employer]CH[employer]IC Scanned. Due on due Goal Medication Reconciliation. D ue on due Goal AST (SGOT). Due on due Goal Lipid panel. Due on due Goal Review Allergy List. Due on due Goal NURSE PRACTICAL Paperwork. Due on due Goal Unhealthy drug use screening . Due on due Goal Weight. Due on d ue Goal CT-Colonography. Due on due Goal FIT-DNA. Due on due Goal ALT (SGPT). Due on due Goal Update Social History. Due o n due Goal UDT. Due on due Goal HPV. Due on due Goal Weight. Due on d ue Goal Hepatitis C screening. Due o n due Goal CT-Colonography. Due on due Goal OARS. Due on due Goal IND[employer]CH[employer]IC Scanned. Due on due Goal Unhealthy drug use screening . Due on due Goal NURSE PRACTICAL Paperwork. Due on due Goal PHQ-9. Due on du e Goal Zoster vaccine (1st). Due on due Goal Order Annual PT. Due on due Goal Review Allergy List. Due on due Goal Lipid panel. Due on 023 due Goal FIT. Due on due Goal Height. Due on d ue Goal Medication Reconciliation. D ue on due Goal Tobacco Use. Due on due Goal Creatinine. Due on due Goal AST (SGOT). Due on due Goal FIT. Due on due Goal PHQ-9. Due on du e Goal HPV. Due on due Goal AST (SGOT). Due on due Goal Medication Reconciliation. D ue on due Goal OARS. Due on due Goal Review Allergy List. Due on due Goal Update Social History. Due o n due Goal FIT-DNA. Due on due Goal Order Annual PT. Due on due Goal UDT. Due on due Goal Tobacco Use. Due on due Goal Unhealthy drug use screening . Due on due Goal ALT (SGPT). Due on due Goal IND[employer]CH[employer]IC Scanned. Due on due Goal Zoster vaccine (1st). Due on due Goal CT-Colonography. Due on due Goal NURSE PRACTICAL Paperwork. Due on due Goal Height. Due on d ue Goal Creatinine. Due on due Goal Weight. Due on d ue Goal Lipid panel. Due on due Goal Hepatitis C screening. Due o n due Goal Creatinine. Due on due Goal Update Social History. Due o n due Goal UDT. Due on due Goal Review Allergy List. Due on due Goal Zoster vaccine (1st). Due on due Goal HPV. Due on due Goal NURSE PRACTICAL Paperwork. Due on due Goal Unhealthy drug use screening . Due on due Goal OARS. Due on due Goal Hepatitis C screening. Due o n due Goal ALT (SGPT). Due on due Goal Order Annual PT. Due on due Goal IND[employer]ERATION MECHANIC Scanned. Due on due Goal AST (SGOT). Due on due Goal Medication Reconciliation. D ue on due Goal Lipid panel. Due on due Goal Height. Due on d ue Goal Tobacco Use. Due on due Goal CT-Colonography. Due on due Goal Weight. Due on d ue Goal FIT. Due on due Goal FIT-DNA. Due on due Goal PHQ-9. Due on du e Goal HPV. Due on due Goal FIT-DNA. Due on due Goal FIT. Due on due Goal IND[employer]ERATION MECHANIC Scanned. Due on due Goal AST (SGOT). Due on due Goal Review Allergy List. Due on due Goal OARS. Due on due Goal Hepatitis C screening. Due o n due Goal NURSE PRACTICAL Paperwork. Due on due Goal UDT. Due on due Goal ALT (SGPT). Due on due Goal Unhealthy drug use screening . Due on due Goal CT-Colonography. Due on due Goal PHQ-9. Due on du e Goal Tobacco Use. Due on due Goal Creatinine. Due on due Goal Height. Due on d ue Goal Weight. Due on d ue Goal Lipid panel. Due on due Goal Order Annual PT. Due on due Goal Zoster vaccine (1st). Due on due Goal Update Social History. Due o n due Goal Medication Reconciliation. D ue on due Goal FIT-DNA. Due on due Goal Order Annual PT. Due on due Goal Unhealthy drug use screening . Due on due Goal AST (SGOT). Due on due Goal PHQ-9. Due on du e Goal FIT. Due on due Goal CT-Colonography. Due on due Goal Medication Reconciliation. D ue on due Goal Creatinine. Due on due Goal Hepatitis C screening. Due o n due Goal Zoster vaccine (1st). Due on due Goal Weight. Due on d ue Goal OARS. Due on due Goal HPV. Due on due Goal Tobacco Use. Due on due Goal NURSE PRACTICAL Paperwork. Due on due Goal Review Allergy List. Due on due Goal Lipid panel. Due on due Goal UDT. Due on due Goal ALT (SGPT). Due on due Goal Height. Due on d ue Goal Update Social History. Due o n due Goal IND[employer]ERATION MECHANIC Scanned. Due on due Goal Hepatitis C screening. Due o n due Goal Height. Due on d ue Goal PHQ-9. Due on du e Goal Creatinine. Due on due Goal Review Allergy List. Due on due Goal Update Social History. Due o n due Goal Medication Reconciliation. D ue on due Goal FIT-DNA. Due on due Goal OARS. Due on due Goal INDUSTRIAL [employer]IGERATION MECHANIC Scanned. Due on due Goal Zoster vaccine (1st). Due on due Goal HPV. Due on due Goal Lipid panel. Due on due Goal Tobacco Use. Due on due Goal Weight. Due on d ue Goal FIT. Due on due Goal Unhealthy drug use screening . Due on due Goal CT-Colonography. Due on due Goal Order Annual PT. Due on due Goal UDT. Due on due Goal AST (SGOT). Due on due Goal NURSE PRACTICAL Paperwork. Due on due Goal ALT (SGPT). Due on due Goal NURSE PRACTICAL Paperwork. Due on due Goal HPV. Due on due Goal Unhealthy drug use screening . Due on due Goal FIT-DNA. Due on due Goal FIT. Due on due Goal Update Social History. Due o n due Goal Order Annual PT. Due on due Goal Medication Reconciliation. D ue on due Goal IND[employer]AL [employer]ERATION MECHANIC Scanned. Due on due Goal Weight. Due on d ue Goal UDT. Due on due Goal OARS. Due on due Goal AST (SGOT). Due on due Goal ALT (SGPT). Due on due Goal Creatinine. Due on due Goal Review Allergy List. Due on due Goal PHQ-9. Due on du e Goal Zoster vaccine (1st). Due on due Goal Lipid panel. Due on due Goal CT-Colonography. Due on due Goal Hepatitis C screening. Due o n due Goal Height. Due on d ue Goal Tobacco Use. Due on due Goal NURSE PRACTICAL Paperwork. Due on due Goal Order Annual PT. Due on due Goal Creatinine. Due on due Goal AST (SGOT). Due on due Goal Weight. Due on d ue Goal Update Social History. Due o n due Goal Medication Reconciliation. D ue on due Goal OARS. Due on due Goal FIT-DNA. Due on due Goal FIT. Due on due Goal Unhealthy drug use screening . Due on due Goal ALT (SGPT). Due on due Goal Review Allergy List. Due on due Goal INDUSTRIAL [employer]IGERATION MECHANIC Scanned. Due on due Goal CT-Colonography. Due on due Goal Zoster vaccine (1st). Due on due Goal Hepatitis C screening. Due o n due Goal HPV. Due on due Goal Height. Due on d ue Goal PHQ-9. Due on du e Goal UDT. Due on due Goal Lipid panel. Due on due Goal Tobacco Use. Due on due Goal Medication Reconciliation. D ue on due Goal PHQ-9. Due on du e Goal Update Social History. Due o n due Goal CT-Colonography. Due on due Goal Creatinine. Due on due Goal ALT (SGPT). Due on due Goal IND[employer]ERATION MECHANIC Scanned. Due on due Goal NURSE PRACTICAL Paperwork. Due on due Goal AST (SGOT). Due on due Goal OARS. Due on due Goal Order Annual PT. Due on due Goal UDT. Due on due Goal HPV. Due on due Goal Weight. Due on d ue Goal Unhealthy drug use screening . Due on due Goal Zoster vaccine (1st). Due on due Goal Lipid panel. Due on due Goal Hepatitis C screening. Due o n due Goal FIT-DNA. Due on due Goal Review Allergy List. Due on due Goal FIT. Due on due Goal Tobacco Use. Due on due Goal Height. Due on d ue Goal AST (SGOT). Due on due Goal UDT. Due on due Goal ALT (SGPT). Due on due Goal Creatinine. Due on due Goal Order Annual PT. Due on due Goal Hepatitis C screening. Due o n due Goal FIT-DNA. Due on due Goal Lipid panel. Due on due Goal HPV. Due on due Goal Zoster vaccine (1st). Due on due Goal Unhealthy drug use screening . Due on due Goal NURSE PRACTICAL Paperwork. Due on due Goal Weight. Due on d ue Goal IND[employer]RIAL [employer]ERATION MECHANIC Scanned. Due on due Goal OARS. Due on due Goal FIT. Due on due Goal Update Social History. Due o n due Goal CT-Colonography. Due on due Goal PHQ-9. Due on du e Goal Review Allergy List. Due on due Goal Tobacco Use. Due on due Goal Medication Reconciliation. D ue on due Goal Height. Due on d ue Goal Order Annual PT. Due on due Goal Creatinine. Due on due Goal AST (SGOT). Due on due Goal UDT. Due on due Goal ALT (SGPT). Due on due Goal NURSE PRACTICAL Paperwork. Due on due Goal OARS. Due on due Goal PHQ-9. Due on du e Goal Height. Due on d ue Goal Update Social History. Due o n due Goal Medication Reconciliation. D ue on due Goal INDUSTRIAL RE[employer]IGERATION MECHANIC Scanned. Due on due Goal Review Allergy List. Due on due Goal Weight. Due on d ue Goal Tobacco Use. Due on due Goal INDUSTRIAL RE[employer]IGERATION MECHANIC Scanned. Due on due Goal Weight. Due on d ue Goal Update Social History. Due o n due Goal Height. Due on d ue Goal OARS. Due on due Goal NURSE PRACTICAL Paperwork. Due on due Goal ALT (SGPT). Due on due Goal PHQ-9. Due on du e Goal Review Allergy List. Due on due Goal Tobacco Use. Due on due Goal Medication Reconciliation. D ue on due Goal Order Annual PT. Due on due Goal AST (SGOT). Due on due Goal UDT. Due on due Goal Creatinine. Due on due Goal Order Annual PT. Due on due Goal Creatinine. Due on due Goal UDT. Due on due Goal AST (SGOT). Due on due Goal ALT (SGPT). Due on due Goal IND[employer]RIAL [employer]ERATION MECHANIC Scanned. Due on due Goal Tobacco Use. Due on due Goal PHQ-9. Due on du e Goal Height. Due on d ue Goal Review Allergy List. Due on due Goal Update Social History. Due o n due Goal Medication Reconciliation. D ue on due Goal OARS. Due on due Goal NURSE PRACTICAL Paperwork. Due on due Goal Weight. Due on d ue Goal PHQ-9. Due on du e Goal Medication Reconciliation. D ue on due Goal Height. Due on d ue Goal Weight. Due on d ue Goal NURSE PRACTICAL Paperwork. Due on due Goal Order Annual PT. Due on due Goal ALT (SGPT). Due on due Goal Tobacco Use. Due on due Goal Update Social History. Due o n due Goal UDT. Due on due Goal AST (SGOT). Due on due Goal OARS. Due on due Goal Creatinine. Due on due Goal Review Allergy List. Due on due Goal INDUSTRIAL RE[employer]IGERATION MECHANIC Scanned. Due on due Goal NURSE PRACTICAL Paperwork. Due on due Goal OARS. Due on due Goal INDUSTRIAL RE[employer]IGERATION MECHANIC Scanned. Due on due Goal Creatinine. Due on due Goal Order Annual PT. Due on due Goal ALT (SGPT). Due on due Goal AST (SGOT). Due on due Goal UDT. Due on due Goal Medication Reconciliation. D ue on due Goal Review Allergy List. Due on due Goal Weight. Due on d ue Goal Update Social History. Due o n due Goal PHQ-9. Due on du e Goal Height. Due on d ue Goal Tobacco Use. Due on 022 due Goal PHQ-9. Due on du e Goal Review Allergy List. Due on due Goal Height. Due on d ue Goal Update Social History. Due o n due Goal Tobacco Use. Due on 021 due Goal Medication Reconciliation. D ue on due Goal Weight. Due on d ue Appointment Carolann Lema BOOKED History Of Present Illness Encounter Date Complaint History Of Prese nt Illness cervicalgia Patient is a 58 year old female with chronic neck and lower bck pain with history of extensive cervical and lumbar fusion. Patient is pending an SI joint fusion next week. Patient is open to reviewing her current HEP and eslf care program. Comments: Carolann presents in clinic for a follow up and medication refill in the setting of chronic neck pain with radiation into the BL arms (R>L) and mid-low back pain with radiation into the BLE. Reports her headaches have ceased for the time being. She will be pursuing SIJ fusion on 06/24/24. Reports current medication regimen provides 65% pain relief and allows for increased functionality. She has started utilizing Topamax for headaches with significant relief. Continues utilizing [place] 10-325mg with significant benefit. OIC is managed with [employer]. Denies other SE. No other concerns today. Widespread pain Severity level i s 6. Duration: chronic. Location of the pain is lower back, mid back, upper back, neck and bilateral knee. The patient describes it as sharp, achy, burning and tingling. The problem is stable. Symptom is aggravated by bending, sitting, standing and walking. Relieving factors include stretching, exercise and Rx Meds. low back pain Severity level i s 8. Duration: chronic. The problem is fluctuating. The patient describes the pain as an ache and sharp. Symptoms are aggravated by bending, sitting, standing, walking and reaching overhead. Symptoms are relieved by pain meds/drugs and SI BL injections. Comments: Carolann presents in clinic for a follow up and medication refill in the setting of chronic neck pain with radiation into the BL arms (R>L) and mid-low back pain with radiation into the BLE. She started endorsing numbness and tingling in arms and fingers recently. Notes staph infection in her RLE has cleared up. She completed a whole spine MRI on 03/25/24 through [facility] and has reviewed it with them. She was recommended to undergo a SIJ fusion, but cannot pursue it until she is done getting her BL SI joint injections. Notes she continues receiving massages every 2 weeks.Reports current medication regimen provides 75% pain relief and allows for increased functionality. She has started utilizing Topamax for headaches with significant relief. Continues utilizing [place] 10-325mg with significant benefit. OIC is managed with [employer]. Denies other SE. No other concerns today. Comments: Carolann is 58 y/o female who presents in clinic for a follow up and medication refill in the setting of chronic neck pain with radiation into the BL arms (R>L) and mid-low back pain with radiation into the BLE. Pain has been worse overall since [facility], endorses numbness in her mid-low back and legs. Notes she had a staph infection in her RLE. She has been having frequent falls, notes she is unable to walk on her toes or heels. After her worst fall she notes she lost feeling in her legs for a few minutes later that night. She completed a whole spine MRI on 03/25/24 through [facility]. She has a f/u soon to review results with [facility] to review. She was previously recommended to undergo a SIJ fusion. Notes she tried previously recommended massage with moderate benefit. Reports current medication regimen provides moderate pain relief and allows for increased functionality. She has been utilizing [place] 10-325mg with significant benefit. OIC is managed with [employer]. Denies other SE. No other concerns today. Back Pain Severity level i s 6. Duration: chronic. The problem is worsening. Location of pain is upper back, middle back and lower back. low back pain Severity level i s 8. Duration: chronic. The problem is worsening. Location of pain is lower back and neck. The client describes the pain as an ache. Symptoms are aggravated by bending, sitting, standing, walking and reaching overhead. Comments: Carolann is 58 y/o female who presents for virtual follow up and medication refill in the setting of chronic neck pain with radiation into the BL arms (R>L) and mid-low back pain with radiation into the RLE. Pain has been worse overall since [facility]. Notes her muscle spasms continue to be most bothersome.Today she notes that she saw her clinical cytogeneticist scientist yesterday and was informed she had elevated parathyroid hormone. Also saw her orthopedic provider since [facility], who recommended an SIJ fusion. She is scheduled for an MRI on the 03/25/24. She inquires about utilizing a cane walker to help with ongoing instability and weakness. Reports current medication regimen provides moderate pain relief and allows for increased functionality. She has been utilizing [place] 10-325mg with significant benefit. OIC is managed with [employer]. Denies other SE. No other concerns today. Comments: This i s my first evaluation of the patient, typically followed by Genna Hutchinson DNP.Carolann is 58 y/o female who presents for virtual follow up and medication refill in the setting of chronic neck pain with radiation into the BL arms (R>L) and mid-low back pain with radiation into the RLE.She continues to follow with specialists regarding several health concerns, including lumps on her breasts, neck, and lymph nodes. States she recently fell and heard a pop. Had an appt with her PCP and was recommended to follow up with her surgeon. She would like to hold off on any interventions until she gets evaluated by surgery. States she is not currently interested in pursuing an IT pump trial as she feels that her pain is too diffuse to be adequately covered by an ITP. 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 Reports current medication regimen provides 60% pain relief and allows for increased functionality. She has been utilizing [place] 10-325mg with significant benefit and had made her rx stretch. Denies OIC, which is managed with [employer], or other side effects from current medication regimen. No other concerns today. Back Pain Severity level i s 8. Duration: chronic. The problem is worsening. Back Pain Severity level i s 9. Duration: chronic. The problem is fluctuating. It occurs persistently. Symptoms are relieved by pain meds/drugs. Comments: Carolann is 58 y/o female who presents via [facility] for virtual follow up and medication refill in the setting of chronic neck pain with radiation into the BL arms (R>L) and mid-low back pain with radiation into the RLE. Pain has been fluctuating this month. Have been unable to complete grocery shopping without increased pain. Interested in pursuing the IT pain pump trial.Of note, patient had received results of the imaging for the new lump on the R side of the neck and her breasts. She states there were cysts in the R breast and lymph nodes in the neck. Will be having an iron infusion on 12/12/23 and consulting with an clinical cytogeneticist scientist for elevated parathyroid results.Reports current medication regimen provides 85% pain relief and allows for increased functionality. Have been utilizing [place] 10-325mg QID with significant benefit. Believes the increase has been beneficial as it has been lasting longer. Denies OIC, which is managed with Senakot, or other side effects from current medication regimen. No other concerns today. Back Pain Severity level i s 7. Duration: chronic. The problem is fluctuating. It occurs persistently. The client describes the pain as an ache, burning and tingling. Symptoms are aggravated by lifting, standing, twisting, walking and prolonged positioning. Symptoms are relieved by ice, pain meds/drugs and changing positions. Comments: Carolann is 57 y/o who presents via [employer] for virtual follow up and medication refill in the setting of chronic neck pain with radiation into the BL arms (R>L) and mid-low back pain with radiation into the RLE. Pain has been fluctuating this month.S/p BL GTB injection on 09/04/[address] Tate provided 80% relief.Complains of muscle fatigue in the arms and bone weakness" in the legs (L>R). Notes the combination of the two issues have been causing more falls recently. Have also noticed more frequent muscle spasms in the mid back.Of note, patient will obtaining imaging of a new lump on the R side of her neck.Reports current medication regimen provides 50% pain relief and allows for increased functionality. Continues to utilize [place] 7.5-325mg with moderate benefit but believes it has decreased in efficacy. Had found more benefit with Dilaudid. Denies OIC, which is managed with Senakot, or other side effects from current medication regimen. No other concerns today. Comments: Carolann presents via [employer] for virtual follow up and medication refill in regards to neck and low back pain. States pain has been stable since last OV.- S/p bilateral GTB injection on 09/04/[address] Tate. Reporting 50% relief from the injections, states she can lay on her sides now since the injection. - Saw her surgeon Dr. Narayanan in September, screws in thoracic area are starting to loosen, recommended monitor for now. - She will be seeing primary care provider soon. - Still getting relief frm SIJ injections, was able to go to her local fair. Had to sit due to soreness but was able to walk. - No longer doing PT at [facility] due to increased pain from PT. Continues HEP. Has not done cupping in about a year. - Recently had a stress test and CT through cardiology, states everything came back normal. Was having arm and jaw pain, as well as family history of heart disease. - Took last dose of [place] this morning, was due out 09/26 so has been strething out the medication. Reports the medication helps her move around and function. Endorses constipation, manageable with stool softeners. Reports current medication regimen provides 75% pain relief and allows for increased functionality. No other concerns expressed. Back pain Severity level i s 7. Duration: chronic. The problem is stable. Location of pain is lower back and neck. Symptoms are relieved by pain meds/drugs. Comments: Carolann is 57 y/o who presents via [facility] for virtual follow up and medication refill in the setting of chronic neck pain with radiation into the BL arms (R>L) and mid-low back pain with radiation into the RLE. Was last seen on 06/20/23. Pain has been worse this month. Notes difficulty with sleep. Will be following up with [facility] on 09/24/23 for updated imaging.Ongoing L sided neck pain with radiation into the L shoulder and down the L arm has been the most bothersome. Notes the prescription of oral steroids had helped decrease the pain and improved the ROM. She states prior to the oral steroids, it was difficult to lift or move her arm.S/p Repeat BL SI joint injection on 07/10/[address] Mares provided >50% benefit. Have seen significant improvement in the low back radiating into the hips. Now complains of bursitis pain in the BL hips. Inquires if she can receive an injection for that specific pain.Had recently fallen on 08/20/23. Endorses increased soreness in the low back and neck.Of note, patient had followed up with oncology for the masses found on her most recent mammogram. Since lab work and biopsy results were both unremarkable, the oncologist is not too overly concern about it being cancerous. Will not be pursuing a breast reduction.Reports current medication regimen provides 85% pain relief and allows for increased functionality. Continues to utilize [place] 7.5-325mg with significant benefit. Denies OIC, which is managed with Senakot, or other side effects from current medication regimen. No other concerns today. Back Pain Severity level i s 7. Duration: chronic. The problem is worsening. It occurs persistently. Symptoms are relieved by pain meds/drugs. Comments: Carolann is 57 y/o who presents for follow up and medication refill in the setting of chronic neck pain with radiation into the BL arms (R>L) and mid-low back pain with radiation into the RLE. Pain has been fluctuating this month. Notes increased L sided neck swelling and requests to have TPIs today.Ongoing tenderness in the SI joints (L>R) have been the most bothersome. She states it feels sore and have been intolerable. Willing to repeat the SI joint injections.Reports current medication regimen provides moderate pain relief and allows for increased functionality. Continues to utilize [place] 7.5-325mg with moderate benefit. Notes he has not started the Buprenorphine tablets yet. Denies OIC, which is managed with Senakot, or other side effects from current medication regimen. No other concerns today. low back pain Duration: chroni c. Symptoms are relieved by pain meds/drugs. low back pain Severity level i s 6. Duration: chronic. The problem is fluctuating. It occurs persistently. The client describes the pain as an ache and burning. Symptoms are aggravated by bending, lifting, lying/rest, sitting, standing, twisting, housework, movement, stairs, rising from sitting position and prolonged positioning. Symptoms are relieved by ice, pain meds/drugs and changing positions. Comments: Carolann is 57 y/o who presents for follow up and medication refill in the setting of chronic neck pain with radiation into the BL arms (R>L) and mid-low back pain with radiation into the RLE. Pain has been fluctuating this month.Had been experiencing increased pain in the breasts following a staph infection from the biopsy on 03/06/23. Endorses discoloration and fluid output. Have since finished the antibiotics. She states the resolved infection have improved the low back and rib pain. Notes she was encouraged by an oncologist to pursue a breast reduction but she is hesitant to proceed with another surgery.Of note, patient is currently deciding if she wants to be on disability or not.Reports current medication regimen provides 75% pain relief and allows for increased functionality. Continues to utilize [place] 7.5-325mg with moderate benefit but believes the current regimen is not significantly helpful in managing her pain. Willing to trial Buprenorphine tablets. Denies OIC, which is managed with Senakot, or other side effects from current medication regimen. No other concerns today. low back pain Severity level i s 8. Duration: chronic. The problem is fluctuating. It occurs persistently. The client describes the pain as an ache, burning, sharp and tingling. Symptoms are aggravated by bending, lifting, lying/rest, sitting, standing, twisting, walking, housework, movement, stairs, rising from sitting position and prolonged positioning. Symptoms are relieved by ice and pain meds/drugs. Comments: Carolann is 57 y/o who presents for follow up and medication refill in the setting of chronic neck pain with radiation into the BL arms (R>L) and mid-low back pain with radiation into the RLE. Pain has been fluctuating this month.S/p Repeat BL SI joint injection on 04/03/[address] Mares provided significant benefit.Had recently fallen on 04/05/23 when she had tried to pick something up from the floor of her deck and slipped on ice. Notes she had injured the L shoulder and L hip. Currently experiencing soreness in the mid back with intermittent radiation into the ribs after suddenly waking up at 3am today and hearing something pop when she extended her L arm. Believes she may have pulled a muscle as it feels tight. Willing to receive a TPI today.Reports current medication regimen provides moderate pain relief and allows for increased functionality. Continues to utilize [place] 7.5-325mg with moderate benefit. Notes the Butrans 10mcg/hr have not been as helpful as she had initially thought and caused her to increase her [place] intake. Interested in discontinuing the Butrans patches. Denies OIC, which is managed with Senakot, or other side effects from current medication regimen. No other concerns today. low back pain Severity level i s 5. Duration: chronic. The problem is fluctuating. It occurs persistently. The client describes the pain as sharp. Symptoms are relieved by heat, ice, pain meds/drugs, stretching, rest, sitting, standing and changing positions. Comments: Carolann is 57 y/o who presents for follow up and medication refill in the setting of chronic neck pain with radiation into the BL arms (R>L) and mid-low back pain with radiation into the RLE. Pain has been fluctuating this month. Complains of swelling in the R side of the neck. She states it doesn't look swollen but it feels like it is.Ongoing L sided low back pain has been the most bothersome. Believes the recent increase in activities have been causing the fluctuation of pain. Discussed the topic of SI joint fusion again and how it was previously advised against. Willing to repeat SI joint injections.Have temporarily stopped PT with [facility] due to wanting to resolve the masses in the R breast. Notes she will resume the sessions soon. She states the physical therapist have been helping her focus on strengthening her core muscles. Complains of additional L knee pain which she hopes the therapist will also help her with.Of note, patient's recent biopsies of the R breast revealed about 12 cysts. She states the cysts were removed and relieved the previously reported R sided chest pain.Reports current medication regimen provides 75% pain relief and allows for increased functionality. Have been utilizing [place] 7.5-325mg 1-2x/day and Butrans 5mcg/hr with significant benefit. Notes the Butrans patches had worked for 2 weeks but struggles with breakthrough pain returned. Understands decreasing the [place] down to 1-2x/day while using the Butrans patches was too aggressive and caused pain to increase. Also contributes the worsening pain to an increase in activities. Denies OIC, which is managed with Senakot, or other side effects from current medication regimen. No other concerns today. low back pain Severity level i s 4. Duration: chronic. The problem is fluctuating. It occurs persistently. The client describes the pain as an ache and burning. Symptoms are aggravated by bending, lifting, standing and housework. Symptoms are relieved by pain meds/drugs and physical therapy. Comments: Carolann is 57 y/o who presents for follow up and medication refill in the setting of chronic neck pain with radiation into the BL arms (R>L) and mid-low back pain with radiation into the RLE. Pain has been fluctuating this month.Continues to do PT with [facility] once every 2 weeks. Notes the recent session caused increased pain in the neck when the physical therapist had her do exercises on the exercise ball. She states the physical therapist has halted that particular exercise for now.S/p C4-C7 ACDF on 09/25/[address] Kaylie Narayanan MD through [facility]. Have seen a significant improvement in ROM but notes recent increased neck pain with tingling and a burning sensation down the arms. She states she has been doing more activities such as laundry and typing on the computer which she believes has been worsening the pain. Right trapz pain has also increased. PT at [place] had been modified due to increased pain. Unable to sleep properly with frequent weird/traumatic dreams.Of note, patient recently had a mammogram with results showing a mass on the R side of the chest. She states she has an upcoming follow up with her PCP for further testings and evaluation.Reports current medication regimen provides 75% pain relief for increased functionality. Continues to utilize [place] 7.5-325mg QID with benefit though still struggling with breakthrough pain; Upcoming trip, worried might not be able to sit on plane, will to try med changes today. . Denies OIC, which is managed with Senakot, or other side effects from current medication regimen. No other concerns today. low back pain Severity level i s 3. Duration: chronic. The problem is fluctuating. It occurs persistently. The client describes the pain as burning and tingling. Symptoms are aggravated by lifting, twisting, movement and prolonged positioning. Symptoms are relieved by ice, pain meds/drugs, physical therapy, stretching, rest and changing positions. Comments: Carolann is 57 y/o who presents for follow up and medication refill in the setting of chronic neck pain with radiation into the BL arms (R>L) and mid-low back pain with radiation into the RLE. Pain has been fluctuating this month. Denies any new symptoms or changes. S/p BL SI joint injection on 01/02/[address] Mares provided 100% relief for the R side and 75% relief for the L side. Have seen an improvement in pain but continues to experience intermittent burning in the L SI. She states it feels like her tailbone threatens to give out at times with prolonged walking. S/p C4-C7 ACDF on 09/25/[address] Kaylie Narayanan MD through [facility]. Have started PT sessions with [facility]. Notes she has been benefiting from the sessions as it has allowed her to strengthen her muscles. Will also be planning to start pool therapy.Reports current medication regimen provides 85% pain relief for increased functionality. Continues to utilize [place] 7.5-325mg QID with significant benefit. Denies OIC, which is managed with Senakot, or other side effects from current medication regimen. No other concerns today. low back pain Severity level i s 3. Duration: chronic. The problem is fluctuating. It occurs persistently. The client describes the pain as burning. Symptoms are aggravated by bending, lifting, sitting, standing, twisting, walking, housework, movement, stairs, rising from sitting position and prolonged positioning. Symptoms are relieved by ice, pain meds/drugs, stretching and changing positions. Comments: Carolann is 57 y/o who presents for follow up and medication refill in the setting of chronic neck pain with radiation into the BL arms (R>L) and mid-low back pain with radiation into the RLE. Pain has been fluctuating this month. Notes she has been experiencing increased muscle spasm. S/p C4-C7 ACDF on 09/25/[address] Kaylie Narayanan MD through [facility]. Continues to find a significant improvement in pain, especially with ROM and radiation of pain down the arms. Notes the surgical scar is centrifuge separator tender to touch and she cannot wear a necklace due to a burning sensation following. She states typing for an extended amount of time causes increased pain and stiffness in the shoulders.Complains of intermittent L posterior buttock/hip pain. Believes she may have slept wrong or positioned herself in a way which may have aggravated the pain. Notes the pain comes and goes. Willing to receive a repeat SI joint injection for the L side. Previous SI injections have been beneficialReports current medication regimen provides 90% pain relief for increased functionality. Rates her pain as 8/10 without medications and 3/10 with medications. Continues to utilize [place] 7.5-325mg QID with significant benefit. Denies OIC, which is managed with Senakot, or other side effects from current medication regimen. No other concerns today. Comments: Carolann is 56 y/o who presents for follow up and medication refill in the setting of chronic neck pain with radiation into the BL arms (R>L) and mid-low back pain with radiation into the RLE. She was last seen on 08/22/22. Pain has been fluctuating this month. S/p C4-C7 ACDF on 09/25/[address] Kaylie Narayanan MD through [facility]. Have seen a significant improvement in pain since the surgery. She states she has not been experiencing sharp pains to the shoulder blades, weakness in the hands, and loss of bladder control. Reports improved ROM. Notes she is not in PT but have been doing stretches and isometrics. Reports current medication regimen provides 65% pain relief for increased functionality. Rates her pain as 6/10 without medications and 4/10 with medications. Continues to utilize [place] 7.5-325mg QID with significant benefit. Denies OIC, which is managed with Senakot, or other side effects from current medication regimen. No other concerns today. low back pain Severity level i s 4. Duration: chronic. The problem is fluctuating. It occurs intermittently. The client describes the pain as tingling. Symptoms are aggravated by lifting, twisting, stairs and housework. Symptoms are relieved by ice, pain meds/drugs and stretching. low back pain Severity level i s 5. Duration: chronic. The problem is fluctuating. It occurs persistently. The client describes the pain as burning. Symptoms are aggravated by bending, sitting, twisting, movement and housework. Symptoms are relieved by ice, lying down, pain meds/drugs and changing positions. Comments: Carolann is 56 y/o who presents for follow up and medication refill in the setting of chronic neck pain with radiation into the BL arms (R>L) and mid-low back pain with radiation into the RLE. Pain has been fluctuating this month. Continue to complain of ongoing neck pain. Have been doing PT at [facility] in [place] and will start traction therapy on 08/24/22. She states she was prescribed Methotrexate 0.1mg and have seen an improvement of pain and soreness. Expressed hesitance in proceeding with the neck surgery. Willing to follow up with Dr. Kaylie Narayanan MD through [facility] for further discussion of surgery.Reports current medication regimen provides 90% pain relief for increased functionality. Rates her pain as 9/10 without medications and 5/10 with medications. Continues to utilize [place] 7.5-325mg QID with significant benefit. Denies OIC, which is managed with Senakot, or other side effects from current medication regimen. No other concerns today. Comments: Carolann is 56 y/o who presents for follow up and medication refill in the setting of chronic neck pain with radiation into the BL arms (R>L) and mid-low back pain with radiation into the RLE. Pain has been fluctuating this month. Neck pain with numbness in the BL arms continues to be the most bothersome. Willing to discuss IT pain pump at future visits as she believes it will be beneficial for her pain.Have been following up with Dr. Diaz Narayanan MD through [facility] for the ongoing neck pain. Notes she obtained updated imaging of the neck and received injections with moderate benefit. She states she is planning to start PT at [facility] in [place] soon. Inquires about receiving TPIs as today's visit. Reports current medication regimen provides significant pain relief for increased functionality. Rates her pain as 10/10 without medications and 7/10 with medications. Continues to utilize [place] 5-325mg with moderate benefit. Denies OIC, which is managed with Senakot, or other side effects from current medication regimen. No other concerns today. low back pain Severity level i s 7. Duration: chronic. The problem is stable. It occurs persistently. The client describes the pain as an ache, burning, sharp and tingling. Symptoms are aggravated by bending, lifting, lying/rest, sitting, standing, twisting, walking, housework, movement, stairs and prolonged positioning. Symptoms are relieved by pain meds/drugs and rest. Comments: Carolann is 56 y/o who presents in clinic for follow-up and medication refill in the setting of chronic low back and pelvic pain. Pain has been overall stable however notes a pain flare up a couple days ago after picking up rocks. She reports recently her head feels heavy and like a bowling ball. Additionally, she notes having neck pain radiating to bilateral arms and hands (R>L). She states this pain has been affecting her dexterity, lifting and ability to perform housework. She reports overall widespread muscle tightness. Reviewed thoracic CT completed through [facility]. Reports she recently completed an EMG of the lower extremities. She denies having EMG of the upper extremities. She states she has a scheduled appointment with [facility] providers on 06/26/22 for cervical pain and UE pain consult; Educated patient on considering cervical ANGELES . She notes she has not gone to PT d/t conflict in scheduling.She requests to perform a TPI with steroid today to her neck and upper back muscles . 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 She notes this medication provides significant benefit to relax the muscles as well. Reports current medication regimen provides significant pain relief for increased functionality. Continues to utilize [place] 10-325mg with moderate benefit. Denies OIC, which is managed with Senakot, or other side effects from current medication regimen. No other concerns today. low back pain Severity level i s 9. Duration: chronic. The problem is fluctuating. It occurs intermittently. The client describes the pain as an ache, burning, sharp and Right arm falls. Symptoms are aggravated by bending, lifting, lying/rest, running, sitting, standing, twisting, walking, housework, movement, prolonged positioning and stairs. Symptoms are relieved by ice, lying down, rest and Medications. low back pain Severity level i s 6. Duration: chronic. The problem is fluctuating. It occurs persistently. The client describes the pain as an ache, burning, sharp and tingling. Symptoms are aggravated by bending, lifting, standing, walking, housework and prolonged positioning. Symptoms are relieved by ice, pain meds/drugs and rest. Comments: Carolann is a 56 y/o female who presents for follow up and medication refill in the setting of chronic low back and pelvic pain. Pain has been fluctuating this month. S/p BL SI joint injection on 04/18/[address] Mares provided significant relief. She states she had to visit the ER when the pain flare-up in her low back with radiation into the R leg worsened. Believes the cause might have been the injection. Notes Dr. Mares will do a different approach if she wishes to repeat the procedure. Patient has followed up with [facility] for the ongoing mid-low back pain and leg pain. Notes she obtained updated CT of the thoracic and lumbar, MRI of the thoracic and lumbar, and XR of the lumbar with flexion and extension. Reports the surgeon was not overly concerned with the results. She states she is planning to get an EMG for the RLE soon. Was also prescribed Klonopin by Dr. Nolasco. Reports current medication regimen provides moderate pain relief and allows for increased functionality. Rates her pain as 9/10 without medications and 6/10 with medications. Continues to utilize [place] 10-325mg with moderate benefit. Denies OIC, which is managed with Senakot, or other side effects from current medication regimen. No other concerns today. Comments: Carolann is a 56 y/o female who presents for follow up and medication refill in the setting of chronic low back and pelvic pain. Patient is routinely followed by my colleague, Genna Hutchinson DNP. Pain has been fluctuating this month and pain level averages 9/10. Continues cupping once weekly.Underwent sleep study which determined that she does not experience REM sleep. 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 Rates her pain as 9/10 without medications and 6/10 with medications. Continues to utilize [place] 10-325mg with moderate benefit. Denies OIC, which is managed with Senakot, or other side effects from current medication regimen. No other concerns today. low back pain Severity level i s 9. Duration: chronic. The problem is fluctuating. It occurs persistently. Location of pain is lower back and pelvis. The client describes the pain as an ache, burning and tingling. Symptoms are aggravated by ascending stairs, bending, descending stairs, lifting, lying/rest, sitting, standing, twisting, walking, housework, movement and prolonged positioning. Symptoms are relieved by ice, pain meds/drugs and changing positions. low back pain Severity level i s 6. Duration: chronic. The problem is fluctuating. It occurs persistently. Location of pain is middle back. The client describes the pain as an ache, burning and sharp. Symptoms are aggravated by bending, lifting, lying/rest, sitting, standing, housework, movement, stairs and prolonged positioning. Symptoms are relieved by ice, lying down and pain meds/drugs. Comments: Carolann is a 56 y/o female who presents for follow up and medication refill in the setting of chronic low back and pelvic pain. Pain has been fluctuating this month. She states pain in the BL arms have improved significantly since doing cupping once a week. 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 Rates her pain as 10/10 without medications and 6/10 with medications. Continues to utilize [place] 10-325mg with moderate benefit. Denies OIC, which is managed with Senakot, or other side effects from current medication regimen. No other concerns today. low back pain Severity level i s 7. Duration: chronic. The problem is fluctuating. It occurs persistently. Location of pain is lower back and pelvis. The client describes the pain as burning and tingling. Symptoms are aggravated by ascending stairs, bending, descending stairs, lifting, sitting, twisting, walking, housework, movement and prolonged positioning. Symptoms are relieved by ice and rest. Comments: Carolann is a 56 y/o woman here for follow up consult and medication refill in the setting of chronic low back and pelvic pain. This is my first evaluation of the patient who is routinely followed by my colleague, Genna Hutchinson DNP. Pain has been fluctuating since CHE and pain level averages 7/10. Reports that the pain in her BL arms has improved, and is nearly resolved. Inquires about TPIs for increased pain relief.Reports that she f/w a neurologist for a sleep study. Now utilizes a CPAP machine at night.Current medication regimen provides approximately 20% pain relief and allows for increased functionality. Rates her pain as 7/10 without medications and 5/10 with medications. Continues to utilize [place] 10-325mg with moderate benefit. Reports that she was recently started on Cogentin which has been helpful. Endorses OIC which is managed with Senakot. Denies other side effects from current medication regimen. No other concerns today. Comments: Carolann is a 56 y/o female who presents for follow up and medication refill in the setting of chronic low back and pelvic pain. Pain has been fluctuating this month. She states pain in the L mid thoracic have been the most bothersome. Notes the pain begins above her fusion. Inquires if she can receive an injection at the area of pain. Has been experiencing soreness and numbness in the BL arms, especially when she wakes up in the morning. Denies any weakness in either arms. Believes the pain might be d/t her raking the leaves. Inquires if it is possible the pain in her thoracic is causing the pain in her BL arms. Reports current medication regimen provides moderate pain relief and allows for increased functionality. Rates her pain as 7/10 without medications and 4/10 with medications. Continues to utilize [place] 10-325mg with moderate benefit. Endorses OIC which is managed with Senakot. Denies other side effects from current medication regimen. No other concerns today. Back Pain Severity level i s 4. Duration: chronic. The problem is fluctuating. It occurs persistently. Location of pain is middle back. The client describes the pain as an ache and sharp. Symptoms are aggravated by bending, lifting, running, sitting, standing, twisting, walking, housework, movement, stairs and prolonged positioning. Symptoms are relieved by ice, lying down, pain meds/drugs, stretching and changing positions. Comments: Carolann is a 56 y/o female who presents for follow up and medication refill in the setting of chronic low back and pelvic pain. Pain has been stable this month. Willing to consider pool therapy for improvement of low back pain. S/p BL SI Joint Injection on 11/25/[address] Kothari provided 25% relief. She states the pain is still present but walking have improved. Notes when she sits down, she also experienced improvement of pain. Reports the area of injection is currently still sore and endorses a slight burning sensation. Patient states she recently did a sleep study for her ongoing sleeping problems. Specialists told her she has a sleeping disorder, one of which is sleep apnea. Notes she typically wakes up violently with her arms smacking the ritter and the general area around her. She expressed concern with the results from the study as she believes it may be an onset of Parkinson's Disease. Reports she is worried since her bother recently from the disease in July 2021. Reports current medication regimen provides 25% pain relief and allows for increased functionality. Endorses OIC which is managed with Senakot. Denies other side effects from current medication regimen. No other concerns today. Back Pain Severity level i s 4. Duration: chronic. The problem is stable. It occurs persistently. Location of pain is middle back and lower back. The client describes the pain as burning and sharp. Symptoms are aggravated by bending, lifting, lying/rest, sitting, standing, twisting, walking, housework, movement, stairs and prolonged positioning. Symptoms are relieved by physical therapy, rest and changing positions. Back pain Severity level i s 3. Duration: chronic. The problem is stable. It occurs intermittently. Location of pain is middle back and lower back. The client describes the pain as an ache and burning. Symptoms are aggravated by ascending stairs, descending stairs, lifting, running, standing, twisting, walking and housework. movement. Symptoms are relieved by heat, lying down and pain meds/drugs. Comments: Carolann is a 55 y/o female who is here for follow up regarding chronic low back and pelvic. Pain has been stable since last OV. Expresses interest in repeating TPI today.Details recent vist to PCP where she was diagnosed with Eri-Danlos syndrome.Reports current medication regimen provides 60% pain relief. She reports she had an allergic reaction to Tizanidine 2mg and reports SEs of throat swelling and itching. Denies other side effects. No other concerns today. Comments: Carolann is a 55 y/o female who is here for follow up regarding chronic low back, mid back pain and BLE pain. She states her pain is worse this month and reports increased soreness and a burning feeling down her R leg. She states she feels like her sciatica is returning. She also reports numbness around her L side SI joint. She notes she is noticing that she is leaning when she walks. She would be interested in completing PT.S/p 04/16/20 [id number] fusion. S/p 05/06/21 hardware revision (hardware/pins taken out) with significant benefit to her overall pain levels. She reports hx of SI injections before surgery and before the revision, without benefit. TPI at [facility] on 07/21/21 was helpful for 1hr but she would like to repeat this with steroid. l. She continues to also follow closely with rheumatology for ongoing work-up. She reports increased emotional stress d/t her brother's passing in 07/2021. 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 Reports current medication regimen provides 60% pain relief. She reports she had an allergic reaction to Tizanidine 2mg and reports SEs of throat swelling and itching. Denies other side effects. No other concerns today. Back Pain Severity level i s moderate. Duration: chronic. The problem is fluctuating. It occurs persistently. Location of pain is middle back and lower back. Pain is radiated to the buttocks. The client describes the pain as an ache and burning. Symptoms are aggravated by ascending stairs, bending and lifting. Symptoms are relieved by heat, ice, pain meds/drugs and physical therapy. Back Pain Severity level i s 7. Duration: chronic. The problem is worsening. It occurs persistently. Location of pain is middle back, lower back and arms. The client describes the pain as an ache, burning, sharp and tingling. Symptoms are aggravated by bending, lifting, sitting, standing, twisting, movement, stairs and housework. Symptoms are relieved by ice, lying down, pain meds/drugs, stretching, rest and changing positions. Comments: Carolann is a 55 y/o female who is here for follow up regarding chronic low back, mid back pain and BLE pain. She states her pain is worse this month and reports increased soreness and a burning feeling down her R leg. She states she feels like her sciatica is returning. She also reports numbness around her L side SI joint. She notes she is noticing that she is leaning when she walks. She would be interested in completing PT.S/p 04/16/20 [id number] fusion. S/p 05/06/21 hardware revision (hardware/pins taken out) with significant benefit to her overall pain levels. She reports hx of SI injections before surgery and before the revision, without benefit. TPI at [facility] on 07/21/21 was helpful for 1hr but she would like to repeat this with steroid. She also details hx of arthritis. She reports she has tried an ANGELES in the past with SE of bad headaches that eventually had to got to ER and 2nd ANGELES was not helpful. She continues to also follow closely with rheumatology for ongoing work-up. She reports increased emotional stress d/t her brother's passing in 07/2021.She is currently managed on [place] 5-325 max 4/day. Reports current medication regimen provides 60% pain relief. She reports she had an allergic reaction to Tizanidine 2mg and reports SEs of throat swelling and itching. She reports she had to take Benadryl and eventually used a Epi Pen. Reports past SEs with Baclofen. She inquires about if she can try Valium instead of Tizanidine to help her relax and was informed [facility] does not rx this medication. Denies other side effects. No other concerns today. Back Pain Severity level i s mild-moderate. Duration: chronic. The problem is fluctuating. It occurs persistently. Location of pain is middle back and lower back.There is no radiation of pain. The client describes the pain as an ache and tight. Symptoms are aggravated by ascending stairs, bending and lifting. Symptoms are relieved by heat, ice, massage, pain meds/drugs, stretching and rest. Comments: Carolann is here for follow up regarding chronic low back and mid back pain and BLE pain. S/p 04/16/20 [id number] fusion. S/p 05/06/21 hardware revision (hardware taken out) with significant benefit to her overall pain levels. States the recovery has been going well. Notes that her pain immediately improved following surgery. She complains of increased spasticity in lower back and thoracic region since last OV . Interested in TPI and trialing muscle relaxant She continues to also follow closely with rheumatology for ongoing work-up. She is currently managed on [place] 5-325 max 3/day, requests a change to max 4/day due to increased activity. Denies other side effects. No other concerns today Back Pain (comments) Carolann is he re for follow up regarding chronic low back and BLE pain. S/p 04/16/20 [id number] fusion with pain localized over the inferior hardware with occasional radiation to BL LE's. S/p 05/05/21 hardware revision with significant benefit to her overall pain levels. States the recovery has been going well. Notes that her pain immediately improved following surgery. She continues to also follow closely with rheumatology for ongoing work-up. Of note, states she had a root canal since last OV. Denies concern. She is currently managed on [place] 5-325 max 3/day with moderate pain relief and increased functionality. Denies other side effects. No other concerns today. Back Pain Severity level i s 4. The problem is improving. It occurs intermittently. The patient describes the pain as an ache and burning. Symptoms are aggravated by ascending stairs, bending, descending stairs, lifting, walking and movement. Symptoms are relieved by ice, pain meds/drugs and stretching. Back Pain Severity level i s 9. Duration: chronic. The problem is worsening. It occurs persistently. Location of pain is lower back. Pain is radiated to the BL legs.The patient describes the pain as an ache, burning and tingling. Symptoms are aggravated by bending, lifting, lying/rest, sitting, standing, twisting, walking, housework, movement, stairs and prolonged positioning. Symptoms are relieved by ice, pain meds/drugs, stretching and changing positions. Back Pain (comments) Mrs. Carito colindres is a pleasant 55 y/o woman here for follow up regarding chronic low back and BLE pain. S/p 04/16/20 [id number] fusion with pain localized over the inferior hardware with occasional radiation to BL LE's. S/p cortisone injection over her loose pelvic screw without benefit. Now following up with rheumatology due to color changes in her feet, potentially dx'ed with Lupus. Also notes pain over GT's bilaterally e/b lying on her side.She is currently managed on [place] 5-325 max 3/day with moderate pain relief and increased functionality. She has now d/c'ed Lyrica and is experiencing increased pain. Started taking blood pressure medication. Denies other side effects. No other concerns today. Back Pain (comments) Mrs. Carito colindres is a pleasant 55 y/o woman here for follow up regarding chronic low back and BLE pain. S/p 04/16/20 [id number] fusion with pain localized over the inferior hardware with occasional radiation to BL LE's. She will be getting an injection over her pelvic screws at [facility]. They may be removing her screws depending on those injection results.She is currently managed on [place] 10-325mg max 2/day and has been only taking 1 per day as the second caused side effects. She is also taking Lyrica 100mg max 2/day. The Lyrica causes mild swelling and brain fog. Denies other side effects. No other concerns today. Back Pain Severity level i s 4. Duration: chronic. The problem is fluctuating. It occurs persistently. Location of pain is middle back and lower back. Pain is radiated to the BL lateral thighs.The patient describes the pain as burning and sharp. Symptoms are aggravated by bending, lifting, lying/rest, sitting, standing, twisting, walking, housework, movement, stairs and prolonged positioning. Symptoms are relieved by ice and pain meds/drugs. Back Pain (comments) Mrs. Carito colindres is a pleasant 55 y/o woman here for initial follow up regarding chronic low back and BLE pain. S/p 04/16/20 [id number] fusion with pain localized over all of her hardware with radiation up her back and down the lateral aspect of the bilateral legs with pain in her feet. She endorses color changes in her feet. She will be following up with her surgeons on 03/22/21 and may be getting hardware removed. She expresses interest in ESIs.She is currently managed on Lyrica 100mg max 2/day and last had #20 [place] 5-325mg filled on 02/05/21. The Lyrica causes mild swelling and she normally only takes 1/day. The [place] did not help. Denies other side effects. No other concerns today. Back Pain Severity level i s 10. Duration: chronic. The problem is worsening. It occurs persistently. Location of pain is middle back, lower back and gluteal area. Pain is radiated to the BL lateral thighs and BL feet.The patient describes the pain as an ache, burning, sharp and tingling. Symptoms are aggravated by bending, lifting, lying/rest, running, sitting, standing, twisting, walking, housework, movement, stairs and prolonged positioning. Symptoms are relieved by ice, lying down, pain meds/drugs, physical therapy, stretching, rest and changing positions. Back Pain (comments) Mrs. Carito colindres is a pleasant 55 y/o woman here for initial consult regarding chronic low back and left hip pain, referred by Lakeisha Brennan PA-C through [facility]. Pain began with a gradual onset on 04/16/20 after a [id number] fusion at [facility] with Dr. Narayanan. This fusion was necessary as she had neurologic deficits in the left leg in the setting scoliosis and severe degenerative changes (details unclear). She carries a dx of arthritis, scoliosis, and s/p gastric bypass surgery. Pain is now described as a constant ache and burning sensation, often localized in left buttock over the lowest screw. Pain averages 8/10.She has tried PT through [facility] in September and December without benefit, and has tried an ANGELES at [facility] that only gave her a headache. Her most recent imaging was done through [facility].She is currently managed on Lyrica 100mg BID and last had #20 [place] 5-325mg filled on 02/05/21. The Lyrica causes mild swelling. Denies other side effects. She has trialled gabapentin up to 2700mg/day with side effect of blisters, Cymbalta, cyclobenzaprine, methocarbamol, tramadol, and hydrocodone. She states that she is allergic to a lot of medications. Mrs. Lema is interested in pain management through [facility]. No other concerns today. Back Pain Severity level i s 8. Duration: chronic. It occurs persistently. Location of pain is lower back. Pain is radiated to the L hip. Symptoms are aggravated by bending, lifting, lying/rest, running, sitting, standing, twisting, walking, housework, stairs, movement and prolonged positioning.The patient denies relieving factors. Functional Status Date Functional Assessmen t No Information Instructions Date Instruction Additional Infor judson Lifestyle education regarding di et Related to Body mass index [BMI] 25.0-25.9, adult Lifestyle education regarding di et Related to Body mass index [BMI] 38.0-38.9, adult Lifestyle education regarding di et Related to Body mass index [BMI] 38.0-38.9, adult Assessments Type Assessment Date assessment Postlaminectomy syndrome, not el sewhere classified assessment Chronic pain syndrome impression Patient with complex chronic pain presents with limited activity tolerance and ongoing lower back and neck pain with nerve pain. Patient reports a good understanding of her appropriate home exercise. She is als using her skills of self care and mindfulness throughout the day. Patient Care Teams Name Effective Dates (start - stop) Status Members No Information
--- OUTSIDE RECORDS SUMMARY | 2024-07-06 00:10 | XMS_ITS | Continuity of Care Document ---
Author Organization 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 Unavailable Unava ilable Procedures Procedure Date Inj for sacroiliac jt anesth Inj for sacroiliac jt anesth Inj for sacroiliac jt anesth Inj for sacroiliac jt anesth Inj for sacroiliac jt anesth Inj for sacroiliac jt anesth Inj for sacroiliac jt anesth Inj for sacroiliac jt anesth Inj for sacroiliac jt anesth Inj for sacroiliac jt anesth Advance Directives Directive Yes / No Effective Date File Name No Information Encounters Encounter Description Practice Location Reason(s) For Visit Diagnoses Date Provider Providers Copied on Encounter [facility], [address] [place] [address], [id number], tel:[phone] [facility] No Information [facility]. [address] [place] [address], [id number], . tel:[phone] Referring Provider: Bertrand Mares, [address] [place], [address] . tel:[phone] [facility], [address] [place] [address], [id number], tel:[phone] [place] [address] No Information 4 [facility]. [address] [place] [address], [id number], . tel:[phone] Referring Provider: Bertrand Mares, [address] [place], [address] . tel:[phone] [facility], [address] [place] [address], [id number], tel:[phone] [place] [address] No Information 3 [facility]. [address] [place] [address], [id number], . tel:[phone] Referring Provider: Bertrand Mares, [address] [place], [address] . tel:[phone] [facility], [address] [place] [address], [id number], tel:[phone] [place] [address] No Information 3 [facility]. [address] [place] [address], [id number], . tel:[phone] Referring Provider: Bertrand Mares, [address] [place], [address] . tel:[phone] [facility], [address] [place] [address], [id number], tel:[phone] [place] [address] No Information 2 [facility]. [address] [place] [address], [id number], . tel:[phone] Referring Provider: Warren Josue, [address], [place], [address]. tel:[phone] Family History Family Member Type Diagnosis Age At Onset No Information Payers Payer name Insurance type Covered green party ID Authoriza tion(s) r CI [id number] Social History Type Description Quantity Date Captured Comments Sex Female Smoking Status No Information Chief Complaint And Reason For Visit No Information Reason For Referral Reason For Referral No Information History Of Present Illness Encounter Date Complaint History Of Prese nt Illness No Information Functional Status Date Functional Assessmen t No Information Instructions Date Instruction Additional Infor mation No Information Assessments Type Assessment Date No Information Patient Care Teams Name Effective Dates (start - stop) Status Members No Information
[2024-07-06] MEDS: 0.9 % SODIUM CHLORIDE 1000 ml 1,000 ML IV (00:49)
[2024-07-06 00:56] LABS: Basophils Percent Auto 0.1 % (0.0-3.0); Eosinophils Percent Auto 2.5 % (0.0-7.0); Hematocrit 40.9 % (33.0-51.0); Immature Granulocytes Pct Auto 0.3 %; Lymphocytes Percent Auto 4.9 % (20-44); Mean Corpuscular HGB Conc 32 gm/dL (32-36); Mean Corpuscular Hemoglobin 30 pg (26-34); Mean Corpuscular Volume 93 fL (80-100); Monocytes Percent Auto 6.8 % (0.0-11.0); Neutrophils Percent Auto 85.4 % (42.0-72.0); Platelet Count* 418 K/uL (140-440); White Blood Count* 15.24 K/uL (4.50-11.00)
--- NOTE | 2024-07-06 01:06 | CRLHL7_ITS ---
For Patients: As a result of the Century Cures Act, medical imaging exams and procedure reports are released immediately into your electronic medical record. You may view this report before your referring provider. If you have questions, please contact your health care provider. INDICATION: Fall, head injury TECHNIQUE: CT Head without i.v. contrast. Coronal and sagittal reformats were obtained. COMPARISON: 01/02/2020 FINDINGS: CSF space: The ventricles are normal for age. Brain: No evidence of mass, acute infarction or hemorrhage is seen. No mass-effect or midline shift is seen. The brain parenchyma is otherwise normal in appearance with preservation of the agrawal-white matter junction. Calvarium: The visualized paranasal sinuses are well aerated. The mastoid air cells are clear. The visualized orbits are grossly unremarkable. The calvarium is unremarkable in appearance with no fractures identified. IMPRESSION: 1. No evidence of acute infarction, intracranial hemorrhage, or mass-effect seen. Please note that all CT scans at this facility use dose modulation, iterative reconstruction, and/or weight-based dosing when appropriate to reduce radiation dose to as low as reasonably achievable. Dictated by: Julio Colby MD @ 07/06/2024 01:47:14 (Electronically Signed)
--- NOTE | 2024-07-06 01:06 | CRLHL7_ITS ---
For Patients: As a result of the Century Cures Act, medical imaging exams and procedure reports are released immediately into your electronic medical record. You may view this report before your referring provider. If you have questions, please contact your health care provider. INDICATION: Fall, neck pain, Fall with neck pain TECHNIQUE: CT cervical spine without i.v. contrast. Coronal and sagittal reformats were obtained. COMPARISON: None FINDINGS: Alignment: Straightening of the spine is present. Bone: No acute fractures or aggressive bone lesions are identified. Disc: Anterior spinal fusion of C4-7 noted. The facet joints are unremarkable. Soft tissue: The prevertebral soft tissues are unremarkable in appearance. The visualized lung apices and mediastinum are unremarkable. IMPRESSION: 1. No acute osseous injuries are identified. Please note that all CT scans at this facility use dose modulation, iterative reconstruction, and/or weight-based dosing when appropriate to reduce radiation dose to as low as reasonably achievable. Dictated by: Julio Colby MD @ 07/06/2024 01:49:37 (Electronically Signed)
--- NOTE | 2024-07-06 01:39 | ED.GENADULT ---
HPI - General Adult General Chief complaint: Fall/Minor Trauma Stated complaint: Weakness Time Seen by Provider: 07/06/24 01:15 History of Present Illness HPI narrative: Pt states she was at home tonight, was feeling okay during the day, had sudden onset of diarrhea and was feeling weak and dizzy. Pt tried to sit down and missed hitting her head on the back of the toilet. Has history of spinal fusion, most recent was lumbar 06/24 at [facility]. Pt. states she passed out twice tonight. 58-year-old woman presenting to the emergency department after a couple of events of syncope. Not noted to have irregular heartbeat necessarily. Today however had sudden onset of intense diarrhea. No blood was noted. No fever. Was feeling weak and lightheaded. Effort to sit down on the toilet at some point messed and struck her head on the back of the toilet. Is having increased neck pain. Some head pain as well. Does have some cramping abdominal discomfort as well. Syncope appears to be somewhat orthostatic. No chest pain noted. No shortness of breath. History of cervical spine and more recent lumbar fusion. No radicular symptoms. Related Data Home Medications ?Medication ?Instructions ?Recorded ?Confirmed amlodipine 2.5 mg tablet 2.5 mg PO DAILY 05/29/22 04/10/24 benztropine 0.5 mg tablet 0.5 mg PO QPM 05/29/22 04/10/24 bupropion HCl 150 mg 24 hr tablet, 150 mg PO DAILY 05/29/22 04/10/24 extended release bupropion HCl 75 mg tablet 75 mg PO DAILY 05/29/22 04/10/24 conj estrogen-medroxyprogesterone 1 tab PO DAILY 05/29/22 04/10/24 0.625 mg-2.5 mg tablet (Prempro) desvenlafaxine succinate 100 mg 100 mg PO DAILY 05/29/22 04/10/24 tablet,extended release 24 hr hydrocodone 5 mg-acetaminophen 325 1 tab PO Q4-6H PRN chronic pain 05/29/22 04/10/24 mg tablet hydroxychloroquine 200 mg tablet 200 mg PO DAILY 05/29/22 04/10/24 levothyroxine 50 mcg tablet 50 mcg PO DAILY 05/29/22 04/10/24 losartan 25 mg tablet 25 mg PO DAILY 05/29/22 04/10/24 omeprazole 40 mg capsule,delayed 40 mg PO QAM 05/29/22 04/10/24 release sumatriptan succinate 50 mg tablet mg PO 05/29/22 04/10/24 Previous Rx's ?Medication ?Instructions ?Recorded cephalexin 500 mg capsule 500 mg PO QID #40 caps 03/31/24 Allergies Allergy/AdvReac Type Severity Reaction Status Date / Time ciprofloxacin (From Cipro) Allergy Severe Anaphylaxis Verified 03/31/24 17:27 Sulfa (Sulfonamide Allergy Severe Anaphylaxis Verified 03/31/24 17:27 Antibiotics) Opioids - Morphine Analogues Allergy Mild Verified 03/31/24 17:27 Review of Systems Status of ROS: Reports: 6 or more systems reviewed and unremarkable except as noted in History and below [facility] Medical History Sjogren syndrome ?M35.00 - Sjogren syndrome, unspecified (ICD-10) Lupus erythematosus ?L93.0 - Discoid lupus erythematosus (ICD-10) Hypothyroidism ?E03.9 - Hypothyroidism, unspecified (ICD-10) Hypertension ?I10 - Essential (primary) hypertension (ICD-10) Family history of Parkinson disease ?Z82.0 - Family history of epilepsy and other diseases of the nervous system (ICD-10) Surgical History S/P cervical spinal fusion ?Z98.1 - Arthrodesis status (ICD-10) S/P lumbar fusion ?Z98.1 - Arthrodesis status (ICD-10) Social History Smoking Status: Never smoker Exam Narrative: Exam Narrative: Pleasant. Does appear upset. Fatigued. In some discomfort. Sore to palpation of the occiput. No defect noted. Cranial nerves 2-12 intact. GCS 15 Neck tenderness as well midline and right. Breathing easily. Heart in regular rate and rhythm. Lungs are clear. Abdomen is soft and generally mildly tender with normal bowel sounds. Skin is a little diaphoretic. Moving all extremities without difficulty. Well-perfused peripherally. No lower extremity edema. Const: Vital Signs, click to edit/add: Vital Signs - 24 hr 07/06/24 00:02 Temperature 96.4 F L Pulse Rate [Pulse Oximeter] 88 Respiratory Rate 18 Blood Pressure [Le ft Upper Arm] 121/88 Pulse Oximetry 92 Oxygen Delivery Me thod Room Air Documenting provider has reviewed patient's vital signs: yes Course Vital Signs Vital signs: Initial Vital Signs Temperature 96.4 F L 07/06/24 00:02 Temperature Source Temporal Artery Scan 07/06/24 00:02 Pulse Rate 88 07/06/24 00:02 Pulse Rhythm Regular 07/06/24 00:02 Respiratory Rate 18 07/06/24 00:02 Blood Pressure 121/88 07/06/24 00:02 Blood Pressure Mean 99 07/06/24 00:02 Blood Pressure Position Supine 07/06/24 00:02 Pulse Oximetry 92 07/06/24 00:02 Oxygen Delivery Method Room Air 07/06/24 00:02 Vital Signs Temperature 96.4 F L 07/06/24 00:02 Pulse Rate 88 07/06/24 00:02 Respiratory Rate 18 07/06/24 00:02 Blood Pressure 121/88 07/06/24 00:02 Pulse Oximetry 92 07/06/24 00:02 Oxygen Delivery Method Room Air 07/06/24 00:02 Temperature 96.4 F L 07/06/24 00:02 Pulse Rate 88 07/06/24 00:02 Respiratory Rate 18 07/06/24 00:02 Blood Pressure 121/88 07/06/24 00:02 Pulse Oximetry 92 07/06/24 00:02 Oxygen Delivery Method Room Air 07/06/24 00:02 Medications Administered Medications: Discontinued Medications Generic Name Dose Route Start Last Admin Trade Name Freq PRN Reason Stop Dose Admin Hydromorphone HCl 1 mg 07/06/24 02:19 07/06/24 02:27 Hydromorphone 2 Mg Tablet PO 07/06/24 02:20 1 mg ONCE ONE Administration Sodium Chloride 1,000 mls @ 1,000 mls/hr 07/06/24 00:39 07/06/24 02:22 0.9 % Sodium Chloride 1000 Ml IV 07/06/24 01:38 Infused .Q1H ONE Infusion Ondansetron HCl 4 mg 07/06/24 02:19 07/06/24 02:28 Ondansetron Odt 4 Mg Tab PO 07/06/24 02:20 4 mg ONCE ONE Administration Medical Decision Making MDM Narrative Medical decision making narrative: Given description of events today would probably benefit from some IV fluids. Syncope could have been cardiac arrhythmia but I think more likely related to vasovagal event in the setting of what appears to be an enteritis/colitis. Will be monitoring on accounts payable administrator. EKG at this point is reassuring. I think head and neck imaging is warranted and likely to be normal with history of postsurgical changes. CT imaging of head and neck independently reviewed by me looks absent acute abnormality. Radiology over-read below INDICATION: Fall, neck pain, Fall with neck pain TECHNIQUE: CT cervical spine without i.v. contrast. Coronal and sagittal reformats were obtained. COMPARISON: None FINDINGS: Alignment: Straightening of the spine is present. Bone: No acute fractures or aggressive bone lesions are identified. Disc: Anterior spinal fusion of C4-7 noted. The facet joints are unremarkable. Soft tissue: The prevertebral soft tissues are unremarkable in appearance. The visualized lung apices and mediastinum are unremarkable. IMPRESSION: 1. No acute osseous injuries are identified. Please note that all CT scans at this facility use dose modulation, iterative reconstruction, and/or weight-based dosing when appropriate to reduce radiation dose to as low as reasonably achievable. Dictated by: Julio Colby MD @ 07/06/2024 01:49:37 Labs show an elevated white count not inconsistent with enteritis or possibly colitis. Improved with IV hydration. With pain complaints/concerns was also given pain medication. With familiarity with opioids and reviewing tolerance is, was given oral Dilaudid. Also received Zofran Events on monitor during time in the emergency department. See patient discharge plan for further discussion Focus on hydration. Should this diarrhea continue and as long as you are not having a fever or seeing blood in your stool, could take loperamide if necessary. I suppose I would anticipate being rather sore tomorrow. I hesitate to tell you what sort of stretches you should do given your recent surgeries. I would check in with your surgery Clinic Medical Records Medical records reviewed: Yes I reviewed the patient's medical records Lab Data Lab results reviewed: Yes I reviewed the patient's lab results Labs: Lab Results 07/06/24 Range/Units 00:45 WBC 15.24 H (4.50-11.00) K/uL RBC 4.40 (4.00-5.20) m/uL Hgb 13.0 (12.0-16.0) gm/dL Hct 40.9 (33.0-51.0) % MCV 93 (80-100) fL MCH 30 (26-34) pg MCHC 32 (32-36) gm/dL RDW Coeff of [place] 13.0 (11.5-15.5) % Plt Count 418 (140-440) K/uL Neut % (Auto) 85.4 H (42.0-72.0) % Lymph % (Auto) 4.9 L (20-44) % [place] % (Auto) 6.8 (0.0-11.0) % Eos % (Auto) 2.5 (0.0-7.0) % Baso % (Auto) 0.1 (0.0-3.0) % Neut # (Auto) 13.00 H (1.7-7.0) K/uL Lymph # (Auto) 0.70 L (0.90-2.90) K/uL [place] # (Auto) 1.00 H (0.00-0.90) K/UL Eos # (Auto) 0.40 (0.00-0.50) K/uL Baso # (Auto) 0.00 (0.00-0.30) K/uL Abs Immat Gran (auto) 0.00 (0.00-0.30) K/uL Imm/Tot Granulo (auto) 0.3 % Sodium 140 (135-149) mmol/L Potassium 4.0 (3.6-5.1) mmol/L Chloride 108 (96-114) mmol/L Carbon Dioxide 20 (20-32) mmol/L Anion Gap 12 (7-15) mEq/L BUN 15 (7-30) mg/dL Creatinine 1.3 (0.5-1.5) mg/dL Estimated Creat Clear 50.50 Estimated GFR 48 ml/min Glucose 138 H (60-115) mg/dL Calcium 9.3 (8.4-10.6) mg/dL Troponin I < 0.01 (0.01-0.04) ng/mL ECG Data Attestation: I personally reviewed and interpreted this ECG as follows: (Normal sinus rhythm at a rate of 88. Little lower amplitude) Discharge Plan Discharge Clinical Impression: Neck strain, Closed head injury, Vasovagal syncope, Diarrhea Patient Disposition: Home w/ Parent or Adult Condition: Improved Additional Instructions: Focus on hydration. Should this diarrhea continue and as long as you are not having a fever or seeing blood in your stool, could take loperamide if necessary. I suppose I would anticipate being rather sore tomorrow. I hesitate to tell you what sort of stretches you should do given your recent surgeries. I would check in with your surgery Clinic Prescriptions: No Action losartan 25 mg tablet 25 mg PO DAILY hydrocodone-acetaminophen 5-325 mg tablet 1 tab PO Q4-6H PRN (Reason: chronic pain) desvenlafaxine succinate 100 mg tablet extended release 24 hr 100 mg PO DAILY bupropion HCl 150 mg tablet extended release 24 hr 150 mg PO DAILY bupropion HCl 75 mg tablet 75 mg PO DAILY levothyroxine 50 mcg tablet 50 mcg PO DAILY omeprazole 40 mg capsule,delayed release(DR/EC) 40 mg PO QAM amlodipine 2.5 mg tablet 2.5 mg PO DAILY benztropine 0.5 mg tablet 0.5 mg PO QPM Prempro 0.625-2.5 mg tablet 1 tab PO DAILY hydroxychloroquine 200 mg tablet 200 mg PO DAILY sumatriptan succinate 50 mg tablet PO cephalexin 500 mg capsule 500 mg PO QID Qty: 40 0RF Follow Up/Referrals: Provider,Not a Local [Non-Staff] - Stand Alone Forms: [employer] Info Instructions
[2024-07-06 01:51] LABS: Chloride* 108 mmol/L (96-114); Sodium* 140 mmol/L (135-149)
[2024-07-06 01:54] LABS: Anion Gap 12 mEq/L (7-15); Blood Urea Nitrogen* 15 mg/dL (7-30); Calcium* 9.3 mg/dL (8.4-10.6); Carbon Dioxide* 20 mmol/L (20-32); Creatinine* 1.3 mg/dL (0.5-1.5); Estimated Glomerular Filt Rate 48 ml/min; Glucose* 138 mg/dL (60-115)
[2024-07-06 02:08] LABS: Troponin I* < 0.01 ng/mL (0.01-0.04)
[2024-07-06 02:16] LABS: Slide Review Reflex No
[2024-07-06] MEDS: HYDROmorphone 2 MG TABLET 1 MG PO (02:27)
[2024-07-06] MEDS: ONDANSETRON ODT 4 MG TAB PO (02:28)
== END 2024-07-06 02:34 | disposition home or self-care (01) ==
PROVIDERS: Emergency Provider Family Medicine; PCP Family Medicine
DX: S09.90XA Unspecified injury of head, initial encounter (principal); S16.1XXA Strain of muscle, fascia and tendon at neck level, initial encounter; R19.7 Diarrhea, unspecified; R55 Syncope and collapse; R10.9 Unspecified abdominal pain; W18.12XA Fall from or off toilet with subsequent striking against object, initial encounter; Y92.002 Bathroom of unspecified non-institutional (private) residence as the place of occurrence of the external cause
CPT/HCPCS: 36415; 70450; 72125; 80048; 84484; 85025; 96360; 99284; 99285; A9270; J7030